=== PATIENT | female | born 1985 | race American Indian/Alaskan Native ===

== ENCOUNTER → 2021-01-03 08:10 | Outpatient (BNVA) | payer OTHER, SELFPAY | PROVIDERS: PCP Internal Medicine; Visit Provider Surgery ==

== ENCOUNTER → 2021-01-06 14:37 | Outpatient (BNVA) | payer OTHER, SELFPAY | PROVIDERS: PCP Internal Medicine; Visit Provider Physician Assistant ==

== ENCOUNTER → 2021-01-07 08:08 | Outpatient (BNVA) | payer OTHER, SELFPAY | PROVIDERS: PCP Internal Medicine; Visit Provider Surgery ==

== ENCOUNTER 2021-01-10 10:34 | Outpatient (REF) | payer OTHER, SELFPAY ==
[2021-01-11 13:31] LABS: H Pylori Breath Test DETECTED (NOT DETECTED)
== END 2021-01-10 10:35 | disposition home or self-care (01) ==
LOC: HO.LNP 10:34
PROVIDERS: PCP Internal Medicine; Visit Provider Physician Assistant
DX: E66.01 Morbid (severe) obesity due to excess calories (principal); G47.30 Sleep apnea, unspecified; J45.909 Unspecified asthma, uncomplicated; K21.9 Gastro-esophageal reflux disease without esophagitis
CPT/HCPCS: 83013; 99211

== ENCOUNTER 2021-01-27 09:59 | Outpatient (REF) | payer OTHER, SELFPAY ==
--- NOTE | ~2021-01-27 | XR_ITS ---
EXAMINATION: XR CHEST CLINICAL INFORMATION: Moderate/severe obesity due to excess calories COMPARISON: Chest 01/22/2018 TECHNIQUE: 2 views of the chest were obtained. FINDINGS: The lungs are well-expanded and clear of acute process. The heart size and pulmonary vascularity is normal. XR/XR chest 2V IMPRESSION: Unremarkable chest exam.
[2021-01-27 10:52] LABS: MANUAL DIFF FLAG NO
[2021-01-27 10:59] LABS: Basophils Percent Auto 0.3 % (0-2); Eosinophils Absolute Auto 0.2 X10*3/uL (0.0-0.4); Eosinophils Percent Auto 2.8 % (0-4); Hematocrit 29.4 % (37-47); Hemoglobin 8.2 g/dl (12.0-16.0); Imm Gran Abs Auto 0.02 X10*3/uL (0.00-0.03); Imm Gran Pct Auto 0.3 % (0.0-0.4); Lymphocytes Percent Auto 26.1 % (20-40); Mean Corpuscular HGB Conc 27.9 g/dl (31.0-35.0); Mean Corpuscular Hemoglobin 19.3 pg (27.0-33.0); Mean Corpuscular Volume 69.2 fL (80-98); Mean Platelet Volume 10.4 fL (9.4-12.3); Monocytes Absolute Auto 0.5 X10*3/uL (0.1-1.2); Neutrophils Percent Auto 64.5 % (45-73); Platelet Count 455 X10*3/uL (160-400); Red Blood Count 4.25 X10*6/uL (4.20-5.50); White Blood Count 7.8 X10*3/uL (4.8-10.8)
[2021-01-27 11:04] LABS: Estimated Average Glucose 100 mg/dL; Hemoglobin A1c % 5.1 %
[2021-01-27 11:23] LABS: Alanine Aminotransferase 19 U/L (0-31); Albumin Level 3.7 g/dL (3.5-5.0); Alkaline Phosphatase 67 U/L (39-117); Anion Gap 14 (12-20); Aspartate Amino Transferase 19 U/L (5-31); Bilirubin Total 0.7 mg/dL (0.0-1.0); Blood Urea Nitrogen 10 mg/dL (9-16); C Reactive Protein 0.91 mg/dL (< or = 0.50); Calcium 7.6 mg/dL (8.4-10.2); Carbon Dioxide 24 mmol/L (22-29); Chloride 106 mmol/L (96-108); Cholesterol 177 mg/dL; Estimated Glomerular Filt Rate > 60; Glucose Random 88 mg/dL (60-115); HDL Cholesterol 51 mg/dL; Iron 20 mcg/dL (30-160); LDL Cholesterol Calculated 99 mg/dl; Percent Iron Saturation 5 % (15-50); Sodium 140 mmol/L (135-145); Total Iron Binding Capacity 428 mcg/dL (228-428); Total Protein 7.1 g/dL (6.5-8.0); Triglycerides 135 mg/dL; Unsaturated Iron Binding 408 ug/dL
[2021-01-27 11:44] LABS: Ferritin 2 ng/mL (10-122); TSH reflex Free T4 2.04 uIU/mL (0.32-4.0); Vitamin D 25-OH Total 16.8 ng/mL (>30)
[2021-01-27 11:52] LABS: Folate 9.7 ng/mL (> or = 4.0); Vitamin B12 < 146 pg/mL (200-900)
[2021-01-28 09:21] LABS: Insulin Level Total 10.2 uIU/mL
[2021-01-28 13:22] LABS: Calcium (PTHI) 7.6 mg/dL (8.6-10.2); PTHI 52 pg/mL (14-64)
[2021-01-29 16:06] LABS: Zinc 58 mcg/dL (60-130)
[2021-01-31 10:51] LABS: Vitamin B1 7 nmol/L (8-30)
[2021-01-31 16:57] LABS: Vitamin A 46 mcg/dL (38-98)
== END 2021-01-27 10:00 | disposition home or self-care (01) ==
LOC: HO.LAB 09:59
PROVIDERS: PCP Internal Medicine; Visit Provider Surgery
DX: E66.01 Morbid (severe) obesity due to excess calories (principal); G47.30 Sleep apnea, unspecified; J45.909 Unspecified asthma, uncomplicated; K21.9 Gastro-esophageal reflux disease without esophagitis
CPT/HCPCS: 36415; 71046; 80053; 80061; 82306; 82607; 82728; 82746; 83036; 83525; 83540; 83970; 84425; 84443; 84590; 84630; 85025; 86140

== ENCOUNTER → 2021-01-29 08:26 | Outpatient (BNVA) | payer OTHER, SELFPAY | PROVIDERS: PCP Internal Medicine; Visit Provider Surgery ==

== ENCOUNTER → 2021-02-03 08:26 | Outpatient (BNVA) | payer OTHER, SELFPAY | PROVIDERS: PCP Internal Medicine; Visit Provider Dietitian, Registered | DX: E66.01 Morbid (severe) obesity due to excess calories (principal); Z68.43 Body mass index [BMI] 50.0-59.9, adult | CPT/HCPCS: 97802 ==

== ENCOUNTER 2021-02-10 16:28 | Outpatient (REF) | payer OTHER, SELFPAY | END 2021-02-10 16:29 | disposition home or self-care (01) | LOC: HO.LNP 16:28 | PROVIDERS: Visit Provider Hospitalist | DX: R30.0 Dysuria (principal) | CPT/HCPCS: 87086; 87088; 87186 ==

== ENCOUNTER → 2021-02-12 09:49 | Outpatient (BNVA) | payer OTHER, SELFPAY | PROVIDERS: PCP Internal Medicine; Visit Provider Advanced Practice Midwife | DX: N92.0 Excessive and frequent menstruation with regular cycle (principal); D64.9 Anemia, unspecified; E66.01 Morbid (severe) obesity due to excess calories; N93.9 Abnormal uterine and vaginal bleeding, unspecified; L68.0 Hirsutism | CPT/HCPCS: 99202 ==

== ENCOUNTER 2021-02-17 08:58 | Outpatient (REF) | payer OTHER, SELFPAY ==
--- NOTE | ~2021-02-17 | US_ITS ---
EXAMINATION: US COMPLETE ABDOMEN WITH LIVER ELASTOGRAPHY CLINICAL INFORMATION: Morbid (severe) obesity due to excess calories. COMPARISON: None. TECHNIQUE: Real-time imaging of the abdominal viscera. Noninvasive ultrasound liver fibrosis assessment is performed using Harjinder ElastPQ point quantification shear wave elastography (pSWE) with a C5-2 MHz transducer. Multiple elastography samples are obtained. FINDINGS: PANCREAS: The visualized pancreatic head and body are normal in appearance. The remainder of the pancreas is obscured from visualization by the overlying bowel gas. ABDOMINAL AORTA: The proximal and middle aortic segments are normal in caliber. The distal abdominal aorta is not well visualized due to bowel gas. INFERIOR VENA CAVA: Visualized portions are normal. LIVER: Liver echotexture is increased. The liver is slightly enlarged. The liver is normal in contour. No focal liver lesion or biliary duct dilatation. The right lobe measures 18 cm in length. The left lobe measures 15 cm in length. Portal flow is normal/hepatopedal. Shear wave liver elastography median stiffness is 2.1 m/s (reference: normal median stiffness is 1.3 m/s or less). IQR/median stiffness to assess sampling precision is 0.2 (reference: good quality data set is IQR/median stiffness of 0.15 or less). GALLBLADDER: Surgically removed. COMMON BILE DUCT: Normal in caliber measuring 0.7 cm in diameter. RIGHT KIDNEY: Normal. No hydronephrosis. No renal calculi or focal parenchymal lesions. The kidney measures 13 cm in maximum dimension. LEFT KIDNEY: Normal. No hydronephrosis. No renal calculi or focal parenchymal lesions. The kidney measures 12.8 cm in maximum dimension. SPLEEN: Normal. The spleen measures 8.9 cm in maximum dimension. There is a 3.8 x 3.2 x 3 cm splenule. FREE FLUID: None. US/US abdomen comp w elastography IMPRESSION: 1. Slightly enlarged echogenic liver. Limited visualization of the pancreas. 2. Liver elastography: Limited due to sampling error. Exam suggest possible compensated advanced chronic liver disease. REFERENCE: Society of Radiologists in Ultrasound Liver Stiffness Thresholds (2019): LIVER STIFFNESS THRESHOLDS: *Liver Stiffness equal or less than 1.3 m/s: High probability of being normal. *Liver Stiffness less than 1.7 m/s: In the absence of other known clinical signs, rules out compensated advanced chronic liver disease. *Liver Stiffness 1.7-2.1 m/s: Suggestive of compensated advanced chronic liver disease but need further test for confirmation. *Liver Stiffness over 2.1 m/s: Rules in compensated advanced chronic liver disease. *Liver Stiffness over 2.4 m/s: Suggestive of clinically significant portal hypertension. QUALITY OF DATA SET: *IQR/Median value equal or less than 0.15 implies a quality data set. *IQR/Median value over 0.15 implies a poor quality data set. SIGNIFICANT CHANGE FROM PRIOR EXAM: Significant change if liver stiffness measurement is 10% or greater from prior exam. OTHER CONSIDERATIONS: The stage of liver fibrosis may be overestimated in the setting of acute hepatitis, liver inflammation, elevated liver function tests, hepatic vascular congestion, obstructive cholestasis, non-fasting state, and infiltrative diseases such as amyloidosis and lymphoma. In some patients with NAFLD, the liver stiffness thresholds for compensated advanced chronic liver disease may be lower. In causes other than viral hepatitis and NAFLD, liver stiffness thresholds are not well established.
--- NOTE | ~2021-02-17 | FL_ITS ---
EXAMINATION: XR GI SERIES CLINICAL INFORMATION: Moderate to severe obesity. COMPARISON: None TECHNIQUE: Routine upper GI air-contrast study was performed. FINDINGS: On oral administration of thick barium and effervescent granules there is normal propagation bolus from the oral cavity through the pharynx, esophagus into stomach without any evidence of obstruction, narrowing or stricture. On placing patient supine and prone lying the course, caliber and peristalsis of the stomach and the duodenal bulb is normal. There is [id number] gastroesophageal reflux without hiatal hernia. The course, caliber and peristalsis of stomach, duodenal bulb and sweep is normal. The mucosal pattern of stomach and the duodenum is normal. FLUOROSCOPY TIME: 2.6 minutes DOSE AREA PRODUCT: 67.871 uGy-m2 (microgray-meter squared) FL/FL upper GI series IMPRESSION: [id number] gastroesophageal reflux. Otherwise rest of upper GI exam is unremarkable.
[2021-02-17 11:37] LABS: HCG Quantitative < 2 mIU/mL
[2021-02-18 08:51] LABS: DHEA Sulfate 92 mcg/dL (23-266)
[2021-02-18 12:06] LABS: Prolactin 6.7 ng/mL
[2021-02-22 10:57] LABS: Testosterone, Free 2.4 pg/mL (0.1-6.4); Testosterone, Total 26 ng/dL (2-45)
== END 2021-02-17 08:59 | disposition home or self-care (01) ==
LOC: HO.US 08:58
PROVIDERS: Advanced Practice Midwife; PCP Internal Medicine; Visit Provider Surgery
DX: Z01.818 Encounter for other preprocedural examination (principal); E66.01 Morbid (severe) obesity due to excess calories; K21.9 Gastro-esophageal reflux disease without esophagitis; G47.30 Sleep apnea, unspecified; J45.909 Unspecified asthma, uncomplicated; N92.0 Excessive and frequent menstruation with regular cycle; N93.9 Abnormal uterine and vaginal bleeding, unspecified
CPT/HCPCS: 36415; 74240; 76705; 76981; 82627; 83498; 84146; 84402; 84403; 84702

== ENCOUNTER 2021-02-21 08:16 | Outpatient (REF) | payer OTHER, SELFPAY ==
[2021-02-22 14:31] LABS: H Pylori Breath Test NOT DETECTED (NOT DETECTED)
== END 2021-02-21 08:17 | disposition home or self-care (01) ==
LOC: HO.LNP 08:16
PROVIDERS: PCP Internal Medicine; Visit Provider Surgery
DX: E66.01 Morbid (severe) obesity due to excess calories (principal); Z68.43 Body mass index [BMI] 50.0-59.9, adult; Z71.3 Dietary counseling and surveillance
CPT/HCPCS: 83013; 99211

== ENCOUNTER 2021-02-24 11:12 | Outpatient (REF) | payer OTHER, SELFPAY ==
--- NOTE | ~2021-02-24 | US_ITS ---
EXAMINATION: US PELVIS AND TRANSVAGINAL CLINICAL INFORMATION: Abnormal uterine and vaginal bleeding. COMPARISON: None TECHNIQUE: Transabdominal and transvaginal imaging of pelvis is performed. FINDINGS: The uterus is retroverted and anteflexed measuring 11.2 cm in length, 4.5 cm in AP and 6.0 cm in transverse dimension. The endometrial thickness is 0.8 cm. Right ovary measures 4.0 x 2.4 x 2.4 cm and volume 12.1 mL. There is an anechoic cyst with septation measuring 1.9 x 1.6 x 1.5 cm. A simple cyst measures 0.9 x 0.5 x 1.1 cm. Left ovary measures 2.3 x 2.1 x 1.6 cm and volume 4.1 mL. There are small follicles seen. There is no free fluid in the cul-de-sac. US/US pelvic and transvaginal IMPRESSION: Unremarkable uterus. Complex cyst and a simple exophytic cyst right ovary.
== END 2021-02-24 11:13 | disposition home or self-care (01) ==
LOC: HO.US 11:12
PROVIDERS: Visit Provider Advanced Practice Midwife
DX: N93.9 Abnormal uterine and vaginal bleeding, unspecified (principal)
CPT/HCPCS: 76830; 76856; 97803

== ENCOUNTER → 2021-03-11 12:47 | Outpatient (BNVA) | payer OTHER, SELFPAY | PROVIDERS: PCP Internal Medicine; Visit Provider Dietitian, Registered ==

== ENCOUNTER 2021-03-12 07:47 | Outpatient (REF) | payer OTHER, SELFPAY ==
--- NOTE | 2021-03-03 10:33 | MHC.HEMONCMA ---
Second attempt for letting patient know of her new date/time for IV Dextran. Will attempt later today.
== END 2021-03-12 07:48 | disposition home or self-care (01) ==
LOC: HO.MDS 07:47
PROVIDERS: PCP Internal Medicine; Visit Provider Internal Medicine
DX: D50.9 Iron deficiency anemia, unspecified (principal)
CPT/HCPCS: 96374; 96375; J1200; J1750

== ENCOUNTER → 2021-03-13 11:56 | Outpatient (BNVA) | payer OTHER, SELFPAY | PROVIDERS: PCP Internal Medicine; Visit Provider Advanced Practice Midwife ==

== ENCOUNTER → 2021-03-18 08:03 | Outpatient (BNVA) | payer OTHER, SELFPAY | PROVIDERS: PCP Internal Medicine; Visit Provider Surgery ==

== ENCOUNTER 2021-04-07 12:49 | Outpatient (REF) | payer OTHER, SELFPAY ==
[2021-04-08 04:07] LABS: CT PCR NOT DETECTED (Not Detect.); NG PCR NOT DETECTED (Not Detect.)
[2021-04-08 09:23] LABS: BV Int Neg Control Negative (Negative); BV Int Pos Control Positive (Positive)
[2021-04-11 10:46] LABS: HPV 16 RNA NOT DETECTED (NOT DETECTED); HPV mRNA E6/E7 rflx Detected (Not Detected)
== END 2021-04-07 12:50 | disposition home or self-care (01) ==
LOC: HO.LAB 12:49
PROVIDERS: PCP Internal Medicine; Visit Provider Advanced Practice Midwife
DX: Z01.411 Encounter for gynecological examination (general) (routine) with abnormal findings (principal); Z11.3 Encounter for screening for infections with a predominantly sexual mode of transmission; Z11.51 Encounter for screening for human papillomavirus (HPV); R10.2 Pelvic and perineal pain; N92.0 Excessive and frequent menstruation with regular cycle; Z20.2 Contact with and (suspected) exposure to infections with a predominantly sexual mode of transmission; N89.8 Other specified noninflammatory disorders of vagina; N83.201 Unspecified ovarian cyst, right side; E66.01 Morbid (severe) obesity due to excess calories
CPT/HCPCS: 58100; 81025; 87480; 87491; 87510; 87591; 87624; 87625; 87660; 88142

== ENCOUNTER 2021-04-28 15:08 | Outpatient (REF) | payer OTHER, SELFPAY ==
[2021-04-28 17:48] LABS: HCG Quantitative < 2 mIU/mL; TSH reflex Free T4 1.19 uIU/mL (0.32-4.0)
[2021-04-29 12:41] LABS: CA-125 5 U/mL (<35)
== END 2021-04-28 15:09 | disposition home or self-care (01) ==
LOC: HO.LAB 15:08
PROVIDERS: Visit Provider Obstetrics & Gynecology
DX: N93.9 Abnormal uterine and vaginal bleeding, unspecified (principal); N83.299 Other ovarian cyst, unspecified side; B37.3 Candidiasis of vulva and vagina; R87.619 Unspecified abnormal cytological findings in specimens from cervix uteri
CPT/HCPCS: 36415; 58100; 84443; 84702; 86304; 88142; 88305; 99212

== ENCOUNTER → 2021-05-01 14:44 | Outpatient (BNVA) | payer OTHER, SELFPAY | PROVIDERS: Visit Provider Advanced Practice Midwife ==

== ENCOUNTER → 2021-05-05 11:51 | Outpatient (BNVA) | payer OTHER, SELFPAY | PROVIDERS: Visit Provider Obstetrics & Gynecology ==

== ENCOUNTER 2021-07-07 15:20 | Outpatient (REF) | payer OTHER, SELFPAY ==
--- NOTE | ~2021-07-07 | US_ITS ---
EXAMINATION: US PELVIS CLINICAL INFORMATION: Pelvic pain. Follow up right ovarian cyst. COMPARISON: None TECHNIQUE: Ultrasound of the pelvis is performed using both transabdominal and transvaginal transducers along with Doppler. Transvaginal imaging is performed due to inadequate visualization transabdominally. FINDINGS: UTERUS: The uterus is retroverted, anteflexed and measures 10.33 x 4.5 x 4.8 cm. The double wall endometrial thickness is 0.88 mm. The uterus is smooth in contour and has normal myometrial echogenicity. No visible fibroid. ADNEXA: Both ovaries are visualized. There is normal color flow to the adnexa. There is no ovarian torsion. There is no pelvic ascites or fluid collection. Right ovary measures 2.1 x 1.8 x 2.2 cm. Volume 4.3 mL. Left ovary measures 4.5 x 2.9 x 3.9 cm. Volume 26.6 mL. There is an anechoic cyst with septations measuring 2.8 x 2.0 x 2.4 cm. There is a small amount of free fluid seen within the endometrial canal. US/US pelvic and transvaginal IMPRESSION: Small complex cyst left ovary. Unremarkable right ovary and uterus.
== END 2021-07-07 15:21 | disposition home or self-care (01) ==
LOC: HO.HMGCX 15:20
PROVIDERS: PCP Internal Medicine; Visit Provider Advanced Practice Midwife
DX: R10.2 Pelvic and perineal pain (principal); N83.201 Unspecified ovarian cyst, right side
CPT/HCPCS: 76830; 76856

== ENCOUNTER 2021-07-15 15:14 | Outpatient (REF) | payer OTHER, SELFPAY ==
[2021-07-15 18:25] LABS: Hematocrit 29.3 % (37-47); Hemoglobin 8.4 g/dl (12.0-16.0); Mean Corpuscular HGB Conc 28.7 g/dl (31.0-35.0); Mean Corpuscular Hemoglobin 19.8 pg (27.0-33.0); Mean Corpuscular Volume 68.9 fL (80-98); Mean Platelet Volume 10.5 fL (9.4-12.3); Platelet Count 436 X10*3/uL (160-400); Red Blood Count 4.25 X10*6/uL (4.20-5.50); Red Cell Distribution Width 18.5 % (11.0-16.0); White Blood Count 11.6 X10*3/uL (4.8-10.8)
[2021-07-16 09:21] LABS: CT PCR NOT DETECTED (Not Detect.); NG PCR NOT DETECTED (Not Detect.)
[2021-07-17 01:06] LABS: CA-125 6 U/mL (<35)
== END 2021-07-15 15:15 | disposition home or self-care (01) ==
LOC: HO.LAB 15:14
PROVIDERS: PCP Internal Medicine; Visit Provider Obstetrics & Gynecology
DX: R10.2 Pelvic and perineal pain (principal); N93.9 Abnormal uterine and vaginal bleeding, unspecified; N83.291 Other ovarian cyst, right side; E66.01 Morbid (severe) obesity due to excess calories; J45.901 Unspecified asthma with (acute) exacerbation; G47.33 Obstructive sleep apnea (adult) (pediatric); R87.619 Unspecified abnormal cytological findings in specimens from cervix uteri; Z11.8 Encounter for screening for other infectious and parasitic diseases; Z11.3 Encounter for screening for infections with a predominantly sexual mode of transmission; Z13.29 Encounter for screening for other suspected endocrine disorder; Z68.43 Body mass index [BMI] 50.0-59.9, adult; Z88.8 Allergy status to other drugs, medicaments and biological substances; Z99.89 Dependence on other enabling machines and devices
CPT/HCPCS: 36415; 85027; 86304; 87491; 87591; 99212

== ENCOUNTER 2021-07-15 16:06 | Outpatient (REF) | payer OTHER, SELFPAY | END 2021-07-15 16:07 | disposition home or self-care (01) | LOC: HO.LAB 16:06 | PROVIDERS: PCP Internal Medicine; Visit Provider Obstetrics & Gynecology | DX: Z13.89 Encounter for screening for other disorder (principal) ==

== ENCOUNTER → 2021-08-04 14:27 | Outpatient (BNVA) | payer OTHER, SELFPAY | PROVIDERS: Visit Provider Obstetrics & Gynecology ==

== ENCOUNTER 2021-08-05 15:07 | Emergency (ER) | payer OTHER, SELFPAY ==
[2021-08-05 15:21] VITALS: BP 203/99; PULSE 80; RESP 20; TEMP 36.4; O2SAT 95; BMI 44.2
[2021-08-05 15:42] VITALS: BP 178/92; PULSE 71; RESP 18; TEMP 36.8; O2SAT 99
[2021-08-05 15:50] LABS: COVID-19 Test Negative (Negative); IDNOW Serial# 9DD0AD1C
--- NOTE | 2021-08-05 16:31 | ED.ASTHMA ---
HPI - Asthma General Chief Complaint: Asthma Stated Complaint: asthma, sent by PCP Time Seen by Provider: 08/05/21 15:36 History of Present Illness HPI Narrative: Patient is a 36-year-old female with a history of asthma. Presented today with having wheezing. Patient has not been admitted to the hospital for the last 2 years. There has been no change in her environment. She has been fully immunized for COVID. Complaining of wheezing. Patient was seen last week for the same. Given steroids. Symptom improved. But as the steroid were off. Patient symptom has worsened again. She does not think she is . No nausea no vomiting. No diarrhea. No rash. Positive wheezing. Positive coughing Related Data Previous Rx's Medication Instructions Recorded albuterol sulfate 90 mcg/actuation 1 inh INHALATION Q4-6H PRN 30 Days 03/24/21 breath activated powder inhaler #1 ea (ProAir RespiClick) cholecalciferol (vitamin D3) 125 125 mcg PO DAILY #30 cap 03/24/21 mcg (5,000 unit) capsule omeprazole 40 mg capsule,delayed 40 mg PO DAILY 90 Days #90 cap 03/24/21 release thiamine HCl (vitamin B1) 100 mg 100 mg PO DAILY #30 tab 03/24/21 tablet terconazole 0.8 % vaginal cream 1 appful VAGINAL BEDTIME 3 Days 04/28/21 #20 g ferrous sulfate 325 mg (65 mg 325 mg PO TID #90 tab 05/01/21 iron) tablet albuterol sulfate 90 mcg/actuation 1 inh INHALATION Q4-6H PRN #8.5 g 06/30/21 aerosol inhaler (Ventolin HFA) amoxicillin 875 mg-potassium 1 tab PO BID #20 tab 06/30/21 clavulanate 125 mg tablet (Augmentin) prednisone 20 mg tablet 20 mg PO .COMPLEX #18 tab 06/30/21 prednisone 20 mg tablet 40 mg PO DAILY #10 tab 08/05/21 Allergies Allergy/AdvReac Type Severity Reaction Status Date / Time dextran 40 AdvReac Intermediate Hypertensio Verified 06/30/21 16:12 n iron dextran complex AdvReac Intermediate Hypertensio Verified 06/30/21 16:12 n Review of Systems Review of Systems: Positive cough positive wheezing All systems reviewed otherwise negative Yes all other systems are reviewed and are negative PMFSH Past Medical History Attestation statement: The following information was validated with the patient. Source: unable to obtain Medical History Anxiety Asthma Asthma exacerbation Back pain Depression GERD (gastroesophageal reflux disease) Knee pain Lower extremity edema Morbid obesity Right ovarian cyst Sleep apnea with use of continuous positive airway pressure (CPAP) Surgical History Hx of section Hx of cholecystectomy Family History Family History Mother Diabetes Hyperlipidemia Father No problems noted. Brother No problems noted. Brother No problems noted. Sister No problems noted. Sister Lupus Son No problems noted. Daughter No problems noted. Social History Social History Housing: Apartment Alcohol intake: current Alcohol intake frequency: holidays/special occasions only Patient Tobacco Use Status: Never used Tobacco e-Cigarette/Vaping Use: Never Used Second Hand Smoke Exposure: No Advance Directives: No Advance Directives Information Provided: Yes Patient : No service: No Current occupational status: unemployed Physical Exam Vital Signs: Vital Signs: Last Vital Signs Temp 98.2 F 08/05/21 15:42 Pulse 67 08/05/21 16:43 Resp 22 H 08/05/21 16:37 BP 178/92 H 08/05/21 15:42 Pulse Ox 100 08/05/21 16:37 Body Mass Index 44.2 Appearance: Alert. Oriented X3. No acute distress. Eyes: Pupils equal, round and reactive to light. ENT: Pharynx normal. Neck: Normal inspection. Neck supple. No lymph nodes noted. No crepitus CVS: Normal heart rate and rhythm. Pulses normal. Normal S1 and S2 Respiratory: Positive expiratory wheezing bilaterally Abdomen: Soft and nontender. No rigidity. No distention. good BS x4 Skin: Skin warm and dry. Normal skin color. Normal skin turgor. Extremities: No lower extremity edema. Neurovascular intact to all extremities. No Lacerations. No Rash Neuro: Oriented X 3. No motor deficit. No sensory deficit. Moving all extermities. No slurred speech MDM - Asthma MDM Narrative Medical decision making narrative: Patient given a continuous neb here in the emergency department. Given steroids. Monitor in the emergency department. Patient's COVID test was negative. After the 7.5 mg of albuterol patient still have a slight wheeze. O2 sat is 100% but moving good amount air. Will discharge patient home close follow-up on an outpatient basis will give patient a dose of steroid. She is currently in stable condition. Worsening condition return. In stable condition Lab Data Labs: Lab Results 08/05/21 Range/Units 15:27 COVID-19 (ERNIE) Negative (Negative) COVID-19 Clin Com See Note Discharge Plan Discharge Clinical Impression: Asthma, Asthma with acute exacerbation Patient Disposition: Home, Self-Care Instructions: Asthma (ED) Prescriptions: New prednisone 20 mg tablet 40 mg PO DAILY Qty: 10 RF: 0 No Action cholecalciferol (vitamin D3) 125 mcg (5,000 unit) capsule 125 mcg PO DAILY Qty: 30 RF: 2 ProAir RespiClick 90 mcg/actuation aerosol powdr breath activated 1 inh inhalation Q4-6H PRN (Reason: shortness of breath or wheezing) 30 Days Qty: 1 RF: 6 omeprazole 40 mg capsule,delayed release(DR/EC) 40 mg PO DAILY 90 Days Qty: 90 RF: 1 thiamine HCl (vitamin B1) 100 mg tablet 100 mg PO DAILY Qty: 30 RF: 1 albuterol sulfate [Ventolin HFA] 90 mcg/actuation HFA aerosol inhaler 1 inh inhalation Q4-6H PRN (Reason: shortness of breath or wheezing) Qty: 8.5 RF: 0 amoxicillin-pot clavulanate [Augmentin] 875-125 mg tablet 1 tab PO BID Qty: 20 RF: 0 prednisone 20 mg tablet 20 mg PO .COMPLEX Qty: 18 RF: 0 terconazole 0.8 % cream 1 appful vaginal BEDTIME 3 Days Qty: 20 RF: 0 ferrous sulfate 325 mg (65 mg iron) tablet 325 mg PO TID Qty: 90 RF: 5 Referrals: Jacqueline Wilkinson MD [Primary Care Provider] - 2 days
[2021-08-05] MEDS: predniSONE 20 MG TABLET 60 MG PO (16:36)
[2021-08-05 16:37] VITALS: PULSE 83; RESP 22; O2SAT 100
[2021-08-05] MEDS: Albuterol Sulfate (0.083%) 2.5 MG/3 ML VIAL.NEB 7.5 MG INHALE (16:42)
[2021-08-05 16:43] VITALS: PULSE 67; O2SAT 100
[2021-08-05 18:22] VITALS: O2SAT 98
== END 2021-08-05 18:29 | disposition home or self-care (01) ==
PROVIDERS: Emergency Provider Emergency Medicine Emergency Medical Services; PCP Internal Medicine
DX: J45.901 Unspecified asthma with (acute) exacerbation (principal); Z20.822 Contact with and (suspected) exposure to COVID-19
CPT/HCPCS: 36415; 87635; 94640; 94644; 99284

== ENCOUNTER → 2021-10-02 09:28 | Outpatient (BNVA) | payer OTHER, SELFPAY | PROVIDERS: PCP Internal Medicine; Visit Provider Obstetrics & Gynecology | DX: N83.299 Other ovarian cyst, unspecified side (principal); N93.9 Abnormal uterine and vaginal bleeding, unspecified | CPT/HCPCS: 99212 ==

== ENCOUNTER 2021-10-15 12:05 | Outpatient (REF) | payer OTHER, SELFPAY ==
[2021-10-15 14:23] LABS: Binax Internal Control QC Valid; Binax Now Covid-19 Ag Positive (Negative)
== END 2021-10-15 12:06 | disposition home or self-care (01) ==
LOC: HO.LAB 12:05
PROVIDERS: Visit Provider Internal Medicine
DX: Z20.822 Contact with and (suspected) exposure to COVID-19 (principal)
CPT/HCPCS: 36415; C9803

== ENCOUNTER 2022-01-24 13:38 | Emergency (ER) | payer OTHER, SELFPAY ==
--- NOTE | ~2022-01-24 | XR_ITS ---
EXAMINATION: XR KNEE, RIGHT CLINICAL INFORMATION: Right knee pain COMPARISON: None TECHNIQUE: Four views of the right knee. FINDINGS: Normal alignment. No fracture. Mild enthesopathy of the patella and tibial tubercle. No joint space narrowing. Small marginal osteophytes in the medial and lateral compartments. No joint effusion. XR/XR knee RT 3V IMPRESSION: No fracture. Mild degenerative findings. No joint effusion.
[2022-01-24 13:52] VITALS: BP 190/103; PULSE 74; RESP 20; TEMP 36.4; O2SAT 99; BMI 55.7
[2022-01-24] MEDS: Ketorolac Tromethamine 30 MG/ML VIAL IM (15:12)
[2022-01-24] MEDS: Lidocaine 4 % Patch ADH..PATCH 1 PATCH TRANSDERMA (15:12)
[2022-01-24] MEDS: diazePAM 2 MG TABLET PO (15:13)
[2022-01-24 16:14] VITALS: BP 187/114; PULSE 89; RESP 20; O2SAT 98
--- NOTE | 2022-01-24 16:17 | ED_ITS ---
HPI - Back Pain/Injury General Chief Complaint: Back Pain/Injury Stated Complaint: neck shoulder r knee pain Time Seen by Provider: 01/24/22 14:48 Source: patient Mode of arrival: ambulatory History of Present Illness HPI Narrative: 36-year-old female with a past medical history of anxiety, asthma, back pain, GERD, obesity, sleep apnea, presenting to the ED complaining 2 days of neck and back pain, and acute on chronic atraumatic right knee pain. Reports neck stiffness secondary to pain, pain worse with movement. Denies known injury, trauma, fall, numbness, tingling, urinary incontinence/retention, fever, CP/SOB, headache, lightheadedness/dizziness. Denies taking antihypertensives. MD elicited complaint: back pain Onset (ago): day(s) Related Data Previous Rx's Medication Instructions Recorded albuterol sulfate 0.63 mg/3 mL 0.63 mg (3 mL) INHALATION Q6-8H 09/18/21 solution for nebulization PRN #75 ml albuterol sulfate 90 mcg/actuation 1 inh INHALATION Q4-6H PRN #8.5 g 09/18/21 aerosol inhaler (Ventolin HFA) cetirizine 10 mg tablet (Allergy 10 mg PO DAILY #90 tab 09/18/21 Relief (cetirizine)) fluticasone 250 mcg-salmeterol 50 1 inh INHALATION BID #60 ea 09/18/21 mcg/dose blistr powdr for inhalation (Advair Diskus) nebulizer accessories #1 ea 09/18/21 nebulizer and compressor #1 ea 09/18/21 omeprazole 40 mg capsule,delayed 40 mg PO DAILY 90 Days #90 cap 09/18/21 release thiamine HCl (vitamin B1) 100 mg 100 mg PO DAILY #30 tab 09/18/21 tablet norethindrone (contraceptive) 0.35 0.35 mg PO DAILY #84 tab 10/02/21 mg tablet acetaminophen 500 mg tablet 500 mg PO Q6H PRN #20 tab 01/24/22 (Tylenol Extra Strength) amlodipine 5 mg tablet (Norvasc) 5 mg PO DAILY #30 tab 01/24/22 cyclobenzaprine 5 mg tablet 5 mg PO Q8H PRN 5 Days #14 tab 01/24/22 lidocaine 5 % topical patch 1 patch TOPICAL DAILY PRN #30 ea 01/24/22 (Lidoderm) MDD remove after 12 hours naproxen 500 mg tablet 500 mg PO BID PRN 10 Days #20 tab 01/24/22 Allergies Allergy/AdvReac Type Severity Reaction Status Date / Time dextran 40 AdvReac Intermediate Hypertensio Verified 01/24/22 13:57 n iron dextran complex AdvReac Intermediate Hypertensio Verified 01/24/22 13:57 n Review of Systems Review of Systems: Constitutional: No Fever, No Chills, No Fatigue, No Malaise ENT/Mouth: No Ear Pain, No Nasal Congestion, No sore throat, No Rhinorrhea, No Swallowing Difficulty Eyes: No Eye Pain, No Swelling, No Redness, No Vision Changes Cardiovascular: No Chest Pain, No SOB, No Edema, No Palpitations Respiratory: No Cough, No Sputum, No Dyspnea Gastrointestinal: No Nausea, No Vomiting, No Diarrhea, No Constipation, No Abdominal pain Genitourinary: No irregular bleeding, No Dysuria, No Hematuria, No Urinary Incontinence/retention Musculoskeletal: + joint pain, No Myalgias, No Joint Swelling, +neck stiffness Skin: No Skin Lesions, No rash Neuro: No Weakness, No Numbness, No Paresthesias, No Dizziness, No Headache Yes all other systems are reviewed and are negative Neurologic: Denies Sensory deficit (Neuro) [facility] Past Medical History Attestation statement: The following information was validated with the patient. Medical History Anxiety Asthma Asthma exacerbation Back pain Depression GERD (gastroesophageal reflux disease) Knee pain Lower extremity edema Morbid obesity Right ovarian cyst Sleep apnea with use of continuous positive airway pressure (CPAP) Surgical History Hx of section Hx of cholecystectomy Family History Family History Mother Diabetes Hyperlipidemia Father No problems noted. Brother No problems noted. Brother No problems noted. Sister No problems noted. Sister Lupus Son No problems noted. Daughter No problems noted. Social History Social History Housing: Apartment Alcohol intake: current Alcohol intake frequency: holidays/special occasions only Patient Tobacco Use Status: Never used Tobacco e-Cigarette/Vaping Use: Never Used Second Hand Smoke Exposure: No Advance Directives: No Advance Directives Information Provided: No service: No Current occupational status: unemployed Physical Exam Vital Signs: Vital Signs: Last Vital Signs Temp 97.5 F 01/24/22 13:52 Pulse 90 01/24/22 18:23 Resp 20 01/24/22 18:23 BP 189/96 H 01/24/22 18:23 Pulse Ox 96 01/24/22 18:23 BMI result Body Mass Index 55.7 Const: General: cooperative, healthy appearing and no acute distress Orientation/consciousness: patient oriented x3 Limitations: no limitations HEENT: Head: Yes normal to inspection and Yes atraumatic Ears: hearing grossly normal bilaterally General nose exam: Normal external nose present Face and sinus: Yes normal facial exam Eyes: General: appearance normal, both eyes and all related structures EOM: EOMs intact bilaterally Neck: Other: No midline cervical spinous tenderness. Bilateral cervical paraspinal and bilateral trapezius muscle tenderness. + tenderness elicited on bilateral turning of head Neck: Yes normal visual inspection and Yes no meningeal signs Resp: Effort & Inspection: normal respiratory effort and no respiratory distress Auscultation: clear to auscultation bilaterally Cardio: Rate: regular rate Heart sounds: S1 normal heart sound present and S2 normal heart sound present Peripheral pulses: radial pulses present and dorsalis pedis present GI: Inspection: Yes normal to inspection : General: Yes no CVA tenderness Back/Spine/Pelvis: Other: No midline thoracic/lumbar spinous tenderness. Bilateral midthoracic paraspinal tenderness reproducing subjective complaints. No CVA tenderness Back: no CVA tenderness Skin: Rashes: no rashes Wounds: no wounds Neuro: Other: Ambulating with steady gait. Strength intact throughout. No saddle anesthesia. General: patient oriented x3, gait normal, tone normal, moves all extremities, no meningeal signs, no focal motor deficits and CN's II-XI intact bilaterally Gait exam (Neuro): Normal gait present Motor exam (neuro): 5/5 motor strength present throughout Sensory Exam: No Sensory deficit (Neuro) Extrem: Other: Right knee with mild tenderness, no appreciable deformity, limited flexion secondary to pain. Neurovascular intact distally General: Yes normal to inspection Course Course Course Narrative: -patient is still in significant amount of pain after Valium and Toradol > will give p.o. Flexeril and reassess. HTN likely from pain > there is now concern patient's hypertension is chronic will obtain basic labs and EKG and give 5 mg of p.o. Norvasc. Still low suspicion for hypertensive urgency or emergency. -no leukocytosis. H&H stable. Labs otherwise unremarkable. Troponin negative. -1820--BP improved to 189/96 after Norvasc. Discussed with patient needed close follow-up with PCP. Will DC with Norvasc x1 month supply and antispasmodic medications for neck pain. Worrisome signs and symptoms discussed XR knee RT 3V IMPRESSION: No fracture. Mild degenerative findings. No joint effusion. MDM - Back Pain/Injury MDM Narrative Medical decision making narrative: 36-year-old female with a past medical history of anxiety, asthma, back pain, GERD, obesity, sleep apnea, presenting to the ED complaining 2 days of neck and back pain, and acute on chronic atraumatic right knee pain. On exam hypertensive likely from pain, NAD, no midline spinous tenderness throughout, no red flag symptoms, ambulating with steady gait. Concern for MSK pain/spasming vs strain. Low concern for meningitis/encephalitis. Low concern for hypertensive urgency/emergency, patient denies CP/SOB/headache. Plan: Pain management, BP re-check, knee x-ray Differential Diagnosis Differential diagnosis: Likely lumbar radiculopathy and thoracic back pain Medical Records Attestation: I reviewed the patient's medical records. Lab Data Attestation: I reviewed the patient's lab results. Result diagrams: 01/24/22 17:12 01/24/22 17:12 Labs: Lab Results 01/24/22 01/24/22 01/24/22 Range/Units 17:12 17:12 17:12 WBC 9.4 (4.8-10.8) X10*3/uL RBC 4.48 (4.20-5.50) X10*6/uL Hgb 8.2 L (12.0-16.0) g/dl Hct 30.1 L (37.0-47.0) % MCV 67.2 L (80.0-98.0) fL MCH 18.3 L (27.0-33.0) pg MCHC 27.2 L (31.0-35.0) g/dl RDW 19.4 H (11.0-16.0) % Plt Count 501 H (160-400) X10*3/uL MPV 10.2 (9.4-12.3) fL Immature Gran % (Auto) 0.3 (0.0-0.4) % Neut % (Auto) 61.4 (45-73) % Lymph % (Auto) 27.0 (20-40) % [place] % (Auto) 7.4 (2-11) % Eos % (Auto) 3.6 (0-4) % Baso % (Auto) 0.3 (0-2) % Lymph # (Auto) 2.5 (1.2-4.9) X10*3/uL [place] # (Auto) 0.7 (0.1-1.2) X10*3/uL Eos # (Auto) 0.3 (0.0-0.4) X10*3/uL Baso # (Auto) 0.0 (0.0-0.2) X10*3/uL Abs Immat Gran (auto) 0.03 (0.00-0.03) X10*3/uL Absolute Neuts (auto) 5.8 (2.0-8.3) x10*3/uL Absolute Nucleated RBC 0.000 (0.0-0.012) X10*3/uL Nucleated RBC % (auto) 0.0 (0.0-0.2) /100WBC Sodium 138 (135-145) mmol/L Potassium 4.4 (3.3-5.1) mmol/L Chloride 103 (96-108) mmol/L Carbon Dioxide 26 (22-29) mmol/L Anion Gap 13 (12-20) BUN 12 (9-16) mg/dL Creatinine 0.77 (0.5-1.4) mg/dL Estim Creat Clear Calc 142.5 Estimated GFR > 60 Random Glucose 87 (60-115) mg/dL Calcium 8.9 D (8.4-10.2) mg/dL Magnesium 2.2 (1.6-2.6) mg/dL Total Bilirubin 0.4 (0.0-1.0) mg/dL Direct Bilirubin < 0.2 (0.0-0.5) mg/dL AST 20 (5-31) U/L ALT 15 (0-31) U/L Alkaline Phosphatase 75 (39-117) U/L Troponin I High Sens < 3.5 (<3.5-17.0) ng/L Total Protein 7.5 (6.5-8.0) g/dL Albumin 3.9 (3.5-5.0) g/dL ECG Data Attestation: I personally reviewed and interpreted this ECG as follows: ECG interpretation date: 01/24/22 ECG interpretation time: 16:47 Interpretation: EKG sinus bradycardia rate of 57. QRS 102. QTC 436. Inverted T-wave in V1. No STEMI Discharge Plan Discharge Clinical Impression: Acute neck pain, Knee pain, Acute back pain, HTN (hypertension) Patient Disposition: Home, Self-Care Instructions: Hypertension (ED), Arthralgia (ED) Additional Instructions: Your x-rays shows degenerative changes, no fracture Your blood pressure was very elevated today in the ED, you need to start taking Norvasc daily as prescribed. You need to monitor this closely and follow up with her PCP. This puts you at risk of stroke and heart attack If you develop chest pain, headache, lightheadedness or dizziness please return to the emergency department Your pain is likely musculoskeletal Flexeril is a muscle relaxer, take at night as it makes you drowsy, do not drive, drink alcohol, or operate machinery while taking it Naproxen as an anti-inflammatory / pain medication, take with food Lidoderm patches are numbing patches, apply to painful area In addition take Tylenol at home If symptoms persist or worsen, pain becomes unbearable, you developed urinary retention or incontinence, or weakness return to the ED Prescriptions: New acetaminophen [Tylenol Extra Strength] 500 mg tablet 500 mg PO Q6H PRN (Reason: pain or fever) Qty: 20 0RF lidocaine [Lidoderm] 5 % adhesive patch,medicated 1 patch topical DAILY MDD remove after 12 hours PRN (Reason: pain) Qty: 30 0RF Rx Instructions: leave on most painful area for up to 12 hrs naproxen 500 mg tablet 500 mg PO BID PRN (Reason: pain) 10 Days Qty: 20 0RF cyclobenzaprine 5 mg tablet 5 mg PO Q8H PRN (Reason: pain (scale score 7-10)) 5 Days Qty: 14 0RF amlodipine [Norvasc] 5 mg tablet 5 mg PO DAILY Qty: 30 0RF No Action albuterol sulfate [Ventolin HFA] 90 mcg/actuation HFA aerosol inhaler 1 inh inhalation Q4-6H PRN (Reason: shortness of breath or wheezing) Qty: 8.5 1RF omeprazole 40 mg capsule,delayed release(DR/EC) 40 mg PO DAILY 90 Days Qty: 90 1RF thiamine HCl (vitamin B1) 100 mg tablet 100 mg PO DAILY Qty: 30 1RF cetirizine [Allergy Relief (cetirizine)] 10 mg tablet 10 mg PO DAILY Qty: 90 1RF fluticasone propion-salmeterol [Advair Diskus] 250-50 mcg/dose blister with d evice 1 inh inhalation BID Qty: 60 1RF (DME) nebulizer accessories Kit See Rx Instructions .Route Qty: 1 0RF Rx Instructions: As directed (DME) nebulizer and compressor Device See Rx Instructions .Route Qty: 1 0RF Rx Instructions: As directed albuterol sulfate 0.63 mg/3 mL solution for nebulization 0.63 mg inhalation Q6-8H PRN (Reason: shortness of breath or wheezing) Qty: 75 0RF norethindrone (contraceptive) 0.35 mg tablet 0.35 mg PO DAILY Qty: 84 0RF Referrals: Jacqueline Wilkinson MD [Primary Care Provider] - 2 days Interventions: ED Discharge Assessment Last Done: 01/24/22 18:46 Discharge Date/Time: 01/24/22 18:49
[2022-01-24] MEDS: Cyclobenzaprine HCl 10 MG TABLET PO (16:27)
--- NOTE | 2022-01-24 16:40 | ECG_ITS ---
Test Reason : BACK PAIN HYPERTENSION Blood Pressure : / mmHG Vent. Rate : 059 BPM Atrial Rate : 059 BPM P-R Int : 166 ms QRS Dur : 094 ms QT Int : 438 ms P-R-T Axes : 033 026 026 degrees QTc Int : 433 ms Sinus bradycardia Otherwise normal ECG When compared to the previous EKG of No significant changes seen Referred By: Xuan Doe Electronically Signed By:Ar Lopez
[2022-01-24 17:17] LABS: MANUAL DIFF FLAG NO
[2022-01-24 17:20] LABS: Basophils Percent Auto 0.3 % (0-2); Eosinophils Absolute Auto 0.3 X10*3/uL (0.0-0.4); Eosinophils Percent Auto 3.6 % (0-4); Hematocrit 30.1 % (37.0-47.0); Hemoglobin 8.2 g/dl (12.0-16.0); Imm Gran Abs Auto 0.03 X10*3/uL (0.00-0.03); Imm Gran Pct Auto 0.3 % (0.0-0.4); Lymphocytes Absolute Auto 2.5 X10*3/uL (1.2-4.9); Mean Corpuscular HGB Conc 27.2 g/dl (31.0-35.0); Mean Corpuscular Hemoglobin 18.3 pg (27.0-33.0); Mean Corpuscular Volume 67.2 fL (80.0-98.0); Mean Platelet Volume 10.2 fL (9.4-12.3); Monocytes Absolute Auto 0.7 X10*3/uL (0.1-1.2); Monocytes Percent Auto 7.4 % (2-11); Neutrophils Absolute Auto 5.8 x10*3/uL (2.0-8.3); Neutrophils Percent Auto 61.4 % (45-73); Platelet Count 501 X10*3/uL (160-400); Red Blood Count 4.48 X10*6/uL (4.20-5.50); Red Cell Distribution Width 19.4 % (11.0-16.0); White Blood Count 9.4 X10*3/uL (4.8-10.8)
[2022-01-24] MEDS: amLODIPine Besylate 5 MG TABLET PO (17:29)
[2022-01-24 17:39] LABS: Alanine Aminotransferase 15 U/L (0-31); Albumin Level 3.9 g/dL (3.5-5.0); Alkaline Phosphatase 75 U/L (39-117); Anion Gap 13 (12-20); Aspartate Amino Transferase 20 U/L (5-31); Bilirubin Direct < 0.2 mg/dL (0.0-0.5); Bilirubin Total 0.4 mg/dL (0.0-1.0); Blood Urea Nitrogen 12 mg/dL (9-16); Calcium 8.9 mg/dL (8.4-10.2); Carbon Dioxide 26 mmol/L (22-29); Chloride 103 mmol/L (96-108); Creatinine Clr Calc Pharmacy 142.5; Estimated Glomerular Filt Rate > 60; Glucose Random 87 mg/dL (60-115); Magnesium 2.2 mg/dL (1.6-2.6); Potassium 4.4 mmol/L (3.3-5.1); Sodium 138 mmol/L (135-145); Total Protein 7.5 g/dL (6.5-8.0)
[2022-01-24 17:43] LABS: Troponin-I High Sensitivity < 3.5 ng/L (<3.5-17.0)
[2022-01-24 18:23] VITALS: BP 189/96; PULSE 90; RESP 20; O2SAT 96
== END 2022-01-24 18:49 | disposition home or self-care (01) ==
PROVIDERS: Physician Assistant; Emergency Provider Emergency Medicine; PCP Internal Medicine
DX: M54.2 Cervicalgia (principal); M54.9 Dorsalgia, unspecified; G89.29 Other chronic pain; M25.561 Pain in right knee; I10 Essential (primary) hypertension; J45.909 Unspecified asthma, uncomplicated
CPT/HCPCS: 36415; 73562; 80048; 80076; 83735; 84484; 85025; 93005; 96372; 99284; J1885

== ENCOUNTER 2022-01-28 12:10 | Emergency (ER) | payer OTHER, SELFPAY ==
--- NOTE | ~2022-01-28 | XR_ITS ---
EXAMINATION: XR CHEST CLINICAL INFORMATION: Chest pain COMPARISON: 01/27/2021 and priors TECHNIQUE: Frontal view of the chest was obtained. FINDINGS: Stable lung volumes. No pneumonia, effusion or pneumothorax. Stable heart and mediastinum. No mediastinal mass or adenopathy. No overt pulmonary edema. Normal gas pattern. No rib fracture. XR/XR chest 1V IMPRESSION: No acute cardiopulmonary process.
--- NOTE | 2022-01-28 12:13 | ECG_ITS ---
Test Reason : CHEST PAIN Blood Pressure : / mmHG Vent. Rate : 078 BPM Atrial Rate : 078 BPM P-R Int : 164 ms QRS Dur : 094 ms QT Int : 408 ms P-R-T Axes : 031 014 034 degrees QTc Int : 465 ms Normal sinus rhythm Normal ECG When compared with ECG of 24-JAN-2022 16:46, No significant change was found Referred By: Generic ED Physician Electronically Signed By:ALINA MELGAR MD
[2022-01-28 12:33] VITALS: BP 131/76; PULSE 76; RESP 18; TEMP 36.6; O2SAT 98; BMI 49.4
[2022-01-28 13:08] LABS: MANUAL DIFF FLAG NO
[2022-01-28 13:10] LABS: Basophils Percent Auto 0.4 % (0-2); Eosinophils Absolute Auto 0.2 X10*3/uL (0.0-0.4); Eosinophils Percent Auto 3.1 % (0-4); Hematocrit 29.1 % (37.0-47.0); Hemoglobin 8.2 g/dl (12.0-16.0); Imm Gran Abs Auto 0.02 X10*3/uL (0.00-0.03); Imm Gran Pct Auto 0.3 % (0.0-0.4); Lymphocytes Absolute Auto 1.4 X10*3/uL (1.2-4.9); Mean Corpuscular HGB Conc 28.2 g/dl (31.0-35.0); Mean Corpuscular Hemoglobin 18.2 pg (27.0-33.0); Mean Platelet Volume 9.7 fL (9.4-12.3); Monocytes Absolute Auto 0.9 X10*3/uL (0.1-1.2); Monocytes Percent Auto 11.4 % (2-11); Neutrophils Absolute Auto 5.3 x10*3/uL (2.0-8.3); Neutrophils Percent Auto 66.8 % (45-73); Platelet Count 390 X10*3/uL (160-400); White Blood Count 7.8 X10*3/uL (4.8-10.8)
[2022-01-28 13:15] LABS: Mean Corpuscular Volume 64.7 fL (80.0-98.0)
--- NOTE | 2022-01-28 13:29 | ED.CHESTPAIN ---
HPI - Chest Pain General Chief Complaint: Chest Pain Stated Complaint: back pain, chest pain Time Seen by Provider: 01/28/22 13:29 Source: patient Limitations: no limitations History of Present Illness HPI narrative: This is a 36-year-old female who complains of a tightness over the tops of her shoulders from the base of her neck down toward her chest. She has had this for some days. The patient was seen here 4 days ago and had high blood pressure and was put on blood pressure medicine but states that the discomfort in her shoulders and chest has not gotten any better. She has had some nausea. She denies any cough or fever. She denies any feeling of shortness of breath except that she feels that she cannot take a deep enough breath sometimes. She denies any pain or swelling in her legs. She is not a smoker. Related Data Previous Rx's Medication Instructions Recorded albuterol sulfate 0.63 mg/3 mL 0.63 mg (3 mL) INHALATION Q6-8H 09/18/21 solution for nebulization PRN #75 ml albuterol sulfate 90 mcg/actuation 1 inh INHALATION Q4-6H PRN #8.5 g 09/18/21 aerosol inhaler (Ventolin HFA) cetirizine 10 mg tablet (Allergy 10 mg PO DAILY #90 tab 09/18/21 Relief (cetirizine)) fluticasone 250 mcg-salmeterol 50 1 inh INHALATION BID #60 ea 09/18/21 mcg/dose blistr powdr for inhalation (Advair Diskus) nebulizer accessories #1 ea 09/18/21 nebulizer and compressor #1 ea 09/18/21 omeprazole 40 mg capsule,delayed 40 mg PO DAILY 90 Days #90 cap 09/18/21 release thiamine HCl (vitamin B1) 100 mg 100 mg PO DAILY #30 tab 09/18/21 tablet norethindrone (contraceptive) 0.35 0.35 mg PO DAILY #84 tab 10/02/21 mg tablet acetaminophen 500 mg tablet 500 mg PO Q6H PRN #20 tab 01/24/22 (Tylenol Extra Strength) amlodipine 5 mg tablet (Norvasc) 5 mg PO DAILY #30 tab 01/24/22 cyclobenzaprine 5 mg tablet 5 mg PO Q8H PRN 5 Days #14 tab 01/24/22 lidocaine 5 % topical patch 1 patch TOPICAL DAILY PRN #30 ea 01/24/22 (Lidoderm) MDD remove after 12 hours naproxen 500 mg tablet 500 mg PO BID PRN 10 Days #20 tab 01/24/22 diazepam 5 mg tablet (Valium) 5 mg PO TID PRN #12 tab 01/28/22 naproxen 500 mg tablet 500 mg PO BID PRN #20 tab 01/28/22 Allergies Allergy/AdvReac Type Severity Reaction Status Date / Time dextran 40 AdvReac Intermediate Hypertensio Verified 01/28/22 12:36 n iron dextran complex AdvReac Intermediate Hypertensio Verified 01/28/22 12:36 n Review of Systems Review of Systems: Yes all other systems are reviewed and are negative Constitutional: Constitutional: Reports as per HPI and Denies fever(s) Eyes: Eyes: Reports as per HPI and Reports no additional eye complaints ENT: Reports system reviewed and no additional complaints, except as documented, Reports as per HPI, Denies nasal congestion, Denies nasal discharge and Denies sore throat Cardiovascular: Cardiovascular: Reports as per HPI, Denies chest pain and Denies dyspnea Respiratory: Respiratory: Reports as per HPI, Denies cough and Denies dyspnea Gastrointestinal: Gastrointestinal: Reports as per HPI, Denies abdominal pain, Denies diarrhea and Denies vomiting Musculoskeletal: Musculoskeletal: Reports no additional musculoskeletal complaints and Denies numbness Integumentary/Breasts: Skin/Breast: Reports as per HPI and Denies rash Neurologic: Reports as per HPI, Denies focal weakness and Denies numbness Psychiatric: Psychiatric: Reports no additional psychiatric complaints and Reports as per HPI Endocrine: Endocrine: Reports no additional endocrine complaints and Reports as per HPI Hematologic/Lymphatic: Hematologic/Lymphatic: Reports no additional hematologic/lymphatic complaints, Reports as per HPI and Reports other (No peripheral edema) [facility] Past Medical History Medical History Anxiety Asthma Asthma exacerbation Back pain Depression GERD (gastroesophageal reflux disease) Knee pain Lower extremity edema Morbid obesity Right ovarian cyst Sleep apnea with use of continuous positive airway pressure (CPAP) Surgical History Hx of section Hx of cholecystectomy Family History Family History Mother Diabetes Hyperlipidemia Father No problems noted. Brother No problems noted. Brother No problems noted. Sister No problems noted. Sister Lupus Son No problems noted. Daughter No problems noted. Social History Social History Housing: Apartment Alcohol intake: current Alcohol intake frequency: holidays/special occasions only Patient Tobacco Use Status: Never used Tobacco e-Cigarette/Vaping Use: Never Used Second Hand Smoke Exposure: No Advance Directives: No Advance Directives Information Provided: Yes service: No Current occupational status: unemployed Physical Exam Vital Signs: Vital Signs: Last Vital Signs Temp 97.8 F 01/28/22 12:33 Pulse 76 01/28/22 12:33 Resp 18 01/28/22 12:33 BP 131/76 01/28/22 12:33 Pulse Ox 98 01/28/22 12:33 BMI result Body Mass Index 49.4 Const: Other: Patient sitting up in a chair, no distress. Patient is morbidly obese. Tender posterior shoulders base of the neck bilaterally. Lungs clear to auscultation. Heart exam regular rate and rhythm no murmurs rubs gallops. Abdomen soft nontender nondistended. Extremities without any pitting edema. Skin is warm and dry. Neurologic patient is alert oriented nonfocal MDM - Chest Pain MDM Narrative Medical decision making narrative: Patient concerned about her hypertension, complains of pain around the base of her neck and posterior shoulders. EKG without any concerning changes. Troponin negative. Chest x-ray unremarkable. Patient's blood pressure was normal here. Patient's pain seems to be musculoskeletal. Will treat with Naprosyn and Valium. Patient follow-up with primary care physician. Lab Data Attestation: I reviewed the patient's lab results. Result diagrams: 01/28/22 13:02 01/28/22 13:02 Labs: Lab Results 01/28/22 01/28/22 01/28/22 Range/Units 13:02 13:02 13:02 WBC 7.8 (4.8-10.8) X10*3/uL RBC 4.50 (4.20-5.50) X10*6/uL Hgb 8.2 L (12.0-16.0) g/dl Hct 29.1 L (37.0-47.0) % MCV 64.7 L (80.0-98.0) fL MCH 18.2 L (27.0-33.0) pg MCHC 28.2 L (31.0-35.0) g/dl RDW 19.0 H (11.0-16.0) % Plt Count 390 (160-400) X10*3/uL MPV 9.7 (9.4-12.3) fL Immature Gran % (Auto) 0.3 (0.0-0.4) % Neut % (Auto) 66.8 (45-73) % Lymph % (Auto) 18.0 L (20-40) % [place] % (Auto) 11.4 H (2-11) % Eos % (Auto) 3.1 (0-4) % Baso % (Auto) 0.4 (0-2) % Lymph # (Auto) 1.4 (1.2-4.9) X10*3/uL [place] # (Auto) 0.9 (0.1-1.2) X10*3/uL Eos # (Auto) 0.2 (0.0-0.4) X10*3/uL Baso # (Auto) 0.0 (0.0-0.2) X10*3/uL Abs Immat Gran (auto) 0.02 (0.00-0.03) X10*3/uL Absolute Neuts (auto) 5.3 (2.0-8.3) x10*3/uL Absolute Nucleated RBC 0.000 (0.0-0.012) X10*3/uL Nucleated RBC % (auto) 0.0 (0.0-0.2) /100WBC Sodium 136 (135-145) mmol/L Potassium 4.2 (3.3-5.1) mmol/L Chloride 105 (96-108) mmol/L Carbon Dioxide 23 (22-29) mmol/L Anion Gap 12 (12-20) BUN 10 (9-16) mg/dL Creatinine 0.78 (0.5-1.4) mg/dL Estim Creat Clear Calc 149.7 Estimated GFR > 60 Random Glucose 93 (60-115) mg/dL Calcium 8.6 (8.4-10.2) mg/dL Troponin I High Sens 3.5 (<3.5-17.0) ng/L Imaging Data Chest x-ray: Radiologist's impression: No acute pathology ECG Data ECG #1: ECG interpretation date: 01/28/22 ECG interpretation time: 13:34 Interpretation: Sinus rhythm with a rate of 78. No ST elevation or depression. Normal QRS axis. Borderline poor R-wave progression. Discharge Plan Discharge Clinical Impression: Acute chest wall pain Patient Disposition: Home, Self-Care Instructions: Chest Wall Pain (ED) Additional Instructions: Use the Valium and naproxen as prescribed. Follow-up with primary care physician. Return for any new or worsened symptoms Prescriptions: New diazepam [Valium] 5 mg tablet 5 mg PO TID PRN (Reason: muscle spasm) Qty: 12 0RF naproxen 500 mg tablet 500 mg PO BID PRN (Reason: pain) Qty: 20 0RF No Action acetaminophen [Tylenol Extra Strength] 500 mg tablet 500 mg PO Q6H PRN (Reason: pain or fever) Qty: 20 0RF lidocaine [Lidoderm] 5 % adhesive patch,medicated 1 patch topical DAILY MDD remove after 12 hours PRN (Reason: pain) Qty: 30 0RF Rx Instructions: leave on most painful area for up to 12 hrs naproxen 500 mg tablet 500 mg PO BID PRN (Reason: pain) 10 Days Qty: 20 0RF cyclobenzaprine 5 mg tablet 5 mg PO Q8H PRN (Reason: pain (scale score 7-10)) 5 Days Qty: 14 0RF amlodipine [Norvasc] 5 mg tablet 5 mg PO DAILY Qty: 30 0RF albuterol sulfate [Ventolin HFA] 90 mcg/actuation HFA aerosol inhaler 1 inh inhalation Q4-6H PRN (Reason: shortness of breath or wheezing) Qty: 8.5 1RF omeprazole 40 mg capsule,delayed release(DR/EC) 40 mg PO DAILY 90 Days Qty: 90 1RF thiamine HCl (vitamin B1) 100 mg tablet 100 mg PO DAILY Qty: 30 1RF cetirizine [Allergy Relief (cetirizine)] 10 mg tablet 10 mg PO DAILY Qty: 90 1RF fluticasone propion-salmeterol [Advair Diskus] 250-50 mcg/dose blister with device 1 inh inhalation BID Qty: 60 1RF (DME) nebulizer accessories Kit See Rx Instructions .Route Qty: 1 0RF Rx Instructions: As directed (DME) nebulizer and compressor Device See Rx Instructions .Route Qty: 1 0RF Rx Instructions: As directed albuterol sulfate 0.63 mg/3 mL solution for nebulization 0.63 mg inhalation Q6-8H PRN (Reason: shortness of breath or wheezing) Qty: 75 0RF norethindrone (contraceptive) 0.35 mg tablet 0.35 mg PO DAILY Qty: 84 0RF Interventions: ED Discharge Assessment Last Done: 01/28/22 14:04 Discharge Date/Time: 01/28/22 14:06
[2022-01-28 13:31] LABS: Anion Gap 12 (12-20); Blood Urea Nitrogen 10 mg/dL (9-16); Calcium 8.6 mg/dL (8.4-10.2); Carbon Dioxide 23 mmol/L (22-29); Chloride 105 mmol/L (96-108); Creatinine Clr Calc Pharmacy 149.7; Estimated Glomerular Filt Rate > 60; Glucose Random 93 mg/dL (60-115); Potassium 4.2 mmol/L (3.3-5.1); Sodium 136 mmol/L (135-145)
[2022-01-28 13:36] LABS: Troponin-I High Sensitivity 3.5 ng/L (<3.5-17.0)
== END 2022-01-28 14:06 | disposition home or self-care (01) ==
PROVIDERS: Emergency Provider Emergency Medicine; PCP Internal Medicine
DX: R07.89 Other chest pain (principal); J45.909 Unspecified asthma, uncomplicated
CPT/HCPCS: 36415; 71045; 80048; 84484; 85025; 93005; 99283

== ENCOUNTER → 2022-02-26 10:58 | Outpatient (BNVA) | payer OTHER, SELFPAY | PROVIDERS: PCP Internal Medicine; Visit Provider Obstetrics & Gynecology | DX: N93.9 Abnormal uterine and vaginal bleeding, unspecified (principal); N83.299 Other ovarian cyst, unspecified side | CPT/HCPCS: 81025; 99212 ==

== ENCOUNTER 2022-04-01 10:51 | Outpatient (REF) | payer OTHER, SELFPAY ==
--- NOTE | ~2022-04-01 | US_ITS ---
EXAMINATION: US PELVIS CLINICAL INFORMATION: Ovarian cyst. COMPARISON: Ultrasound pelvis 07/07/2021. TECHNIQUE: Ultrasound of the pelvis was performed using both transabdominal and transvaginal transducers along with Doppler. Transvaginal imaging was performed due to inadequate visualization transabdominally. FINDINGS: UTERUS: The uterus is retroverted and retroflexed and measures 11.4 x 5.0 x 5.5 cm in sagittal x AP x transverse dimensions. The double wall endometrial thickness is 0.9 cm. The uterus is smooth in contour and has normal myometrial echogenicity. No visible fibroid. There are small, anechoic nabothian cysts in the cervix. Minimal fluid is seen within the external os of the cervix. ADNEXA: Both ovaries are visualized. There is normal color flow to the adnexa. There is no ovarian torsion. There is no pelvic ascites or fluid collection. Right ovary measures 2.1 x 1.9 x x 2.3 cm and volume 4.8 mL. It appears unremarkable. Previously, the right ovary measured 2.1 x 1.8 x 2.2 cm and volume 4.3 mL. Left ovary is visualized transvaginally and measures 3.8 x 3.0 x 2.8 cm and volume 16.9 mL. There are 2 complex, anechoic cysts measuring 2.6 x 1.5 x 1.9 cm and 1.1 x 1.0 x 1.0 cm. The largest cyst appears more solid. US/US pelvic and transvaginal IMPRESSION: Retroverted and retroflexed uterus is unremarkable. Several anechoic nabothian cysts in the cervix with minimal fluid in the external os of the cervix. Two complex cysts in the left ovary. The second cyst appears more solid.
== END 2022-04-01 10:52 | disposition home or self-care (01) ==
LOC: HO.US 10:51
PROVIDERS: Visit Provider Obstetrics & Gynecology
DX: N83.299 Other ovarian cyst, unspecified side (principal)
CPT/HCPCS: 76830; 76856

== ENCOUNTER 2022-05-19 12:49 | Outpatient (REF) | payer OTHER, SELFPAY ==
[2022-05-20 08:53] LABS: CA-125 <3 U/mL (<35)
== END 2022-05-19 12:50 | disposition home or self-care (01) ==
LOC: HO.LAB 12:49
PROVIDERS: PCP Internal Medicine; Visit Provider Obstetrics & Gynecology
DX: Z32.02 Encounter for pregnancy test, result negative (principal); N83.299 Other ovarian cyst, unspecified side
CPT/HCPCS: 36415; 81025; 86304; 99212

== ENCOUNTER → 2022-06-02 09:28 | Outpatient (BNVA) | payer OTHER, SELFPAY | PROVIDERS: PCP Internal Medicine; Visit Provider Obstetrics & Gynecology | DX: N93.9 Abnormal uterine and vaginal bleeding, unspecified (principal) | CPT/HCPCS: 99212 ==

== ENCOUNTER 2022-09-09 15:35 | Outpatient (REF) | payer OTHER, SELFPAY ==
[2022-09-09 16:13] LABS: COVID-19 Test Negative (Negative); IDNOW Serial# 9DB6401D
== END 2022-09-09 15:36 | disposition home or self-care (01) ==
LOC: HO.LAB 15:35
PROVIDERS: Visit Provider Internal Medicine
DX: Z20.822 Contact with and (suspected) exposure to COVID-19 (principal)
CPT/HCPCS: 36415; 80048; 84484; 85379; 87635; 93005; 96374; 99284; C9803; J1885

== ENCOUNTER 2022-09-09 16:01 | Emergency (ER) | payer OTHER, SELFPAY ==
[2022-09-09 18:57] VITALS: BP 195/101; PULSE 70; RESP 16; TEMP 36.6; O2SAT 100; BMI 59.8
[2022-09-09 19:46] VITALS: BP 211/111; PULSE 66; RESP 20; TEMP 37.2; O2SAT 100
--- NOTE | 2022-09-09 20:13 | ECG_ITS ---
Test Reason : chest pain Blood Pressure : / mmHG Vent. Rate : 059 BPM Atrial Rate : 059 BPM P-R Int : 164 ms QRS Dur : 098 ms QT Int : 458 ms P-R-T Axes : 034 026 032 degrees QTc Int : 453 ms Sinus bradycardia Otherwise normal ECG When compared with ECG of 28-JAN-2022 12:19, No significant change was found Referred By: Cass Rodriguez Electronically Signed By:Ar Lopez
--- NOTE | 2022-09-09 20:13 | ED_ITS ---
HPI - URI/Sore Throat General Chief Complaint: Upper Respiratory Symptoms Stated Complaint: Chest pressure, diff breathing, asthma Time Seen by Provider: 09/09/22 19:59 Source: patient Mode of arrival: ambulatory Limitations: no limitations History of Present Illness HPI Narrative: Is a 37-year-old female history of asthma, anemia, migraine headaches presenting to the emergency department with her children requesting COVID testing. Mother tells me child battery charger conveyor line tested positive for COVID so she would like to get tested. She tells me over the past 2 days she has been experiencing some mild symptoms such as chest tightness, she contributes this to her asthma, she tells me it just feels tight however no associated pain. She tells me she is having a diffuse headache without dizziness or vision changes, no head trauma, not on blood thinners, tells me it feels like her typical. Slight discomfort to her throat. She tells me other than that she has been eating and drinking well, in good spirits. Denies shortness of breath, chest pain, vision changes, dizziness, weakness, trauma, abdominal pain, nausea and vomiting, fevers, chills Related Data Previous Rx's Medication Instructions Recorded albuterol sulfate 0.63 mg/3 mL 0.63 mg (3 mL) inhalation Q6-8H 09/18/21 solution for nebulization PRN shortness of breath or wheezing #75 mL albuterol sulfate 90 mcg/actuation 1 inh inhalation Q4-6H PRN 09/18/21 aerosol inhaler (Ventolin HFA) shortness of breath or wheezing #8.5 grams fluticasone 250 mcg-salmeterol 50 1 inh inhalation BID #60 ea 09/18/21 mcg/dose blistr powdr for inhalation (Advair Diskus) nebulizer accessories #1 ea 09/18/21 nebulizer and compressor #1 ea 09/18/21 omeprazole 40 mg capsule,delayed 40 mg PO DAILY 90 days #90 caps 09/18/21 release cyclobenzaprine 5 mg tablet 5 mg PO Q8H PRN pain (scale score 01/24/22 7-10) 5 days #14 tabs naproxen 500 mg tablet 500 mg PO BID PRN pain 10 days #20 01/24/22 tabs diazepam 5 mg tablet (Valium) 5 mg PO TID PRN muscle spasm #12 01/28/22 tabs naproxen 500 mg tablet 500 mg PO BID PRN pain #20 tabs 06/02/22 progesterone micronized 200 mg 200 mg PO BEDTIME 10 days #30 caps 06/02/22 capsule (Prometrium) lisinopril 5 mg tablet 5 mg PO DAILY #30 tabs 06/08/22 amlodipine 5 mg tablet 5 mg PO DAILY 30 days #30 tabs 09/09/22 hydrochlorothiazide 12.5 mg tablet 12.5 mg PO QAM #30 tabs 09/09/22 Allergies Allergy/AdvReac Type Severity Reaction Status Date / Time dextran 40 AdvReac Intermediate Hypertensio Verified 06/08/22 14:40 n iron dextran complex AdvReac Intermediate Hypertensio Verified 06/08/22 14:40 n Review of Systems Review of Systems: Constitutional : No Weight loss, No Fever, No Chills, + Fatigue, + Malaise ENT/Mouth : + sore throat, No Rhinorrhea Eyes: No Eye Pain, No Swelling, No Redness Cardiovascular : No Chest Pain, + SOB, No Dyspnea on Exertion, No Orthopnea, No Edema, No Palpitations, + chest tightness Respiratory : No Cough, No Sputum, No Wheezing Gastrointestinal : No Nausea, No Vomiting, No Diarrhea, No Constipation, No abdominal Pain, No Hematochezia, No Melena Genitourinary : No Dysuria, No Urinary Frequency, No Hematuria, Musculoskeletal : No joint pain, No Myalgias, No Joint Swelling Skin : No Skin Lesions, No rash Neuro : No Weakness, No Numbness, No Dizziness, + Headache Psych : No Anxiety/Panic, No Depression All other systems reviewed and are negative Yes all other systems are reviewed and are negative [facility] Past Medical History Attestation statement: The following information was validated with the patient. Source: old records reviewed and nursing notes reviewed Medical History Anxiety Asthma Asthma exacerbation Back pain Depression GERD (gastroesophageal reflux disease) Knee pain Lower extremity edema Morbid obesity Right ovarian cyst Sleep apnea with use of continuous positive airway pressure (CPAP) Surgical History Hx of section Hx of cholecystectomy Family History Family History Mother Diabetes Hyperlipidemia Father No problems noted. Brother No problems noted. Brother No problems noted. Sister No problems noted. Sister Lupus Son No problems noted. Daughter No problems noted. Social History Social History Housing: Apartment Alcohol intake: current Alcohol intake frequency: holidays/special occasions only Patient Tobacco Use Status: Never used Tobacco e-Cigarette/Vaping Use: Never Used Second Hand Smoke Exposure: No Advance Directives: No Advance Directives Information Provided: No service: No Current occupational status: unemployed Physical Exam Vital Signs: Vital Signs: Last Vital Signs Temp 98.1 F 09/09/22 21:26 Pulse 74 09/09/22 21:26 Resp 18 09/09/22 21:26 BP 190/84 H 09/09/22 21:26 Pulse Ox 96 09/09/22 21:26 O2 Del Method 09/09/22 21:26 BMI result Body Mass Index 59.8 Patient's blood pressure noted to be significantly elevated, no history of hypertension will repeat to ensure this is not an error Appearance: Alert.? Oriented X3.? No acute distress.? Head: Normocephalic, atraumatic, no step-offs or deformities Eyes: Pupils equal, round and reactive to light.? Extraocular movements intact and pain-free. ENT: Pharynx normal.? Neck: Normal inspection.? Neck supple.? CVS: Normal heart rate and rhythm.? Pulses normal.? Respiratory: No respiratory distress.? Breath sounds normal.? Abdomen: Soft and nontender.? Skin: Skin warm and dry.? Normal skin color.? Normal skin turgor.? Extremities: No lower extremity edema.? No calf ttp. 5/5 strength to bilateral upper and lower extremities Neuro: Oriented X 3.? No motor deficit.? No sensory deficit. CN 2-12 intact . Ambulating with steady gait normal coordination. Normal rapid alternating movements. [id number] Course Course Course Narrative: 2132 Discussed case w/ Dr. Enrique recommend starting patient on amlodipine 5 mg and low-dose hydrochlorothiazide. Have her follow up with PCP or Cardiology. Reevaluation(s) Reevaluation #1: Patient is noted to be COVID negative, patient has close contact including battery charger conveyor line and daughter are positive for COVID therefore suspected positive. Patient likely with viral infection. I did do a troponin and EKG, troponin negative, EKG nonischemic, unlikely that this is ACS. Patient not complaining of chest pain or shortness of breath at this time. A D-dimer was also done to rule out PE, D-dimer negative. At this time symptoms likely secondary to viral infection. I did speak to patient thoroughly about her blood pressure, she was noted to have to elevated blood pressure readings, I explained to her that 1st step in management for asymptomatic hypertension is lifestyle modifications, diet and exercise, I educated her to check her blood pressure Wednesday, Wednesday, Wednesday, write it down, chair with her PCP so they could discuss initiation of medications if it is not responding to frontline lifestyle modifications. Patient verbalizes understanding. I did educate her on red flag symptoms and worrisome signs and symptoms and when to return at this time patient will be discharged home with prompt PCP follow-up. Patient verbalizes understanding has no questions. Comfortable with discharge home. To note patient's blood pressure did improve while in the department without medication. At time of discharge patient without any symptoms, not complaining of headache, chest pain, shortness of breath, vision changes or dizziness. Time: 21:21 Reevaluation #2: BMP was noted to have a low calcium however it has been low in the past, will give 1 time dose of calcium carbonate. On exam there is no signs of hypocalcemia. No signs of hypocalcemia on EKG, negative jose lara Time: 22:06 Medications Administered Discontinued Medications Generic Name Dose Route Start Last Admin Trade Name Jordan PRN Reason Stop Dose Admin Amlodipine Besylate 5 mg 09/09/22 21:33 09/09/22 21:52 Amlodipine Besylate 5 Mg Tablet PO 09/09/22 21:34 5 mg ONCE ONE Administration Protocol Hydrochlorothiazide 12.5 mg 09/09/22 21:33 09/09/22 21:52 Hydrochlorothiazide 12.5 Mg Tablet PO 09/09/22 21:34 12.5 mg ONCE ONE Administration Protocol Ketorolac Tromethamine 15 mg 09/09/22 21:34 09/09/22 21:52 Ketorolac Tromethamine 15 Mg/Ml Vial IVPUSH 09/09/22 21:35 15 mg ONCE ONE Administration MDM - URI/Sore Throat MDM Narrative Medical decision making narrative: 2015 This is a 37-year-old female presenting with viral symptoms x2 days reports sick contact at home with battery charger conveyor line who is COVID positive. Physical examination benign. Patient's vitals significant for hypertension, patient does not have a history of hypertension, denying vision changes, dizziness, will repeat blood pressure to ensure this is not error. NIH stroke scale 0. Neuro nonfocal. Cerebellar intact. Symptoms likely secondary to viral infection. Unlikely intracranial hemorrhage, stroke, posterior stroke. No signs of epiglottitis or peritonsillar abscess. Chest pressure likely secondary to viral infection unlikely ACS or PE however will rule out both Plan at this time is COVID test, D-dimer, troponin, EKG. Medical Records Attestation: I reviewed the patient's medical records. Lab Data Attestation: I reviewed the patient's lab results. Result diagrams: 09/09/22 20:52 Labs: Lab Results 09/09/22 09/09/22 09/09/22 Range/Units 19:45 20:52 20:52 D-Dimer High Sensitivty < 150 NG/ML Sodium (135-145) mmol/L Potassium (3.3-5.1) mmol/L Chloride (96-108) mmol/L Carbon Dioxide (22-29) mmol/L Anion Gap (12-20) BUN (9-16) mg/dL Creatinine (0.5-1.4) mg/dL Estim Creat Clear Calc Estimated GFR Random Glucose (60-115) mg/dL Calcium (8.4-10.2) mg/dL Troponin I High Sens 3.5 (<3.5-17.0) ng/L COVID-19 (ERNIE) Negative (Negative) COVID-19 Clin Com See Note 09/09/22 Range/Units 20:52 D-Dimer High Sensitivty NG/ML Sodium 140 (135-145) mmol/L Potassium 4.0 (3.3-5.1) mmol/L Chloride 104 (96-108) mmol/L Carbon Dioxide 23 (22-29) mmol/L Anion Gap 17 (12-20) BUN 7 L (9-16) mg/dL Creatinine 0.69 (0.5-1.4) mg/dL Estim Creat Clear Calc 165.0 Estimated GFR > 60 Random Glucose 80 (60-115) mg/dL Calcium 7.8 L D (8.4-10.2) mg/dL Troponin I High Sens (<3.5-17.0) ng/L COVID-19 (ERNIE) (Negative) COVID-19 Clin Com ECG Data Attestation: I personally reviewed and interpreted this ECG as follows: ECG interpretation date: 09/09/22 ECG interpretation time: 21:22 Prior ECG tracings: available for review Interpretation: Ventricular rate of 59, KS normal, QRS normal, QT/QTC normal. EKG with sinus bradycardia no ST elevations or inversions concerning for ischemia. Critical Care Time Critical Care Time Critical Care Time: No Discharge Plan Discharge Clinical Impression: Elevated blood pressure reading, Viral illness Patient Disposition: Home, Self-Care Instructions: Viral Syndrome (ED) Additional Instructions: Take your medications as prescribed. If you were prescribed antibiotics today, it is important that you take your medication to their entirety, do not skip any doses, do not finish them early. Follow-up with your primary care provider this week. Return to the emergency department with new or worsening symptoms. Such as fevers, chills, chest pain, shortness of breath, nausea, vomiting, dizziness, headache, vision changes, lethargy In case of emergency call 911 Please check your blood pressure Wednesday, Wednesday, Wednesday, write it down and share with her primary care provider. Your blood pressure here in the emergency department was noted to be elevated, for this reason you should schedule an appointment with your PCP as soon as possible to address this issue. It is important that you focus on your diet, limit sodium intake, healthy eating, increased fruits, vegetables, try to exercise at least 30 minutes a day, this will help bring down your blood pressure. With this being said if you start experiencing chest pain, shortness of breath, headache, vision changes, dizziness, weakness, changes in speech you need to return to the emergency department immediately for prompt evaluation Take your new blood pressure medications as prescribed Prescriptions: New amlodipine 5 mg tablet 5 mg PO DAILY 30 Days Qty: 30 0RF hydrochlorothiazide 12.5 mg tablet 12.5 mg PO QAM Qty: 30 0RF No Action naproxen 500 mg tablet 500 mg PO BID PRN (Reason: pain) 10 Days Qty: 20 0RF cyclobenzaprine 5 mg tablet 5 mg PO Q8H PRN (Reason: pain (scale score 7-10)) 5 Days Qty: 14 0RF diazepam [Valium] 5 mg tablet 5 mg PO TID PRN (Reason: muscle spasm) Qty: 12 0RF albuterol sulfate [Ventolin HFA] 90 mcg/actuation HFA aerosol inhaler 1 inh inhalation Q4-6H PRN (Reason: shortness of breath or wheezing) Qty: 8.5 1RF omeprazole 40 mg capsule,delayed release(DR/EC) 40 mg PO DAILY 90 Days Qty: 90 1RF fluticasone propion-salmeterol [Advair Diskus] 250-50 mcg/dose blister with device 1 inh inhalation BID Qty: 60 1RF (DME) nebulizer accessories Kit See Rx Instructions .Route Qty: 1 0RF Rx Instructions: As directed (DME) nebulizer and compressor Device See Rx Instructions .Route Qty: 1 0RF Rx Instructions: As directed albuterol sulfate 0.63 mg/3 mL solution for nebulization 0.63 mg inhalation Q6-8H PRN (Reason: shortness of breath or wheezing) Qty: 75 0RF lisinopril 5 mg tablet 5 mg PO DAILY Qty: 30 0RF naproxen 500 mg tablet 500 mg PO BID PRN (Reason: pain) Qty: 20 0RF progesterone micronized [Prometrium] 200 mg capsule 200 mg PO BEDTIME 10 Days Qty: 30 4RF Rx Instructions: Take the pill 1 tablet a day cyclically every month from day 15-24 day 1 being the 1st day of next menstrual cycle Referrals: Jacqueline Wilkinson MD [Primary Care Provider] - 2 days Stand Alone Forms: Work/School Release
[2022-09-09 20:23] VITALS: BP 219/91; PULSE 67; RESP 14
[2022-09-09 20:23] LABS: COVID-19 Test Negative (Negative)
[2022-09-09 20:41] VITALS: BP 189/99; PULSE 61
[2022-09-09 21:13] LABS: D Dimer High Sensitivity < 150 NG/ML
[2022-09-09 21:17] LABS: Troponin-I High Sensitivity 3.5 ng/L (<3.5-17.0)
[2022-09-09 21:26] VITALS: BP 190/84; PULSE 74; RESP 18; TEMP 36.7; O2SAT 96
[2022-09-09] MEDS: amLODIPine Besylate 5 MG TABLET PO (21:52)
[2022-09-09] MEDS: Ketorolac Tromethamine 15 MG/ML VIAL IVPUSH (21:52)
[2022-09-09] MEDS: hydroCHLOROthiazide 12.5 MG TABLET PO (21:52)
[2022-09-09 21:54] LABS: Anion Gap 17 (12-20); Blood Urea Nitrogen 7 mg/dL (9-16); Calcium 7.8 mg/dL (8.4-10.2); Carbon Dioxide 23 mmol/L (22-29); Chloride 104 mmol/L (96-108); Estimated Glomerular Filt Rate > 60; Glucose Random 80 mg/dL (60-115); Sodium 140 mmol/L (135-145)
[2022-09-09] MEDS: Calcium Carbonate 750 MG TAB.CHEW 1500 MG PO (22:21)
--- NOTE | 2022-09-09 22:31 | PC.NURSE ---
Discharge instructions reviewed with pt. Pt verbalizes understanding.
== END 2022-09-09 22:31 | disposition home or self-care (01) ==
PROVIDERS: Physician Assistant; Emergency Provider Internal Medicine; PCP Internal Medicine
DX: B34.9 Viral infection, unspecified (principal); R03.0 Elevated blood-pressure reading, without diagnosis of hypertension; Z20.822 Contact with and (suspected) exposure to COVID-19
CPT/HCPCS: 36415; 80048; 84484; 85379; 87635; 93005; 96374; 99284; C9803; J1885

== ENCOUNTER 2022-12-14 10:27 | Emergency (ER) | payer OTHER, SELFPAY ==
[2022-12-14 10:42] VITALS: BP 167/82; PULSE 67; RESP 20; TEMP 36.8; O2SAT 100; BMI 58.1
[2022-12-14 11:37] LABS: MANUAL DIFF FLAG NO
[2022-12-14 11:45] LABS: Basophils Percent Auto 0.2 % (0-2); Eosinophils Absolute Auto 0.2 X10*3/uL (0.0-0.4); Eosinophils Percent Auto 2.2 % (0-4); Hematocrit 39.1 % (37.0-47.0); Hemoglobin 12.4 g/dl (12.0-16.0); Imm Gran Abs Auto 0.03 X10*3/uL (0.00-0.03); Imm Gran Pct Auto 0.3 % (0.0-0.4); Lymphocytes Absolute Auto 1.2 X10*3/uL (1.2-4.9); Lymphocytes Percent Auto 13.2 % (20-40); Mean Corpuscular HGB Conc 31.7 g/dl (31.0-35.0); Mean Corpuscular Hemoglobin 25.7 pg (27.0-33.0); Mean Platelet Volume 10.6 fL (9.4-12.3); Monocytes Absolute Auto 0.4 X10*3/uL (0.1-1.2); Monocytes Percent Auto 4.6 % (2-11); Neutrophils Absolute Auto 7.3 x10*3/uL (2.0-8.3); Neutrophils Percent Auto 79.5 % (45-73); Platelet Count 341 X10*3/uL (160-400); Red Blood Count 4.83 X10*6/uL (4.20-5.50); Red Cell Distribution Width 17.2 % (11.0-16.0); White Blood Count 9.2 X10*3/uL (4.8-10.8)
[2022-12-14 11:59] LABS: Anion Gap 13 (12-20); Blood Urea Nitrogen 10 mg/dL (9-16); Calcium 8.2 mg/dL (8.4-10.2); Carbon Dioxide 22 mmol/L (22-29); Chloride 106 mmol/L (96-108); Creatinine Clr Calc Pharmacy 177.2; Estimated Glomerular Filt Rate > 60; Glucose Random 104 mg/dL (60-115); Potassium 4.1 mmol/L (3.3-5.1); Sodium 137 mmol/L (135-145)
[2022-12-14 12:07] LABS: COVID-19 Test Negative (Negative); IDNOW Serial# 16C4AD1C
[2022-12-14 12:08] LABS: IDNOW Serial# BCCEAD1C; Influenza A Negative (Negative); Influenza B2 Negative (Negative)
[2022-12-14 12:55] LABS: HCG Quantitative 32280 mIU/mL
--- NOTE | 2022-12-14 17:08 | ED_ITS ---
HPI - Nausea/Vomiting/Diarrhea General Chief complaint: Nausea/Vomiting/Diarrhea Stated complaint: Vomiting/Diarrhea Time Seen by Provider: 12/14/22 17:05 Source: patient Mode of arrival: ambulatory Limitations: no limitations History of Present Illness HPI Narrative: Patient is 7 weeks 6 days been vomiting with diarrhea since 02:30 vomited about 7-8 times same number of watery diarrhea no blood in the stool diffuse abdominal cramps no fever no chills no recent travel no recent bad food intake no other family member sick no vaginal discharge or bleeding no urinary symptoms no fever chills patient unable to eat or drink all day today Related Data Previous Rx's Medication Instructions Recorded albuterol sulfate 0.63 mg/3 mL 0.63 mg (3 mL) inhalation Q6-8H 09/18/21 solution for nebulization PRN shortness of breath or wheezing #75 mL albuterol sulfate 90 mcg/actuation 1 inh inhalation Q4-6H PRN 09/18/21 aerosol inhaler (Ventolin HFA) shortness of breath or wheezing #8.5 grams fluticasone 250 mcg-salmeterol 50 1 inh inhalation BID #60 ea 09/18/21 mcg/dose blistr powdr for inhalation (Advair Diskus) nebulizer accessories #1 ea 09/18/21 nebulizer and compressor #1 ea 09/18/21 omeprazole 40 mg capsule,delayed 40 mg PO DAILY 90 days #90 caps 09/18/21 release cyclobenzaprine 5 mg tablet 5 mg PO Q8H PRN pain (scale score 01/24/22 7-10) 5 days #14 tabs naproxen 500 mg tablet 500 mg PO BID PRN pain 10 days #20 01/24/22 tabs diazepam 5 mg tablet (Valium) 5 mg PO TID PRN muscle spasm #12 01/28/22 tabs naproxen 500 mg tablet 500 mg PO BID PRN pain #20 tabs 06/02/22 progesterone micronized 200 mg 200 mg PO BEDTIME 10 days #30 caps 06/02/22 capsule (Prometrium) lisinopril 5 mg tablet 5 mg PO DAILY #30 tabs 06/08/22 amlodipine 5 mg tablet 5 mg PO DAILY 30 days #30 tabs 09/09/22 hydrochlorothiazide 12.5 mg tablet 12.5 mg PO QAM #30 tabs 09/09/22 ondansetron 4 mg disintegrating 4 mg PO Q6-8H PRN nausea and 12/14/22 tablet vomiting #10 tabs Allergies Allergy/AdvReac Type Severity Reaction Status Date / Time dextran 40 AdvReac Intermediate Hypertensio Verified 06/08/22 14:40 n iron dextran complex AdvReac Intermediate Hypertensio Verified 06/08/22 14:40 n Review of Systems Review of Systems: Yes all other systems are reviewed and are negative [facility] Past Medical History Medical History Anxiety Asthma Asthma exacerbation Back pain Depression GERD (gastroesophageal reflux disease) Knee pain Lower extremity edema Morbid obesity Right ovarian cyst Sleep apnea with use of continuous positive airway pressure (CPAP) Surgical History Hx of section Hx of cholecystectomy Family History Family History Mother Diabetes Hyperlipidemia Father No problems noted. Brother No problems noted. Brother No problems noted. Sister No problems noted. Sister Lupus Son No problems noted. Daughter No problems noted. Social History Social History Housing: Apartment Alcohol intake: former Patient Tobacco Use Status: Never used Tobacco Smoked in Last 30 Days: No e-Cigarette/Vaping Use: Never Used Second Hand Smoke Exposure: No Use of substances other than those prescribed or required for medical reasons: No Advance Directives: No Advance Directives Information Provided: No Patient : Yes service: No Current occupational status: unemployed Physical Exam Vital Signs: Vital Signs: Last Vital Signs Temp 98.5 F 12/14/22 21:02 Pulse 68 12/14/22 21:02 Resp 16 12/14/22 21:02 BP 157/78 H 12/14/22 21:02 Pulse Ox 99 12/14/22 21:02 O2 Del Method 12/14/22 21:02 BMI result Body Mass Index 58.1 Appearance: Alert. Oriented X3. No acute distress. Eyes: PERRLA, No Nystagmus ENT: Pharynx normal. Oral Mucosa dry Neck: Normal inspection. Neck supple. CVS: Normal heart rate and rhythm. Pulses normal. Respiratory: No respiratory distress. Equal air entry bilateral, no wheezing/rales/rhonchi Abdomen: Soft and nontender. Bowel sounds are present, no mass palpable, no CVA tenderness Skin: Skin warm and dry. Normal skin color. Normal skin turgor. Extremities: No lower extremity edema. No calf tenderness Neuro: Oriented X 3. No motor deficit. No sensory deficit.No cerebellar signs , cranial nerves II-XII intact Medications Administered Discontinued Medications Generic Name Dose Route Start Last Admin Trade Name Freq PRN Reason Stop Dose Admin Sodium Chloride 1,000 mls @ 999 mls/hr 12/14/22 17:17 12/14/22 20:20 Ns IV 12/14/22 18:17 Infused .Q1H1M ONE Infusion Sodium Chloride 1,000 mls @ 999 mls/hr 12/14/22 20:12 12/14/22 22:37 Ns IV 12/14/22 21:12 Infused .Q1H1M ONE Infusion Loperamide HCl 4 mg 12/14/22 17:17 12/14/22 17:31 Loperamide Hcl 2 Mg Capsule PO 12/14/22 17:18 4 mg ONCE ONE Administration Ondansetron HCl 4 mg 12/14/22 17:17 12/14/22 17:31 Ondansetron Hcl 4 Mg/2 Ml Vial IVPUSH 12/14/22 17:18 4 mg ONCE ONE Administration Ondansetron HCl 4 mg 12/14/22 20:11 12/14/22 20:17 Ondansetron Hcl 4 Mg/2 Ml Vial IVPUSH 12/14/22 20:12 4 mg ONCE ONE Administration Medical Decision Making Medical Decision Making [facility] Narrative: Patient with gastroenteritis with vomiting and diarrhea likely viral etiology labs are stable patient able to take p.o. fluids will discharge patient home Lab Data [facility] Lab Attestation statement: I reviewed the patient's lab results. 12/14/22 11:29 12/14/22 11:29 Labs: Lab Results 12/14/22 12/14/22 12/14/22 Range/Units 11:29 11:29 11:29 WBC 9.2 (4.8-10.8) X10*3/uL RBC 4.83 (4.20-5.50) X10*6/uL Hgb 12.4 D (12.0-16.0) g/dl Hct 39.1 D (37.0-47.0) % MCV 81.0 (80.0-98.0) fL MCH 25.7 L (27.0-33.0) pg MCHC 31.7 (31.0-35.0) g/dl RDW 17.2 H (11.0-16.0) % Plt Count 341 (160-400) X10*3/uL MPV 10.6 (9.4-12.3) fL Immature Gran % (Auto) 0.3 (0.0-0.4) % Neut % (Auto) 79.5 H (45-73) % Lymph % (Auto) 13.2 L (20-40) % [place] % (Auto) 4.6 (2-11) % Eos % (Auto) 2.2 (0-4) % Baso % (Auto) 0.2 (0-2) % Lymph # (Auto) 1.2 (1.2-4.9) X10*3/uL [place] # (Auto) 0.4 (0.1-1.2) X10*3/uL Eos # (Auto) 0.2 (0.0-0.4) X10*3/uL Baso # (Auto) 0.0 (0.0-0.2) X10*3/uL Abs Immat Gran (auto) 0.03 (0.00-0.03) X10*3/uL Absolute Neuts (auto) 7.3 (2.0-8.3) x10*3/uL Absolute Nucleated RBC 0.000 (0.0-0.012) X10*3/uL Nucleated RBC % (auto) 0.0 (0.0-0.2) /100WBC Sodium 137 (135-145) mmol/L Potassium 4.1 (3.3-5.1) mmol/L Chloride 106 (96-108) mmol/L Carbon Dioxide 22 (22-29) mmol/L Anion Gap 13 (12-20) BUN 10 (9-16) mg/dL Creatinine 0.63 (0.5-1.4) mg/dL Estim Creat Clear Calc 177.2 Estimated GFR > 60 Random Glucose 104 (60-115) mg/dL Calcium 8.2 L (8.4-10.2) mg/dL Beta HCG, Quant 00154 mIU/mL Urine Color Urine Appearance Urine pH (5.0-9.0) Ur Specific [place] (1.005-1.025) Urine Protein (Neg-Trace) mg/dL Urine Glucose (UA) (Negative) mg/dL Urine Ketones (Negative) mg/dL Urine Blood (Negative) Urine Nitrite (Negative) Ur Leukocyte Esterase (Negative) COVID-19 (ERNIE) (Negative) COVID-19 Clin Com Influenza Type A (PETER) Negative (Negative) Influenza Type B (PETER) Negative (Negative) Influenza A & B Note See Note 12/14/22 12/14/22 Range/Units 11:29 21:10 WBC (4.8-10.8) X10*3/uL RBC (4.20-5.50) X10*6/uL Hgb (12.0-16.0) g/dl Hct (37.0-47.0) % MCV (80.0-98.0) fL MCH (27.0-33.0) pg MCHC (31.0-35.0) g/dl RDW (11.0-16.0) % Plt Count (160-400) X10*3/uL MPV (9.4-12.3) fL Immature Gran % (Auto) (0.0-0.4) % Neut % (Auto) (45-73) % Lymph % (Auto) (20-40) % [place] % (Auto) (2-11) % Eos % (Auto) (0-4) % Baso % (Auto) (0-2) % Lymph # (Auto) (1.2-4.9) X10*3/uL [place] # (Auto) (0.1-1.2) X10*3/uL Eos # (Auto) (0.0-0.4) X10*3/uL Baso # (Auto) (0.0-0.2) X10*3/uL Abs Immat Gran (auto) (0.00-0.03) X10*3/uL Absolute Neuts (auto) (2.0-8.3) x10*3/uL Absolute Nucleated RBC (0.0-0.012) X10*3/uL Nucleated RBC % (auto) (0.0-0.2) /100WBC Sodium (135-145) mmol/L Potassium (3.3-5.1) mmol/L Chloride (96-108) mmol/L Carbon Dioxide (22-29) mmol/L Anion Gap (12-20) BUN (9-16) mg/dL Creatinine (0.5-1.4) mg/dL Estim Creat Clear Calc Estimated GFR Random Glucose (60-115) mg/dL Calcium (8.4-10.2) mg/dL Beta HCG, Quant mIU/mL Urine Color Yellow Urine Appearance Clear Urine pH 5.5 (5.0-9.0) Ur Specific [place] 1.020 (1.005-1.025) Urine Protein Negative (Neg-Trace) mg/dL Urine Glucose (UA) Negative (Negative) mg/dL Urine Ketones Trace (Negative) mg/dL Urine Blood Negative (Negative) Urine Nitrite Negative (Negative) Ur Leukocyte Esterase Negative (Negative) COVID-19 (ERNIE) Negative (Negative) COVID-19 Clin Com See Note Influenza Type A (PETER) (Negative) Influenza Type B (PETER) (Negative) Influenza A & B Note Discharge Plan Discharge Clinical Impression: Gastroenteritis Patient Disposition: Home, Self-Care Instructions: Gastroenteritis (ED) Additional Instructions: Drink plenty of fluids Medicine for the nausea / vomiting as prescribed Follow-up with PCP if not better Prescriptions: New ondansetron 4 mg tablet,disintegrating 4 mg PO Q6-8H PRN (Reason: nausea and vomiting) Qty: 10 0RF No Action naproxen 500 mg tablet 500 mg PO BID PRN (Reason: pain) 10 Days Qty: 20 0RF cyclobenzaprine 5 mg tablet 5 mg PO Q8H PRN (Reason: pain (scale score 7-10)) 5 Days Qty: 14 0RF diazepam [Valium] 5 mg tablet 5 mg PO TID PRN (Reason: muscle spasm) Qty: 12 0RF amlodipine 5 mg tablet 5 mg PO DAILY 30 Days Qty: 30 0RF hydrochlorothiazide 12.5 mg tablet 12.5 mg PO QAM Qty: 30 0RF albuterol sulfate [Ventolin HFA] 90 mcg/actuation HFA aerosol inhaler 1 inh inhalation Q4-6H PRN (Reason: shortness of breath or wheezing) Qty: 8.5 1RF omeprazole 40 mg capsule,delayed release(DR/EC) 40 mg PO DAILY 90 Days Qty: 90 1RF fluticasone propion-salmeterol [Advair Diskus] 250-50 mcg/dose blister with device 1 inh inhalation BID Qty: 60 1RF (DME) nebulizer accessories Kit See Rx Instructions .Route Qty: 1 0RF Rx Instructions: As directed (DME) nebulizer and compressor Device See Rx Instructions .Route Qty: 1 0RF Rx Instructions: As directed albuterol sulfate 0.63 mg/3 mL solution for nebulization 0.63 mg inhalation Q6-8H PRN (Reason: shortness of breath or wheezing) Qty: 75 0RF lisinopril 5 mg tablet 5 mg PO DAILY Qty: 30 0RF naproxen 500 mg tablet 500 mg PO BID PRN (Reason: pain) Qty: 20 0RF progesterone micronized [Prometrium] 200 mg capsule 200 mg PO BEDTIME 10 Days Qty: 30 4RF Rx Instructions: Take the pill 1 tablet a day cyclically every month from day 15-24 day 1 being the 1st day of next menstrual cycle Interventions: ED Discharge Assessment Last Done: 12/14/22 22:38 Discharge Date/Time: 12/14/22 22:39
[2022-12-14] MEDS: 0.9 % Sodium Chloride 1,000 ML 999 ML IV ×2 (17:31→20:17)
[2022-12-14] MEDS: Loperamide HCl 2 MG CAPSULE 4 MG PO (17:31)
[2022-12-14] MEDS: ondansetron HCL 4 MG/2 ML VIAL IVPUSH ×2 (17:31→20:17)
[2022-12-14 17:36] VITALS: BP 155/94; PULSE 70; RESP 16; TEMP 37; O2SAT 97
--- NOTE | 2022-12-14 17:42 | PC.NURSE ---
Patient alert and oriented answering questions appropriately. IV placed to left forearm without difficulty and fluids infusing without issue. Patient resting on stretcher at this time.
[2022-12-14 21:02] VITALS: BP 157/78; PULSE 68; RESP 16; TEMP 36.9; O2SAT 99
[2022-12-14 21:25] LABS: Appearance Urine Clear; Color Urine Yellow; Glucose Urine UA Negative (Negative); Leukocyte Esterase Urine Negative (Negative); Nitrite Urine Negative (Negative); PH 5.5 (5.0-9.0); Urine Blood Negative (Negative); Urine Ketones Trace mg/dL (Negative); Urine Protein Negative (Neg-Trace)
--- NOTE | 2022-12-14 22:07 | PC.NURSE ---
pt discharge paperwork in from dr ramirez. awaiting for iv fluids to complete
== END 2022-12-14 22:39 | disposition home or self-care (01) ==
PROVIDERS: Emergency Provider Internal Medicine
DX: O99.611 Diseases of the digestive system complicating pregnancy, first trimester (principal); K52.9 Noninfective gastroenteritis and colitis, unspecified; O09.521 Supervision of elderly multigravida, first trimester; Z3A.01 Less than 8 weeks gestation of pregnancy; Z20.822 Contact with and (suspected) exposure to COVID-19
CPT/HCPCS: 80048; 81003; 84702; 85025; 87502; 87635; 96361; 96374; 96376; 99284; 99285; J2405

== ENCOUNTER 2023-01-20 15:19 | Emergency (ER) | payer OTHER, SELFPAY ==
--- NOTE | ~2023-01-20 | CT_ITS ---
EXAMINATION: CT HEAD WITHOUT CONTRAST CLINICAL INFORMATION: Headache. COMPARISON: None available. TECHNIQUE: Contiguous axial imaging was performed from the skull base to vertex without intravenous administration of contrast. This CT examination was performed using dose optimization techniques as appropriate, variously including the following: *Automated exposure control *Adjustment of mA and/or kV according to patient size (this includes techniques or standardized protocols for targeted exams where dose is matched to indication/reason for exam; i.e. extremities or head) *Use of iterative reconstruction technique DLP: 7:15 mGy-cm FINDINGS: There is no acute intra-axial, extra-axial bleed, masses or midline shift. No acute infarction in evolution. The turner to white matter differentiation is maintained normal. The lateral ventricles are symmetrical in size and configuration without enlargement. Bone windows reveal no calvarial abnormality. There is no scalp soft tissue abnormality. Bilateral paranasal sinuses and mastoid air cells are well-aerated. CT/CT head/brain wo IV con IMPRESSION: No acute intracranial process seen.
--- NOTE | ~2023-01-20 | XR_ITS ---
EXAMINATION: XR CHEST CLINICAL INFORMATION: Chest pain COMPARISON: January 28, 2022 and January 27, 2021 TECHNIQUE: 2 views of the chest were obtained. FINDINGS: No significant abnormality is noted involving the heart, lungs, mediastinum, bony thorax or soft tissues. XR/XR chest 2V IMPRESSION: No acute disease.
--- NOTE | 2023-01-20 15:21 | ECG_ITS ---
Test Reason : CHEST PAIN Blood Pressure : / mmHG Vent. Rate : 075 BPM Atrial Rate : 075 BPM P-R Int : 144 ms QRS Dur : 094 ms QT Int : 426 ms P-R-T Axes : 014 020 044 degrees QTc Int : 475 ms Normal sinus rhythm Normal ECG When compared with ECG of 09-SEP-2022 20:31, No significant change was found Referred By: Raquel Mcdonough Electronically Signed By:ALINA MELGAR MD
--- NOTE | 2023-01-20 15:50 | ED_ITS ---
HPI - Chest Pain General Chief Complaint: Chest Pain <Raquel Mcdonough NP - Last Filed: 01/20/23 16:02> Stated Complaint: chest pain 4-5 days, L body ache, headaches <Raquel Mcdonough NP - Last Filed: 01/20/23 16:02> Time Seen by Provider: 01/20/23 20:40 <Raquel Mcdonough NP - Last Filed: 01/20/23 16:02> Source: patient <SAIMA Panda - Last Filed: 01/20/23 23:53> Mode of arrival: ambulatory <SAIMA Panda - Last Filed: 01/20/23 23:53> Limitations: no limitations <SAIMA Panda - Last Filed: 01/20/23 23:53> History of Present Illness HPI narrative: 37-year-old female history of hypertension presenting to the emergency department with chest pressure with radiation into left shoulder , dry cough and intermittent left leg pain since January 16, patient reports that chest pressure as uncomfortable, fluctuates in intensity and at times goes to her left shoulder. Unable to tell me what makes this pressure better worse. At times h as associated shortness of breath. Also reporting that sometimes she gets random left leg pain, unable to tell me exactly where on her left leg worse with movement better at rest. Denies trauma to left leg. No history of PE or DVT. Patient also reporting severe frontal headache, described as throbbing without vision changes or dizziness, tells me she gets migraines however this does not feel like her typical migraine. Denies fevers, chills, neck pain, nausea, vomiting, abdominal pain, sick contacts, vision changes, dizziness, weakness. NIH stroke scale 0. <SAIMA Panda - Last Filed: 01/20/23 23:53> Related Data Home Medications: Previous Rx's Medication Instructions Recorded albuterol sulfate 0.63 mg/3 mL 0.63 mg (3 mL) inhalation Q6-8H 09/18/21 solution for nebulization PRN shortness of breath or wheezing #75 mL albuterol sulfate 90 mcg/actuation 1 inh inhalation Q4-6H PRN 09/18/21 aerosol inhaler (Ventolin HFA) shortness of breath or wheezing #8.5 grams fluticasone 250 mcg-salmeterol 50 1 inh inhalation BID #60 ea 09/18/21 mcg/dose blistr powdr for inhalation (Advair Diskus) nebulizer accessories #1 ea 09/18/21 nebulizer and compressor #1 ea 09/18/21 omeprazole 40 mg capsule,delayed 40 mg PO DAILY 90 days #90 caps 09/18/21 release cyclobenzaprine 5 mg tablet 5 mg PO Q8H PRN pain (scale score 01/24/22 7-10) 5 days #14 tabs naproxen 500 mg tablet 500 mg PO BID PRN pain 10 days #20 01/24/22 tabs diazepam 5 mg tablet (Valium) 5 mg PO TID PRN muscle spasm #12 01/28/22 tabs naproxen 500 mg tablet 500 mg PO BID PRN pain #20 tabs 06/02/22 progesterone micronized 200 mg 200 mg PO BEDTIME 10 days #30 caps 06/02/22 capsule (Prometrium) lisinopril 5 mg tablet 5 mg PO DAILY #30 tabs 06/08/22 amlodipine 5 mg tablet 5 mg PO DAILY 30 days #30 tabs 09/09/22 hydrochlorothiazide 12.5 mg tablet 12.5 mg PO QAM #30 tabs 09/09/22 ondansetron 4 mg disintegrating 4 mg PO Q6-8H PRN nausea and 12/14/22 tablet vomiting #10 tabs albuterol sulfate 90 mcg/actuation 2 inh inhalation Q4-6H PRN 01/20/23 breath activated powder inhaler shortness of breath or wheezing #1 ea benzonatate 100 mg capsule 100 mg PO BID PRN cough #20 caps 01/20/23 cyclobenzaprine 10 mg tablet 10 mg PO BEDTIME PRN muscle spasm 01/20/23 #7 tabs <Raquel Mcdonough NP - Last Filed: 01/20/23 16:02> Allergies/Adverse Reactions: Allergies Allergy/AdvReac Type Severity Reaction Status Date / Time dextran 40 AdvReac Intermediate Hypertensio Verified 01/20/23 15:51 n iron dextran complex AdvReac Intermediate Hypertensio Verified 01/20/23 15:51 n <Raquel Mcdonough NP - Last Filed: 01/20/23 16:02> Review of Systems Review of Systems: Constitutional : No Weight loss, No Fever, No Chills, + Fatigue, + Malaise ENT/Mouth : No sore throat, No Rhinorrhea Eyes: No Eye Pain, No Swelling, No Redness Cardiovascular : + Chest Pain, + SOB, No Dyspnea on Exertion, No Orthopnea, No Edema, No Palpitations Respiratory : + Cough, No Sputum, No Wheezing Gastrointestinal : No Nausea, No Vomiting, No Diarrhea, No Constipation, No abdominal Pain, No Hematochezia, No Melena Genitourinary : No Dysuria, No Urinary Frequency, No Hematuria, Musculoskeletal : No joint pain, No Myalgias, No Joint Swelling Skin : No Skin Lesions, No rash Neuro : No Weakness, No Numbness, No Dizziness, + Headache Psych : No Anxiety/Panic, No Depression All other systems reviewed and are negative <SAIMA Panda - Last Filed: 01/20/23 23:53> Yes all other systems are reviewed and are negative <SAIMA Panda - Last Filed: 01/20/23 23:53> [facility] Past Medical History Attestation statement: The following information was validated with the patient. <SAIMA Panda - Last Filed: 01/20/23 23:53> Source: old records reviewed and nursing notes reviewed <SAIMA Panda - Last Filed: 01/20/23 23:53> Medical History: Medical History Anxiety Asthma Asthma exacerbation Back pain Depression GERD (gastroesophageal reflux disease) Knee pain Lower extremity edema Morbid obesity Right ovarian cyst Sleep apnea with use of continuous positive airway pressure (CPAP) <Raquel Mcdonough NP - Last Filed: 01/20/23 16:02> Surgical History: Surgical History Hx of section Hx of cholecystectomy <Raquel Mcdonough NP - Last Filed: 01/20/23 16:02> Family History Family History: Family History Mother Diabetes Hyperlipidemia Father No problems noted. Brother No problems noted. Brother No problems noted. Sister No problems noted. Sister Lupus Son No problems noted. Daughter No problems noted. <Raquel Mcdonough NP - Last Filed: 01/20/23 16:02> Social History Social History: Social History Housing: Apartment Alcohol intake: former Patient Tobacco Use Status: Never used Tobacco e-Cigarette/Vaping Use: Never Used Second Hand Smoke Exposure: No Advance Directives: No Advance Directives Information Provided: No service: No Current occupational status: unemployed <Raquel Mcdonough NP - Last Filed: 01/20/23 16:02> Physical Exam Vital Signs: Vital Signs: Last Vital Signs Temp 98.1 F 01/20/23 22:56 Pulse 67 01/20/23 23:44 Resp 18 01/20/23 23:44 BP 157/85 H 01/20/23 23:44 Pulse Ox 96 01/20/23 23:44 O2 Del Method Room Air 01/20/23 23:44 BMI result Body Mass Index 57.4 <Raquel Mcdonough NP - Last Filed: 01/20/23 16:02> Vital Signs: Last Vital Signs Temp 98.1 F 01/20/23 22:56 Pulse 67 01/20/23 23:44 Resp 18 01/20/23 23:44 BP 157/85 H 01/20/23 23:44 Pulse Ox 96 01/20/23 23:44 O2 Del Method Room Air 01/20/23 23:44 BMI result Body Mass Index 57.4 vss <SAIMA Panda - Last Filed: 01/20/23 23:53> Appearance: Alert.? Oriented X3.? No acute distress.? Head: Normocephalic, atraumatic, no step-offs or deformities Eyes: Pupils equal, round and reactive to light.? Neck: Normal inspection.? Neck supple.? CVS: Normal heart rate and rhythm.? Pulses normal.? Respiratory: No respiratory distress.? Breath sounds normal.? Abdomen: Soft and nontender.? Skin: Skin warm and dry.? Normal skin color.? Normal skin turgor.? Extremities: No lower extremity edema.? No calf ttp. 5/5 strength to bilateral upper and lower extremities Neuro: Oriented X 3.? No motor deficit.? No sensory deficit. CN 2-12 intact . Normal hand jacker feeder bilaterally. Negative Romberg and pronator drift. Normal fin ruby-to-nose, [id number] in ambulating with steady gait normal coordination. NIH stroke scale 0 <SAIMA Panda - Last Filed: 01/20/23 23:53> Course Course Course Narrative: This is a rapid medical exam. Deferred additional HPI, ROS, PE to primary provider. 37 yo female with past medical history of HTN, asthma, anemia, anxiety, depression, GERD here with complaints of chest pain since 01/16, seen at [place] [facility] 01/18 but LWBS, +cough, chills, both arms numb, left leg pain/swelling. Had had negative covid test. Will obtain labs, EKG, COVID screen, CXR. No smoking history, no OCP use, no recent travel. VSS <Raquel Mcdonough NP - Last Filed: 01/20/23 16:02> Reevaluation(s) Reevaluation #1: CBC appears to be around patient's baseline of normocytic anemia. Chemistry unremarkable no acute electrolyte abnormalities requiring intervention. Troponin negative, EKG nonischemic unlikely ACS. D-dimer negative also perc negative, unlikely PE. UA without infection. COVID negative. Chest x-ray unremarkable. Patient has negative D-dimer I do not suspect DVT to lower extremity no edema, negative Gurvinder bilaterally. Likely my algia of left lower extremity. Not complaining of pain at this time. <SAIMA Panda - Last Filed: 01/20/23 23:53> Time: 22:30 <SAIMA Panda - Last Filed: 01/20/23 23:53> Reevaluation #2: Patient tells me her headache, cp and sob have resolved she is just having muscle aches and pains. Also complaining of her dry cough. Patient's influenza test negative. Patient will be discharged home with cyclobenzaprine, Toradol, benzonatate Perles for cough and inhaler. This is likely viral. Educated patient on diagnosis and treatment plan, answered all question, patient verbalizes understanding. At this time patient will be discharged home, advised to return with new or worsening symptoms. Educated on worrisome signs and symptoms and when to return. At this time I feel comfortable discharge home. <SAIMA Panda - Last Filed: 01/20/23 23:53> Time: 23:49 <SAIMA Panda - Last Filed: 01/20/23 23:53> Medications Administered Discontinued Medications Generic Name Dose Route Start Last Admin Trade Name Freq PRN Reason Stop Dose Admin Ketorolac Tromethamine 30 mg 01/20/23 22:05 01/20/23 23:05 Ketorolac Tromethamine 15 Mg/Ml Vial IM 01/20/23 22:06 30 mg ONCE ONE Administration <Raquel Mcdonough NP - Last Filed: 01/20/23 16:02> Medications Administered Discontinued Medications Generic Name Dose Route Start Last Admin Trade Name Freq PRN Reason Stop Dose Admin Ketorolac Tromethamine 30 mg 01/20/23 22:05 01/20/23 23:05 Ketorolac Tromethamine 15 Mg/Ml Vial IM 01/20/23 22:06 30 mg ONCE ONE Administration <SAIMA Panda - Last Filed: 01/20/23 23:53> Medical Decision Making Medical Decision Making [facility] Narrative: 2200 37-year-old female presents with multiple complaints including chest pain, shortness of breath, fatigue, malaise, dry cough, intermittent left leg pain atraumatic in nature. Physical exam benign. Neuro nonfocal, cerebellar intact. NIHSS-0 Likely viral in nature. Unlikley DVT, PE, ACS, PNA, CHF. No signs of intracranial hemorrhage, stroke, posterior stroke, headache likely secondary to viral illness. Plan- labs, imaging, D-dimer, head scan <SAIMA Panda - Last Filed: 01/20/23 23:53> Differential Diagnosis Differential Diagnoses: The differential diagnosis associated with the presentation includes <SAIMA Panda - Last Filed: 01/20/23 23:53> Likely viral in nature. Unlikley DVT, PE, ACS, PNA, CHF. No signs of intracranial hemorrhage, stroke, posterior stroke, headache likely secondary to viral illness. <SAIMA Panda - Last Filed: 01/20/23 23:53> Admission/Observation Consideration of admission/observation: Escalation of care including admission/observation considered <SAIMA Panda - Last Filed: 01/20/23 23:53> Unlikely <SAIMA Panda - Last Filed: 01/20/23 23:53> Lab Data MDM Lab Attestation statement: I reviewed the patient's lab results. <SAIMA Panda - Last Filed: 01/20/23 23:53> Result Diagrams: 01/20/23 17:17 01/20/23 17:17 <Raquel Mcdonough NP - Last Filed: 01/20/23 16:02> Labs: Lab Results 01/20/23 01/20/23 01/20/23 Range/Units 17:17 17:17 17:17 WBC 8.3 (4.8-10.8) X10*3/uL RBC 4.18 L (4.20-5.50) X10*6/uL Hgb 10.7 L (12.0-16.0) g/dl Hct 34.1 L (37.0-47.0) % MCV 81.6 (80.0-98.0) fL MCH 25.6 L (27.0-33.0) pg MCHC 31.4 (31.0-35.0) g/dl RDW 15.0 (11.0-16.0) % Plt Count 418 H (160-400) X10*3/uL MPV 10.3 (9.4-12.3) fL Immature Gran % (Auto) 0.2 (0.0-0.4) % Neut % (Auto) 58.5 (45-73) % Lymph % (Auto) 28.0 (20-40) % [place] % (Auto) 8.5 (2-11) % Eos % (Auto) 4.6 H (0-4) % Baso % (Auto) 0.2 (0-2) % Lymph # (Auto) 2.3 (1.2-4.9) X10*3/uL [place] # (Auto) 0.7 (0.1-1.2) X10*3/uL Eos # (Auto) 0.4 (0.0-0.4) X10*3/uL Baso # (Auto) 0.0 (0.0-0.2) X10*3/uL Abs Immat Gran (auto) 0.02 (0.00-0.03) X10*3/uL Absolute Neuts (auto) 4.8 (2.0-8.3) x10*3/uL Absolute Nucleated RBC 0.000 (0.0-0.012) X10*3/uL Nucleated RBC % (auto) 0.0 (0.0-0.2) /100WBC PT 10.5 (10.0-13.1) SEC INR 0.9 (0.9-1.1) D-Dimer High Sensitivty < 150 NG/ML Sodium 138 (135-145) mmol/L Potassium 3.9 (3.3-5.1) mmol/L Chloride 106 (96-108) mmol/L Carbon Dioxide 24 (22-29) mmol/L Anion Gap 12 (12-20) BUN 7 L (9-16) mg/dL Creatinine 0.67 (0.5-1.4) mg/dL Estim Creat Clear Calc 165.5 Estimated GFR > 60 Random Glucose 94 (60-115) mg/dL Calcium 7.9 L (8.4-10.2) mg/dL Magnesium 2.0 (1.6-2.6) mg/dL Total Bilirubin 0.4 (0.0-1.0) mg/dL Direct Bilirubin 0.1 (0.0-0.5) mg/dL AST 20 (5-31) U/L ALT 22 (0-31) U/L Alkaline Phosphatase 77 (39-117) U/L Troponin I High Sens (<3.5-17.0) ng/L Total Protein 6.8 (6.5-8.0) g/dL Albumin 3.8 (3.5-5.0) g/dL Urine Color Urine Appearance Urine pH (5.0-9.0) Ur Specific [place] (1.005-1.025) Urine Protein (Neg-Trace) mg/dL Urine Glucose (UA) (Negative) mg/dL Urine Ketones (Negative) mg/dL Urine Blood (Negative) Urine Nitrite (Negative) Ur Leukocyte Esterase (Negative) COVID-19 (ERNIE) (Negative) COVID-19 Clin Com Influenza Type A (PETER) (Negative) Influenza Type B (PETER) (Negative) Influenza A & B Note 01/20/23 01/20/23 01/20/23 Range/Units 17:17 17:17 20:54 WBC (4.8-10.8) X10*3/uL RBC (4.20-5.50) X10*6/uL Hgb (12.0-16.0) g/dl Hct (37.0-47.0) % MCV (80.0-98.0) fL MCH (27.0-33.0) pg MCHC (31.0-35.0) g/dl RDW (11.0-16.0) % Plt Count (160-400) X10*3/uL MPV (9.4-12.3) fL Immature Gran % (Auto) (0.0-0.4) % Neut % (Auto) (45-73) % Lymph % (Auto) (20-40) % [place] % (Auto) (2-11) % Eos % (Auto) (0-4) % Baso % (Auto) (0-2) % Lymph # (Auto) (1.2-4.9) X10*3/uL [place] # (Auto) (0.1-1.2) X10*3/uL Eos # (Auto) (0.0-0.4) X10*3/uL Baso # (Auto) (0.0-0.2) X10*3/uL Abs Immat Gran (auto) (0.00-0.03) X10*3/uL Absolute Neuts (auto) (2.0-8.3) x10*3/uL Absolute Nucleated RBC (0.0-0.012) X10*3/uL Nucleated RBC % (auto) (0.0-0.2) /100WBC PT (10.0-13.1) SEC INR (0.9-1.1) D-Dimer High Sensitivty NG/ML Sodium (135-145) mmol/L Potassium (3.3-5.1) mmol/L Chloride (96-108) mmol/L Carbon Dioxide (22-29) mmol/L Anion Gap (12-20) BUN (9-16) mg/dL Creatinine (0.5-1.4) mg/dL Estim Creat Clear Calc Estimated GFR Random Glucose (60-115) mg/dL Calcium (8.4-10.2) mg/dL Magnesium (1.6-2.6) mg/dL Total Bilirubin (0.0-1.0) mg/dL Direct Bilirubin (0.0-0.5) mg/dL AST (5-31) U/L ALT (0-31) U/L Alkaline Phosphatase (39-117) U/L Troponin I High Sens < 2.7 (<3.5-17.0) ng/L Total Protein (6.5-8.0) g/dL Albumin (3.5-5.0) g/dL Urine Color Yellow Urine Appearance Cloudy Urine pH 6.5 (5.0-9.0) Ur Specific [place] 1.020 (1.005-1.025) Urine Protein Trace (Neg-Trace) mg/dL Urine Glucose (UA) Negative (Negative) mg/dL Urine Ketones Negative (Negative) mg/dL Urine Blood Negative (Negative) Urine Nitrite Negative (Negative) Ur Leukocyte Esterase Negative (Negative) COVID-19 (ERNIE) Negative (Negative) COVID-19 Clin Com See Note Influenza Type A (PETER) (Negative) Influenza Type B (PETER) (Negative) Influenza A & B Note 01/20/23 Range/Units 22:56 WBC (4.8-10.8) X10*3/uL RBC (4.20-5.50) X10*6/uL Hgb (12.0-16.0) g/dl Hct (37.0-47.0) % MCV (80.0-98.0) fL MCH (27.0-33.0) pg MCHC (31.0-35.0) g/dl RDW (11.0-16.0) % Plt Count (160-400) X10*3/uL MPV (9.4-12.3) fL Immature Gran % (Auto) (0.0-0.4) % Neut % (Auto) (45-73) % Lymph % (Auto) (20-40) % [place] % (Auto) (2-11) % Eos % (Auto) (0-4) % Baso % (Auto) (0-2) % Lymph # (Auto) (1.2-4.9) X10*3/uL [place] # (Auto) (0.1-1.2) X10*3/uL Eos # (Auto) (0.0-0.4) X10*3/uL Baso # (Auto) (0.0-0.2) X10*3/uL Abs Immat Gran (auto) (0.00-0.03) X10*3/uL Absolute Neuts (auto) (2.0-8.3) x10*3/uL Absolute Nucleated RBC (0.0-0.012) X10*3/uL Nucleated RBC % (auto) (0.0-0.2) /100WBC PT (10.0-13.1) SEC INR (0.9-1.1) D-Dimer High Sensitivty NG/ML Sodium (135-145) mmol/L Potassium (3.3-5.1) mmol/L Chloride (96-108) mmol/L Carbon Dioxide (22-29) mmol/L Anion Gap (12-20) BUN (9-16) mg/dL Creatinine (0.5-1.4) mg/dL Estim Creat Clear Calc Estimated GFR Random Glucose (60-115) mg/dL Calcium (8.4-10.2) mg/dL Magnesium (1.6-2.6) mg/dL Total Bilirubin (0.0-1.0) mg/dL Direct Bilirubin (0.0-0.5) mg/dL AST (5-31) U/L ALT (0-31) U/L Alkaline Phosphatase (39-117) U/L Troponin I High Sens (<3.5-17.0) ng/L Total Protein (6.5-8.0) g/dL Albumin (3.5-5.0) g/dL Urine Color Urine Appearance Urine pH (5.0-9.0) Ur Specific [place] (1.005-1.025) Urine Protein (Neg-Trace) mg/dL Urine Glucose (UA) (Negative) mg/dL Urine Ketones (Negative) mg/dL Urine Blood (Negative) Urine Nitrite (Negative) Ur Leukocyte Esterase (Negative) COVID-19 (ERNIE) (Negative) COVID-19 Clin Com Influenza Type A (PETER) Negative (Negative) Influenza Type B (PETER) Negative (Negative) Influenza A & B Note See Note <Raquel Mcdonough NP - Last Filed: 01/20/23 16:02> Lab Results 01/20/23 01/20/23 01/20/23 Range/Units 17:17 17:17 17:17 WBC 8.3 (4.8-10.8) X10*3/uL RBC 4.18 L (4.20-5.50) X10*6/uL Hgb 10.7 L (12.0-16.0) g/dl Hct 34.1 L (37.0-47.0) % MCV 81.6 (80.0-98.0) fL MCH 25.6 L (27.0-33.0) pg MCHC 31.4 (31.0-35.0) g/dl RDW 15.0 (11.0-16.0) % Plt Count 418 H (160-400) X10*3/uL MPV 10.3 (9.4-12.3) fL Immature Gran % (Auto) 0.2 (0.0-0.4) % Neut % (Auto) 58.5 (45-73) % Lymph % (Auto) 28.0 (20-40) % [place] % (Auto) 8.5 (2-11) % Eos % (Auto) 4.6 H (0-4) % Baso % (Auto) 0.2 (0-2) % Lymph # (Auto) 2.3 (1.2-4.9) X10*3/uL [place] # (Auto) 0.7 (0.1-1.2) X10*3/uL Eos # (Auto) 0.4 (0.0-0.4) X10*3/uL Baso # (Auto) 0.0 (0.0-0.2) X10*3/uL Abs Immat Gran (auto) 0.02 (0.00-0.03) X10*3/uL Absolute Neuts (auto) 4.8 (2.0-8.3) x10*3/uL Absolute Nucleated RBC 0.000 (0.0-0.012) X10*3/uL Nucleated RBC % (auto) 0.0 (0.0-0.2) /100WBC PT 10.5 (10.0-13.1) SEC INR 0.9 (0.9-1.1) D-Dimer High Sensitivty < 150 NG/ML Sodium 138 (135-145) mmol/L Potassium 3.9 (3.3-5.1) mmol/L Chloride 106 (96-108) mmol/L Carbon Dioxide 24 (22-29) mmol/L Anion Gap 12 (12-20) BUN 7 L (9-16) mg/dL Creatinine 0.67 (0.5-1.4) mg/dL Estim Creat Clear Calc 165.5 Estimated GFR > 60 Random Glucose 94 (60-115) mg/dL Calcium 7.9 L (8.4-10.2) mg/dL Magnesium 2.0 (1.6-2.6) mg/dL Total Bilirubin 0.4 (0.0-1.0) mg/dL Direct Bilirubin 0.1 (0.0-0.5) mg/dL AST 20 (5-31) U/L ALT 22 (0-31) U/L Alkaline Phosphatase 77 (39-117) U/L Troponin I High Sens (<3.5-17.0) ng/L Total Protein 6.8 (6.5-8.0) g/dL Albumin 3.8 (3.5-5.0) g/dL Urine Color Urine Appearance Urine pH (5.0-9.0) Ur Specific [place] (1.005-1.025) Urine Protein (Neg-Trace) mg/dL Urine Glucose (UA) (Negative) mg/dL Urine Ketones (Negative) mg/dL Urine Blood (Negative) Urine Nitrite (Negative) Ur Leukocyte Esterase (Negative) COVID-19 (ERNIE) (Negative) COVID-19 Clin Com Influenza Type A (PETER) (Negative) Influenza Type B (PETER) (Negative) Influenza A & B Note 01/20/23 01/20/23 01/20/23 Range/Units 17:17 17:17 20:54 WBC (4.8-10.8) X10*3/uL RBC (4.20-5.50) X10*6/uL Hgb (12.0-16.0) g/dl Hct (37.0-47.0) % MCV (80.0-98.0) fL MCH (27.0-33.0) pg MCHC (31.0-35.0) g/dl RDW (11.0-16.0) % Plt Count (160-400) X10*3/uL MPV (9.4-12.3) fL Immature Gran % (Auto) (0.0-0.4) % Neut % (Auto) (45-73) % Lymph % (Auto) (20-40) % [place] % (Auto) (2-11) % Eos % (Auto) (0-4) % Baso % (Auto) (0-2) % Lymph # (Auto) (1.2-4.9) X10*3/uL [place] # (Auto) (0.1-1.2) X10*3/uL Eos # (Auto) (0.0-0.4) X10*3/uL Baso # (Auto) (0.0-0.2) X10*3/uL Abs Immat Gran (auto) (0.00-0.03) X10*3/uL Absolute Neuts (auto) (2.0-8.3) x10*3/uL Absolute Nucleated RBC (0.0-0.012) X10*3/uL Nucleated RBC % (auto) (0.0-0.2) /100WBC PT (10.0-13.1) SEC INR (0.9-1.1) D-Dimer High Sensitivty NG/ML Sodium (135-145) mmol/L Potassium (3.3-5.1) mmol/L Chloride (96-108) mmol/L Carbon Dioxide (22-29) mmol/L Anion Gap (12-20) BUN (9-16) mg/dL Creatinine (0.5-1.4) mg/dL Estim Creat Clear Calc Estimated GFR Random Glucose (60-115) mg/dL Calcium (8.4-10.2) mg/dL Magnesium (1.6-2.6) mg/dL Total Bilirubin (0.0-1.0) mg/dL Direct Bilirubin (0.0-0.5) mg/dL AST (5-31) U/L ALT (0-31) U/L Alkaline Phosphatase (39-117) U/L Troponin I High Sens < 2.7 (<3.5-17.0) ng/L Total Protein (6.5-8.0) g/dL Albumin (3.5-5.0) g/dL Urine Color Yellow Urine Appearance Cloudy Urine pH 6.5 (5.0-9.0) Ur Specific [place] 1.020 (1.005-1.025) Urine Protein Trace (Neg-Trace) mg/dL Urine Glucose (UA) Negative (Negative) mg/dL Urine Ketones Negative (Negative) mg/dL Urine Blood Negative (Negative) Urine Nitrite Negative (Negative) Ur Leukocyte Esterase Negative (Negative) COVID-19 (ERNIE) Negative (Negative) COVID-19 Clin Com See Note Influenza Type A (PETER) (Negative) Influenza Type B (PETER) (Negative) Influenza A & B Note 01/20/23 Range/Units 22:56 WBC (4.8-10.8) X10*3/uL RBC (4.20-5.50) X10*6/uL Hgb (12.0-16.0) g/dl Hct (37.0-47.0) % MCV (80.0-98.0) fL MCH (27.0-33.0) pg MCHC (31.0-35.0) g/dl RDW (11.0-16.0) % Plt Count (160-400) X10*3/uL MPV (9.4-12.3) fL Immature Gran % (Auto) (0.0-0.4) % Neut % (Auto) (45-73) % Lymph % (Auto) (20-40) % [place] % (Auto) (2-11) % Eos % (Auto) (0-4) % Baso % (Auto) (0-2) % Lymph # (Auto) (1.2-4.9) X10*3/uL [place] # (Auto) (0.1-1.2) X10*3/uL Eos # (Auto) (0.0-0.4) X10*3/uL Baso # (Auto) (0.0-0.2) X10*3/uL Abs Immat Gran (auto) (0.00-0.03) X10*3/uL Absolute Neuts (auto) (2.0-8.3) x10*3/uL Absolute Nucleated RBC (0.0-0.012) X10*3/uL Nucleated RBC % (auto) (0.0-0.2) /100WBC PT (10.0-13.1) SEC INR (0.9-1.1) D-Dimer High Sensitivty NG/ML Sodium (135-145) mmol/L Potassium (3.3-5.1) mmol/L Chloride (96-108) mmol/L Carbon Dioxide (22-29) mmol/L Anion Gap (12-20) BUN (9-16) mg/dL Creatinine (0.5-1.4) mg/dL Estim Creat Clear Calc Estimated GFR Random Glucose (60-115) mg/dL Calcium (8.4-10.2) mg/dL Magnesium (1.6-2.6) mg/dL Total Bilirubin (0.0-1.0) mg/dL Direct Bilirubin (0.0-0.5) mg/dL AST (5-31) U/L ALT (0-31) U/L Alkaline Phosphatase (39-117) U/L Troponin I High Sens (<3.5-17.0) ng/L Total Protein (6.5-8.0) g/dL Albumin (3.5-5.0) g/dL Urine Color Urine Appearance Urine pH (5.0-9.0) Ur Specific [place] (1.005-1.025) Urine Protein (Neg-Trace) mg/dL Urine Glucose (UA) (Negative) mg/dL Urine Ketones (Negative) mg/dL Urine Blood (Negative) Urine Nitrite (Negative) Ur Leukocyte Esterase (Negative) COVID-19 (ERNIE) (Negative) COVID-19 Clin Com Influenza Type A (PETER) Negative (Negative) Influenza Type B (PETER) Negative (Negative) Influenza A & B Note See Note <SAIMA Panda - Last Filed: 01/20/23 23:53> Independent Interpretation I performed an independent interpretation of an: EKG (Ventricular rate of 75, GA normal, QRS normal, QT/QTC normal. EKG with normal sinus rhythm no ST elevations or inversions concerning for ischemia.), Plain X-Ray (XR/XR chest 2V IMPRESSION: No acute disease.) and CT Scan <SAIMA Panda - Last Filed: 01/20/23 23:53> Radiology Impression Discussion of test interpretation with radiology: I have reviewed the radiologist's reading. <SAIMA Panda - Last Filed: 01/20/23 23:53> Prescription Management I considered prescription management with: Pain Medication <SAIMA Panda - Last Filed: 01/20/23 23:53> Core Measures AMI core measures followed: Yes <SAIMA Panda - Last Filed: 01/20/23 23:53> Measure exclusions: not indicated <SAIMA Panda - Last Filed: 01/20/23 23:53> Critical Care Time Critical Care Time Critical Care Time: No <SAIMA Panda - Last Filed: 01/20/23 23:53> Discharge Plan Discharge Clinical Impression: Viral illness, Chest pain, Headache <Raquel Mcdonough NP - Last Filed: 01/20/23 16:02> Patient Disposition: Home, Self-Care <Raquel Mcdonough NP - Last Filed: 01/20/23 16:02> Instructions: Chest Pain (DC), Acute Headache (ED), Viral Syndrome (ED) <Raquel Mcdonough NP - Last Filed: 01/20/23 16:02> Additional Instructions: Take your medications as prescribed. If you were prescribed antibiotics today, it is important that you take your medication to their entirety, do not skip any doses, do not finish them early. Follow-up with your primary care provider this week. Return to the emergency department with new or worsening symptoms. Such as fevers, chills, chest pain, shortness of breath, nausea, vomiting, dizziness, headache, vision changes, lethargy In case of emergency call 911 Your laboratory studies were reassuring. Your cardiac enzymes looked good and her EKG also looks good Your screening test for blood clot was negative. Cyclobenzaprine as a muscle relaxer, it can make you drowsy/sleepy, do not take while driving, operating machinery, do not take with any other sedatives, do not mix with alcohol. CT/CT head/brain wo IV con IMPRESSION: No acute intracranial process seen. XR/XR chest 2V IMPRESSION: No acute disease. <Raquel Mcdonough NP - Last Filed: 01/20/23 16:02> Prescriptions: New cyclobenzaprine 10 mg tablet 10 mg PO BEDTIME PRN (Reason: muscle spasm) Qty: 7 0RF benzonatate 100 mg capsule 100 mg PO BID PRN (Reason: cough) Qty: 20 0RF albuterol sulfate 90 mcg/actuation aerosol powdr breath activated 2 inh inhalation Q4-6H PRN (Reason: shortness of breath or wheezing) Qty: 1 0RF No Action naproxen 500 mg tablet 500 mg PO BID PRN (Reason: pain) 10 Days Qty: 20 0RF cyclobenzaprine 5 mg tablet 5 mg PO Q8H PRN (Reason: pain (scale score 7-10)) 5 Days Qty: 14 0RF diazepam [Valium] 5 mg tablet 5 mg PO TID PRN (Reason: muscle spasm) Qty: 12 0RF amlodipine 5 mg tablet 5 mg PO DAILY 30 Days Qty: 30 0RF hydrochlorothiazide 12.5 mg tablet 12.5 mg PO QAM Qty: 30 0RF ondansetron 4 mg tablet,disintegrating 4 mg PO Q6-8H PRN (Reason: nausea and vomiting) Qty: 10 0RF albuterol sulfate [Ventolin HFA] 90 mcg/actuation HFA aerosol inhaler 1 inh inhalation Q4-6H PRN (Reason: shortness of breath or wheezing) Qty: 8.5 1RF omeprazole 40 mg capsule,delayed release(DR/EC) 40 mg PO DAILY 90 Days Qty: 90 1RF fluticasone propion-salmeterol [Advair Diskus] 250-50 mcg/dose blister with device 1 inh inhalation BID Qty: 60 1RF (DME) nebulizer accessories Kit See Rx Instructions .Route Qty: 1 0RF Rx Instructions: As directed (DME) nebulizer and compressor Device See Rx Instructions .Route Qty: 1 0RF Rx Instructions: As directed albuterol sulfate 0.63 mg/3 mL solution for nebulization 0.63 mg inhalation Q6-8H PRN (Reason: shortness of breath or wheezing) Qty: 75 0RF lisinopril 5 mg tablet 5 mg PO DAILY Qty: 30 0RF naproxen 500 mg tablet 500 mg PO BID PRN (Reason: pain) Qty: 20 0RF progesterone micronized [Prometrium] 200 mg capsule 200 mg PO BEDTIME 10 Days Qty: 30 4RF Rx Instructions: Take the pill 1 tablet a day cyclically every month from day 15-24 day 1 being the 1st day of next menstrual cycle <Raquel Mcdonough NP - Last Filed: 01/20/23 16:02> Referrals: Dick Benson MD [Primary Care Provider] - 3 days <Raquel Mcdonough NP - Last Filed: 01/20/23 16:02> Stand Alone Forms: Work/School Release <Raquel Mcdonough NP - Last Filed: 01/20/23 16:02>
[2023-01-20 15:51] VITALS: BP 177/92; PULSE 70; RESP 18; TEMP 36.4; O2SAT 98; BMI 57.4
[2023-01-20 17:23] LABS: MANUAL DIFF FLAG NO
[2023-01-20 17:26] LABS: Basophils Percent Auto 0.2 % (0-2); Eosinophils Absolute Auto 0.4 X10*3/uL (0.0-0.4); Eosinophils Percent Auto 4.6 % (0-4); Hematocrit 34.1 % (37.0-47.0); Hemoglobin 10.7 g/dl (12.0-16.0); Imm Gran Abs Auto 0.02 X10*3/uL (0.00-0.03); Imm Gran Pct Auto 0.2 % (0.0-0.4); Lymphocytes Absolute Auto 2.3 X10*3/uL (1.2-4.9); Mean Corpuscular HGB Conc 31.4 g/dl (31.0-35.0); Mean Corpuscular Hemoglobin 25.6 pg (27.0-33.0); Mean Corpuscular Volume 81.6 fL (80.0-98.0); Mean Platelet Volume 10.3 fL (9.4-12.3); Monocytes Absolute Auto 0.7 X10*3/uL (0.1-1.2); Monocytes Percent Auto 8.5 % (2-11); Neutrophils Absolute Auto 4.8 x10*3/uL (2.0-8.3); Neutrophils Percent Auto 58.5 % (45-73); Platelet Count 418 X10*3/uL (160-400); Red Blood Count 4.18 X10*6/uL (4.20-5.50); White Blood Count 8.3 X10*3/uL (4.8-10.8)
[2023-01-20 17:34] LABS: INTERNATIONAL NORM RATIO 0.9 (0.9-1.1); Prothrombin Time 10.5 SEC (10.0-13.1)
[2023-01-20 17:42] LABS: Alanine Aminotransferase 22 U/L (0-31); Albumin Level 3.8 g/dL (3.5-5.0); Alkaline Phosphatase 77 U/L (39-117); Anion Gap 12 (12-20); Aspartate Amino Transferase 20 U/L (5-31); Bilirubin Direct 0.1 mg/dL (0.0-0.5); Bilirubin Total 0.4 mg/dL (0.0-1.0); Blood Urea Nitrogen 7 mg/dL (9-16); Calcium 7.9 mg/dL (8.4-10.2); Carbon Dioxide 24 mmol/L (22-29); Chloride 106 mmol/L (96-108); Creatinine Clr Calc Pharmacy 165.5; Estimated Glomerular Filt Rate > 60; Glucose Random 94 mg/dL (60-115); Potassium 3.9 mmol/L (3.3-5.1); Sodium 138 mmol/L (135-145); Total Protein 6.8 g/dL (6.5-8.0)
[2023-01-20 17:45] LABS: COVID-19 Test Negative (Negative); IDNOW Serial# 9DB6401D
[2023-01-20 17:50] LABS: Troponin-I High Sensitivity < 2.7 ng/L (<3.5-17.0)
[2023-01-20 20:50] VITALS: BP 185/86; PULSE 65; RESP 16; TEMP 37; O2SAT 98
[2023-01-20 21:02] LABS: Appearance Urine Cloudy; Color Urine Yellow; Glucose Urine UA Negative (Negative); Leukocyte Esterase Urine Negative (Negative); Nitrite Urine Negative (Negative); PH 6.5 (5.0-9.0); Urine Blood Negative (Negative); Urine Ketones Negative (Negative); Urine Protein Trace mg/dL (Neg-Trace)
[2023-01-20 21:37] LABS: D Dimer High Sensitivity < 150 NG/ML
[2023-01-20 22:56] VITALS: BP 152/67; PULSE 65; RESP 14; TEMP 36.7; O2SAT 97
[2023-01-20] MEDS: Ketorolac Tromethamine 15 MG/ML VIAL 30 MG IM (23:05)
[2023-01-20 23:33] LABS: IDNOW Serial# BCCEAD1C; Influenza A Negative (Negative); Influenza B2 Negative (Negative)
[2023-01-20 23:44] VITALS: BP 157/85; PULSE 67; RESP 18; O2SAT 96
== END 2023-01-21 00:27 | disposition home or self-care (01) ==
PROVIDERS: Nurse Practitioner Family; Physician Assistant; Emergency Provider Internal Medicine; PCP Student in an Organized Health Care Education/Training Program
DX: R07.89 Other chest pain (principal); B34.9 Viral infection, unspecified; R51.9 Headache, unspecified; R05.9 Cough, unspecified; M79.605 Pain in left leg; I10 Essential (primary) hypertension; M25.512 Pain in left shoulder; R06.02 Shortness of breath; R53.83 Other fatigue; Z20.822 Contact with and (suspected) exposure to COVID-19
CPT/HCPCS: 70450; 71046; 80048; 80076; 81003; 83735; 84484; 85025; 85379; 85610; 87502; 87635; 93005; 96372; 99284; J1885

== ENCOUNTER 2023-01-29 10:23 | Outpatient (REF) | payer OTHER, SELFPAY ==
[2023-01-29 10:47] LABS: MANUAL DIFF FLAG NO
[2023-01-29 11:03] LABS: Basophils Percent Auto 0.2 % (0-2); Eosinophils Absolute Auto 0.3 X10*3/uL (0.0-0.4); Hematocrit 32.3 % (37.0-47.0); Hemoglobin 10.1 g/dl (12.0-16.0); Imm Gran Abs Auto 0.05 X10*3/uL (0.00-0.03); Imm Gran Pct Auto 0.4 % (0.0-0.4); Lymphocytes Absolute Auto 3.3 X10*3/uL (1.2-4.9); Lymphocytes Percent Auto 25.6 % (20-40); Mean Corpuscular HGB Conc 31.3 g/dl (31.0-35.0); Mean Corpuscular Hemoglobin 25.7 pg (27.0-33.0); Mean Corpuscular Volume 82.2 fL (80.0-98.0); Monocytes Absolute Auto 0.8 X10*3/uL (0.1-1.2); Monocytes Percent Auto 6.3 % (2-11); Neutrophils Absolute Auto 8.4 x10*3/uL (2.0-8.3); Neutrophils Percent Auto 65.5 % (45-73); Platelet Count 369 X10*3/uL (160-400); Red Blood Count 3.93 X10*6/uL (4.20-5.50); Red Cell Distribution Width 15.1 % (11.0-16.0); White Blood Count 12.8 X10*3/uL (4.8-10.8)
[2023-01-29 11:47] LABS: Alanine Aminotransferase 19 U/L (0-31); Albumin Level 3.7 g/dL (3.5-5.0); Alkaline Phosphatase 64 U/L (39-117); Anion Gap 11 (12-20); Aspartate Amino Transferase 17 U/L (5-31); Bilirubin Total 0.5 mg/dL (0.0-1.0); Blood Urea Nitrogen 12 mg/dL (9-16); Calcium 8.7 mg/dL (8.4-10.2); Carbon Dioxide 27 mmol/L (22-29); Chloride 107 mmol/L (96-108); Cholesterol 189 mg/dL; Estimated Glomerular Filt Rate > 60; Glucose Random 84 mg/dL (60-115); HDL Cholesterol 58 mg/dL; LDL Cholesterol Calculated 114 mg/dl; Potassium 4.2 mmol/L (3.3-5.1); Sodium 141 mmol/L (135-145); Total Protein 6.5 g/dL (6.5-8.0); Triglycerides 87 mg/dL
[2023-01-29 12:07] LABS: Folate 6.3 ng/mL (> or = 4.0); TSH reflex Free T4 0.18 uIU/mL (0.32-4.0); Vitamin B12 199 pg/mL (200-900)
[2023-01-29 13:01] LABS: Free T4 (Free Thyroxine) 0.91 ng/dL (0.71-1.85)
== END 2023-01-29 10:24 | disposition home or self-care (01) ==
LOC: HO.LAB 10:23
PROVIDERS: PCP Internal Medicine; Visit Provider Nurse Practitioner Family
DX: Z13.29 Encounter for screening for other suspected endocrine disorder (principal); D64.9 Anemia, unspecified; E66.01 Morbid (severe) obesity due to excess calories; E53.8 Deficiency of other specified B group vitamins; I10 Essential (primary) hypertension
CPT/HCPCS: 36415; 80053; 80061; 82607; 82746; 84439; 84443; 85025

== ENCOUNTER 2023-02-05 11:13 | Outpatient (REF) | payer OTHER, SELFPAY ==
[2023-02-08 21:07] LABS: Rubella IgG Antibody 4.56 Index
[2023-02-09 02:08] LABS: Rubeola IgG (Measles) >300.00 AU/mL
== END 2023-02-05 11:14 | disposition home or self-care (01) ==
LOC: HO.LAB 11:13
PROVIDERS: Visit Provider Nurse Practitioner Family
DX: Z01.84 Encounter for antibody response examination (principal)
CPT/HCPCS: 36415; 86735; 86762; 86765; 86787

== ENCOUNTER 2023-02-13 19:19 | Emergency (ER) | payer OTHER, SELFPAY ==
--- NOTE | ~2023-02-13 | XR_ITS ---
EXAMINATION: XR CHEST CLINICAL INFORMATION: Shortness of breath COMPARISON: Chest x-ray 01/20/2023 TECHNIQUE: 2 views of the chest were obtained. FINDINGS: No significant abnormality is noted involving the heart, lungs, mediastinum, bony thorax or soft tissues. XR/XR chest 2V IMPRESSION: Unremarkable examination.
--- NOTE | 2023-02-13 19:28 | ED_ITS ---
HPI - Asthma General Chief Complaint: Asthma <SAIMA Garibay - Last Filed: 02/13/23 19:34> Stated Complaint: asthma/ cant talk or cant breathe <SAIMA Garibay - Last Filed: 02/13/23 19:34> Time Seen by Provider: 02/13/23 20:51 <SAIMA Garibay - Last Filed: 02/13/23 19:34> Source: patient <Camila Daley MD - Last Filed: 02/13/23 23:41> Mode of arrival: ambulatory <Camila Daley MD - Last Filed: 02/13/23 23:41> History of Present Illness HPI Narrative: 37-year-old female presents with worsening shortness of breath and has known asthma. Patient reports that this has been recurring for weeks now and she has been following up with her primary care provider who just tells her that if the breathing gets too bad to come into the emergency room. <Camila Daley MD - Last Filed: 02/13/23 23:41> Related Data Home Medications: Previous Rx's Medication Instructions Recorded naproxen 500 mg tablet 500 mg PO BID PRN pain 10 days #20 01/24/22 tabs lisinopril 5 mg tablet 5 mg PO DAILY #30 tabs 06/08/22 amlodipine 5 mg tablet 5 mg PO DAILY 30 days #30 tabs 09/09/22 hydrochlorothiazide 12.5 mg tablet 12.5 mg PO QAM #30 tabs 09/09/22 benzonatate 100 mg capsule 100 mg PO BID PRN cough #20 caps 01/20/23 albuterol sulfate 0.63 mg/3 mL 0.63 mg (3 mL) inhalation Q4H PRN 01/28/23 solution for nebulization shortness of breath or wheezing #90 mL albuterol sulfate 90 mcg/actuation 2 inh inhalation Q4-6H PRN 01/28/23 breath activated powder inhaler shortness of breath or wheezing 30 days #1 ea cetirizine 10 mg tablet 10 mg PO DAILY allergy symptoms 30 01/28/23 days #30 tabs nebulizer accessories #1 ea 01/28/23 nebulizer and compressor #1 ea 01/28/23 fluticasone 250 mcg-salmeterol 50 1 inh inhalation BID #60 ea 02/05/23 mcg/dose blistr powdr for inhalation (Advair Diskus) prednisone 20 mg tablet 40 mg PO DAILY #6 tabs 02/05/23 albuterol sulfate 90 mcg/actuation 2 puff inhalation Q4-6H PRN 02/13/23 aerosol inhaler (Ventolin HFA) shortness of breath or wheezing #8.5 grams fluticasone 250 mcg-salmeterol 50 1 inh inhalation Q12H #60 ea 02/13/23 mcg/dose blistr powdr for inhalation (Advair Diskus) prednisone 50 mg tablet 50 mg PO DAILY 4 days #4 tabs 02/13/23 <SAIMA Garibay - Last Filed: 02/13/23 19:34> Allergies/Adverse Reactions: Allergies Allergy/AdvReac Type Severity Reaction Status Date / Time dextran 40 AdvReac Intermediate Hypertensio Verified 02/13/23 19:35 n iron dextran complex AdvReac Intermediate Hypertensio Verified 02/13/23 19:35 n <SAIMA Garibay - Last Filed: 02/13/23 19:34> Review of Systems Review of Systems: Pertinent positives and negatives as stated in HPI <Camila Daley MD - Last Filed: 02/13/23 23:41> PMFSH Past Medical History Source: nursing notes reviewed <Camila Daley MD - Last Filed: 02/13/23 23:41> Medical History: Medical History Anxiety Asthma Asthma exacerbation Back pain Depression GERD (gastroesophageal reflux disease) Knee pain Lower extremity edema Morbid obesity Right ovarian cyst Sleep apnea with use of continuous positive airway pressure (CPAP) <SAIMA Garibay - Last Filed: 02/13/23 19:34> Surgical History: Surgical History Hx of section Hx of cholecystectomy <SAIMA Garibay - Last Filed: 02/13/23 19:34> Family History Family History: Family History Mother Diabetes Hyperlipidemia Father No problems noted. Brother No problems noted. Brother No problems noted. Sister No problems noted. Sister Lupus Son No problems noted. Daughter No problems noted. <SAIMA Garibay - Last Filed: 02/13/23 19:34> Social History Social History: Social History Housing: Apartment Alcohol intake: unknown Patient Tobacco Use Status: Never used Tobacco Smoked in Last 30 Days: No e-Cigarette/Vaping Use: Never Used Second Hand Smoke Exposure: No Use of substances other than those prescribed or required for medical reasons: No Advance Directives: No Advance Directives Information Provided: No Patient : No service: No Current occupational status: unemployed Cognitive needs: No Hearing needs: No Vision needs: No <SAIMA Garibay - Last Filed: 02/13/23 19:34> Physical Exam Vital Signs: Vital Signs: Last Vital Signs Temp 97.8 F 02/13/23 19:32 Pulse 85 02/13/23 23:29 Resp 23 H 02/13/23 23:29 BP 176/90 H 02/13/23 23:29 Pulse Ox 96 02/13/23 23:29 O2 Del Method Room Air 02/13/23 23:29 BMI result Body Mass Index 58.2 <SAIMA Garibay - Last Filed: 02/13/23 19:34> Vital Signs: Last Vital Signs Temp 97.8 F 02/13/23 19:32 Pulse 85 02/13/23 23:29 Resp 23 H 02/13/23 23:29 BP 176/90 H 02/13/23 23:29 Pulse Ox 96 02/13/23 23:29 O2 Del Method Room Air 02/13/23 23:29 BMI result Body Mass Index 58.2 VITAL SIGNS: Reviewed. GENERAL: Well developed, well nourished, in no acute distress. HEAD: Normocephalic/atraumatic EYES: PERRLA, EOMI EARS: Ext canals without abnormality NOSE: Nares patent bilateral OROPHARYNX: no oral lesions noted, posterior pharynx clear NECK: Supple, no adenopathy LUNGS: Good inspiratory effort with noted expiratory wheezing bilaterally, no increased work of breathing or retractions noted SpO2<96> CARDIOVASCULAR: Regular rate and rhythm without noted murmurs, no JVD or lower extremity edema. ABDOMEN: Soft, non-tender, non-distended with bowel sounds. MUSCULOSKELETAL: No tenderness, deformities, or effusions noted on gross inspection. EXTREMITIES: No cyanosis, clubbing or edema. SKIN: Inspection of the skin reveals no rashes NEUROLOGIC: Alert and oriented x 4. Strength and sensation to light touch were grossly intact x 4. <Camila Daley MD - Last Filed: 02/13/23 23:41> Course Course Course Narrative: RME: 37yo F w/PMHx asthma, JENNIFER on CPAP c/o worsening SOB, dry cough, chest tightness x2 weeks, worsening over the past day. using inhalers w/o relief, finished course of prednisone on Wednesday HTNsive, 95% on RA, talking in short sentences, +mild resp distress, +diffuse exp wheeze & diminished lung sounds throughout EKG, labs, CXR, albuterol inhaler, IV Solu-Medrol ordered Full HPI, ROS and PE to be performed by primary ED provider. <SAIMA Garibay - Last Filed: 02/13/23 19:34> Medications Administered Discontinued Medications Generic Name Dose Route Start Last Admin Trade Name Freq PRN Reason Stop Dose Admin Albuterol Sulfate 4 puff 02/13/23 19:29 02/13/23 19:52 Albuterol Sulfate 90 Mcg 8 Gm Inhaler INHALE 02/13/23 19:30 4 puff ONCE ONE Administration Albuterol Sulfate 5 mg 02/13/23 21:37 02/13/23 22:01 Albuterol Sulfate (0.083%) 2.5 Mg/3 Ml Vial.Neb INHALE 02/13/23 21:38 5 mg ONCE ONE Administration Methylprednisolone Sodium Succinate 125 mg 02/13/23 19:29 02/13/23 20:56 Methylprednisolone Sod Succ 125 Mg/2 Ml Vial IVPUSH 02/13/23 19:30 125 mg ONCE ONE Administration <SAIMA Garibay - Last Filed: 02/13/23 19:34> Medications Administered Discontinued Medications Generic Name Dose Route Start Last Admin Trade Name Freq PRN Reason Stop Dose Admin Albuterol Sulfate 4 puff 02/13/23 19:29 02/13/23 19:52 Albuterol Sulfate 90 Mcg 8 Gm Inhaler INHALE 02/13/23 19:30 4 puff ONCE ONE Administration Albuterol Sulfate 5 mg 02/13/23 21:37 02/13/23 22:01 Albuterol Sulfate (0.083%) 2.5 Mg/3 Ml Vial.Neb INHALE 02/13/23 21:38 5 mg ONCE ONE Administration Methylprednisolone Sodium Succinate 125 mg 02/13/23 19:29 02/13/23 20:56 Methylprednisolone Sod Succ 125 Mg/2 Ml Vial IVPUSH 02/13/23 19:30 125 mg ONCE ONE Administration <Camila Daley MD - Last Filed: 02/13/23 23:41> Medical Decision Making Medical Decision Making MDM Narrative: 37-year-old female with history and clinical presentation suggestive of poorly controlled asthma. Will receive IV steroids as well as albuterol treatment. However, I will discharge the patient on a maintenance inhaler with instructions regarding the rescue inhaler as well as instructions on using [id number] Flonase and Claritin to help control asthma exacerbation in the allergy season. She is feeling much better and is otherwise discharged home. <Camila Daley MD - Last Filed: 02/13/23 23:41> Differential Diagnosis Please see the discussion above <Camila Daley MD - Last Filed: 02/13/23 23:41> Lab Data Please see the discussion above <Camila Daley MD - Last Filed: 02/13/23 23:41> Result Diagrams: 02/13/23 20:02 02/13/23 20:02 <SAIMA Garibay - Last Filed: 02/13/23 19:34> Labs: Lab Results 02/13/23 02/13/23 02/13/23 Range/Units 20:02 20:02 20:02 WBC 13.4 H (4.8-10.8) X10*3/uL RBC 4.18 L (4.20-5.50) X10*6/uL Hgb 10.4 L (12.0-16.0) g/dl Hct 33.6 L (37.0-47.0) % MCV 80.4 (80.0-98.0) fL MCH 24.9 L (27.0-33.0) pg MCHC 31.0 (31.0-35.0) g/dl RDW 14.9 (11.0-16.0) % Plt Count 359 (160-400) X10*3/uL MPV 10.7 (9.4-12.3) fL Immature Gran % (Auto) 0.3 (0.0-0.4) % Neut % (Auto) 61.4 (45-73) % Lymph % (Auto) 27.3 (20-40) % [place] % (Auto) 6.2 (2-11) % Eos % (Auto) 4.5 H (0-4) % Baso % (Auto) 0.3 (0-2) % Lymph # (Auto) 3.7 (1.2-4.9) X10*3/uL [place] # (Auto) 0.8 (0.1-1.2) X10*3/uL Eos # (Auto) 0.6 H (0.0-0.4) X10*3/uL Baso # (Auto) 0.0 (0.0-0.2) X10*3/uL Abs Immat Gran (auto) 0.04 H (0.00-0.03) X10*3/uL Absolute Neuts (auto) 8.3 (2.0-8.3) x10*3/uL Absolute Nucleated RBC 0.000 (0.0-0.012) X10*3/uL Nucleated RBC % (auto) 0.0 (0.0-0.2) /100WBC Sodium 142 (135-145) mmol/L Potassium 3.5 (3.3-5.1) mmol/L Chloride 107 (96-108) mmol/L Carbon Dioxide 24 (22-29) mmol/L Anion Gap 15 (12-20) BUN 8 L (9-16) mg/dL Creatinine 0.71 (0.5-1.4) mg/dL Estim Creat Clear Calc 157.4 Estimated GFR > 60 Random Glucose 113 (60-115) mg/dL Calcium 7.9 L D (8.4-10.2) mg/dL Total Bilirubin 0.4 (0.0-1.0) mg/dL Direct Bilirubin 0.1 (0.0-0.5) mg/dL AST 14 (5-31) U/L ALT 19 (0-31) U/L Alkaline Phosphatase 67 (39-117) U/L Troponin I High Sens < 2.7 (<3.5-17.0) ng/L B-Natriuretic Peptide (<100) pg/mL Total Protein 6.5 (6.5-8.0) g/dL Albumin 3.7 (3.5-5.0) g/dL Influenza Type A (PCR) (Negative) Influenza Type B (PCR) (Negative) RSV RNA Qual (PCR) (Negative) SARS-CoV-2 RNA (RT-PCR) (Negative) 02/13/23 02/13/23 Range/Units 20:02 20:02 WBC (4.8-10.8) X10*3/uL RBC (4.20-5.50) X10*6/uL Hgb (12.0-16.0) g/dl Hct (37.0-47.0) % MCV (80.0-98.0) fL MCH (27.0-33.0) pg MCHC (31.0-35.0) g/dl RDW (11.0-16.0) % Plt Count (160-400) X10*3/uL MPV (9.4-12.3) fL Immature Gran % (Auto) (0.0-0.4) % Neut % (Auto) (45-73) % Lymph % (Auto) (20-40) % [place] % (Auto) (2-11) % Eos % (Auto) (0-4) % Baso % (Auto) (0-2) % Lymph # (Auto) (1.2-4.9) X10*3/uL [place] # (Auto) (0.1-1.2) X10*3/uL Eos # (Auto) (0.0-0.4) X10*3/uL Baso # (Auto) (0.0-0.2) X10*3/uL Abs Immat Gran (auto) (0.00-0.03) X10*3/uL Absolute Neuts (auto) (2.0-8.3) x10*3/uL Absolute Nucleated RBC (0.0-0.012) X10*3/uL Nucleated RBC % (auto) (0.0-0.2) /100WBC Sodium (135-145) mmol/L Potassium (3.3-5.1) mmol/L Chloride (96-108) mmol/L Carbon Dioxide (22-29) mmol/L Anion Gap (12-20) BUN (9-16) mg/dL Creatinine (0.5-1.4) mg/dL Estim Creat Clear Calc Estimated GFR Random Glucose (60-115) mg/dL Calcium (8.4-10.2) mg/dL Total Bilirubin (0.0-1.0) mg/dL Direct Bilirubin (0.0-0.5) mg/dL AST (5-31) U/L ALT (0-31) U/L Alkaline Phosphatase (39-117) U/L Troponin I High Sens (<3.5-17.0) ng/L B-Natriuretic Peptide < 10 (<100) pg/mL Total Protein (6.5-8.0) g/dL Albumin (3.5-5.0) g/dL Influenza Type A (PCR) NEGATIVE (Negative) Influenza Type B (PCR) NEGATIVE (Negative) RSV RNA Qual (PCR) NEGATIVE (Negative) SARS-CoV-2 RNA (RT-PCR) NEGATIVE (Negative) <SAIMA Garibay - Last Filed: 02/13/23 19:34> Lab Results 02/13/23 02/13/23 02/13/23 Range/Units 20:02 20:02 20:02 WBC 13.4 H (4.8-10.8) X10*3/uL RBC 4.18 L (4.20-5.50) X10*6/uL Hgb 10.4 L (12.0-16.0) g/dl Hct 33.6 L (37.0-47.0) % MCV 80.4 (80.0-98.0) fL MCH 24.9 L (27.0-33.0) pg MCHC 31.0 (31.0-35.0) g/dl RDW 14.9 (11.0-16.0) % Plt Count 359 (160-400) X10*3/uL MPV 10.7 (9.4-12.3) fL Immature Gran % (Auto) 0.3 (0.0-0.4) % Neut % (Auto) 61.4 (45-73) % Lymph % (Auto) 27.3 (20-40) % [place] % (Auto) 6.2 (2-11) % Eos % (Auto) 4.5 H (0-4) % Baso % (Auto) 0.3 (0-2) % Lymph # (Auto) 3.7 (1.2-4.9) X10*3/uL [place] # (Auto) 0.8 (0.1-1.2) X10*3/uL Eos # (Auto) 0.6 H (0.0-0.4) X10*3/uL Baso # (Auto) 0.0 (0.0-0.2) X10*3/uL Abs Immat Gran (auto) 0.04 H (0.00-0.03) X10*3/uL Absolute Neuts (auto) 8.3 (2.0-8.3) x10*3/uL Absolute Nucleated RBC 0.000 (0.0-0.012) X10*3/uL Nucleated RBC % (auto) 0.0 (0.0-0.2) /100WBC Sodium 142 (135-145) mmol/L Potassium 3.5 (3.3-5.1) mmol/L Chloride 107 (96-108) mmol/L Carbon Dioxide 24 (22-29) mmol/L Anion Gap 15 (12-20) BUN 8 L (9-16) mg/dL Creatinine 0.71 (0.5-1.4) mg/dL Estim Creat Clear Calc 157.4 Estimated GFR > 60 Random Glucose 113 (60-115) mg/dL Calcium 7.9 L D (8.4-10.2) mg/dL Total Bilirubin 0.4 (0.0-1.0) mg/dL Direct Bilirubin 0.1 (0.0-0.5) mg/dL AST 14 (5-31) U/L ALT 19 (0-31) U/L Alkaline Phosphatase 67 (39-117) U/L Troponin I High Sens < 2.7 (<3.5-17.0) ng/L B-Natriuretic Peptide (<100) pg/mL Total Protein 6.5 (6.5-8.0) g/dL Albumin 3.7 (3.5-5.0) g/dL Influenza Type A (PCR) (Negative) Influenza Type B (PCR) (Negative) RSV RNA Qual (PCR) (Negative) SARS-CoV-2 RNA (RT-PCR) (Negative) 02/13/23 02/13/23 Range/Units 20:02 20:02 WBC (4.8-10.8) X10*3/uL RBC (4.20-5.50) X10*6/uL Hgb (12.0-16.0) g/dl Hct (37.0-47.0) % MCV (80.0-98.0) fL MCH (27.0-33.0) pg MCHC (31.0-35.0) g/dl RDW (11.0-16.0) % Plt Count (160-400) X10*3/uL MPV (9.4-12.3) fL Immature Gran % (Auto) (0.0-0.4) % Neut % (Auto) (45-73) % Lymph % (Auto) (20-40) % [place] % (Auto) (2-11) % Eos % (Auto) (0-4) % Baso % (Auto) (0-2) % Lymph # (Auto) (1.2-4.9) X10*3/uL [place] # (Auto) (0.1-1.2) X10*3/uL Eos # (Auto) (0.0-0.4) X10*3/uL Baso # (Auto) (0.0-0.2) X10*3/uL Abs Immat Gran (auto) (0.00-0.03) X10*3/uL Absolute Neuts (auto) (2.0-8.3) x10*3/uL Absolute Nucleated RBC (0.0-0.012) X10*3/uL Nucleated RBC % (auto) (0.0-0.2) /100WBC Sodium (135-145) mmol/L Potassium (3.3-5.1) mmol/L Chloride (96-108) mmol/L Carbon Dioxide (22-29) mmol/L Anion Gap (12-20) BUN (9-16) mg/dL Creatinine (0.5-1.4) mg/dL Estim Creat Clear Calc Estimated GFR Random Glucose (60-115) mg/dL Calcium (8.4-10.2) mg/dL Total Bilirubin (0.0-1.0) mg/dL Direct Bilirubin (0.0-0.5) mg/dL AST (5-31) U/L ALT (0-31) U/L Alkaline Phosphatase (39-117) U/L Troponin I High Sens (<3.5-17.0) ng/L B-Natriuretic Peptide < 10 (<100) pg/mL Total Protein (6.5-8.0) g/dL Albumin (3.5-5.0) g/dL Influenza Type A (PCR) NEGATIVE (Negative) Influenza Type B (PCR) NEGATIVE (Negative) RSV RNA Qual (PCR) NEGATIVE (Negative) SARS-CoV-2 RNA (RT-PCR) NEGATIVE (Negative) <Camila Daley MD - Last Filed: 02/13/23 23:41> Independent Interpretation I performed an independent interpretation of an: EKG <Camila Daley MD - Last Filed: 02/13/23 23:41> Interpretation: Normal sinus rhythm, HR-81, no STEMI, SD/QRS/QTC is within normal limits. <Camila Daley MD - Last Filed: 02/13/23 23:41> Radiology Impression Radiologist Impression: My interpretation is in agreement with radiology's impression of the imag ing study. <Camila Daley MD - Last Filed: 02/13/23 23:41> External Record Review External record reviewed: Outpatient record and Prior outpatient labs <Camila Daley MD - Last F iled: 02/13/23 23:41> Discharge Plan Discharge Clinical Impression: Asthma exacerbation <SAIMA Garibay - Last Filed: 02/13/23 19:34> Patient Disposition: Home, Self-Care <SAIMA Garibay - Last Filed: 02/13/23 19:34> Instructions: Asthma (ED) <SAIMA Garibay - Last Filed: 02/13/23 19:34> Additional Instructions: 1. You have been given a prescription for a short course of steroids as well as a Ventolin inhaler and a maintenance inhaler. Please use these as prescribed. 2. You will need to start using daily Flonase (fluticasone) as well as Claritin (loratadine) to help reduce the contribution to asthma exacerbation from seasonal allergies. 3. Follow-up with primary care provider in the next 1-2 days. Return to the ER for any worsening symptoms. <SAIMA Garibay - Last Filed: 02/13/23 19:34> Prescriptions: New prednisone 50 mg tablet 50 mg PO DAILY 4 Days Qty: 4 0RF albuterol sulfate [Ventolin HFA] 90 mcg/actuation HFA aerosol inhaler 2 puff inhalation Q4-6H PRN (Reason: shortness of breath or wheezing) Qty: 8.5 0RF fluticasone propion-salmeterol [Advair Diskus] 250-50 mcg/dose blister with device 1 inh inhalation Q12H Qty: 60 0RF No Action (DME) nebulizer accessories Kit See Rx Instructions .Route Qty: 1 0RF Rx Instructions: As directed (DME) nebulizer and compressor Device See Rx Instructions .Route Qty: 1 0RF Rx Instructions: As directed naproxen 500 mg tablet 500 mg PO BID PRN (Reason: pain) 10 Days Qty: 20 0RF amlodipine 5 mg tablet 5 mg PO DAILY 30 Days Qty: 30 0RF hydrochlorothiazide 12.5 mg tablet 12.5 mg PO QAM Qty: 30 0RF benzonatate 100 mg capsule 100 mg PO BID PRN (Reason: cough) Qty: 20 0RF albuterol sulfate 2.5 mg /3 mL (0.083 %) solution for nebulization 5 mg inhalation ONCE Qty: 6 0RF albuterol sulfate 0.63 mg/3 mL solution for nebulization 0.63 mg inhalation Q4H PRN (Reason: shortness of breath or wheezing) Qty: 90 2RF cetirizine 10 mg tablet 10 mg PO DAILY 30 Days Qty: 30 6RF albuterol sulfate 90 mcg/actuation aerosol powdr breath activated 2 inh inhalation Q4-6H PRN (Reason: shortness of breath or wheezing) 30 Days Qty: 1 6RF Rx Instructions: May dispense medication equivalent accepted by patient's turned fluticasone propion-salmeterol [Advair Diskus] 250-50 mcg/dose blister with device 1 inh inhalation BID Qty: 60 1RF prednisone 20 mg tablet 40 mg PO DAILY Qty: 6 0RF lisinopril 5 mg tablet 5 mg PO DAILY Qty: 30 0RF <SAIMA Garibay - Last Filed: 02/13/23 19:34> Referrals: Jaqcueline Wilkinson MD [Primary Care Provider] - <SAIMA Garibay - Last Filed: 02/13/23 19:34>
--- NOTE | 2023-02-13 19:29 | ECG_ITS ---
Test Reason : SOB Blood Pressure : / mmHG Vent. Rate : 081 BPM Atrial Rate : 081 BPM P-R Int : 154 ms QRS Dur : 100 ms QT Int : 436 ms P-R-T Axes : 046 014 023 degrees QTc Int : 506 ms Normal sinus rhythm Nonspecific T wave abnormality Abnormal ECG When compared with ECG of 20-JAN-2023 15:26, Nonspecific T wave abnormality now evident in Inferior leads Nonspecific T wave abnormality, worse in Anterolateral leads Referred By: Xuan Doe Electronically Signed By:ALINA MELGAR MD
[2023-02-13 19:32] VITALS: BP 210/113; PULSE 86; RESP 24; TEMP 36.6; O2SAT 95; BMI 58.2
[2023-02-13] MEDS: Albuterol Sulfate 90 MCG 8 GM INHALER 4 PUFF INHALE (19:52)
--- NOTE | 2023-02-13 20:09 | PC.NURSE ---
pt difficult stick still attempting iv .
[2023-02-13 20:10] LABS: MANUAL DIFF FLAG NO
[2023-02-13 20:15] LABS: Basophils Percent Auto 0.3 % (0-2); Eosinophils Absolute Auto 0.6 X10*3/uL (0.0-0.4); Eosinophils Percent Auto 4.5 % (0-4); Hematocrit 33.6 % (37.0-47.0); Hemoglobin 10.4 g/dl (12.0-16.0); Imm Gran Abs Auto 0.04 X10*3/uL (0.00-0.03); Imm Gran Pct Auto 0.3 % (0.0-0.4); Lymphocytes Absolute Auto 3.7 X10*3/uL (1.2-4.9); Lymphocytes Percent Auto 27.3 % (20-40); Mean Corpuscular Hemoglobin 24.9 pg (27.0-33.0); Mean Corpuscular Volume 80.4 fL (80.0-98.0); Mean Platelet Volume 10.7 fL (9.4-12.3); Monocytes Absolute Auto 0.8 X10*3/uL (0.1-1.2); Monocytes Percent Auto 6.2 % (2-11); Neutrophils Absolute Auto 8.3 x10*3/uL (2.0-8.3); Neutrophils Percent Auto 61.4 % (45-73); Platelet Count 359 X10*3/uL (160-400); Red Blood Count 4.18 X10*6/uL (4.20-5.50); Red Cell Distribution Width 14.9 % (11.0-16.0); White Blood Count 13.4 X10*3/uL (4.8-10.8)
[2023-02-13 20:33] LABS: Alanine Aminotransferase 19 U/L (0-31); Albumin Level 3.7 g/dL (3.5-5.0); Alkaline Phosphatase 67 U/L (39-117); Anion Gap 15 (12-20); Aspartate Amino Transferase 14 U/L (5-31); Bilirubin Direct 0.1 mg/dL (0.0-0.5); Bilirubin Total 0.4 mg/dL (0.0-1.0); Blood Urea Nitrogen 8 mg/dL (9-16); Calcium 7.9 mg/dL (8.4-10.2); Carbon Dioxide 24 mmol/L (22-29); Chloride 107 mmol/L (96-108); Creatinine Clr Calc Pharmacy 157.4; Estimated Glomerular Filt Rate > 60; Glucose Random 113 mg/dL (60-115); Potassium 3.5 mmol/L (3.3-5.1); Sodium 142 mmol/L (135-145); Total Protein 6.5 g/dL (6.5-8.0)
[2023-02-13 20:37] LABS: B Type Natriuretic Peptide < 10 pg/mL (<100)
[2023-02-13 20:42] LABS: Troponin-I High Sensitivity < 2.7 ng/L (<3.5-17.0)
[2023-02-13] MEDS: methylPREDNISolone Sod Succ 125 MG/2 ML VIAL IVPUSH (20:56)
[2023-02-13 21:07] LABS: Influenza A PCR NEGATIVE (Negative); Influenza B PCR NEGATIVE (Negative); Resp Syncy Virus RNA Qual PCR NEGATIVE (Negative); SARS COV2 PCR INHOUSE NEGATIVE (Negative)
[2023-02-13] MEDS: Albuterol Sulfate (0.083%) 2.5 MG/3 ML VIAL.NEB 5 MG INHALE (22:01)
[2023-02-13 22:02] VITALS: PULSE 74; RESP 18; O2SAT 97
[2023-02-13 23:29] VITALS: BP 176/90; PULSE 85; RESP 23; O2SAT 96
== END 2023-02-14 00:29 | disposition home or self-care (01) ==
PROVIDERS: Physician Assistant; Emergency Provider Student in an Organized Health Care Education/Training Program; PCP Internal Medicine
DX: J45.901 Unspecified asthma with (acute) exacerbation (principal); R06.02 Shortness of breath; Z20.822 Contact with and (suspected) exposure to COVID-19; Z20.828 Contact with and (suspected) exposure to other viral communicable diseases; I10 Essential (primary) hypertension; Z79.899 Other long term (current) drug therapy
CPT/HCPCS: 0241U; 36415; 71046; 80048; 80076; 83880; 84484; 85025; 93005; 94640; 96374; 99284; J2930

== ENCOUNTER 2023-04-21 16:12 | Emergency (ER) | payer OTHER, SELFPAY ==
--- NOTE | 2023-04-21 17:09 | ED.GENADULT ---
HPI - General Adult General Chief complaint: General Medical Stated complaint: High blood pressure/Pain in right leg/numb hands Time Seen by Provider: 04/21/23 18:20 Related Data Previous Rx's Medication Instructions Recorded naproxen 500 mg tablet 500 mg PO BID PRN pain 10 days #20 01/24/22 tabs lisinopril 5 mg tablet 5 mg PO DAILY #30 tabs 06/08/22 amlodipine 5 mg tablet 5 mg PO DAILY 30 days #30 tabs 09/09/22 hydrochlorothiazide 12.5 mg tablet 12.5 mg PO QAM #30 tabs 09/09/22 benzonatate 100 mg capsule 100 mg PO BID PRN cough #20 caps 01/20/23 albuterol sulfate 0.63 mg/3 mL 0.63 mg (3 mL) inhalation Q4H PRN 01/28/23 solution for nebulization shortness of breath or wheezing #90 mL albuterol sulfate 90 mcg/actuation 2 inh inhalation Q4-6H PRN 01/28/23 breath activated powder inhaler shortness of breath or wheezing 30 days #1 ea cetirizine 10 mg tablet 10 mg PO DAILY allergy symptoms 30 01/28/23 days #30 tabs nebulizer accessories #1 ea 01/28/23 nebulizer and compressor #1 ea 01/28/23 fluticasone 250 mcg-salmeterol 50 1 inh inhalation BID #60 ea 02/05/23 mcg/dose blistr powdr for inhalation (Advair Diskus) prednisone 20 mg tablet 40 mg PO DAILY #6 tabs 02/05/23 albuterol sulfate 90 mcg/actuation 2 puff inhalation Q4-6H PRN 02/13/23 aerosol inhaler (Ventolin HFA) shortness of breath or wheezing #8.5 grams fluticasone 250 mcg-salmeterol 50 1 inh inhalation Q12H #60 ea 02/13/23 mcg/dose blistr powdr for inhalation (Advair Diskus) prednisone 50 mg tablet 50 mg PO DAILY 4 days #4 tabs 02/13/23 ibuprofen 400 mg tablet 400 mg PO Q6H PRN pain #20 tabs 04/21/23 ondansetron 4 mg disintegrating 4 mg PO TID PRN nausea and 04/21/23 tablet vomiting 5 days #10 tabs Allergies Allergy/AdvReac Type Severity Reaction Status Date / Time dextran 40 AdvReac Intermediate Hypertensio Verified 04/21/23 17:19 n iron dextran complex AdvReac Intermediate Hypertensio Verified 04/21/23 17:19 n PMFSH Past Medical History Medical History Anxiety Asthma Asthma exacerbation Back pain Depression GERD (gastroesophageal reflux disease) Knee pain Lower extremity edema Morbid obesity Right ovarian cyst Sleep apnea with use of continuous positive airway pressure (CPAP) Surgical History Hx of section Hx of cholecystectomy Family History Family History Mother Diabetes Hyperlipidemia Father No problems noted. Brother No problems noted. Brother No problems noted. Sister No problems noted. Sister Lupus Son No problems noted. Daughter No problems noted. Social History Social History Housing: Apartment Alcohol intake: current Alcohol intake frequency: holidays/special occasions only Patient Tobacco Use Status: Never used Tobacco Smoked in Last 30 Days: No e-Cigarette/Vaping Use: Never Used Second Hand Smoke Exposure: No Use of substances other than those prescribed or required for medical reasons: No Advance Directives: No Advance Directives Information Provided: Yes service: No Current occupational status: unemployed Cognitive needs: No Hearing needs: No Vision needs: No Physical Exam ED Vital Signs: Vital Signs - 24 hr 04/21/23 17:10 04/21/23 18:57 04/21/23 19:02 Temperature 96.9 F 98.7 F Pulse Rate 68 72 75 Respiratory Rate 16 20 19 Blood Pressure 179/101 H 152/77 H 161/85 H Pulse Oximetry 99 98 98 Oxygen Delivery Method Room Air Room Air Room Air BMI result Body Mass Index 58.5 Course Course Course Narrative: This is a rapid medical exam: Additional HPI, ROS, PE not included below will be deferred to primary provider. Patient is a 37-year-old female with history of HTN, asthma, ovarian cyst, hirsutism, GERD, sleep apnea presenting with high blood pressure since yesterday, also reports headache and bilateral hand numbness and leg cramping. States she is currently on medication for her HTN. Reports photophobia. Reports mild chest pain, denies shortness of breath. Denies fevers. Has not used any OTC medications for her symptoms. Plan: EKG, labs, UA Medications Administered Discontinued Medications Generic Name Dose Route Start Last Admin Trade Name Jordan PRN Reason Stop Dose Admin Diphenhydramine HCl 50 mg 04/21/23 18:42 04/21/23 19:42 Diphenhydramine Hcl 50 Mg/Ml Vial IVPUSH 04/21/23 18:43 50 mg ONCE ONE Administration Sodium Chloride 1,000 mls @ 999 mls/hr 04/21/23 18:45 04/21/23 20:39 Ns IV 04/21/23 19:45 Infused .Q1H1M DHARA Infusion Ketorolac Tromethamine 30 mg 04/21/23 18:42 04/21/23 19:41 Ketorolac Tromethamine 30 Mg/Ml Vial IVPUSH 04/21/23 18:43 30 mg ONCE ONE Administration Prochlorperazine Edisylate 10 mg 04/21/23 18:42 04/21/23 19:45 Prochlorperazine Edisylate 10 Mg/2 Ml Vial IVPUSH 04/21/23 18:43 10 mg ONCE ONE Administration Medical Decision Making Lab Data 04/21/23 17:30 04/21/23 17:30 Labs: Lab Results 04/21/23 04/21/23 04/21/23 Range/Units 17:30 17:30 17:30 WBC 9.7 (4.8-10.8) X10*3/uL RBC 5.02 D (4.20-5.50) X10*6/uL Hgb 11.8 L (12.0-16.0) g/dl Hct 38.9 (37.0-47.0) % MCV 77.5 L (80.0-98.0) fL MCH 23.5 L (27.0-33.0) pg MCHC 30.3 L (31.0-35.0) g/dl RDW 15.3 (11.0-16.0) % Plt Count 446 H (160-400) X10*3/uL MPV 10.7 (9.4-12.3) fL Immature Gran % (Auto) 0.3 (0.0-0.4) % Neut % (Auto) 65.7 (45-73) % Lymph % (Auto) 23.6 (20-40) % [place] % (Auto) 7.2 (2-11) % Eos % (Auto) 2.9 (0-4) % Baso % (Auto) 0.3 (0-2) % Lymph # (Auto) 2.3 (1.2-4.9) X10*3/uL [place] # (Auto) 0.7 (0.1-1.2) X10*3/uL Eos # (Auto) 0.3 (0.0-0.4) X10*3/uL Baso # (Auto) 0.0 (0.0-0.2) X10*3/uL Abs Immat Gran (auto) 0.03 (0.00-0.03) X10*3/uL Absolute Neuts (auto) 6.4 (2.0-8.3) x10*3/uL Absolute Nucleated RBC 0.000 (0.0-0.012) X10*3/uL Nucleated RBC % (auto) 0.0 (0.0-0.2) /100WBC Sodium 138 (135-145) mmol/L Potassium 3.9 (3.3-5.1) mmol/L Chloride 103 (96-108) mmol/L Carbon Dioxide 23 (22-29) mmol/L Anion Gap 16 (12-20) BUN 8 L (9-16) mg/dL Creatinine 0.71 (0.5-1.4) mg/dL Estim Creat Clear Calc 157.8 Estimated GFR > 60 Random Glucose 92 (60-115) mg/dL Calcium 8.7 D (8.4-10.2) mg/dL Total Bilirubin 0.4 (0.0-1.0) mg/dL AST 16 (5-31) U/L ALT 18 (0-31) U/L Alkaline Phosphatase 90 (39-117) U/L Troponin I High Sens < 2.7 (<3.5-17.0) ng/L Total Protein 7.9 (6.5-8.0) g/dL Albumin 4.0 (3.5-5.0) g/dL Beta HCG, Quant mIU/mL Urine Color Urine Appearance Urine pH (5.0-9.0) Ur Specific [place] (1.005-1.025) Urine Protein (Neg-Trace) mg/dL Urine Glucose (UA) (Negative) mg/dL Urine Ketones (Negative) mg/dL Urine Blood (Negative) Urine Nitrite (Negative) Ur Leukocyte Esterase (Negative) 04/21/23 04/21/23 Range/Units 17:30 19:41 WBC (4.8-10.8) X10*3/uL RBC (4.20-5.50) X10*6/uL Hgb (12.0-16.0) g/dl Hct (37.0-47.0) % MCV (80.0-98.0) fL MCH (27.0-33.0) pg MCHC (31.0-35.0) g/dl RDW (11.0-16.0) % Plt Count (160-400) X10*3/uL MPV (9.4-12.3) fL Immature Gran % (Auto) (0.0-0.4) % Neut % (Auto) (45-73) % Lymph % (Auto) (20-40) % [place] % (Auto) (2-11) % Eos % (Auto) (0-4) % Baso % (Auto) (0-2) % Lymph # (Auto) (1.2-4.9) X10*3/uL [place] # (Auto) (0.1-1.2) X10*3/uL Eos # (Auto) (0.0-0.4) X10*3/uL Baso # (Auto) (0.0-0.2) X10*3/uL Abs Immat Gran (auto) (0.00-0.03) X10*3/uL Absolute Neuts (auto) (2.0-8.3) x10*3/uL Absolute Nucleated RBC (0.0-0.012) X10*3/uL Nucleated RBC % (auto) (0.0-0.2) /100WBC Sodium (135-145) mmol/L Potassium (3.3-5.1) mmol/L Chloride (96-108) mmol/L Carbon Dioxide (22-29) mmol/L Anion Gap (12-20) BUN (9-16) mg/dL Creatinine (0.5-1.4) mg/dL Estim Creat Clear Calc Estimated GFR Random Glucose (60-115) mg/dL Calcium (8.4-10.2) mg/dL Total Bilirubin (0.0-1.0) mg/dL AST (5-31) U/L ALT (0-31) U/L Alkaline Phosphatase (39-117) U/L Troponin I High Sens (<3.5-17.0) ng/L Total Protein (6.5-8.0) g/dL Albumin (3.5-5.0) g/dL Beta HCG, Quant < 2 mIU/mL Urine Color Yellow Urine Appearance Clear Urine pH 6.5 (5.0-9.0) Ur Specific [place] 1.010 (1.005-1.025) Urine Protein Negative (Neg-Trace) mg/dL Urine Glucose (UA) Negative (Negative) mg/dL Urine Ketones Negative (Negative) mg/dL Urine Blood Negative (Negative) Urine Nitrite Negative (Negative) Ur Leukocyte Esterase Negative (Negative) Discharge Plan Discharge Clinical Impression: Migraine, Hypertension Patient Disposition: Home, Self-Care Instructions: Migraine Headache (ED), Hypertension (ED) Prescriptions: New ibuprofen 400 mg tablet 400 mg PO Q6H PRN (Reason: pain) Qty: 20 0RF ondansetron 4 mg tablet,disintegrating 4 mg PO TID PRN (Reason: nausea and vomiting) 5 Days Qty: 10 0RF No Action (DME) nebulizer accessories Kit See Rx Instructions .Route Qty: 1 0RF Rx Instructions: As directed (DME) nebulizer and compressor Device See Rx Instructions .Route Qty: 1 0RF Rx Instructions: As directed naproxen 500 mg tablet 500 mg PO BID PRN (Reason: pain) 10 Days Qty: 20 0RF amlodipine 5 mg tablet 5 mg PO DAILY 30 Days Qty: 30 0RF hydrochlorothiazide 12.5 mg tablet 12.5 mg PO QAM Qty: 30 0RF prednisone 50 mg tablet 50 mg PO DAILY 4 Days Qty: 4 0RF albuterol sulfate [Ventolin HFA] 90 mcg/actuation HFA aerosol inhaler 2 puff inhalation Q4-6H PRN (Reason: shortness of breath or wheezing) Qty: 8.5 0RF fluticasone propion-salmeterol [Advair Diskus] 250-50 mcg/dose blister with device 1 inh inhalation Q12H Qty: 60 0RF benzonatate 100 mg capsule 100 mg PO BID PRN (Reason: cough) Qty: 20 0RF albuterol sulfate 2.5 mg /3 mL (0.083 %) solution for nebulization 5 mg inhalation ONCE Qty: 6 0RF albuterol sulfate 0.63 mg/3 mL solution for nebulization 0.63 mg inhalation Q4H PRN (Reason: shortness of breath or wheezing) Qty: 90 2RF cetirizine 10 mg tablet 10 mg PO DAILY 30 Days Qty: 30 6RF albuterol sulfate 90 mcg/actuation aerosol powdr breath activated 2 inh inhalation Q4-6H PRN (Reason: shortness of breath or wheezing) 30 Days Qty: 1 6RF Rx Instructions: May dispense medication equivalent accepted by patient's turned fluticasone propion-salmeterol [Advair Diskus] 250-50 mcg/dose blister with device 1 inh inhalation BID Qty: 60 1RF prednisone 20 mg tablet 40 mg PO DAILY Qty: 6 0RF lisinopril 5 mg tablet 5 mg PO DAILY Qty: 30 0RF Referrals: Jacqueline Wilkinson MD [Primary Care Provider] - 04/23/23 Interventions: ED Discharge Assessment Last Done: 04/21/23 21:17 Discharge Date/Time: 04/21/23 21:18
[2023-04-21 17:10] VITALS: BP 179/101; PULSE 68; RESP 16; TEMP 36.1; O2SAT 99; BMI 58.5
--- NOTE | 2023-04-21 17:12 | ECG_ITS ---
Test Reason : HYPERTENTION Blood Pressure : / mmHG Vent. Rate : 066 BPM Atrial Rate : 066 BPM P-R Int : 152 ms QRS Dur : 104 ms QT Int : 452 ms P-R-T Axes : 030 015 056 degrees QTc Int : 473 ms Normal sinus rhythm Minimal voltage criteria for LVH, may be normal variant ( [place] product ) Nonspecific T wave abnormality Prolonged QT Abnormal ECG When compared with ECG of 13-FEB-2023 20:03, Nonspecific T wave abnormality, improved in Anterior leads Referred By: Keira Tse Electronically Signed By:ALINA MELGAR MD
[2023-04-21 17:35] LABS: MANUAL DIFF FLAG NO
[2023-04-21 17:42] LABS: Basophils Percent Auto 0.3 % (0-2); Eosinophils Absolute Auto 0.3 X10*3/uL (0.0-0.4); Eosinophils Percent Auto 2.9 % (0-4); Hematocrit 38.9 % (37.0-47.0); Hemoglobin 11.8 g/dl (12.0-16.0); Imm Gran Abs Auto 0.03 X10*3/uL (0.00-0.03); Imm Gran Pct Auto 0.3 % (0.0-0.4); Lymphocytes Absolute Auto 2.3 X10*3/uL (1.2-4.9); Lymphocytes Percent Auto 23.6 % (20-40); Mean Corpuscular HGB Conc 30.3 g/dl (31.0-35.0); Mean Corpuscular Hemoglobin 23.5 pg (27.0-33.0); Mean Corpuscular Volume 77.5 fL (80.0-98.0); Mean Platelet Volume 10.7 fL (9.4-12.3); Monocytes Absolute Auto 0.7 X10*3/uL (0.1-1.2); Monocytes Percent Auto 7.2 % (2-11); Neutrophils Absolute Auto 6.4 x10*3/uL (2.0-8.3); Neutrophils Percent Auto 65.7 % (45-73); Platelet Count 446 X10*3/uL (160-400); Red Blood Count 5.02 X10*6/uL (4.20-5.50); Red Cell Distribution Width 15.3 % (11.0-16.0); White Blood Count 9.7 X10*3/uL (4.8-10.8)
[2023-04-21 17:59] LABS: Alanine Aminotransferase 18 U/L (0-31); Alkaline Phosphatase 90 U/L (39-117); Anion Gap 16 (12-20); Aspartate Amino Transferase 16 U/L (5-31); Bilirubin Total 0.4 mg/dL (0.0-1.0); Blood Urea Nitrogen 8 mg/dL (9-16); Calcium 8.7 mg/dL (8.4-10.2); Carbon Dioxide 23 mmol/L (22-29); Chloride 103 mmol/L (96-108); Creatinine Clr Calc Pharmacy 157.8; Estimated Glomerular Filt Rate > 60; Glucose Random 92 mg/dL (60-115); Potassium 3.9 mmol/L (3.3-5.1); Sodium 138 mmol/L (135-145); Total Protein 7.9 g/dL (6.5-8.0)
[2023-04-21 18:08] LABS: HCG Quantitative < 2 mIU/mL; Troponin-I High Sensitivity < 2.7 ng/L (<3.5-17.0)
--- NOTE | 2023-04-21 18:45 | ED.GENADULT ---
HPI - General Adult General Chief complaint: General Medical Stated complaint: High blood pressure/Pain in right leg/numb hands Time Seen by Provider: 04/21/23 18:20 History of Present Illness HPI narrative: Patient is a 37-year-old female presents today with having some headaches. Headache mostly over the frontal area. Also noted to have high blood pressure. Patient got a blood pressure 210/110 at home. The headache is very similar to previous bouts of migraine. Patient denies any fever chills. Denies any nuchal rigidity. Pain is worse with light. It is diffuse over the entire head. It came on since yesterday. There is no diaphoresis. Has no chest pain. Patient denies any focal weakness. She is from home. Related Data Previous Rx's Medication Instructions Recorded naproxen 500 mg tablet 500 mg PO BID PRN pain 10 days #20 01/24/22 tabs lisinopril 5 mg tablet 5 mg PO DAILY #30 tabs 06/08/22 amlodipine 5 mg tablet 5 mg PO DAILY 30 days #30 tabs 09/09/22 hydrochlorothiazide 12.5 mg tablet 12.5 mg PO QAM #30 tabs 09/09/22 benzonatate 100 mg capsule 100 mg PO BID PRN cough #20 caps 01/20/23 albuterol sulfate 0.63 mg/3 mL 0.63 mg (3 mL) inhalation Q4H PRN 01/28/23 solution for nebulization shortness of breath or wheezing #90 mL albuterol sulfate 90 mcg/actuation 2 inh inhalation Q4-6H PRN 01/28/23 breath activated powder inhaler shortness of breath or wheezing 30 days #1 ea cetirizine 10 mg tablet 10 mg PO DAILY allergy symptoms 30 01/28/23 days #30 tabs nebulizer accessories #1 ea 01/28/23 nebulizer and compressor #1 ea 01/28/23 fluticasone 250 mcg-salmeterol 50 1 inh inhalation BID #60 ea 02/05/23 mcg/dose blistr powdr for inhalation (Advair Diskus) prednisone 20 mg tablet 40 mg PO DAILY #6 tabs 02/05/23 albuterol sulfate 90 mcg/actuation 2 puff inhalation Q4-6H PRN 02/13/23 aerosol inhaler (Ventolin HFA) shortness of breath or wheezing #8.5 grams fluticasone 250 mcg-salmeterol 50 1 inh inhalation Q12H #60 ea 02/13/23 mcg/dose blistr powdr for inhalation (Advair Diskus) prednisone 50 mg tablet 50 mg PO DAILY 4 days #4 tabs 02/13/23 ibuprofen 400 mg tablet 400 mg PO Q6H PRN pain #20 tabs 04/21/23 ondansetron 4 mg disintegrating 4 mg PO TID PRN nausea and 04/21/23 tablet vomiting 5 days #10 tabs Allergies Allergy/AdvReac Type Severity Reaction Status Date / Time dextran 40 AdvReac Intermediate Hypertensio Verified 04/21/23 17:19 n iron dextran complex AdvReac Intermediate Hypertensio Verified 04/21/23 17:19 n Review of Systems Review of Systems: Positive headache Yes all other systems are reviewed and are negative PMFSH Past Medical History Attestation statement: The following information was validated with the patient. Medical History Anxiety Asthma Asthma exacerbation Back pain Depression GERD (gastroesophageal reflux disease) Knee pain Lower extremity edema Morbid obesity Right ovarian cyst Sleep apnea with use of continuous positive airway pressure (CPAP) Surgical History Hx of section Hx of cholecystectomy Family History Family History Mother Diabetes Hyperlipidemia Father No problems noted. Brother No problems noted. Brother No problems noted. Sister No problems noted. Sister Lupus Son No problems noted. Daughter No problems noted. Social History Social History Housing: Apartment Alcohol intake: current Alcohol intake frequency: holidays/special occasions only Patient Tobacco Use Status: Never used Tobacco Smoked in Last 30 Days: No e-Cigarette/Vaping Use: Never Used Second Hand Smoke Exposure: No Use of substances other than those prescribed or required for medical reasons: No Advance Directives: No Advance Directives Information Provided: Yes service: No Current occupational status: unemployed Cognitive needs: No Hearing needs: No Vision needs: No Physical Exam ED Vital Signs: Vital Signs - 24 hr 04/21/23 17:10 04/21/23 18:57 04/21/23 19:02 Temperature 96.9 F 98.7 F Pulse Rate 68 72 75 Respiratory Rate 16 20 19 Blood Pressure 179/101 H 152/77 H 161/85 H Pulse Oximetry 99 98 98 Oxygen Delivery Method Room Air Room Air Room Air BMI result Body Mass Index 58.5 Appearance: Alert. Oriented X3. No acute distress. Eyes: Pupils equal, round and reactive to light. ENT: Pharynx normal. Neck: Normal inspection. Neck supple. No lymph nodes noted. No crepitus CVS: Normal heart rate and rhythm. Pulses normal. Normal S1 and S2 Respiratory: No respiratory distress. Breath sounds normal. No Wheezing. No rales Abdomen: Soft and nontender. No rigidity. No distention. good BS x4 Skin: Skin warm and dry. Normal skin color. Normal skin turgor. Extremities: No lower extremity edema. Neurovascular intact to all extremities. No Lacerations. No Rash Neuro: Oriented X 3. No motor deficit. No sensory deficit. Moving all extermities. No slurred speech. Cranial nerves 2-12 intact. Neck is supple. Medications Administered Discontinued Medications Generic Name Dose Route Start Last Admin Trade Name Freq PRN Reason Stop Dose Admin Diphenhydramine HCl 50 mg 04/21/23 18:42 04/21/23 19:42 Diphenhydramine Hcl 50 Mg/Ml Vial IVPUSH 04/21/23 18:43 50 mg ONCE ONE Administration Sodium Chloride 1,000 mls @ 999 mls/hr 04/21/23 18:45 04/21/23 20:39 Ns IV 04/21/23 19:45 Infused .Q1H1M DHARA Infusion Ketorolac Tromethamine 30 mg 04/21/23 18:42 04/21/23 19:41 Ketorolac Tromethamine 30 Mg/Ml Vial IVPUSH 04/21/23 18:43 30 mg ONCE ONE Administration Prochlorperazine Edisylate 10 mg 04/21/23 18:42 04/21/23 19:45 Prochlorperazine Edisylate 10 Mg/2 Ml Vial IVPUSH 04/21/23 18:43 10 mg ONCE ONE Administration Medical Decision Making Medical Decision Making MDM Narrative: Positive elevated blood pressure question secondary to headaches. Patient states that she has been compliant with her medication which includes nifedipine 30 mg orally on a daily basis. No fever no chills. No neck pain. No focal weakness. Will treat patient's migraine and re-evaluate patient's blood pressure. test was negative. There is no evidence of -related hypertension. Patient's kidney function is normal. Hemoglobin is normal. Patient monitor in the emergency department. She took her medication today. She was treated for her migraine headache with good relief of symptoms. Blood pressure came down nicely. Last blood pressure is proximally 150/90. Will discharge patient home close follow-up on an outpatient basis repeat blood pressure check in approximately 48 hours. Motrin for headache. Neurologically intact. Headache not associated with fever nuchal rigidity not consistent with meningitis not as consistent with bleeding. Has a history migraine was similar headaches in the past. Headache improved with migraine treatment. Her test was negative. No evidence of -related issue. Differential Diagnosis Differential Diagnoses: The differential diagnosis associated with the presentation includes Hypertension, intracranial bleed, intracranial mass, meningitis, migraine headache Lab Data MDM Lab Attestation statement: I reviewed the patient's lab results. 04/21/23 17:30 04/21/23 17:30 Labs: Lab Results 04/21/23 04/21/23 04/21/23 Range/Units 17:30 17:30 17:30 WBC 9.7 (4.8-10.8) X10*3/uL RBC 5.02 D (4.20-5.50) X10*6/uL Hgb 11.8 L (12.0-16.0) g/dl Hct 38.9 (37.0-47.0) % MCV 77.5 L (80.0-98.0) fL MCH 23.5 L (27.0-33.0) pg MCHC 30.3 L (31.0-35.0) g/dl RDW 15.3 (11.0-16.0) % Plt Count 446 H (160-400) X10*3/uL MPV 10.7 (9.4-12.3) fL Immature Gran % (Auto) 0.3 (0.0-0.4) % Neut % (Auto) 65.7 (45-73) % Lymph % (Auto) 23.6 (20-40) % [place] % (Auto) 7.2 (2-11) % Eos % (Auto) 2.9 (0-4) % Baso % (Auto) 0.3 (0-2) % Lymph # (Auto) 2.3 (1.2-4.9) X10*3/uL [place] # (Auto) 0.7 (0.1-1.2) X10*3/uL Eos # (Auto) 0.3 (0.0-0.4) X10*3/uL Baso # (Auto) 0.0 (0.0-0.2) X10*3/uL Abs Immat Gran (auto) 0.03 (0.00-0.03) X10*3/uL Absolute Neuts (auto) 6.4 (2.0-8.3) x10*3/uL Absolute Nucleated RBC 0.000 (0.0-0.012) X10*3/uL Nucleated RBC % (auto) 0.0 (0.0-0.2) /100WBC Sodium 138 (135-145) mmol/L Potassium 3.9 (3.3-5.1) mmol/L Chloride 103 (96-108) mmol/L Carbon Dioxide 23 (22-29) mmol/L Anion Gap 16 (12-20) BUN 8 L (9-16) mg/dL Creatinine 0.71 (0.5-1.4) mg/dL Estim Creat Clear Calc 157.8 Estimated GFR > 60 Random Glucose 92 (60-115) mg/dL Calcium 8.7 D (8.4-10.2) mg/dL Total Bilirubin 0.4 (0.0-1.0) mg/dL AST 16 (5-31) U/L ALT 18 (0-31) U/L Alkaline Phosphatase 90 (39-117) U/L Troponin I High Sens < 2.7 (<3.5-17.0) ng/L Total Protein 7.9 (6.5-8.0) g/dL Albumin 4.0 (3.5-5.0) g/dL Beta HCG, Quant mIU/mL Urine Color Urine Appearance Urine pH (5.0-9.0) Ur Specific [place] (1.005-1.025) Urine Protein (Neg-Trace) mg/dL Urine Glucose (UA) (Negative) mg/dL Urine Ketones (Negative) mg/dL Urine Blood (Negative) Urine Nitrite (Negative) Ur Leukocyte Esterase (Negative) 04/21/23 04/21/23 Range/Units 17:30 19:41 WBC (4.8-10.8) X10*3/uL RBC (4.20-5.50) X10*6/uL Hgb (12.0-16.0) g/dl Hct (37.0-47.0) % MCV (80.0-98.0) fL MCH (27.0-33.0) pg MCHC (31.0-35.0) g/dl RDW (11.0-16.0) % Plt Count (160-400) X10*3/uL MPV (9.4-12.3) fL Immature Gran % (Auto) (0.0-0.4) % Neut % (Auto) (45-73) % Lymph % (Auto) (20-40) % [place] % (Auto) (2-11) % Eos % (Auto) (0-4) % Baso % (Auto) (0-2) % Lymph # (Auto) (1.2-4.9) X10*3/uL [place] # (Auto) (0.1-1.2) X10*3/uL Eos # (Auto) (0.0-0.4) X10*3/uL Baso # (Auto) (0.0-0.2) X10*3/uL Abs Immat Gran (auto) (0.00-0.03) X10*3/uL Absolute Neuts (auto) (2.0-8.3) x10*3/uL Absolute Nucleated RBC (0.0-0.012) X10*3/uL Nucleated RBC % (auto) (0.0-0.2) /100WBC Sodium (135-145) mmol/L Potassium (3.3-5.1) mmol/L Chloride (96-108) mmol/L Carbon Dioxide (22-29) mmol/L Anion Gap (12-20) BUN (9-16) mg/dL Creatinine (0.5-1.4) mg/dL Estim Creat Clear Calc Estimated GFR Random Glucose (60-115) mg/dL Calcium (8.4-10.2) mg/dL Total Bilirubin (0.0-1.0) mg/dL AST (5-31) U/L ALT (0-31) U/L Alkaline Phosphatase (39-117) U/L Troponin I High Sens (<3.5-17.0) ng/L Total Protein (6.5-8.0) g/dL Albumin (3.5-5.0) g/dL Beta HCG, Quant < 2 mIU/mL Urine Color Yellow Urine Appearance Clear Urine pH 6.5 (5.0-9.0) Ur Specific [place] 1.010 (1.005-1.025) Urine Protein Negative (Neg-Trace) mg/dL Urine Glucose (UA) Negative (Negative) mg/dL Urine Ketones Negative (Negative) mg/dL Urine Blood Negative (Negative) Urine Nitrite Negative (Negative) Ur Leukocyte Esterase Negative (Negative) Independent Interpretation I performed an independent interpretation of an: EKG Interpretation: My interpretation patient's EKG shows sinus rhythm heart rate is fast NM QRS QT within normal limits there is nonspecific T-wave flattening noted diffusely. Discharge Plan Discharge Clinical Impression: Migraine, Hypertension Patient Disposition: Home, Self-Care Instructions: Migraine Headache (ED), Hypertension (ED) Prescriptions: New ibuprofen 400 mg tablet 400 mg PO Q6H PRN (Reason: pain) Qty: 20 0RF ondansetron 4 mg tablet,disintegrating 4 mg PO TID PRN (Reason: nausea and vomiting) 5 Days Qty: 10 0RF No Action (DME) nebulizer accessories Kit See Rx Instructions .Route Qty: 1 0RF Rx Instructions: As directed (DME) nebulizer and compressor Device See Rx Instructions .Route Qty: 1 0RF Rx Instructions: As directed naproxen 500 mg tablet 500 mg PO BID PRN (Reason: pain) 10 Days Qty: 20 0RF amlodipine 5 mg tablet 5 mg PO DAILY 30 Days Qty: 30 0RF hydrochlorothiazide 12.5 mg tablet 12.5 mg PO QAM Qty: 30 0RF prednisone 50 mg tablet 50 mg PO DAILY 4 Days Qty: 4 0RF albuterol sulfate [Ventolin HFA] 90 mcg/actuation HFA aerosol inhaler 2 puff inhalation Q4-6H PRN (Reason: shortness of breath or wheezing) Qty: 8.5 0RF fluticasone propion-salmeterol [Advair Diskus] 250-50 mcg/dose blister with device 1 inh inhalation Q12H Qty: 60 0RF benzonatate 100 mg capsule 100 mg PO BID PRN (Reason: cough) Qty: 20 0RF albuterol sulfate 2.5 mg /3 mL (0.083 %) solution for nebulization 5 mg inhalation ONCE Qty: 6 0RF albuterol sulfate 0.63 mg/3 mL solution for nebulization 0.63 mg inhalation Q4H PRN (Reason: shortness of breath or wheezing) Qty: 90 2RF cetirizine 10 mg tablet 10 mg PO DAILY 30 Days Qty: 30 6RF albuterol sulfate 90 mcg/actuation aerosol powdr breath activated 2 inh inhalation Q4-6H PRN (Reason: shortness of breath or wheezing) 30 Days Qty: 1 6RF Rx Instructions: May dispense medication equivalent accepted by patient's turned fluticasone propion-salmeterol [Advair Diskus] 250-50 mcg/dose blister with device 1 inh inhalation BID Qty: 60 1RF prednisone 20 mg tablet 40 mg PO DAILY Qty: 6 0RF lisinopril 5 mg tablet 5 mg PO DAILY Qty: 30 0RF Referrals: Jacqueline Wilkinson MD [Primary Care Provider] - 04/23/23
[2023-04-21 18:57] VITALS: BP 152/77; PULSE 72; RESP 20; O2SAT 98
[2023-04-21 19:02] VITALS: BP 161/85; PULSE 75; RESP 19; TEMP 37.1; O2SAT 98
[2023-04-21] MEDS: 0.9 % Sodium Chloride 1,000 ML 999 ML IV (19:17)
[2023-04-21] MEDS: Ketorolac Tromethamine 30 MG/ML VIAL IVPUSH (19:41)
[2023-04-21] MEDS: diphenhydrAMINE HCL 50 MG/ML VIAL IVPUSH (19:42)
[2023-04-21] MEDS: Prochlorperazine Edisylate 10 MG/2 ML VIAL IVPUSH (19:45)
[2023-04-21 19:50] LABS: Appearance Urine Clear; Color Urine Yellow; Glucose Urine UA Negative (Negative); Leukocyte Esterase Urine Negative (Negative); Nitrite Urine Negative (Negative); PH 6.5 (5.0-9.0); Urine Blood Negative (Negative); Urine Ketones Negative (Negative); Urine Protein Negative (Neg-Trace)
--- NOTE | 2023-04-21 20:09 | PC.NURSE ---
pt resting, lights dimmed, warm blanket given. medicated per DEC.
== END 2023-04-21 21:18 | disposition home or self-care (01) ==
PROVIDERS: Registered Nurse Emergency; Emergency Provider Emergency Medicine Emergency Medical Services; PCP Internal Medicine
DX: G43.909 Migraine, unspecified, not intractable, without status migrainosus (principal); I10 Essential (primary) hypertension; Z79.899 Other long term (current) drug therapy
CPT/HCPCS: 36415; 80053; 81003; 84484; 84702; 85025; 93005; 96361; 96374; 96375; 99284; 99285; J1200; J1885

== ENCOUNTER → 2023-04-21 17:12 | Outpatient (BNV) | payer OTHER, SELFPAY | PROVIDERS: Emergency Provider Emergency Medicine Emergency Medical Services; PCP Internal Medicine; Visit Provider Internal Medicine Cardiovascular Disease | DX: I10 Essential (primary) hypertension (principal) | CPT/HCPCS: 93010 ==

== ENCOUNTER 2023-11-05 11:06 | Emergency (ER) | payer OTHER, SELFPAY ==
--- NOTE | ~2023-11-05 | XR_ITS ---
EXAMINATION: XR KNEE, LEFT CLINICAL INFORMATION: Fall COMPARISON: None available. TECHNIQUE: Four views of the left knee. FINDINGS: Bone alignment is normal. No fracture or dislocation. Normal joint spaces. No joint effusion. Osteophytes at the quadriceps tendon insertion to the patella and patellar tendon origin. XR/XR knee LT 3V IMPRESSION: No fracture or dislocation.
--- NOTE | ~2023-11-05 | XR_ITS ---
EXAMINATION: Right foot and ankle x-ray CLINICAL INFORMATION: Pain post fall COMPARISON: None. TECHNIQUE: 3 views of the right ankle and 3 views of the right foot FINDINGS: Right ankle: Bone alignment is normal. No fracture or dislocation. The ankle mortise is normal. There is significant lateral soft tissue swelling. Right foot: Bone alignment is normal. No fracture or dislocation. Joint spaces are normal. There may be soft tissue swelling over the metatarsal head/MTP joint region. There is a small calcaneal spur at the Achilles tendon insertion. XR/XR ankle RT min 3V IMPRESSION: No fracture is seen. Lateral ankle soft tissue swelling. Question soft tissue swelling over the MTP joints.
--- NOTE | ~2023-11-05 | XR_ITS ---
EXAMINATION: Right foot and ankle x-ray CLINICAL INFORMATION: Pain post fall COMPARISON: None. TECHNIQUE: 3 views of the right ankle and 3 views of the right foot FINDINGS: Right ankle: Bone alignment is normal. No fracture or dislocation. The ankle mortise is normal. There is significant lateral soft tissue swelling. Right foot: Bone alignment is normal. No fracture or dislocation. Joint spaces are normal. There may be soft tissue swelling over the metatarsal head/MTP joint region. There is a small calcaneal spur at the Achilles tendon insertion. XR/XR foot RT min 3V IMPRESSION: No fracture is seen. Lateral ankle soft tissue swelling. Question soft tissue swelling over the MTP joints.
[2023-11-05 11:21] VITALS: BP 185/98; PULSE 79; RESP 16; TEMP 36.5; O2SAT 100; BMI 62.0
[2023-11-05] MEDS: NaPROXEN 500 MG TABLET PO (12:17)
--- NOTE | 2023-11-05 12:27 | ED_ITS ---
HPI - Extremity Injury (Lower) General Chief Complaint: Extremity Injury, Lower Stated Complaint: r ankle inj fall Time Seen by Provider: 11/05/23 11:14 Source: patient, RN notes reviewed and old records reviewed Mode of arrival: ambulatory History of Present Illness HPI Narrative: 38-year-old female with a past medical history of sinusitis, asthma, obesity, anemia, depression, GERD, JENNIFER, presenting to the ED complaining of right ankle/ foot and left knee pain s/p mechanical trip and fall last night at home. Reports all injury to right foot from many months ago, currently wearing a walking boot. Denies head trauma, LOC, numbness, tingling, weakness, lightheadedness/dizziness or symptoms prior to fall Related Data Previous Rx's Medication Instructions Recorded naproxen 500 mg tablet 500 mg PO BID PRN pain 10 days #20 01/24/22 tabs lisinopril 5 mg tablet 5 mg PO DAILY #30 tabs 06/08/22 amlodipine 5 mg tablet 5 mg PO DAILY 30 days #30 tabs 09/09/22 hydrochlorothiazide 12.5 mg tablet 12.5 mg PO QAM #30 tabs 09/09/22 benzonatate 100 mg capsule 100 mg PO BID PRN cough #20 caps 01/20/23 albuterol sulfate 0.63 mg/3 mL 0.63 mg (3 mL) inhalation Q4H PRN 01/28/23 solution for nebulization shortness of breath or wheezing #90 mL albuterol sulfate 90 mcg/actuation 2 inh inhalation Q4-6H PRN 01/28/23 breath activated powder inhaler shortness of breath or wheezing 30 days #1 ea cetirizine 10 mg tablet 10 mg PO DAILY allergy symptoms 30 01/28/23 days #30 tabs nebulizer accessories #1 ea 01/28/23 nebulizer and compressor #1 ea 01/28/23 fluticasone 250 mcg-salmeterol 50 1 inh inhalation BID #60 ea 02/05/23 mcg/dose blistr powdr for inhalation (Advair Diskus) prednisone 20 mg tablet 40 mg (2 x 20 mg) PO DAILY #6 tabs 02/05/23 albuterol sulfate 90 mcg/actuation 2 puff inhalation Q4-6H PRN 02/13/23 aerosol inhaler (Ventolin HFA) shortness of breath or wheezing #8.5 grams fluticasone 250 mcg-salmeterol 50 1 inh inhalation Q12H #60 ea 02/13/23 mcg/dose blistr powdr for inhalation (Advair Diskus) prednisone 50 mg tablet 50 mg PO DAILY 4 days #4 tabs 02/13/23 ibuprofen 400 mg tablet 400 mg PO Q6H PRN pain #20 tabs 04/21/23 ondansetron 4 mg disintegrating 4 mg PO TID PRN nausea and 04/21/23 tablet vomiting 5 days #10 tabs Allergies Allergy/AdvReac Type Severity Reaction Status Date / Time dextran 40 AdvReac Intermediate Hypertensio Verified 04/21/23 17:19 n iron dextran complex AdvReac Intermediate Hypertensio Verified 04/21/23 17:19 n Review of Systems Review of Systems: Constitutional: No Fever, No Chills ENT/Mouth: No Ear Pain, No Nasal Congestion, No sore throat, No Rhinorrhea, No Swallowing Difficulty Cardiovascular: No Chest Pain, No SOB Respiratory: No Cough, No Sputum, No Wheezing Gastrointestinal: No Nausea, No Vomiting, No Abdominal pain Musculoskeletal: + joint pain, No Myalgias, + Joint Swelling Skin: No Skin Lesions, No rash Neuro: No Weakness, No Numbness, No Paresthesias, No head trauma, No LOC Yes all other systems are reviewed and are negative Constitutional: Constitutional: Reports as per [facility] Past Medical History Attestation statement: The following information was validated with the patient. Source: old records reviewed Medical History Asthma exacerbation Right ovarian cyst Knee pain Back pain Lower extremity edema Anxiety Depression GERD (gastroesophageal reflux disease) Asthma Sleep apnea with use of continuous positive airway pressure (CPAP) Morbid obesity Surgical History Hx of section Hx of cholecystectomy Family History Family History Mother Diabetes Hyperlipidemia Father No problems noted. Brother No problems noted. Brother No problems noted. Sister No problems noted. Sister Lupus Son No problems noted. Daughter No problems noted. Social History Social History Housing: Apartment Alcohol intake: current Alcohol intake frequency: holidays/special occasions only Patient Tobacco Use Status: Never used Tobacco e-Cigarette/Vaping Use: Never Used Second Hand Smoke Exposure: No Advance Directives: No Advance Directives Information Provided: No service: No Current occupational status: unemployed Cognitive needs: No Hearing needs: No Vision needs: No Physical Exam Vital Signs: Vital Signs: Last Vital Signs Temp 97.7 F 11/05/23 11:21 Pulse 79 11/05/23 11:21 Resp 16 11/05/23 11:21 BP 185/98 H 11/05/23 11:21 Pulse Ox 100 11/05/23 11:21 O2 Del Method Room Air 11/05/23 11:21 BMI result Body Mass Index 62.0 Const: General: cooperative, healthy appearing and no acute distress Orientation/consciousness: patient oriented x3 Limitations: no limitations HEENT: Head: Yes normal to inspection and Yes atraumatic Ears: hearing grossly normal bilaterally General nose exam: Normal external nose present Face and sinus: Yes normal facial exam Eyes: General: appearance normal, both eyes and all related structures EOM: EOMs intact bilaterally Neck: Neck: Yes normal visual inspection and Yes no meningeal signs Resp: Effort & Inspection: normal respiratory effort and no respiratory distress Cardio: Rate: regular rate Skin: Rashes: no rashes Wounds: no wounds Neuro: General: patient oriented x3, tone normal and no meningeal signs Cranial nerves: Yes CN's II-XII intact bilaterally Gait exam (Neuro): Normal gait present Extrem: Other: Right ankle/foot with mild swelling. Healing ecchymosis. Diffusely tender to palpation with limited ROM. Neurovascularly intact. No crepitus, erythema or warmth Left knee with mild tenderness. Limited full flexion and extension secondary to pain. Neurovascularly intact distally. Course Course Course Narrative: XR knee LT 3V IMPRESSION: No fracture or dislocation. R foot RT min 3V/XR ankle RT min 3V IMPRESSION: No fracture is seen. Lateral ankle soft tissue swelling. Question soft tissue swelling over the MTP joints. > patient already has walking boot, recommended continued wearing, Harsh wrap applied to left knee. Recommended close PCP/orthopedic follow-up as needed Results discussed with patient including worrisome signs and symptoms and strict return precautions, and when to return to the emergency department. They verbalized understanding and feel safe for discharge at this time. Medications Administered Discontinued Medications Generic Name Dose Route Start Last Admin Trade Name Jordan PRN Reason Stop Dose Admin Naproxen 500 mg 11/05/23 11:40 11/05/23 12:17 Naproxen 500 Mg Tablet PO 11/05/23 11:41 500 mg ONCE ONE Administration Medical Decision Making Medical Decision Making MDM Narrative: 38-year-old female with a past medical history of sinusitis, asthma, obesity, anemia, depression, GERD, JENNIFER, presenting to the ED complaining of right ankle/foot and left knee pain s/p mechanical trip and fall last night at home. On exam vital signs stable, NAD, nontoxic appearing, physical exam as noted above. Concern for fracture versus sprain versus tendon/ligamental or meniscal injury Plan: X-rays, p.o. naproxen Please refer to course for remaining clinical decision making, interpretation of labs/imaging results, and discussions with consultants and/or family members. Differential Diagnosis Differential Diagnoses: The differential diagnosis associated with the presentation includes As above Independent Interpretation I performed an independent interpretation of an: Plain X-Ray Radiology Impression Discussion of test interpretation with radiology: I have reviewed the radiologist's reading. External Record Review External record reviewed: Inpatient record, Office record, Outpatient record, Prior outpatient labs, Prior outpatient radiology, Primary care record and Outside ED record Tests considered The following testing was considered but not selected: As above Prescription Management I considered prescription management with: Pain Medication Procedures Orthopedic Splinting/Casting Injury #1: Side: left Lower Extremity Injury Location: knee Lower Extremity Immobilizer: Harsh wrap Discharge Plan Discharge Clinical Impression: Ankle sprain, Injury of knee Patient Disposition: Home, Self-Care Instructions: Ankle Sprain (DC), Knee Sprain (DC) Additional Instructions: Your x-ray shows soft tissue swelling of your ankle and foot No abnormality noted on the x-ray Please continue wearing a walking boot as needed Wear Harsh wrap for knee as needed for compression/stability Ice and elevate Follow-up with your doctor as well as Orthopedics Take Tylenol Motrin for pain If symptoms persist or worsen return to the ED Prescriptions: No Action (DME) nebulizer accessories Kit See Rx Instructions .Route Qty: 1 0RF Rx Instructions: As directed (DME) nebulizer and compressor Device See Rx Instructions .Route Qty: 1 0RF Rx Instructions: As directed naproxen 500 mg tablet 500 mg PO BID PRN (Reason: pain) 10 Days Qty: 20 0RF amlodipine 5 mg tablet 5 mg PO DAILY 30 Days Qty: 30 0RF hydrochlorothiazide 12.5 mg tablet 12.5 mg PO QAM Qty: 30 0RF prednisone 50 mg tablet 50 mg PO DAILY 4 Days Qty: 4 0RF albuterol sulfate [Ventolin HFA] 90 mcg/actuation HFA aerosol inhaler 2 puff inhalation Q4-6H PRN (Reason: shortness of breath or wheezing) Qty: 8.5 0RF fluticasone propion-salmeterol [Advair Diskus] 250-50 mcg/dose blister with device 1 inh inhalation Q12H Qty: 60 0RF benzonatate 100 mg capsule 100 mg PO BID PRN (Reason: cough) Qty: 20 0RF ibuprofen 400 mg tablet 400 mg PO Q6H PRN (Reason: pain) Qty: 20 0RF ondansetron 4 mg tablet,disintegrating 4 mg PO TID PRN (Reason: nausea and vomiting) 5 Days Qty: 10 0RF albuterol sulfate 2.5 mg /3 mL (0.083 %) solution for nebulization 5 mg inhalation ONCE Qty: 6 0RF albuterol sulfate 0.63 mg/3 mL solution for nebulization 0.63 mg inhalation Q4H PRN (Reason: shortness of breath or wheezing) Qty: 90 2RF cetirizine 10 mg tablet 10 mg PO DAILY 30 Days Qty: 30 6RF albuterol sulfate 90 mcg/actuation aerosol powdr breath activated 2 inh inhalation Q4-6H PRN (Reason: shortness of breath or wheezing) 30 Days Qty: 1 6RF Rx Instructions: May dispense medication equivalent accepted by patient's turned fluticasone propion-salmeterol [Advair Diskus] 250-50 mcg/dose blister with device 1 inh inhalation BID Qty: 60 1RF prednisone 20 mg tablet 40 mg PO DAILY Qty: 6 0RF lisinopril 5 mg tablet 5 mg PO DAILY Qty: 30 0RF Referrals: [facility] [place] [facility] [Provider Group] Jacqueline Wilkinson MD [Primary Care Provider] - Interventions: ED Discharge Assessment Last Done: 11/05/23 13:26 Discharge Date/Time: 11/05/23 13:26
== END 2023-11-05 13:26 | disposition home or self-care (01) ==
PROVIDERS: Emergency Provider Emergency Medicine; PCP Internal Medicine
DX: S93.491A Sprain of other ligament of right ankle, initial encounter (principal); S89.92XA Unspecified injury of left lower leg, initial encounter; X50.1XXA Overexertion from prolonged static or awkward postures, initial encounter; Y93.9 Activity, unspecified; Y92.039 Unspecified place in apartment as the place of occurrence of the external cause; Y99.9 Unspecified external cause status
CPT/HCPCS: 73562; 73610; 73630; 99283

== ENCOUNTER 2024-01-10 15:17 | Emergency (ER) | payer OTHER, SELFPAY ==
--- NOTE | ~2024-01-10 | CT_ITS ---
EXAMINATION: CT LUMBAR SPINE WITH CONTRAST CLINICAL INFORMATION: Back pain. Question of cauda equina syndrome. COMPARISON: X-ray lumbar spine dated 09/08/2018. TECHNIQUE: Multidetector helical imaging acquired in the axial plane following intravenous administration of 100 mL of Omnipaque 350. This CT examination was performed using dose optimization techniques as appropriate, variously including the following: *Automated exposure control. *Adjustment of mA and/or kV according to patient size (this includes techniques or standardized protocols for targeted exams where dose is matched to indication/reason for exam; i.e. extremities or head). *Use of iterative reconstruction technique. DLP: 1269 mGy-cm FINDINGS: There are no fractures. Very mild leftward lumbar spinal curvature noted. No vertebral body compression deformities are visible. No subluxations evident. There is ymda-cq-vighoyat disc space narrowing with endplate spurring at the L5-S1 level. Very mild anterior endplate spurring noted at the lower thoracic levels. The L1-L2 and L2-L3 levels are normal. At the L3-L4 level, there is hypertrophic facet arthropathy, though without foraminal encroachment or central canal stenosis. At the L4-L5 level, there is hypertrophic facet arthropathy with a mild posterior disc bulge. No central canal stenosis is evident. Bulging disc contributes to [id number] foraminal encroachment, worse on the left side. At the L5-S1 level, there is a diffuse disc bulge and right paracentral to right subarticular disc protrusion which may impress upon the right S1 nerve root. Hypertrophic facet arthropathy is present without central canal stenosis. Mild bilateral foraminal narrowing evident. There are moderate degenerative changes of the sacroiliac joints with marginal sclerosis and vacuum phenomenon. The paraspinal soft tissues are normal. No abnormal enhancement is visible. Sigmoid colonic diverticulosis is partially seen. The patient has had a prior cholecystectomy. CT/CT lumbar spine w IV con IMPRESSION: No acute fracture. Mild leftward lumbar spinal curvature. No abnormal enhancement. Facet arthropathy and mild disc bulge at the L4-L5 level contributing to tbfdorvx-[id number] foraminal encroachment, worse on the left side. Disc bulge and right paracentral to right subarticular zone disc protrusion perceived the at the L5-S1 level with potential impression upon the right S1 nerve root. No central canal stenosis. Moderate degenerative changes of the sacroiliac joints bilaterally.
[2024-01-10 15:24] VITALS: BP 180/95; PULSE 72; RESP 16; TEMP 37; O2SAT 98; BMI 63.8
--- NOTE | 2024-01-10 15:24 | ED.BACK ---
HPI - Back Pain/Injury General Chief Complaint: Back Pain/Injury Stated Complaint: low bacak and leg pain Time Seen by Provider: 01/10/24 16:03 History of Present Illness HPI Narrative: Patient is a 38-year-old female presents today with having lower back pain. She claims he had the pain for about 4 days had some numbness to her legs. Also has difficulty with her urine. I difficulty with her urine she means that she had difficulty getting to the bathroom. She did not have any incontinence. Patient denies any focal weakness when she ambulates. Complaining of pain when she ambulates. She claims that her pain has been fairly sudden in onset in the last 4 days. There is no trauma. No history of IV drug use. The numbness seems to be a tingling sensation in her thigh that comes and goes. There has no fever associated with the symptoms. Patient from home. Patient is of a larger size. She is 5 ft 3 weighs 163.29 kilos. This turns into about 359 lb. Related Data Previous Rx's Medication Instructions Recorded naproxen 500 mg tablet 500 mg PO BID PRN pain 10 days #20 01/24/22 tabs lisinopril 5 mg tablet 5 mg PO DAILY #30 tabs 06/08/22 amlodipine 5 mg tablet 5 mg PO DAILY 30 days #30 tabs 09/09/22 hydrochlorothiazide 12.5 mg tablet 12.5 mg PO QAM #30 tabs 09/09/22 benzonatate 100 mg capsule 100 mg PO BID PRN cough #20 caps 01/20/23 albuterol sulfate 0.63 mg/3 mL 0.63 mg (3 mL) inhalation Q4H PRN 01/28/23 solution for nebulization shortness of breath or wheezing #90 mL albuterol sulfate 90 mcg/actuation 2 inh inhalation Q4-6H PRN 01/28/23 breath activated powder inhaler shortness of breath or wheezing 30 days #1 ea cetirizine 10 mg tablet 10 mg PO DAILY allergy symptoms 30 01/28/23 days #30 tabs nebulizer accessories #1 ea 01/28/23 nebulizer and compressor #1 ea 01/28/23 fluticasone 250 mcg-salmeterol 50 1 inh inhalation BID #60 ea 02/05/23 mcg/dose blistr powdr for inhalation (Advair Diskus) prednisone 20 mg tablet 40 mg (2 x 20 mg) PO DAILY #6 tabs 02/05/23 albuterol sulfate 90 mcg/actuation 2 puff inhalation Q4-6H PRN 02/13/23 aerosol inhaler (Ventolin HFA) shortness of breath or wheezing #8.5 grams fluticasone 250 mcg-salmeterol 50 1 inh inhalation Q12H #60 ea 02/13/23 mcg/dose blistr powdr for inhalation (Advair Diskus) prednisone 50 mg tablet 50 mg PO DAILY 4 days #4 tabs 02/13/23 ibuprofen 400 mg tablet 400 mg PO Q6H PRN pain #20 tabs 04/21/23 ondansetron 4 mg disintegrating 4 mg PO TID PRN nausea and 04/21/23 tablet vomiting 5 days #10 tabs leg brace (CURTIS Knee Brace) #1 ea 11/06/23 cyclobenzaprine 10 mg tablet 10 mg PO TID PRN pain #14 tabs 01/10/24 Allergies Allergy/AdvReac Type Severity Reaction Status Date / Time dextran 40 AdvReac Intermediate Hypertensio Verified 04/21/23 17:19 n iron dextran complex AdvReac Intermediate Hypertensio Verified 04/21/23 17:19 n Review of Systems Review of Systems: Positive back pain Yes all other systems are reviewed and are negative PMFSH Past Medical History Attestation statement: The following information was validated with the patient. Medical History Asthma exacerbation Right ovarian cyst Knee pain Back pain Lower extremity edema Anxiety Depression GERD (gastroesophageal reflux disease) Asthma Sleep apnea with use of continuous positive airway pressure (CPAP) Morbid obesity Surgical History Hx of section Hx of cholecystectomy Family History Family History Mother Diabetes Hyperlipidemia Father No problems noted. Brother No problems noted. Brother No problems noted. Sister No problems noted. Sister Lupus Son No problems noted. Daughter No problems noted. Social History Social History Housing: Apartment Alcohol intake: current Alcohol intake frequency: holidays/special occasions only Patient Tobacco Use Status: Never used Tobacco Smoked in Last 30 Days: No e-Cigarette/Vaping Use: Never Used Second Hand Smoke Exposure: No Use of substances other than those prescribed or required for medical reasons: No Advance Directives: No Advance Directives Information Provided: No service: No Current occupational status: unemployed Cognitive needs: No Hearing needs: No Vision needs: No Physical Exam Vital Signs: Vital Signs: Last Vital Signs Temp 97.6 F 01/10/24 19:00 Pulse 70 01/10/24 16:13 Resp 16 01/10/24 19:00 BP 162/92 H 01/10/24 19:00 Pulse Ox 97 01/10/24 16:13 O2 Del Method Room Air 01/10/24 19:00 O2 Flow Rate 100 01/10/24 19:00 BMI result Body Mass Index 63.8 Appearance: Alert. Oriented X3. No acute distress. Eyes: Pupils equal, round and reactive to light. ENT: Pharynx normal. Neck: Normal inspection. Neck supple. No lymph nodes noted. No crepitus CVS: Normal heart rate and rhythm. Pulses normal. Normal S1 and S2 Respiratory: No respiratory distress. Breath sounds normal. No Wheezing. No rales Abdomen: Soft and nontender. No rigidity. No distention. good BS x4 Skin: Skin warm and dry. Normal skin color. Normal skin turgor. Extremities: No lower extremity edema. Neurovascular intact to all extremities. No Lacerations. No Rash Neuro: Oriented X 3. No motor deficit. No sensory deficit. Moving all extermities. No slurred speech. I observed the patient ambulating in the emergency department without any difficulties. There is no spinal tenderness on palpation. There is paraspinal muscle tenderness bilaterally. There is no CVA tenderness noted. Patient has good pulses distally at dorsalis pedis. Skin is intact. Course Course Course Narrative: This is a rapid medical exam: Additional HPI, ROS, PE not included below will be deferred to primary provider. Patient is a 38-year-old female presenting to the ED with complaint of lower back pain radiating down legs, states when she lays down is unable to get up on her own. Reporting urinary incontinence x 1 week. Ambulating with steady gait. Plan: UA, urine , CT lumbar Medications Administered Discontinued Medications Generic Name Dose Route Start Last Admin Trade Name Freq PRN Reason Stop Dose Admin Iohexol 100 ml 01/10/24 18:51 01/10/24 18:51 Iohexol 350 Mg/Ml 100 Ml Infus..Btl IV 01/10/24 18:52 90 ml ONCE ONE Administration Medical Decision Making Medical Decision Making [facility] Narrative: Patient is 38 years old presents today with having lower back pain. Patient claims that she has good sensation when she needs to go to the bathroom but just can not reach the bathroom in time. Also had some tingling to her legs bilaterally there was never any weakness in the leg. Nevertheless consider getting patient an MRI of the back to rule out the possibility of cauda equinus syndrome however patient is 163.3 kilos in size. Also at 5 ft 3 he is more round in stature. Would not be able to fit on the MRI table as the maximum capacity is 350 lb and she weighs approximately 359 by my conversion. I discussed the case with the radiologist, will do a CT lower back with contrast. I was done. The reading showed no evidence of central cord compression. There is multiple disc injury noted. Will need follow-up on an outpatient basis. Patient is already taking NSAIDs. Will have patient take a muscle relaxant. Electrolytes were normal. Differential Diagnosis Differential Diagnoses: The differential diagnosis associated with the presentation includes Back pain Admission/Observation Consideration of admission/observation: Escalation of care including admission/observation considered Lab Data [facility] Lab Attestation statement: I reviewed the patient's lab results. 01/10/24 17:41 01/10/24 17:41 Labs: Lab Results 01/10/24 01/10/24 Range/Units 17:41 17:47 WBC 10.4 (4.8-10.8) X10*3/uL RBC 4.70 (4.20-5.50) X10*6/uL Hgb 12.6 (12.0-16.0) g/dl Hct 38.9 (37.0-47.0) % MCV 82.8 (80.0-98.0) fL MCH 26.8 L (27.0-33.0) pg MCHC 32.4 (31.0-35.0) g/dl RDW 14.2 (11.0-16.0) % Plt Count 363 (160-400) X10*3/uL MPV 10.9 (9.4-12.3) fL Immature Gran % (Auto) 0.2 (0.0-0.4) % Neut % (Auto) 62.5 (45-73) % Lymph % (Auto) 25.6 (20-40) % Carbon % (Auto) 7.3 (2-11) % Eos % (Auto) 4.1 H (0-4) % Baso % (Auto) 0.3 (0-2) % Lymph # (Auto) 2.7 (1.2-4.9) X10*3/uL Carbon # (Auto) 0.8 (0.1-1.2) X10*3/uL Eos # (Auto) 0.4 (0.0-0.4) X10*3/uL Baso # (Auto) 0.0 (0.0-0.2) X10*3/uL Abs Immat Gran (auto) 0.02 (0.00-0.03) X10*3/uL Absolute Neuts (auto) 6.5 (2.0-8.3) x10*3/uL Absolute Nucleated RBC 0.000 (0.0-0.012) X10*3/uL Nucleated RBC % (auto) 0.0 (0.0-0.2) /100WBC Sodium 140 (135-145) mmol/L Potassium 3.9 (3.3-5.1) mmol/L Chloride 107 (96-108) mmol/L Carbon Dioxide 25 (22-29) mmol/L Anion Gap 12 (12-20) BUN 11 (9-16) mg/dL Creatinine 0.63 (0.5-1.4) mg/dL Estim Creat Clear Calc 186.7 Estimated GFR > 60 Random Glucose 86 (60-115) mg/dL Calcium 8.6 (8.4-10.2) mg/dL Beta HCG, Quant < 2 mIU/mL Urine Color Yellow Urine Appearance Clear Urine pH 7.0 (5.0-9.0) Ur Specific [place] 1.025 (1.005-1.025) Urine Protein Negative (Neg-Trace) mg/dL Urine Glucose (UA) Negative (Negative) mg/dL Urine Ketones Trace (Negative) mg/dL Urine Blood Negative (Negative) Urine Nitrite Negative (Negative) Ur Leukocyte Esterase Negative (Negative) Urine Test NEGATIVE (NEGATIVE) Radiology Impression Discussion of test interpretation with radiology: I have reviewed the radiologist's reading. External Record Review External record reviewed: Inpatient record and Office record Prescription Management Will give muscle relaxant Social Determinants Patient?s care significantly limited by Social Determinants of Health including: Low income and Problems related to primary support group Discharge Plan Discharge Clinical Impression: Sciatic leg pain Patient Disposition: Home, Self-Care Instructions: Sciatica (ED), Acute Low Back Pain (ED) Prescriptions: New cyclobenzaprine 10 mg tablet 10 mg PO TID PRN (Reason: pain) Qty: 14 0RF No Action (DME) nebulizer accessories Kit See Rx Instructions .Route Qty: 1 0RF Rx Instructions: As directed (DME) nebulizer and compressor Device See Rx Instructions .Route Qty: 1 0RF Rx Instructions: As directed (DME) CURTIS Knee Brace Misc See Rx Instructions .Route Qty: 1 0RF Rx Instructions: As directed naproxen 500 mg tablet 500 mg PO BID PRN (Reason: pain) 10 Days Qty: 20 0RF amlodipine 5 mg tablet 5 mg PO DAILY 30 Days Qty: 30 0RF hydrochlorothiazide 12.5 mg tablet 12.5 mg PO QAM Qty: 30 0RF prednisone 50 mg tablet 50 mg PO DAILY 4 Days Qty: 4 0RF albuterol sulfate [Ventolin HFA] 90 mcg/actuation HFA aerosol inhaler 2 puff inhalation Q4-6H PRN (Reason: shortness of breath or wheezing) Qty: 8.5 0RF fluticasone propion-salmeterol [Advair Diskus] 250-50 mcg/dose blister with device 1 inh inhalation Q12H Qty: 60 0RF benzonatate 100 mg capsule 100 mg PO BID PRN (Reason: cough) Qty: 20 0RF ibuprofen 400 mg tablet 400 mg PO Q6H PRN (Reason: pain) Qty: 20 0RF ondansetron 4 mg tablet,disintegrating 4 mg PO TID PRN (Reason: nausea and vomiting) 5 Days Qty: 10 0RF albuterol sulfate 2.5 mg /3 mL (0.083 %) solution for nebulization 5 mg inhalation ONCE Qty: 6 0RF albuterol sulfate 0.63 mg/3 mL solution for nebulization 0.63 mg inhalation Q4H PRN (Reason: shortness of breath or wheezing) Qty: 90 2RF cetirizine 10 mg tablet 10 mg PO DAILY 30 Days Qty: 30 6RF albuterol sulfate 90 mcg/actuation aerosol powdr breath activated 2 inh inhalation Q4-6H PRN (Reason: shortness of breath or wheezing) 30 Days Qty: 1 6RF Rx Instructions: May dispense medication equivalent accepted by patient's turned fluticasone propion-salmeterol [Advair Diskus] 250-50 mcg/dose blister with device 1 inh inhalation BID Qty: 60 1RF prednisone 20 mg tablet 40 mg PO DAILY Qty: 6 0RF lisinopril 5 mg tablet 5 mg PO DAILY Qty: 30 0RF Referrals: Jacqueline Wilkinson MD [Primary Care Provider] - 01/12/24
[2024-01-10 16:13] VITALS: BP 177/95; PULSE 70; RESP 18; TEMP 36.4; O2SAT 97
--- NOTE | 2024-01-10 16:18 | PC.NURSE ---
Pt presents from home to ED, reports lower back pain X 4 days worsening. Pt describes pain as stabbing and sharp that radiates down bilat legs, along with some numbness. Pt also reports issues with urination, reports she has continued urgency and is not able to urinate much. Pt denies any recent injury or fall, unsure why this began. Pt denies any recent illnesses, cough, fever, SOB or chest pain. Pt denies anything makes pain better, reports movement makes pain worse. Pt is alert and oriented, breathing even and unlabored, skin WNL. Pt noted to be sitting on bed attempting to get comfortable. Pain 10/10 at this time.
[2024-01-10 17:53] LABS: MANUAL DIFF FLAG NO
[2024-01-10 17:57] LABS: Appearance Urine Clear; Color Urine Yellow; Glucose Urine UA Negative (Negative); Leukocyte Esterase Urine Negative (Negative); Nitrite Urine Negative (Negative); Specific Gravity - Urine 1.025 (1.005-1.025); Urine Blood Negative (Negative); Urine Ketones Trace mg/dL (Negative); Urine Protein Negative (Neg-Trace)
[2024-01-10 17:57] LABS: Basophils Percent Auto 0.3 % (0-2); Eosinophils Absolute Auto 0.4 X10*3/uL (0.0-0.4); Eosinophils Percent Auto 4.1 % (0-4); Hematocrit 38.9 % (37.0-47.0); Hemoglobin 12.6 g/dl (12.0-16.0); Imm Gran Abs Auto 0.02 X10*3/uL (0.00-0.03); Imm Gran Pct Auto 0.2 % (0.0-0.4); Lymphocytes Absolute Auto 2.7 X10*3/uL (1.2-4.9); Lymphocytes Percent Auto 25.6 % (20-40); Mean Corpuscular HGB Conc 32.4 g/dl (31.0-35.0); Mean Corpuscular Hemoglobin 26.8 pg (27.0-33.0); Mean Corpuscular Volume 82.8 fL (80.0-98.0); Mean Platelet Volume 10.9 fL (9.4-12.3); Monocytes Absolute Auto 0.8 X10*3/uL (0.1-1.2); Monocytes Percent Auto 7.3 % (2-11); Neutrophils Absolute Auto 6.5 x10*3/uL (2.0-8.3); Neutrophils Percent Auto 62.5 % (45-73); Platelet Count 363 X10*3/uL (160-400); Red Cell Distribution Width 14.2 % (11.0-16.0); White Blood Count 10.4 X10*3/uL (4.8-10.8)
[2024-01-10 18:02] LABS: UPreg QC Valid YES; Urine Pregnancy NEGATIVE (NEGATIVE)
[2024-01-10 18:33] LABS: Anion Gap 12 (12-20); Blood Urea Nitrogen 11 mg/dL (9-16); Calcium 8.6 mg/dL (8.4-10.2); Carbon Dioxide 25 mmol/L (22-29); Chloride 107 mmol/L (96-108); Creatinine Clr Calc Pharmacy 186.7; Estimated Glomerular Filt Rate > 60; Glucose Random 86 mg/dL (60-115); Potassium 3.9 mmol/L (3.3-5.1); Sodium 140 mmol/L (135-145)
[2024-01-10 18:47] LABS: HCG Quantitative < 2 mIU/mL
[2024-01-10] MEDS: iohexoL 350 MG/ML 100 ML INFUS..BTL IV (18:51)
[2024-01-10 19:00] VITALS: BP 162/92; RESP 16; TEMP 36.4
--- NOTE | 2024-01-10 19:32 | MHC.EDTECH ---
This tech took over care of patient at 1900,hourly rounds completed,patient is resting at this time,call billingsley in reach
[2024-01-10 20:38] VITALS: BP 162/92; PULSE 70; RESP 18; TEMP 36.4; O2SAT 100
== END 2024-01-10 21:45 | disposition home or self-care (01) ==
PROVIDERS: Registered Nurse Emergency; Emergency Provider Emergency Medicine Emergency Medical Services; PCP Internal Medicine
DX: M54.42 Lumbago with sciatica, left side (principal); Z79.899 Other long term (current) drug therapy
CPT/HCPCS: 36415; 72132; 80048; 81003; 81025; 84702; 85025; 99284; Q9967

== ENCOUNTER 2024-01-27 12:08 | Emergency (ER) | payer OTHER, SELFPAY ==
[2024-01-27 12:21] VITALS: BP 211/117; PULSE 66; RESP 20; TEMP 36.6; O2SAT 96; BMI 61.0
--- NOTE | 2024-01-27 12:22 | ED_ITS ---
HPI - General Adult General Chief complaint: Back Pain/Injury Stated complaint: back and r leg pain Time Seen by Provider: 01/27/24 12:25 Source: patient Mode of arrival: ambulatory Limitations: no limitations History of Present Illness HPI narrative: 38-year-old female history of morbid obesity, hirstuism, presents to the emergency department complaints of right-sided back pain with radiation to right lower extremity just above the knee, patient reports this has been going on for few weeks she was sent muscle relaxer when she last came into the emergency department this not been helping. Patient reports pain is worse with movement better rest. She has been trying to get in with orthopedics however needs a referral. She does not have a referral and has not seen her PCP for this. Denies trauma. Denies urinary/bowel incontinence/retention, saddle paresthesias, numbness, tingling, fevers, chills, chest pain, shortness of breath, nausea, vomiting, abdominal pain, changes in urination or bowel habits Related Data Previous Rx's ?Medication ?Instructions ?Recorded naproxen 500 mg tablet 500 mg PO BID PRN pain 10 days #20 01/24/22 tabs lisinopril 5 mg tablet 5 mg PO DAILY #30 tabs 06/08/22 amlodipine 5 mg tablet 5 mg PO DAILY 30 days #30 tabs 09/09/22 hydrochlorothiazide 12.5 mg tablet 12.5 mg PO QAM #30 tabs 09/09/22 benzonatate 100 mg capsule 100 mg PO BID PRN cough #20 caps 01/20/23 albuterol sulfate 0.63 mg/3 mL 0.63 mg (3 mL) inhalation Q4H PRN 01/28/23 solution for nebulization shortness of breath or wheezing #90 mL albuterol sulfate 90 mcg/actuation 2 inh inhalation Q4-6H PRN 01/28/23 breath activated powder inhaler shortness of breath or wheezing 30 days #1 ea cetirizine 10 mg tablet 10 mg PO DAILY allergy symptoms 30 01/28/23 days #30 tabs nebulizer accessories #1 ea 01/28/23 nebulizer and compressor #1 ea 01/28/23 fluticasone 250 mcg-salmeterol 50 1 inh inhalation BID #60 ea 02/05/23 mcg/dose blistr powdr for inhalation (Advair Diskus) prednisone 20 mg tablet 40 mg (2 x 20 mg) PO DAILY #6 tabs 02/05/23 albuterol sulfate 90 mcg/actuation 2 puff inhalation Q4-6H PRN 02/13/23 aerosol inhaler (Ventolin HFA) shortness of breath or wheezing #8.5 grams fluticasone 250 mcg-salmeterol 50 1 inh inhalation Q12H #60 ea 02/13/23 mcg/dose blistr powdr for inhalation (Advair Diskus) prednisone 50 mg tablet 50 mg PO DAILY 4 days #4 tabs 02/13/23 ibuprofen 400 mg tablet 400 mg PO Q6H PRN pain #20 tabs 04/21/23 ondansetron 4 mg disintegrating 4 mg PO TID PRN nausea and 04/21/23 tablet vomiting 5 days #10 tabs leg brace (CURTIS Knee Brace) #1 ea 11/06/23 cyclobenzaprine 10 mg tablet 10 mg PO TID PRN pain #14 tabs 01/10/24 lidocaine 5 % topical patch 1 patch topical DAILY PRN pain #15 01/27/24 ea naproxen 500 mg tablet 500 mg PO BID #14 tabs 01/27/24 prednisone 20 mg tablet 40 mg (2 x 20 mg) PO DAILY 5 days 01/27/24 #10 tabs Allergies Allergy/AdvReac Type Severity Reaction Status Date / Time dextran 40 AdvReac Intermediate Hypertensio Verified 01/27/24 12:24 n iron dextran complex AdvReac Intermediate Hypertensio Verified 01/27/24 12:24 n Review of Systems Review of Systems: Yes all other systems are reviewed and are negative [facility] Past Medical History Attestation statement: The following information was validated with the patient. Source: old records reviewed and nursing notes reviewed Medical History Asthma exacerbation Right ovarian cyst Knee pain Back pain Lower extremity edema Anxiety Depression GERD (gastroesophageal reflux disease) Asthma Sleep apnea with use of continuous positive airway pressure (CPAP) Morbid obesity Surgical History Hx of section Hx of cholecystectomy Family History Family History Mother Diabetes Hyperlipidemia Father No problems noted. Brother No problems noted. Brother No problems noted. Sister No problems noted. Sister Lupus Son No problems noted. Daughter No problems noted. Social History Social History Housing: Apartment Alcohol intake: current Alcohol intake frequency: holidays/special occasions only Patient Tobacco Use Status: Never used Tobacco e-Cigarette/Vaping Use: Never Used Second Hand Smoke Exposure: No Advance Directives: No service: No Current occupational status: unemployed Cognitive needs: No Hearing needs: No Vision needs: No Physical Exam ED Vital Signs: Vital Signs - 24 hr 01/27/24 12:21 01/27/24 12:25 01/27/24 13:09 Temperature 98 F Pulse Rate 66 Respiratory Rate 20 Blood Pressure 211/117 H 226/104 H 226/104 H Pulse Oximetry 96 Oxygen Delivery Method Room Air 01/27/24 14:05 Temperature Pulse Rate Respiratory Rate Blood Pressure 197/97 H Pulse Oximetry Oxygen Delivery Method BMI result Body Mass Index 61.0 HTN noted Appearance: Alert.? Oriented X3.? No acute distress.? Head: Normocephalic, atraumatic, no step-offs or deformities Eyes: Pupils equal, round and reactive to light.? Neck: Normal inspection.? Neck supple.? CVS: Normal heart rate and rhythm.? Pulses normal.? Respiratory: No respiratory distress.? Breath sounds normal.? Abdomen: Soft and nontender.? Skin: Skin warm and dry.? Normal skin color.? Normal skin turgor.? Extremities: No lower extremity edema.? No calf ttp. 5/5 strength to bilateral upper and lower extremities Back: No midline tenderness, no C-spine tenderness, full range of motion, no CVA tenderness bilaterally + right sided lumbar paraspinous muscle ttp on exam. Neuro: Oriented X 3.? No motor deficit.? No sensory deficit. CN 2-12 intact . AMbulating w/ slow steady gait. Course Reevaluation(s) Reevaluation #1: Patients pain improved. Will dc home. Educated patient on diagnosis and treatment plan, answered all question, patient verbalizes understanding. At this time patient will be discharged home, advised to return with new or worsening symptoms. Educated on worrisome signs and symptoms and when to return. At this time I feel comfortable discharge home. Time: 14:50 Medications Administered Discontinued Medications Generic Name Dose Route Start Last Admin Trade Name Jordan PRN Reason Stop Dose Admin Amlodipine Besylate 5 mg 01/27/24 12:27 01/27/24 13:09 Amlodipine Besylate 5 Mg Tablet PO 01/27/24 12:28 5 mg ONCE ONE Administration Protocol Diazepam 2 mg 01/27/24 14:22 01/27/24 14:32 Diazepam 2 Mg Tablet PO 01/27/24 14:23 2 mg ONCE ONE Administration Morphine Sulfate 15 mg 01/27/24 12:27 01/27/24 13:09 Morphine Sulfate Immed Release 15 Mg Tablet PO 01/27/24 12:28 15 mg ONCE ONE Administration Medical Decision Making Medical Decision Making [facility] Narrative: 1230 38 year old female presents w/ r sided back pain w/ radiation to rle. PE uncomfortable ttp to lumbar paraspinous muscle ttp HX and pe concerning for lumbar paraspinous muscle tenderness/spasm/radiculopathy versus sciatica. Unlikely cauda equina, cord compression, epidural abscess. Patient's blood pressure noted to be significantly elevated she states she has known high blood pressure medications have been switched lately. She is now on amlodipine. Denies visual disturbances, weakness, headache. NIH stroke scale 0. Reports she took her meds this morning BP likely secondary to pain and discomfort and possibly secondary to new medication changes. Unlikely HTN emergency urgency or stroke Plan- will medicate for pain and give a 2nd dose of blood pressure medicine Differential Diagnosis Differential Diagnoses: The differential diagnosis associated with the presentation includes HX and pe concerning for lumbar paraspinous muscle tenderness/spasm/radiculopathy versus sciatica. Unlikely cauda equina, cord compression, epidural abscess. Patient's blood pressure noted to be significantly elevated she states she has known high blood pressure medications have been switched lately. She is now on amlodipine. Denies visual disturbances, weakness, headache. NIH stroke scale 0. Reports she took her meds this morning BP likely secondary to pain and discomfort and possibly secondary to new medication changes. Unlikely HTN emergency urgency or stroke Admission/Observation Consideration of admission/observation: Escalation of care including admission/observation considered possible Chronic Conditions Patient?s care impacted by: Other (obesity ) Discharge Plan Discharge Clinical Impression: Lumbar radiculopathy Patient Disposition: Home, Self-Care Instructions: Lumbar Radiculopathy (ED), Back Pain (ED) Additional Instructions: Take your medications as prescribed. If you were prescribed antibiotics today, it is important that you take your medication to their entirety, do not skip any doses, do not finish them early. Follow-up with your primary care provider this week. Return to the emergency department with new or worsening symptoms. Such as fevers, chills, chest pain, shortness of breath, nausea, vomiting, dizziness, headache, vision changes, lethargy In case of emergency call 911 Prescriptions: New prednisone 20 mg tablet 40 mg PO DAILY 5 Days Qty: 10 0RF lidocaine 5 % adhesive patch,medicated 1 patch topical DAILY PRN (Reason: pain) Qty: 15 0RF Rx Instructions: leave on most painful area for up to 12 hrs naproxen 500 mg tablet 500 mg PO BID Qty: 14 0RF No Action (DME) nebulizer accessories Kit See Rx Instructions .Route Qty: 1 0RF Rx Instructions: As directed (DME) nebulizer and compressor Device See Rx Instructions .Route Qty: 1 0RF Rx Instructions: As directed (DME) CURTIS Knee Brace Misc See Rx Instructions .Route Qty: 1 0RF Rx Instructions: As directed naproxen 500 mg tablet 500 mg PO BID PRN (Reason: pain) 10 Days Qty: 20 0RF amlodipine 5 mg tablet 5 mg PO DAILY 30 Days Qty: 30 0RF hydrochlorothiazide 12.5 mg tablet 12.5 mg PO QAM Qty: 30 0RF prednisone 50 mg tablet 50 mg PO DAILY 4 Days Qty: 4 0RF albuterol sulfate [Ventolin HFA] 90 mcg/actuation HFA aerosol inhaler 2 puff inhalation Q4-6H PRN (Reason: shortness of breath or wheezing) Qty: 8.5 0RF fluticasone propion-salmeterol [Advair Diskus] 250-50 mcg/dose blister with device 1 inh inhalation Q12H Qty: 60 0RF benzonatate 100 mg capsule 100 mg PO BID PRN (Reason: cough) Qty: 20 0RF ibuprofen 400 mg tablet 400 mg PO Q6H PRN (Reason: pain) Qty: 20 0RF ondansetron 4 mg tablet,disintegrating 4 mg PO TID PRN (Reason: nausea and vomiting) 5 Days Qty: 10 0RF cyclobenzaprine 10 mg tablet 10 mg PO TID PRN (Reason: pain) Qty: 14 0RF albuterol sulfate 2.5 mg /3 mL (0.083 %) solution for nebulization 5 mg inhalation ONCE Qty: 6 0RF albuterol sulfate 0.63 mg/3 mL solution for nebulization 0.63 mg inhalation Q4H PRN (Reason: shortness of breath or wheezing) Qty: 90 2RF cetirizine 10 mg tablet 10 mg PO DAILY 30 Days Qty: 30 6RF albuterol sulfate 90 mcg/actuation aerosol powdr breath activated 2 inh inhalation Q4-6H PRN (Reason: shortness of breath or wheezing) 30 Days Qty: 1 6RF Rx Instructions: May dispense medication equivalent accepted by patient's turned fluticasone propion-salmeterol [Advair Diskus] 250-50 mcg/dose blister with device 1 inh inhalation BID Qty: 60 1RF prednisone 20 mg tablet 40 mg PO DAILY Qty: 6 0RF lisinopril 5 mg tablet 5 mg PO DAILY Qty: 30 0RF Referrals: [facility] [Provider Group] - 1 day ED Physician,Generic [Physician] - 2 days Jacqueline Wilkinson MD [Primary Care Provider] - Print Language: Latvian
[2024-01-27 12:25] VITALS: BP 226/104
[2024-01-27 13:09] VITALS: BP 226/104
[2024-01-27] MEDS: amLODIPine Besylate 5 MG TABLET PO (13:09)
[2024-01-27] MEDS: Morphine Sulfate Immed Release 15 MG TABLET PO (13:09)
[2024-01-27 14:05] VITALS: BP 197/97
[2024-01-27] MEDS: diazePAM 2 MG TABLET PO (14:32)
--- NOTE | 2024-01-27 14:33 | PC.NURSE ---
continues to endorse pain after morphine. medicated per the MAR.
[2024-01-27] MEDS: HYDROmorphone HCl 2 MG TABLET PO ×2 (15:11→17:59)
[2024-01-27] MEDS: Ketorolac Tromethamine 15 MG/ML VIAL 30 MG IM (15:11)
--- NOTE | 2024-01-27 15:14 | PC.NURSE ---
continues to be hypertensive. tearful in room, continues to endorse pain w/out any relief from previous medications. medicated per the DEC.
[2024-01-27 16:56] LABS: Appearance Urine Clear; Color Urine Yellow; Glucose Urine UA Negative (Negative); Leukocyte Esterase Urine Negative (Negative); Nitrite Urine Negative (Negative); PH 6.5 (5.0-9.0); Specific Gravity - Urine 1.015 (1.005-1.025); UMIC TRIGGER UACC YES; Urine Blood Large (3+) (Negative); Urine Ketones Negative (Negative); Urine Protein Negative (Neg-Trace)
[2024-01-27 16:57] LABS: UPreg QC Valid YES; Urine Pregnancy NEGATIVE (NEGATIVE)
[2024-01-27 17:10] LABS: Bacteria Urine Trace (None Seen); Hyaline Casts Urine 0-2 /LPF (0-2); RBC Urine 0-2 /HPF (0-2); WBC Urine 0-5 /HPF (0-5)
--- NOTE | 2024-01-27 17:18 | MHC.CM.ED ---
CM met with patient at the request of Lanette LANDAVERDE. Pt is alert and oriented x4. Lives with her 2 children, aged 7 & 9. Uses no DME/services. Tells CM she has had back pain for about a month or so; lower back and down her leg. Was seen in the ED and was prescribed medications. Pt stated they did not work. Pt tells CM that her goal is not to have pain in her back. Pt is willing to stay overnight for a PT assessment. States her sister can care for her children tonight. Pt admits that she did not follow up with her PCP and that she has not seen her for over a year. CM spent some time speaking with patient about need to see PCP and have them make the necessary appointments for her back pain. Stressed that patient call her PCP, explain the situation and ask for the next available appointment. Explained that it may take a month or more, but that she needs to establish regular care. CM explained that she may need outpatient PT, but that needs to be ordered by her PCP. Explained that she may need pain management if medications and PT do not relieve her pain. Stressed that this is best managed by her PCP. Pt understands and tells CM she will call for an appointment. No referrals placed for STR at this time, pending PT evaluation.
[2024-01-27 17:32] VITALS: BP 174/80; PULSE 56; RESP 18; TEMP 36.6; O2SAT 99
--- NOTE | 2024-01-27 18:28 | PC.NURSE ---
patient placed in hospital bed for comfort
[2024-01-27] MEDS: oxyCODONE HCl Immed Release 5 MG TABLET PO (22:00)
[2024-01-27 22:42] VITALS: BP 187/85; PULSE 61; RESP 14; TEMP 36.5; O2SAT 100
[2024-01-28] VITALS: BP 253/132; PULSE 78; RESP 20; TEMP 36.3; O2SAT 97
--- NOTE | 2024-01-28 03:10 | PC.NURSE ---
Pt put human relations manager light, pt tearful upon entry to room. States she is in pain and to gimme the fuckin papers so I can go. Advised that she can receive PRN and states thats not gonna work requesting to leave at this time. Dr. Armendariz made aware.
[2024-01-28 03:17] VITALS: BP 188/77; PULSE 71; RESP 20; TEMP -17.7; TEMP 0; O2SAT 100
--- NOTE | 2024-01-28 07:41 | MHC.CM.ED ---
Patient left overnight before being seen by physical therapy.
== END 2024-01-28 03:18 | disposition home or self-care (01) ==
PROVIDERS: Physician Assistant; Emergency Provider Emergency Medicine; PCP Internal Medicine
DX: M54.16 Radiculopathy, lumbar region (principal); R03.0 Elevated blood-pressure reading, without diagnosis of hypertension; Z79.899 Other long term (current) drug therapy
CPT/HCPCS: 81001; 81025; 96372; 99284; 99285; J1885

== ENCOUNTER 2024-02-02 10:45 | Outpatient (AMB) | payer OTHER, SELFPAY ==
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
[2024-02-02 10:50] VITALS: BP 142/76; PULSE 76; TEMP 36.7; O2SAT 98
== END 2024-02-02 12:09 | disposition home or self-care (01) ==
PROVIDERS: PCP Internal Medicine; Visit Provider Physician Assistant
DX: M53.86 Other specified dorsopathies, lumbar region (principal)
CPT/HCPCS: 99213

== ENCOUNTER 2024-02-09 12:46 | Outpatient (AMB) | payer OTHER, SELFPAY ==
--- NOTE | 2024-02-09 13:19 | AM.OFFWIN_ITS ---
Intake Vital Signs 02/09/24 13:21 Height 5 ft 3 in BP 142/78 H Blood Pressure Location Rt brachial Position Sitting Pulse 70 Pulse Source Pulse Oximeter Pulse Oximetry (%) 98 Intake Visit Reasons: EP RT leg pain , discharge from belly button Intake Note: pt is here for right leg pain, also having discharge from her belly button Patient Tobacco Use Status: Never used Tobacco Allergies dextran 40 Adverse Reaction (Intermediate, Verified 02/02/24 10:50) Hypertension iron dextran complex Adverse Reaction (Intermediate, Verified 02/02/24 10:50) Hypertension Do you need a note to return to daycare/school/sports/work: No HPI HPI Comments History of Present Illness Details 38 y/o female patient who presents to [facility] in clinic with c/o infection inside the belly button. Reports smelly drainage from the area and burning. She is also c/o right sided lower back pain with right sciatica nerve involvement. Pt currently has an upcoming appointment with Ortho (@ [facility]) in April. [facility] Medical History Asthma exacerbation Right ovarian cyst Knee pain Back pain Lower extremity edema Anxiety Depression GERD (gastroesophageal reflux disease) Asthma Sleep apnea with use of continuous positive airway pressure (CPAP) Morbid obesity Surgical History Hx of section Hx of cholecystectomy Family History Mother Diabetes Hyperlipidemia Father No problems noted. Brother No problems noted. Brother No problems noted. Sister No problems noted. Sister Lupus Son No problems noted. Daughter No problems noted. Social History Housing: Apartment Alcohol intake: current Alcohol intake frequency: holidays/special occasions only Patient Tobacco Use Status: Never used Tobacco e-Cigarette/Vaping Use: Never Used Second Hand Smoke Exposure: No service: No Current occupational status: unemployed Cognitive needs: No Hearing needs: No Vision needs: No Female Reproductive History Menstrual Age of Menarche: 13 Review of Systems Const All systems reviewed & are unremarkable except as noted in HPI and below Physical Exam Vital Signs: Last Vital Signs Pulse 70 02/09/24 13:21 BP 142/78 H 02/09/24 13:21 Pulse Ox 98 02/09/24 13:21 Const General: comfortable and no acute distress Nutritional Appearance: obese morbidly obese Orientation/consciousness: patient oriented x3 Back/Spine/Pelvis Thoracic/Lumbar Spine: thoraco-lumbar ROM normal, thoraco-lumbar spasm and lumbar spinal tenderness Skin Other: Erythema inside belly button with yellow foul smelling drainage. General skin exam: erythema Neuro General: patient oriented x3, gait normal and moves all extremities Psych Speech and movement: Normal speech and movement present Assessment & Plan Assessment & Plan (1) Cellulitis of skin: Code(s): L03.90 - Cellulitis, unspecified Plan: - Keep the skin dry and clean - Take medicines as directed. Plan Keep Orthopedic appointment as scheduled. Meanwhile take Acetaminophen or Ibuprofen for pain relief. Medications: New cephalexin 500 mg PO BID 14 caps 0RF 7 days L03.90 - Cellulitis, unspecified Coding Level of Care Code Est Pt Level 3 (14897) Diagnoses Cellulitis of skin L03.90 Time Spent (min) 15
[2024-02-09 13:21] VITALS: BP 142/78; PULSE 70; O2SAT 98
== END 2024-02-09 17:02 | disposition home or self-care (01) ==
PROVIDERS: PCP Internal Medicine; Visit Provider Nurse Practitioner Family
DX: L03.90 Cellulitis, unspecified (principal)
CPT/HCPCS: 99213

== ENCOUNTER 2024-02-24 13:49 | Outpatient (AMB) | payer OTHER, SELFPAY ==
[2024-02-24 14:23] VITALS: BMI 59.3
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
== END 2024-02-24 15:37 | disposition home or self-care (01) ==
PROVIDERS: PCP Internal Medicine; Visit Provider Physician Assistant
DX: S93.401A Sprain of unspecified ligament of right ankle, initial encounter (principal)
CPT/HCPCS: 99203

== ENCOUNTER → 2024-02-24 13:49 | Outpatient (BNVA) | payer OTHER, SELFPAY | PROVIDERS: PCP Internal Medicine; Visit Provider Physician Assistant | DX: S93.401A Sprain of unspecified ligament of right ankle, initial encounter (principal) | CPT/HCPCS: 99202 ==

== ENCOUNTER 2024-02-25 16:43 | Emergency (ER) | payer OTHER, SELFPAY ==
[2024-02-25 16:47] VITALS: BP 206/93; PULSE 64; RESP 20; TEMP 36.3; O2SAT 97; BMI 60.8
--- NOTE | 2024-02-25 16:52 | ED.GENADULT ---
HPI - General Adult General Chief complaint: General Medical Stated complaint: lower back pain getting worsen, headache, multiple Time Seen by Provider: 02/25/24 20:50 Source: patient, RN notes reviewed and old records reviewed Mode of arrival: ambulatory Limitations: no limitations History of Present Illness HPI narrative: 38-year-old female with past medical history significant for morbid obesity, sciatica, hypertension, asthma, abnormal uterine bleeding presents for evaluation of right lower back pain. Patient has had ongoing back pain for the last 2 months. She has been seen here twice and was seen by her primary doctor. She apparently has an appointment with orthopedics next month on March 22 Patient reports worsening lower back pain. She denies any numbness, tingling. The pain radiates down her right leg. She reports she is now having headaches that she believes is related to the back pain Patient states that occasionally she has small dribbles of urine come out unintentionally but no true urinary incontinence Related Data Home Medications ?Medication ?Instructions ?Recorded ?Confirmed bupropion HCl 300 mg 24 hr tablet, 300 mg PO DAILY 02/24/24 extended release Previous Rx's ?Medication ?Instructions ?Recorded ibuprofen 400 mg tablet 400 mg PO Q6H PRN pain #20 tabs 02/02/24 cyclobenzaprine 10 mg tablet 10 mg PO TID PRN muscle spasm #12 02/25/24 tabs dexamethasone 4 mg tablet 4 mg PO BID #6 tabs 02/25/24 tramadol 50 mg tablet 50 mg PO Q6H PRN severe pain 02/25/24 (scale score 7-10) #8 tabs Allergies Allergy/AdvReac Type Severity Reaction Status Date / Time dextran 40 AdvReac Intermediate Hypertensio Verified 02/25/24 16:49 n iron dextran complex AdvReac Intermediate Hypertensio Verified 02/25/24 16:49 n Review of Systems Constitutional: Constitutional: Denies body ache(s), Denies chills, Denies fever(s) and Reports headache(s) Eyes: Eyes: Denies blurry vision ENT: Reports headache(s) and Denies sore throat Cardiovascular: Cardiovascular: Denies chest pain and Denies dyspnea Respiratory: Respiratory: Denies cough and Denies dyspnea Gastrointestinal: Gastrointestinal: Denies abdominal pain and Reports nausea Musculoskeletal: Musculoskeletal: Reports back pain Integumentary/Breasts: Skin/Breast: Denies rash Neurologic: Reports headache(s) Psychiatric: Psychiatric: Denies depression PMFSH Past Medical History Medical History Asthma exacerbation Right ovarian cyst Knee pain Back pain Lower extremity edema Anxiety Depression GERD (gastroesophageal reflux disease) Asthma Sleep apnea with use of continuous positive airway pressure (CPAP) Morbid obesity Surgical History Hx of section Hx of cholecystectomy Family History Family History Mother Diabetes Hyperlipidemia Father No problems noted. Brother No problems noted. Brother No problems noted. Sister No problems noted. Sister Lupus Son No problems noted. Daughter No problems noted. Social History Social History (Updated 02/24/24 @ 14:25 by CHONG Baxter) Housing: Apartment Alcohol intake: current Alcohol intake frequency: holidays/special occasions only Patient Tobacco Use Status: Never used Tobacco Smoked in Last 30 Days: No e-Cigarette/Vaping Use: Never Used Second Hand Smoke Exposure: No Use of substances other than those prescribed or required for medical reasons: No Advance Directives: No Advance Directives Information Provided: No Do you have a plan to hurt others: No Plan service: No Current occupational status: disabled Current occupation: rt hand Cognitive needs: No Hearing needs: No Vision needs: No Physical Exam ED Vital Signs: Vital Signs - 24 hr 02/25/24 16:47 02/25/24 20:49 02/25/24 22:00 Temperature 97.3 F 97.2 F Pulse Rate 64 60 66 Respiratory Rate 20 17 18 Blood Pressure 206/93 H 180/86 H 175/75 H Pulse Oximetry 97 99 97 Oxygen Delivery Method Room Air Room Air Room Air 02/25/24 22:32 Temperature 97.2 F Pulse Rate 66 Respiratory Rate 18 Blood Pressure 175/75 H Pulse Oximetry 97 Oxygen Delivery Method Room Air BMI result Body Mass Index 60.8 Const General: healthy appearing, comfortable, no acute distress, alert and awake Nutritional Appearance: well nourished Orientation/consciousness: patient oriented x3 HENMT Head: Yes normocephalic and Yes atraumatic Eyes Eyelids: Yes eyelids normal Conjunctivae: conjunctivae normal Sclerae: sclerae normal Corneas: corneas normal Pupils: Equal, round and reactive pupils present EOM: EOMs intact bilaterally Neck Neck: Yes full ROM Resp Effort & Inspection: normal respiratory effort, able to speak in complete sentences and not labored GI Inspection: No distended Palpation (GI): Soft to palpation, not firm, nontender, no guarding and not rigid Back/Spine/Pelvis Other: Patient has tenderness to the right lumbar paraspinous region. Positive straight leg raise on right. Strength lower extremities is 5/5 bilaterally. Skin General skin exam: elasticity normal Neuro General: patient oriented x3 Cranial nerves: Yes Equal, round and reactive pupils present and Yes Bilaterally intact EOM present Cognition (Neuro): normal cognition Extrem Other: Moving all extremities well without any obvious deformities Course Course Course Narrative: This is an RME done by SAIMA Rodriguez: Additional HPI, ROS, PE not included below will be deferred to primary provider. 38-year-old female history of sciatica, abnormal uterine bleeding, obesity, anxiety, depression, asthma presenting with right-sided back pain radiating down her right lower extremity also complaining of headaches, nausea, she is trying to get however unclear if she is she states her period is late. She reports over the past week she has been having drops of urine, without her noticing so she has been wearing a pad. She states she does not feel well. She reports walking has become more painful. Denies numbness in her legs. Appearance: Alert.? Oriented X3.? No acute cardiopulmonary distress distress.? Head: Normocephalic, atraumatic, no step-offs or deformities CVS: Pulses normal.? Respiratory: No respiratory distress.? Abdomen: Soft and nontender.? Extremities: 5/5 strength to bilateral upper and lower extremities Back: No midline tenderness, no C-spine tenderness, full range of motion, No CVA tenderness bilaterally + right-sided lumbar tenderness to palpation. Neuro: Oriented X 3.? No motor deficit.? No sensory deficit. Ambulatory into triage. Medications Administered Discontinued Medications Generic Name Dose Route Start Last Admin Trade Name Freq PRN Reason Stop Dose Admin Cyclobenzaprine HCl 10 mg 02/25/24 21:10 02/25/24 21:33 Cyclobenzaprine Hcl 10 Mg Tablet PO 02/25/24 21:11 10 mg ONCE ONE Administration Dexamethasone 4 mg 02/25/24 21:06 02/25/24 21:34 Dexamethasone 4 Mg Tablet PO 02/25/24 21:07 4 mg ONCE ONE Administration Ketorolac Tromethamine 30 mg 02/25/24 16:50 02/25/24 21:32 Ketorolac Tromethamine 30 Mg/Ml Vial IM 02/25/24 16:51 Not Given ONCE ONE Ketorolac Tromethamine 30 mg 02/25/24 21:06 02/25/24 21:34 Ketorolac Tromethamine 30 Mg/Ml Vial IM 02/25/24 21:07 30 mg ONCE ONE Administration Medical Decision Making Medical Decision Making [facility] Narrative: 38-year-old female presents for evaluation of lower back pain. She does describe some what sounds like stress incontinence, not true overflow incontinence. The patient's strength to the lower extremities is 5/5. I reviewed her CT scan from a month ago which showed no central canal stenosis. She does have impingement of the S1 nerve root on the right which is likely contributing to her pain. Will discharge the patient with a short course of tramadol, cyclobenzaprine and dexamethasone. She will follow up with her outpatient providers Differential Diagnosis Differential Diagnoses: The differential diagnosis associated with the presentation includes Lumbar radiculopathy Sciatica Back pain Muscle strain Lab Data [facility] Lab Attestation statement: I reviewed the patient's lab results. No leukocytosis or anemia. Normal platelet count. No significant electrolyte abnormalities 02/25/24 16:57 02/25/24 16:57 Labs: Lab Results 02/25/24 Range/Units 16:57 WBC 10.3 (4.8-10.8) X10*3/uL RBC 4.56 (4.20-5.50) X10*6/uL Hgb 12.1 (12.0-16.0) g/dl Hct 37.7 (37.0-47.0) % MCV 82.7 (80.0-98.0) fL MCH 26.5 L (27.0-33.0) pg MCHC 32.1 (31.0-35.0) g/dl RDW 14.7 (11.0-16.0) % Plt Count 347 (160-400) X10*3/uL MPV 11.1 (9.4-12.3) fL Immature Gran % (Auto) 0.3 (0.0-0.4) % Neut % (Auto) 59.8 (45-73) % Lymph % (Auto) 27.3 (20-40) % [place] % (Auto) 8.1 (2-11) % Eos % (Auto) 4.2 H (0-4) % Baso % (Auto) 0.3 (0-2) % Lymph # (Auto) 2.8 (1.2-4.9) X10*3/uL [place] # (Auto) 0.8 (0.1-1.2) X10*3/uL Eos # (Auto) 0.4 (0.0-0.4) X10*3/uL Baso # (Auto) 0.0 (0.0-0.2) X10*3/uL Abs Immat Gran (auto) 0.03 (0.00-0.03) X10*3/uL Absolute Neuts (auto) 6.2 (2.0-8.3) x10*3/uL Absolute Nucleated RBC 0.000 (0.0-0.012) X10*3/uL Nucleated RBC % (auto) 0.0 (0.0-0.2) /100WBC ESR 17 (0-20) MM/HR Sodium 137 (135-145) mmol/L Potassium 3.8 (3.3-5.1) mmol/L Chloride 104 (96-108) mmol/L Carbon Dioxide 23 (22-29) mmol/L Anion Gap 14 (12-20) BUN 9 (9-16) mg/dL Creatinine 0.71 (0.5-1.4) mg/dL Estim Creat Clear Calc 160.6 Estimated GFR > 60 Random Glucose 103 (60-115) mg/dL Calcium 8.1 L (8.4-10.2) mg/dL Total Bilirubin 0.3 (0.0-1.0) mg/dL AST 14 (5-31) U/L ALT 23 (0-31) U/L Alkaline Phosphatase 68 (39-117) U/L C-Reactive Protein 0.72 H (< or = 0.50) mg/dL Total Protein 7.3 (6.5-8.0) g/dL Albumin 3.8 (3.5-5.0) g/dL Urine Color Yellow Urine Appearance Clear Urine pH >= 9.0 (5.0-9.0) Ur Specific [place] 1.020 (1.005-1.025) Urine Protein Trace (Neg-Trace) mg/dL Urine Glucose (UA) Negative (Negative) mg/dL Urine Ketones Negative (Negative) mg/dL Urine Blood Negative (Negative) Urine Nitrite Negative (Negative) Ur Leukocyte Esterase Negative (Negative) Urine Test NEGATIVE (NEGATIVE) Discharge Plan Discharge Clinical Impression: Acute right-sided back pain with sciatica Patient Disposition: Home, Self-Care Instructions: Sciatica (ED) Additional Instructions: Use ibuprofen/Tylenol for pain. Take dexamethasone twice daily for the next 3 days. Use tramadol for severe breakthrough pain This may make you sleepy, did not drink alcohol or drive after taking it Use cyclobenzaprine as needed for muscle spasms. This may make you sleepy as well, did not drink alcohol or drive after taking it Follow-up with your outpatient providers as planned Prescriptions: New dexamethasone 4 mg tablet 4 mg PO BID Qty: 6 0RF tramadol 50 mg tablet 50 mg PO Q6H PRN (Reason: severe pain (scale score 7-10)) Qty: 8 0RF cyclobenzaprine 10 mg tablet 10 mg PO TID PRN (Reason: muscle spasm) Qty: 12 0RF No Action albuterol sulfate 2.5 mg /3 mL (0.083 %) solution for nebulization 5 mg inhalation ONCE Qty: 6 0RF ibuprofen 400 mg tablet 400 mg PO Q6H PRN (Reason: pain) Qty: 20 0RF bupropion HCl 300 mg tablet extended release 24 hr 300 mg PO DAILY Interventions: ED Discharge Assessment Last Done: 02/25/24 22:32 Discharge Date/Time: 02/25/24 23:35 Print Language: Hungarian
[2024-02-25 17:07] LABS: MANUAL DIFF FLAG NO
[2024-02-25 17:11] LABS: Basophils Percent Auto 0.3 % (0-2); Eosinophils Absolute Auto 0.4 X10*3/uL (0.0-0.4); Eosinophils Percent Auto 4.2 % (0-4); Hematocrit 37.7 % (37.0-47.0); Hemoglobin 12.1 g/dl (12.0-16.0); Imm Gran Abs Auto 0.03 X10*3/uL (0.00-0.03); Imm Gran Pct Auto 0.3 % (0.0-0.4); Lymphocytes Absolute Auto 2.8 X10*3/uL (1.2-4.9); Lymphocytes Percent Auto 27.3 % (20-40); Mean Corpuscular HGB Conc 32.1 g/dl (31.0-35.0); Mean Corpuscular Hemoglobin 26.5 pg (27.0-33.0); Mean Corpuscular Volume 82.7 fL (80.0-98.0); Mean Platelet Volume 11.1 fL (9.4-12.3); Monocytes Absolute Auto 0.8 X10*3/uL (0.1-1.2); Monocytes Percent Auto 8.1 % (2-11); Neutrophils Absolute Auto 6.2 x10*3/uL (2.0-8.3); Neutrophils Percent Auto 59.8 % (45-73); Platelet Count 347 X10*3/uL (160-400); Red Blood Count 4.56 X10*6/uL (4.20-5.50); Red Cell Distribution Width 14.7 % (11.0-16.0); White Blood Count 10.3 X10*3/uL (4.8-10.8)
[2024-02-25 17:13] LABS: Appearance Urine Clear; Color Urine Yellow; Glucose Urine UA Negative (Negative); Leukocyte Esterase Urine Negative (Negative); Nitrite Urine Negative (Negative); PH >= 9.0 (5.0-9.0); UPreg QC Valid YES; Urine Blood Negative (Negative); Urine Ketones Negative (Negative); Urine Pregnancy NEGATIVE (NEGATIVE); Urine Protein Trace mg/dL (Neg-Trace)
[2024-02-25 17:26] LABS: Alanine Aminotransferase 23 U/L (0-31); Albumin Level 3.8 g/dL (3.5-5.0); Alkaline Phosphatase 68 U/L (39-117); Anion Gap 14 (12-20); Aspartate Amino Transferase 14 U/L (5-31); Bilirubin Total 0.3 mg/dL (0.0-1.0); Blood Urea Nitrogen 9 mg/dL (9-16); C Reactive Protein 0.72 mg/dL (< or = 0.50); Calcium 8.1 mg/dL (8.4-10.2); Carbon Dioxide 23 mmol/L (22-29); Chloride 104 mmol/L (96-108); Creatinine Clr Calc Pharmacy 160.6; Estimated Glomerular Filt Rate > 60; Glucose Random 103 mg/dL (60-115); Potassium 3.8 mmol/L (3.3-5.1); Sodium 137 mmol/L (135-145); Total Protein 7.3 g/dL (6.5-8.0)
[2024-02-25 17:53] LABS: Erythrocyte Sedimentation Rate 17 MM/HR (0-20)
[2024-02-25 20:49] VITALS: BP 180/86; PULSE 60; RESP 17; O2SAT 99
[2024-02-25] MEDS: Cyclobenzaprine HCl 10 MG TABLET PO (21:33)
[2024-02-25] MEDS: Ketorolac Tromethamine 30 MG/ML VIAL IM (21:34)
[2024-02-25] MEDS: dexAMETHasone 4 MG TABLET PO (21:34)
[2024-02-25 22:00] VITALS: BP 175/75; PULSE 66; RESP 18; TEMP 36.2; O2SAT 97
[2024-02-25 22:32] VITALS: BP 175/75; PULSE 66; RESP 18; TEMP 36.2; O2SAT 97
== END 2024-02-25 23:35 | disposition home or self-care (01) ==
PROVIDERS: Physician Assistant; Emergency Provider Internal Medicine; PCP Internal Medicine
DX: M54.41 Lumbago with sciatica, right side (principal); R11.0 Nausea; N93.9 Abnormal uterine and vaginal bleeding, unspecified; R51.9 Headache, unspecified; I10 Essential (primary) hypertension; J45.909 Unspecified asthma, uncomplicated
CPT/HCPCS: 36415; 80053; 81003; 81025; 85025; 85652; 86140; 96372; 99284; J1885; J8540

== ENCOUNTER 2024-03-01 13:10 | Outpatient (AMB) | payer OTHER, SELFPAY ==
--- NOTE | 2024-03-01 13:14 | MHC.PC.OV ---
Vital Signs 03/01/24 13:18 Height 5 ft 3 in Weight 336 lb 2 oz BMI 59.5 BP 130/80 Blood Pressure Location Lt brachial Position Sitting Pulse 77 Pulse Source Pulse Oximeter Pulse Oximetry (%) 96 Oxygen Delivery Method Room Air Intake Visit Reasons: establish [facility] [place] patient Intake Note: Patient is here to follow up on NOLAN form A.O, HTN, Asthma. Child Caregiver Required: No Upper Inspector: Present Accompanied by: staff Allergies dextran 40 Adverse Reaction (Intermediate, Verified 03/01/24 13:50) Hypertension iron dextran complex Adverse Reaction (Intermediate, Verified 03/01/24 13:50) Hypertension Medication List - Last Reconciled 03/01/24 by Eriberto Saunders MD bupropion HCl XL 300 mg PO DAILY cyclobenzaprine 10 mg PO TID PRN dexamethasone 4 mg PO BID ibuprofen 400 mg PO Q6H PRN tramadol 50 mg PO Q6H PRN Tobacco use date assessed: 03/01/24 Dental Screening Dental Screen Date: 03/01/24 Did you have a dental visit in the last 12 months?: No Did you have a dental problem in the last 6 months where you did not have access to dental care?: No Was dental information given to patient?: No HPI establish [facility] patient HPI Details 38-year-old female presents to the office to discuss her medical issues. I will be taking over her care as her provider has left the practice. Patient has had multiple visits to the ER in the past few weeks. Complaining of pain in the right hip and lower back. Pain is radiating into the right leg. No difficulty with urination. No fevers or chills. Patient is morbidly obese. She has been trying to get into the weight loss surgery program at [facility] and has not had surgery yet. She would like to get a referral to the local metabolic clinic. She would like to have a INCIDENT RESPONSE LEAD, as it is difficult for her to ambulate and do activities of daily living. Patient gives history of depression and takes Wellbutrin for the same. She has a psychiatrist and a therapist who are giving her the medications. Patient would like a test. [facility] Medical History (Updated 03/01/24 @ 14:04 by Eriberto Saunders MD) Morbid obesity with BMI of 50.0-59.9, adult Asthma exacerbation Right ovarian cyst Knee pain Back pain Lower extremity edema Anxiety Depression GERD (gastroesophageal reflux disease) Asthma Sleep apnea with use of continuous positive airway pressure (CPAP) Morbid obesity Surgical History Hx of section Hx of cholecystectomy Family History Mother Diabetes Hyperlipidemia Father No problems noted. Brother No problems noted. Brother No problems noted. Sister No problems noted. Sister Lupus Son No problems noted. Daughter No problems noted. Social History Housing: Apartment Alcohol intake: current Alcohol intake frequency: holidays/special occasions only Patient Tobacco Use Status: Never used Tobacco e-Cigarette/Vaping Use: Never Used Second Hand Smoke Exposure: No service: No Current occupational status: disabled Current occupation: rt hand Cognitive needs: No Hearing needs: No Vision needs: No Female Reproductive History Menstrual Age of Menarche: 13 Questionnaire PHQ-9 Over the last 2 weeks, how often have you been bothered by any of the following problems? 1. Little interest or pleasure in doing things: nearly every day 2. Feeling down, depressed, or hopeless: nearly every day (has a therapist) 3. Trouble falling or staying asleep, or sleeping too much: nearly every day 4. Feeling tired or having little energy: nearly every day 5. Poor appetite or overeating: nearly every day 6. Feeling bad about yourself - or that you are a failure or have let yourself or your family down: nearly every day 7. Trouble concentrating on things, such as reading the newspaper or watching television: nearly every day 8. Moving or speaking so slowly that other people could have noticed. Or the opposite - being so fidgety or restless that you have been moving around a lot more than usual: not at all 9. Thoughts that you would be better off or of hurting yourself in some way: not at all Total score: 21 Depression Screening Interpretation: Positive Depression Screening Follow-up: Existing condition and In treatment Depression Screening Done: Yes Source: Developed by Drs. Bigg Osorio, Renata Morales, Reinaldo Curtis and colleagues, with an educational lulú from [employer]. Thrive Questionnaire Date Thrive assessed: 03/01/24 I am a: Patient What is your living situation today?: I have a steady place to live Within the past 12 months, did the food you bought not last and you didn't have the money to get more?: Never true Within the past 12 months, did you worry whether your food would run out before you got money to buy more?: Never true Do you have trouble paying for medicines?: No Do you have trouble getting transportation to medical appointments?: No Do you have trouble paying your heating and electricity bill?: No Do you have trouble taking care of your child, family member or friend?: No Do you have trouble with day-to-day activities such as bathing, preparing meals, shopping, managing finances, etc.?: No Are you currently unemployed and looking for a job?: No Are you interested in more education?: No Currently or been in a relationship where the following occur: no concerns reported THRIVE Score: 0 AUDIT C Alcohol Use Questionnaire (AUDIT-C) 1. How often do you have a drink containing alcohol?: Monthly or less 2. How many drinks containing alcohol do you have on a typical day when you are drinking?: 1 or 2 Total Score: 1 EDMUNDO-7 AMB Questionnaire EDMUNDO-7 Date EDMUNDO - 7 assessed: 03/01/24 Feeling nervous, anxious, or on edge: 3 = Nearly every day (has a therapist) Not being able to stop or control worryin = Nearly every day Worrying too much about different things: 3 = Nearly every day Trouble relaxin = Nearly every day Being so restless that it is hard to sit still: 1 = Several days Becoming easily annoyed or irritable: 3 = Nearly every day Feeling afraid as if something awful might happen: 3 = Nearly every day Total EDMUNDO-7 score (0-4 normal; 5-9 mild; 10-14 moderate; 15-21 severe): 19 Source: Developed by Drs. Bigg Osorio, Renata Morales, Reinaldo Curtis and colleagues, with an educational lulú from [employer]. Physical exam (Primary Care) Vital Signs: Last Vital Signs Pulse 77 03/01/24 13:18 BP 130/80 05/22/24 13:18 Pulse Ox 96 03/01/24 13:18 Oxygen Delivery Method Room Air 03/01/24 13:18 Care Plan Goal for BP management: Blood pressure is in range. BMI result Body Mass Index 59.5 BMI Assessment/Plan discussion: High (1 lb per week weight loss suggested.) BMI High, discussed plan: lifestyle, weight reduction and dietary Tobacco/Smoking Status: Tobacco use Status Tobacco use date assessed 03/01/24 03/01/24 13:25 Patient Tobacco Use Status Never used Tobacco 03/01/24 13:25 e-Cigarette/Vaping Use Never Used 03/01/24 13:25 PHQ-9: PHQ-9 Score PHQ-9: Total score 21 03/01/24 13:25 Depression Screening Interpretation: Positive Depression Screening Follow-up: Existing condition and In treatment Thrive Assessment: Date of Thrive Assessment Date Thrive assessed 03/01/24 03/01/24 13:25 Currently or been in a relationship where the following occur: no concerns reported Const General: cooperative and healthy appearing Nutritional Appearance: well nourished Orientation/consciousness: patient oriented x3 Limitations: no limitations HENMT Head: Yes normal to inspection Eyes General: appearance normal, both eyes and all related structures Neck Neck: Yes normal visual inspection Chest Chest palpation & inspection: normal palpation of entire chest wall Resp Effort & Inspection: normal respiratory effort Back/Spine/Pelvis Other: Back: No spinal tenderness. No paraspinal spasm. Neuro General: patient oriented x3 Assessment and Plan Assessment & Plan (1) Sciatica associated with disorder of lumbar spine: Code(s): M53.86 - Other specified dorsopathies, lumbar region Plan: Physical therapy ordered. Patient was advised to exercise. Muscle relaxant added to the regimen. (2) Essential hypertension: Code(s): I10 - Essential (primary) hypertension Plan: Lisinopril has been discontinued. Blood pressure is in range. (3) Morbid obesity with BMI of 50.0-59.9, adult: Code(s): E66.01 - Morbid (severe) obesity due to excess calories; Z68.43 - Body mass index [BMI] 50.0-59.9, adult Plan: Appointment to the metabolic clinic has been given. I have agreed that patient can have a INCIDENT RESPONSE LEAD (4) Depression: Code(s): F32.9 - Major depressive disorder, single episode, unspecified Qualifiers: Depression Type: major depressive disorder Major depression recurrence: recurrent Active/Remission status: currently active Major depression episode severity: severe Psychotic features: without psychotic features Qualified Code(s): F33.2 - Major depressive disorder, recurrent severe without psychotic features Plan: Continue to follow-up with a therapist and psychiatrist. Continue current medications. Coding Level of Care Code Est Pt Level 4 (89933) Diagnoses Sciatica associated with disorder of lumbar spine M53.86 Essential hypertension I10 Morbid obesity with BMI of 50.0-59.9, adult E66.01; Z68.43 Severe episode of recurrent major depressive disorder, without psychotic features F33.2 Depression Type: major depressive disorder Major depression recurrence: recurrent Active/Remission status: currently active Major depression episode severity: severe Psychotic features: without psychotic features
[2024-03-01 13:18] VITALS: BP 130/80; PULSE 77; O2SAT 96; BMI 59.5
== END 2024-03-01 13:44 | disposition home or self-care (01) ==
LOC: HO.HMGH 13:10
PROVIDERS: PCP Internal Medicine; Visit Provider Internal Medicine
DX: M53.86 Other specified dorsopathies, lumbar region (principal); E66.01 Morbid (severe) obesity due to excess calories; Z68.43 Body mass index [BMI] 50.0-59.9, adult; F33.2 Major depressive disorder, recurrent severe without psychotic features; I10 Essential (primary) hypertension
CPT/HCPCS: 99214

== ENCOUNTER 2024-03-01 15:51 | Outpatient (REF) | payer OTHER, SELFPAY ==
[2024-03-01 19:04] LABS: HCG Quantitative < 2 mIU/mL
== END 2024-03-01 15:52 | disposition home or self-care (01) ==
LOC: HO.LAB 15:51
PROVIDERS: PCP Internal Medicine; Visit Provider Internal Medicine
DX: N91.1 Secondary amenorrhea (principal)
CPT/HCPCS: 36415; 84702

== ENCOUNTER → 2024-03-03 09:59 | Outpatient (BNVA) | payer OTHER, SELFPAY | PROVIDERS: PCP Internal Medicine; Visit Provider Physician Assistant Surgical ==

== ENCOUNTER → 2024-03-08 13:05 | Outpatient (BNVA) | payer OTHER, SELFPAY | PROVIDERS: PCP Internal Medicine; Visit Provider Physician Assistant Surgical ==

== ENCOUNTER 2024-03-22 09:56 | Outpatient (AMB) | payer OTHER, SELFPAY ==
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
== END 2024-03-22 10:46 | disposition home or self-care (01) ==
PROVIDERS: PCP Internal Medicine; Visit Provider Physical Medicine & Rehabilitation
DX: M54.16 Radiculopathy, lumbar region (principal); M53.3 Sacrococcygeal disorders, not elsewhere classified
CPT/HCPCS: 99204

== ENCOUNTER → 2024-03-22 09:56 | Outpatient (BNVA) | payer OTHER, SELFPAY | PROVIDERS: PCP Internal Medicine; Visit Provider Physical Medicine & Rehabilitation | DX: M54.16 Radiculopathy, lumbar region (principal); M53.3 Sacrococcygeal disorders, not elsewhere classified | CPT/HCPCS: 99202 ==

== ENCOUNTER 2024-04-17 10:46 | Outpatient (REF) | payer OTHER, SELFPAY | END 2024-04-17 10:47 | disposition home or self-care (01) | LOC: HO.HOSX 10:46 | PROVIDERS: PCP Internal Medicine; Visit Provider Physician Assistant | DX: S93.402A Sprain of unspecified ligament of left ankle, initial encounter (principal); X58.XXXA Exposure to other specified factors, initial encounter; Y93.9 Activity, unspecified; Y92.9 Unspecified place or not applicable; Y99.9 Unspecified external cause status | CPT/HCPCS: 99212 ==

== ENCOUNTER 2024-04-17 10:46 | Outpatient (AMB) | payer OTHER, SELFPAY ==
--- NOTE | 2024-04-17 10:53 | MHC.OFFVIS ---
Vital Signs 04/17/24 11:01 Height 5 ft 2.5 in Weight 336 lb BMI 60.5 Intake Visit Reasons: New Prob left ankle pain Intake Note: Agustina a 38 year old female who presents today for an evaluation of her left ankle. Patient reports constant pain and swelling around her ankle for quite some time. States intermittent numbness and tingling in her foot. Denies any traumatic injury. No previous tx. Allergies dextran 40 Adverse Reaction (Intermediate, Verified 04/17/24 11:01) Hypertension iron dextran complex Adverse Reaction (Intermediate, Verified 04/17/24 11:01) Hypertension Medication List - Last Reconciled 04/17/24 by Maritza Alvarez PA-C albuterol sulfate 90 mcg/actuation (Ventolin HFA) 1 inh inhalation QID PRN bupropion HCl XL 300 mg PO DAILY cyclobenzaprine 10 mg PO DAILY PRN omeprazole 20 mg PO DAILY HPI HPI New Prob left ankle pain: Details: 38-year-old female who presents to the office today for an evaluation of left ankle pain. She reports constant pain and swelling around her ankle as well as intermittent numbness and tingling in her foot. She denies any injury and has not had any treatment in the past. [facility] Medical History (Updated 04/17/24 @ 11:18 by Maritza Alvarez PA-C) Sacroiliac joint dysfunction of right side Right lumbar radiculitis Morbid obesity with BMI of 50.0-59.9, adult Asthma exacerbation Right ovarian cyst Knee pain Back pain Lower extremity edema Anxiety Depression GERD (gastroesophageal reflux disease) Asthma Sleep apnea with use of continuous positive airway pressure (CPAP) Morbid obesity Surgical History Hx of section Hx of cholecystectomy Family History Mother Diabetes Hyperlipidemia Father No problems noted. Brother No problems noted. Brother No problems noted. Sister No problems noted. Sister Lupus Son No problems noted. Daughter No problems noted. Social History Housing: Apartment Alcohol intake: current Alcohol intake frequency: holidays/special occasions only Patient Tobacco Use Status: Never used Tobacco e-Cigarette/Vaping Use: Never Used Second Hand Smoke Exposure: No service: No Current occupational status: disabled Current occupation: rt hand Cognitive needs: No Hearing needs: No Vision needs: No Female Reproductive History Menstrual Age of Menarche: 13 Review of Systems Const All systems reviewed & are unremarkable except as noted in HPI and below Physical Exam Vital Signs: BMI result Body Mass Index 60.5 Extrem Other: Left ankle: Normal to inspection with mild swelling over the medial and lateral malleolus with tenderness along the soft tissues.No discomfort along the posterior aspect of the ankle, no deformity along the Achilles tendon, negative Veliz?s. No pain along the syndesmosis or anterior tibia. No laxity, NVI. Assessment & Plan Assessment & Plan (1) Left ankle sprain: Code(s): S93.402A - Sprain of unspecified ligament of left ankle, initial encounter Category: Medical Plan We discussed options which include PT, NSAIDs and bracing. The patient will proceed with PT and NSAIDs. If symptoms persist, she will contact me , otherwise, PRN. Orders: Orders PT Evaluation and Treatment Today S93.402A - Sprain of unspecified ligament of left ankle, initial encounter XR ankle LT min 3V Today M25.572 - Pain in left ankle and joints of left foot Patient Instructions: Scribed for Maritza Alvarez PA-C, by [facility] medical and lab director, on 04/17/2024 at 11:00 AM EST.? I, Maritza Alvarez PA-C, have personally reviewed and agree with the information entered by the scribe. Coding Level of Care Code Est Pt Level 3 (06495) Diagnoses Left ankle sprain S93.402A
[2024-04-17 11:01] VITALS: BMI 60.5
== END 2024-04-17 11:25 | disposition home or self-care (01) ==
PROVIDERS: PCP Internal Medicine; Visit Provider Physician Assistant
DX: S93.402A Sprain of unspecified ligament of left ankle, initial encounter (principal)
CPT/HCPCS: 99213

== ENCOUNTER 2024-04-21 10:41 | Outpatient (AMB) | payer OTHER, SELFPAY ==
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
== END 2024-04-21 11:09 | disposition home or self-care (01) ==
PROVIDERS: PCP Internal Medicine; Visit Provider Physical Medicine & Rehabilitation
DX: M51.26 Other intervertebral disc displacement, lumbar region (principal); M54.16 Radiculopathy, lumbar region
CPT/HCPCS: 99213

== ENCOUNTER → 2024-04-21 10:41 | Outpatient (BNVA) | payer OTHER, SELFPAY | PROVIDERS: PCP Internal Medicine; Visit Provider Physical Medicine & Rehabilitation | DX: M51.26 Other intervertebral disc displacement, lumbar region (principal); M54.16 Radiculopathy, lumbar region | CPT/HCPCS: 99212 ==

== ENCOUNTER 2024-05-16 14:00 | Outpatient (RCR) | payer OTHER, SELFPAY ==
--- NOTE | 2024-04-26 11:54 | MHC.PT.EP ---
[facility] [place] Office [place] Office [place] Office [address] B[address] [phone] F: [phone] F: [phone] F: [phone] F: [phone] Physical Therapy Plan of Care Date of Evaluation: 04/26/24 Date of Surgery: n/a Diagnosis: L ankle sprain Assessment: Patient is a 38 year old female presenting to PT with complaints of pain in her L ankle. Pt reports onset of pain began about 1 year ago due to insidious onset. She presents today with impairments in pain, swelling, ROM, strength. 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 Clinical presentation today is most consistent with signs and sx associated with L ankle pain and pt will benefit from skilled PT 2 week x 4 weeks to address the following problems and impairments noted upon evaluation: pain, swelling, ROM, strength. These problems limit the patient with the following functional activities: ambulating, stair negotiation, ADLs. The prescribed treatment plan of care is medically necessary. Co-morbidities of were identified and taken into considerations of plan of care. Pt was educated on HEP, role of PT, prognosis, POC. Frequency and Duration: The patient will be seen 2 x week x 4 weeks Short Term Goals: Pt will demonstrate improved ankle swelling as evidence by a reduction of 2 cm of figure 8 measurement in 2 weeks. Pt will demonstrate improved L ankle DF by 10 degrees in 2 weeks. Pt will demonstrate improved L ankle MMT strength 4+/5 in 2 weeks. Consulting Sales Executive Goals: Pt will demonstrate improved LEFI score by 9 points in 4 weeks for improved functional mobility. Pt will demonstrate ability to ambulate with improved mechanics in 2 weeks for return to PLOF. Pt will demonstrate ability to negotiate stairs with min to no pain in 4 weeks for improved access to her home. Treatment Plan: Modalities to reduce pain, spasms and effusion. Manual therapy to restore motion and function. Therapeutic exercise to improve strength and flexibility. Neuromuscular re-education for posture and balance. Therapeutic activities to return to functional activities of daily living. Electronically signed by: Gloria Jackson, PT, DPT, ATC Please sign and return to therapist. Thank you for your referral.
--- NOTE | 2024-05-18 13:18 | MHC.PT.DC ---
[facility] [place] Office [place] Office [place] Office [address] [phone] F: [phone] F: [phone] F: [phone] F: [phone] Physical Therapy Discharge Report Diagnosis: L ankle sprain Date of Surgery: n/a Date of Evaluation: 04/26/24 Date of Discharge: 05/18/24 Treatments to Date: 5 Cancellations to Date: 0 No Shows to Date: 2 Discharge Status: Visit Non-compliance Discharge Summary: Pt has failed to comply with [facility] attendance policy and no showed 2 visits since start of care. Pt therefore to be d/c. Electronically signed by: Gloria Jackson PT, DPT, ATC Please sign and return to therapist. Thank you for your referral.
== END 2024-05-18 13:18 | disposition home or self-care (01) ==
LOC: HO.PTCHIC 14:00
PROVIDERS: PCP Internal Medicine; Visit Provider Physician Assistant
DX: S93.402D Sprain of unspecified ligament of left ankle, subsequent encounter (principal)
CPT/HCPCS: 97110; 97161

== ENCOUNTER 2024-06-13 08:36 | Emergency (ER) | payer OTHER, SELFPAY ==
[2024-06-13 08:38] VITALS: BP 171/93; PULSE 74; RESP 18; TEMP 36.6; O2SAT 97; BMI 59.0
--- NOTE | 2024-06-13 09:02 | ECG_ITS ---
Test Reason : chest tightness Blood Pressure : / mmHG Vent. Rate : 064 BPM Atrial Rate : 064 BPM P-R Int : 152 ms QRS Dur : 094 ms QT Int : 428 ms P-R-T Axes : 005 021 028 degrees QTc Int : 441 ms Normal sinus rhythm Normal ECG When compared with ECG of 21-APR-2023 17:21, Nonspecific T wave abnormality is no longer Present QT has shortened Referred By: Generic ED Physician Electronically Signed By:BABAR WIGGINS
--- NOTE | 2024-06-13 09:03 | PC.NURSE ---
Pt. on desizing machine back tender at this time.
--- NOTE | 2024-06-13 09:04 | PC.NURSE ---
Reports taking 30mg of Nifedipine daily
[2024-06-13 09:06] VITALS: BP 145/75; PULSE 92; RESP 19; TEMP 37.2; O2SAT 96
[2024-06-13 09:22] LABS: MANUAL DIFF FLAG NO
[2024-06-13 09:23] LABS: Basophils Percent Auto 0.2 % (0-2); Eosinophils Absolute Auto 0.1 X10*3/uL (0.0-0.4); Eosinophils Percent Auto 2.2 % (0-4); Hematocrit 37.4 % (37.0-47.0); Hemoglobin 12.1 g/dl (12.0-16.0); Imm Gran Abs Auto 0.02 X10*3/uL (0.00-0.03); Imm Gran Pct Auto 0.3 % (0.0-0.4); Lymphocytes Absolute Auto 1.5 X10*3/uL (1.2-4.9); Lymphocytes Percent Auto 24.2 % (20-40); Mean Corpuscular HGB Conc 32.4 g/dl (31.0-35.0); Mean Corpuscular Hemoglobin 26.6 pg (27.0-33.0); Mean Corpuscular Volume 82.2 fL (80.0-98.0); Mean Platelet Volume 11.3 fL (9.4-12.3); Monocytes Absolute Auto 0.6 X10*3/uL (0.1-1.2); Monocytes Percent Auto 9.2 % (2-11); Neutrophils Absolute Auto 3.8 x10*3/uL (2.0-8.3); Neutrophils Percent Auto 63.9 % (45-73); Platelet Count 300 X10*3/uL (160-400); Red Blood Count 4.55 X10*6/uL (4.20-5.50); Red Cell Distribution Width 15.3 % (11.0-16.0)
[2024-06-13 09:34] LABS: Anion Gap 11 (12-20); Blood Urea Nitrogen 6 mg/dL (9-16); Calcium 8.5 mg/dL (8.4-10.2); Carbon Dioxide 23 mmol/L (22-29); Chloride 107 mmol/L (96-108); Creatinine Clr Calc Pharmacy 160.2; Estimated Glomerular Filt Rate > 60; Glucose Random 100 mg/dL (60-115); Potassium 3.9 mmol/L (3.3-5.1); Sodium 137 mmol/L (135-145)
[2024-06-13 09:43] LABS: Troponin-I High Sensitivity < 2.7 ng/L (<3.5-17.0)
--- NOTE | 2024-06-13 09:45 | ED_ITS ---
HPI - General Adult General Chief complaint: General Medical Stated complaint: High BP Time Seen by Provider: 06/13/24 09:11 Source: patient Mode of arrival: ambulatory Limitations: no limitations History of Present Illness ED Provider: Thao De La Garza PA-C HPI narrative: 39 yo female currently 10 weeks with LORENA 01/03/25 with history of depression, anxiety, asthma, GERD, morbid obesity, HTN, who presents to the ER from home for evaluation of headache, chills, left ear pain, chest tightness, and body aches that started yesterday. She took her BP at home yesterday when symptoms began and it was elevated. She has been compliant with her Nifedipine 30 mg at home and her SENSORY SCIENTIST at [facility] is planning to increase her dose to 60 mg. She reports feeling dry mouth, palpitations and chest discomfort with palpation and movement. She denies fevers, known sick contacts. She has no cough, sore throat, runny nose, abdominal pain, nausea, vomiting or diarrhea. No vaginal bleeding or discharge. MD complaint: headache, body aches, chest tightness Onset (ago): day(s) (1) Location: head and chest Radiation: non-radiation Severity: moderate Quality: aching Pain Consistency: constant Relieving factors: none Exacerbating factors: none Associated symptoms: fever/chills, headaches and malaise Treatments prior to arrival: none Related Data Home Medications ?Medication ?Instructions ?Recorded ?Confirmed bupropion HCl 300 mg 24 hr tablet, 300 mg PO DAILY 02/24/24 04/21/24 extended release Previous Rx's ?Medication ?Instructions ?Recorded cyclobenzaprine 10 mg tablet 10 mg PO DAILY PRN muscle spasm 03/01/24 #30 tabs albuterol sulfate 90 mcg/actuation 1 inh inhalation QID PRN shortness 03/16/24 aerosol inhaler (Ventolin HFA) of breath or wheezing #8.5 grams omeprazole 20 mg capsule,delayed 20 mg PO DAILY #30 caps 03/16/24 release amoxicillin 875 mg tablet 875 mg PO BID #14 tabs 06/13/24 ofloxacin 0.3 % ear drops 10 drp otic (ears) DAILY 7 days #5 06/13/24 mL Allergies Allergy/AdvReac Type Severity Reaction Status Date / Time dextran 40 AdvReac Intermediate Hypertensio Verified 06/13/24 08:41 n iron dextran complex AdvReac Intermediate Hypertensio Verified 06/13/24 08:41 n Review of Systems 2 Review of Systems: Yes all other systems are reviewed and are negative [facility] Past Medical History Medical History (Updated 06/13/24 @ 10:38 by SAIMA Streeter) Sacroiliac joint dysfunction of right side Right lumbar radiculitis Morbid obesity with BMI of 50.0-59.9, adult Asthma exacerbation Right ovarian cyst Knee pain Back pain Lower extremity edema Anxiety Depression GERD (gastroesophageal reflux disease) Asthma Sleep apnea with use of continuous positive airway pressure (CPAP) Morbid obesity Surgical History Hx of section Hx of cholecystectomy Family History Family History Mother Diabetes Hyperlipidemia Father No problems noted. Brother No problems noted. Brother No problems noted. Sister No problems noted. Sister Lupus Son No problems noted. Daughter No problems noted. Social History Social History Housing: Apartment Alcohol intake: current Alcohol intake frequency: holidays/special occasions only Patient Tobacco Use Status: Never used Tobacco Smoked in Last 30 Days: No e-Cigarette/Vaping Use: Never Used Second Hand Smoke Exposure: No Use of substances other than those prescribed or required for medical reasons: No Advance Directives: No Advance Directives Information Provided: Yes Do you have a plan to hurt others: No Plan Patient : Yes service: No Current occupational status: disabled Current occupation: rt hand Cognitive needs: No Hearing needs: No Vision needs: No Physical Exam ED Vital Signs: Vital Signs - 24 hr 06/13/24 08:38 06/13/24 09:06 06/13/24 10:23 Temperature 98 F 98.9 F 98.0 F Pulse Rate 74 92 65 Respiratory Rate 18 19 17 Blood Pressure 171/93 H 145/75 H 124/66 Pulse Oximetry 97 96 100 Oxygen Delivery Method Room Air Room Air Room Air 06/13/24 11:05 06/13/24 12:32 Temperature 98.4 F Pulse Rate 65 58 Respiratory Rate 17 16 Blood Pressure 136/78 128/70 Pulse Oximetry 100 97 Oxygen Delivery Method Room Air Room Air BMI result Body Mass Index 59.0 Appearance: Alert. Oriented X3. No acute distress. Head: normocephalic, atraumatic. Eyes: Pupils equal, round and reactive to light. ENT: Pharynx normal. No tonsillar swelling or exudate. Left EAC erythematous with left TM erythema w/ mild bulging, no perforation. Neck: Normal inspection. Neck supple. CVS: Normal heart rate and rhythm. Pulses normal. Respiratory: No respiratory distress. Breath sounds normal. Diffuse chest wall tenderness throughout. Abdomen: Obese, Soft and nontender. +BS x4 Skin: Skin warm and dry. Normal skin color. Normal skin turgor. No rashes. Extremities: No lower extremity edema. No joint swelling. Neuro/psych: Oriented X 3. No motor deficit. No sensory deficit. CN II-XII intact. Normal speech and cognition. Medications Administered Discontinued Medications Generic Name Dose Route Start Last Admin Trade Name Freq PRN Reason Stop Dose Admin Acetaminophen 975 mg 06/13/24 09:57 06/13/24 10:12 Acetaminophen 325 Mg Tablet PO 06/13/24 09:58 975 mg ONCE ONE Administration Sodium Chloride 1,000 mls @ 999 mls/hr 06/13/24 10:00 06/13/24 11:42 Ns IVCONT 06/13/24 11:00 Infused .Q1H1M DHARA Infusion Nifedipine 60 mg 06/13/24 09:57 06/13/24 11:06 Nifedipine Er 30 Mg Tab.Er.24 PO 06/13/24 09:58 60 mg ONCE ONE Administration Protocol Medical Decision Making Medical Decision Making MDM Narrative: 39 yo female who is 10 weeks , high risk with morbid obesity and HTN presenting with headache, muscle aches, palpitations, malaise and chills. Hypertensive on arrival, did not take her nifedipine. instructed to increase to 60 mg by her OB - this was given in the ER today with significant improvement in her BP. She was neurologically intact and physical exam was unremarkable aside from left sided ear infection which is likely causing her headache. covid was negative. labs and EKG unremarkable. saturating 100% on RA with clear lungs, cxr deferred for now. patient observed and treated in the ER with improvement in symptoms. comfortable with discharge home with increased nifedipine at home and outpatient product safety lead follow up return precautions were discussed Differential Diagnosis Differential Diagnoses: The differential diagnosis associated with the presentation includes HTN urgency/emergency, viral illness, covid, PNA, bronchitis Admission/Observation Consideration of admission/observation: Escalation of care including admission/observation considered Lab Data MDM Lab Attestation statement: I reviewed the patient's lab results. no leukocytosis, normal renal function and electrolytes 06/13/24 09:16 06/13/24 09:16 Labs: Lab Results 06/13/24 06/13/24 Range/Units 09:16 09:23 WBC 6.0 (4.8-10.8) X10*3/uL RBC 4.55 (4.20-5.50) X10*6/uL Hgb 12.1 (12.0-16.0) g/dl Hct 37.4 (37.0-47.0) % MCV 82.2 (80.0-98.0) fL MCH 26.6 L (27.0-33.0) pg MCHC 32.4 (31.0-35.0) g/dl RDW 15.3 (11.0-16.0) % Plt Count 300 (160-400) X10*3/uL MPV 11.3 (9.4-12.3) fL Immature Gran % (Auto) 0.3 (0.0-0.4) % Neut % (Auto) 63.9 (45-73) % Lymph % (Auto) 24.2 (20-40) % [place] % (Auto) 9.2 (2-11) % Eos % (Auto) 2.2 (0-4) % Baso % (Auto) 0.2 (0-2) % Lymph # (Auto) 1.5 (1.2-4.9) X10*3/uL [place] # (Auto) 0.6 (0.1-1.2) X10*3/uL Eos # (Auto) 0.1 (0.0-0.4) X10*3/uL Baso # (Auto) 0.0 (0.0-0.2) X10*3/uL Abs Immat Gran (auto) 0.02 (0.00-0.03) X10*3/uL Absolute Neuts (auto) 3.8 (2.0-8.3) x10*3/uL Absolute Nucleated RBC 0.000 (0.0-0.012) X10*3/uL Nucleated RBC % (auto) 0.0 (0.0-0.2) /100WBC Sodium 137 (135-145) mmol/L Potassium 3.9 (3.3-5.1) mmol/L Chloride 107 (96-108) mmol/L Carbon Dioxide 23 (22-29) mmol/L Anion Gap 11 L (12-20) BUN 6 L (9-16) mg/dL Creatinine 0.69 (0.5-1.4) mg/dL Estim Creat Clear Calc 160.2 Estimated GFR > 60 Random Glucose 100 (60-115) mg/dL Calcium 8.5 (8.4-10.2) mg/dL Troponin I High Sens < 2.7 (<3.5-17.0) ng/L COVID-19 (ERNIE) Negative (Negative) COVID-19 Clin Com See Note Independent Interpretation I performed an independent interpretation of an: EKG Interpretation: ekg with normal sinus rhythm, HR 64 bpm, no ST segment elevations or depressions, normal QTc External Record Review External record reviewed: Outpatient record Tests considered The following testing was considered but not selected: CT head considered, CXR considered Prescription Management I considered prescription management with: Pain Medication and Other (antihypertensive) Chronic Conditions Patient?s care impacted by: Hypertension and Other (obesity) Critical Care Time Critical Care Time Critical Care Time: No Discharge Plan Discharge Clinical Impression: Hypertension Qualifiers: Hypertension type: unspecified Qualified Code(s): I10 - Essential (primary) hypertension Patient Disposition: Home, Self-Care Instructions: Hypertension (ED) Additional Instructions: Your lab workup was normal You tested negative for COVID. Your blood pressure improved significantly with nifedipine 60 mg. Recommend continuing this dose Take the prescribed antibiotic for ear infection and use the prescribed antibiotic drops Take Tylenol as needed for headaches. Rest and drink plenty of fluids. Follow-up with your OBGYN as soon as possible. If you develop new or worsening symptoms call 911 or come back to the ER for further evaluation. Prescriptions: New amoxicillin 875 mg tablet 875 mg PO BID Qty: 14 0RF ofloxacin 0.3 % drops 10 drp otic (ears) DAILY 7 Days Qty: 5 0RF No Action omeprazole 20 mg capsule,delayed release(DR/EC) 20 mg PO DAILY Qty: 30 0RF albuterol sulfate [Ventolin HFA] 90 mcg/actuation HFA aerosol inhaler 1 inh inhalation QID PRN (Reason: shortness of breath or wheezing) Qty: 8.5 1RF cyclobenzaprine 10 mg tablet 10 mg PO DAILY PRN (Reason: muscle spasm) Qty: 30 0RF bupropion HCl 300 mg tablet extended release 24 hr 300 mg PO DAILY Interventions: ED Discharge Assessment Last Done: 06/13/24 12:32 Discharge Date/Time: 06/13/24 12:33 Print Language: Other
[2024-06-13 09:49] LABS: COVID-19 Test Negative (Negative); IDNOW Serial# 08D9AD1C
--- NOTE | 2024-06-13 10:09 | PC.NURSE ---
Called pharmacy because Nifedipine is not loaded in the ED Pyxis. Awaiting medication at this time.
[2024-06-13] MEDS: Acetaminophen 325 MG TABLET 975 MG PO (10:12)
[2024-06-13] MEDS: 0.9 % Sodium Chloride 1,000 ML 999 ML IVCONT (10:12)
[2024-06-13 10:23] VITALS: BP 124/66; PULSE 65; RESP 17; TEMP 36.7; O2SAT 100
[2024-06-13 11:05] VITALS: BP 136/78; PULSE 65; RESP 17; O2SAT 100
[2024-06-13] MEDS: NIFEdipine ER 30 MG TAB.ER.24 60 MG PO (11:06)
[2024-06-13 12:32] VITALS: BP 128/70; PULSE 58; RESP 16; TEMP 36.9; O2SAT 97
== END 2024-06-13 12:33 | disposition home or self-care (01) ==
PROVIDERS: Physician Assistant; Emergency Provider Emergency Medicine
DX: O26.891 Other specified pregnancy related conditions, first trimester (principal); O21.0 Mild hyperemesis gravidarum; R07.89 Other chest pain; M79.10 Myalgia, unspecified site; R50.9 Fever, unspecified; H92.02 Otalgia, left ear; Z3A.10 10 weeks gestation of pregnancy; Z79.899 Other long term (current) drug therapy; Z11.52 Encounter for screening for COVID-19
CPT/HCPCS: 36415; 80048; 84484; 85025; 87635; 93005; 96360; 99284; 99285

== ENCOUNTER → 2024-06-15 13:59 | Outpatient (RCR) | payer OTHER, SELFPAY ==
[2021-02-24 13:58] VITALS: BP 183/90; PULSE 70; RESP 12; TEMP 36.8; O2SAT 99; BMI 56.7
--- NOTE | 2021-02-24 14:09 | PM.HEMONCCN ---
Subjective - Subjective Chief complaint: Anemia Patient: new to practice Consult date: 02/24/21 Primary Care Provider: Jacqueline Small MD HPI - Consult Narrative Reason for consult: Iron and vitamin B12 deficiency Narrative: Agustina Patel is a 35 year old female referred for evaluation of anemia related to iron and vitamin B12 deficiency. She was being evaluated for gastric bypass surgery in found to have moderately severe anemia. She has been started on oral iron and vitamin B12 supplementation. She tends to get constipated with iron but she has been taking it intermittently. She has longstanding anemia which she attributes to heavy menstrual blood losses. Sometime she menstruates for over 3 weeks. She has never received a blood transfusion or iron infusion she reports fatigue but no exertional chest pain or shortness of breath. No dizziness or lightheadedness. No hematochezia melena. No abdominal pain. She is had 2 pregnancies, 1 child delivered by section. There is no family history of anemia or hematological problems. Review of Systems - Constitutional Reports as per HPI, Reports no additional constitutional complaints - Cardiovascular Reports no additional cardiovascular complaints - Respiratory Reports no additional respiratory complaints - Gastrointestinal Reports no additional gastrointestinal complaints Oncology Screenings - ECOG Performance Status ECOG Performance Status: 1 [facility] Medical History: Medical History (Last Reviewed 02/12/21 @ 10:26 by Ivon Hernandez CNM) Anxiety Asthma Back pain Depression GERD (gastroesophageal reflux disease) Knee pain Lower extremity edema Morbid obesity Sleep apnea with use of continuous positive airway pressure (CPAP) Family History: Family History (Last Reviewed 02/12/21 @ 10:26 by Ivon Hernandez CNM) Mother Diabetes Hyperlipidemia Father No problems noted. Brother No problems noted. Brother No problems noted. Sister No problems noted. Sister Lupus Son No problems noted. Daughter No problems noted. Surgical History: Surgical History (Last Reviewed 02/12/21 @ 10:26 by Ivon Hernandez CNM) Hx of section Hx of cholecystectomy Social History: Social History (Last Updated 02/24/21 @ 14:00 by Letty Huertas) Alcohol History: Alcohol intake: current Alcohol History Details: Alcohol intake frequency: holiday/special occasion Tobacco History: Smoking Status: Never smoker Smoking status: Never smoker Home Medications and Allergies Home Medications Medication Instructions Recorded Confirmed Type albuterol sulfate 90 mcg/actuation 2 puff INHALATION Q6H PRN 01/03/21 02/24/21 History aerosol inhaler omeprazole 10 mg capsule,delayed 10 mg PO DAILY 01/06/21 02/24/21 History release Allergies Allergy/AdvReac Type Severity Reaction Status Date / Time No Known Allergies Allergy Mild UNKNOWN Verified 02/12/21 09:58 Physical Exam Vital signs: Vital Signs Temp 98.2 F 02/24/21 13:58 Pulse 70 02/24/21 13:58 Resp 12 02/24/21 13:58 BP 183/90 H 02/24/21 13:58 Pulse Ox 99 02/24/21 13:58 Intake & Output 02/23/21 02/24/21 02/24/21 18:59 06:59 18:59 Other: Weight 145.3 kg Posey Weight in Grams [id number] Weight 145.3 kg - Constitutional Present: no acute distress - Routine HEENT Exam Head: Present: normal inspection Eye: Present: EOMI, PERRL - Routine Neck Exam Present: supple. Absent: lymphadenopathy - Routine Respiratory Exam Present: CTAB - Routine Cardiovascular Exam Cardiovascular: Present: S1, S2 Hem/Onc Consult Result - Labs CBC & Chem 7: 02/24/21 14:26 Assessment and Plan (1) Anemia Status: Acute Qualifiers: Anemia type: B12 deficiency 1. This is a 35-year-old woman with moderately severe microcytic anemia secondary to iron deficiency. She also has vitamin B12 deficiency with positivity for intrinsic factor antibodies. She has been taking oral B12 supplementation without any improvement in vitamin B12 levels. She has metromenorrhagia causing iron deficiency anemia. I discussed parenteral iron therapy and she is willing to proceed with it. She will also be started on parenteral vitamin B12 supplementation. There is no other sources of blood loss such as GI tract. No evidence of hemolysis or infection as etiology for her anemia. She is not on any antibiotics. She is being scheduled for iron dextran therapy. Vitamin B12 1000 micro g IM weekly x4 followed by monthly injections. I thank you very much for this consultation. Follow-up in 3 months.
[2021-02-24 14:34] LABS: Basophils Percent Auto 0.2 % (0-2); Eosinophils Absolute Auto 0.5 X10*3/uL (0.0-0.4); Eosinophils Percent Auto 5.7 % (0-4); Hematocrit 28.8 % (37-47); Hemoglobin 8.2 g/dl (12.0-16.0); Imm Gran Abs Auto 0.02 X10*3/uL (0.00-0.03); Imm Gran Pct Auto 0.2 % (0.0-0.4); Immature Retic Fraction 28.5 % (3.0-15.9); Lymphocytes Absolute Auto 2.4 X10*3/uL (1.2-4.9); Lymphocytes Percent Auto 27.8 % (20-40); MANUAL DIFF FLAG SCAN; Mean Corpuscular HGB Conc 28.5 g/dl (31.0-35.0); Mean Corpuscular Hemoglobin 19.5 pg (27.0-33.0); Mean Corpuscular Volume 68.6 fL (80-98); Mean Platelet Volume 9.9 fL (9.4-12.3); Monocytes Absolute Auto 0.6 X10*3/uL (0.1-1.2); Monocytes Percent Auto 6.5 % (2-11); Neutrophils Percent Auto 59.6 % (45-73); Platelet Count 408 X10*3/uL (160-400); Red Cell Distribution Width 18.6 % (11.0-16.0); Retic HGB Equivalent 19.5 pg (30.0-35.0); Reticulocyte Percent 1.8 % (0.5-1.8); Reticulocytes Absolute 0.074 X10*6/uL (0.026-0.095); SCAN SMEAR FLAG 1; White Blood Count 8.4 X10*3/uL (4.8-10.8)
[2021-02-24 15:03] LABS: SLIDE REVIEW VERIFIED
--- NOTE | 2021-02-24 15:10 | MHC.HEMONCMA ---
Patient came in for a consult for anemia, states she is doing well. Clinical summary was reviewed and updated. Patient had labs and will return in 2 months for a follow up.
[2021-02-24 15:12] LABS: Iron 20 mcg/dL (30-160); Percent Iron Saturation 5 % (15-50); Total Iron Binding Capacity 418 mcg/dL (228-428); Unsaturated Iron Binding 398 ug/dL
[2021-02-24 15:32] LABS: Vitamin B12 < 146 pg/mL (200-900)
--- NOTE | 2021-02-26 08:49 | MHC.HEMONCMA ---
Patient scheduled for 03/06/2021 at 8am. She is aware of appt and where to go for this. All her questions were answered.
[2021-02-27 11:50] VITALS: BP 182/87; PULSE 70; RESP 18; TEMP 36.4; O2SAT 100; BMI 56.5
[2021-02-27] MEDS: Cyanocobalamin (Vitamin B-12) 1,000 MCG/ML VIAL 1000 MCG IM (12:15)
--- NOTE | 2021-02-27 12:19 | MHC.HEMONC ---
vit b12 im, patient armani well. f/u next wednesday for dose 2 of 4. iron dextran booked for 03/06/21 at 8 am patient aware.
--- NOTE | 2021-03-04 12:31 | MHC.HEMONCMA ---
Spoke with patient. Confirmed her IV Dextran date of 03/12/2020 at 0830. All her questions were answered.
[2021-03-07 12:57] VITALS: BMI 56.7
[2021-03-07 12:58] VITALS: BP 169/104; PULSE 71; RESP 18; TEMP 36.4; O2SAT 100
[2021-03-07] MEDS: Cyanocobalamin (Vitamin B-12) 1,000 MCG/ML VIAL 1000 MCG IM (12:59)
--- NOTE | 2021-03-07 13:08 | MHC.HEMONC ---
B12 well tolerated to left deltoid. BP elevated. 169/101, patient instructed to follow up with PCP for further recommendations. Patient verbalizes understanding.
== END | disposition home or self-care (01) ==
LOC: HO.ONC 02-24 13:45
PROVIDERS: PCP Internal Medicine; Referring Provider Surgery; Visit Provider Internal Medicine
DX: D50.0 Iron deficiency anemia secondary to blood loss (chronic) (principal); N92.1 Excessive and frequent menstruation with irregular cycle; D51.9 Vitamin B12 deficiency anemia, unspecified; Z79.899 Other long term (current) drug therapy
CPT/HCPCS: 36415; 82607; 83540; 85025; 85045; 96372; 99204

== ENCOUNTER 2024-07-05 08:47 | Outpatient (AMB) | payer OTHER, SELFPAY ==
--- NOTE | 2024-07-05 09:41 | A.OFFPC_ITS ---
Vital Signs 07/05/24 09:43 Height 5 ft 3 in Weight 333 lb 4 oz BMI 59.0 BP 140/80 H Blood Pressure Location Lt brachial Position Sitting Pulse 67 Pulse Source Pulse Oximeter Pulse Oximetry (%) 97 Oxygen Delivery Method Room Air Intake Visit Reasons: Annual Exam Intake Note: Patient is here today for a physical. Geospatial Analyst Required: No Assembler Leather Goods: Not Required per policy Accompanied by: Self / Same As Patient Allergies dextran 40 Adverse Reaction (Intermediate, Verified 07/05/24 09:43) Hypertension iron dextran complex Adverse Reaction (Intermediate, Verified 07/05/24 09:43) Hypertension Tobacco use date assessed: 07/05/24 Dental Screening Dental Screen Date: 03/01/24 HPI Annual Exam HPI Details 39-year-old female presents to the [facility] requesting an annual physical. Patient is also requesting a therapist. She reports imprints of depression and taking medications for it. She is 14 weeks . She has made 2 trips to the emergency room with symptoms of chest pain. [facility] Medical History Sacroiliac joint dysfunction of right side Right lumbar radiculitis Morbid obesity with BMI of 50.0-59.9, adult Asthma exacerbation Right ovarian cyst Knee pain Back pain Lower extremity edema Anxiety Depression GERD (gastroesophageal reflux disease) Asthma Sleep apnea with use of continuous positive airway pressure (CPAP) Morbid obesity Surgical History Hx of section Hx of cholecystectomy Family History Mother Diabetes Hyperlipidemia Father No problems noted. Brother No problems noted. Brother No problems noted. Sister No problems noted. Sister Lupus Son No problems noted. Daughter No problems noted. Social History Housing: Apartment Alcohol intake: current Alcohol intake frequency: holidays/special occasions only Patient Tobacco Use Status: Never used Tobacco e-Cigarette/Vaping Use: Never Used Second Hand Smoke Exposure: No service: No Current occupational status: disabled Current occupation: rt hand Cognitive needs: No Hearing needs: No Vision needs: No Female Reproductive History Menstrual Age of Menarche: 13 Questionnaire PHQ-9 Over the last 2 weeks, how often have you been bothered by any of the following problems? 1. Little interest or pleasure in doing things: nearly every day 2. Feeling down, depressed, or hopeless: nearly every day 3. Trouble falling or staying asleep, or sleeping too much: nearly every day 4. Feeling tired or having little energy: nearly every day 5. Poor appetite or overeating: nearly every day 6. Feeling bad about yourself - or that you are a failure or have let yourself or your family down: nearly every day 7. Trouble concentrating on things, such as reading the newspaper or watching television: nearly every day 8. Moving or speaking so slowly that other people could have noticed. Or the opposite - being so fidgety or restless that you have been moving around a lot more than usual: not at all 9. Thoughts that you would be better off or of hurting yourself in some way: more than half the days Total score: 23 Depression Screening Interpretation: Positive Depression Screening Done: Yes Source: Developed by Drs. Bigg Osorio, Renata Morales, Reinaldo Curtis and colleagues, with an educational lulú from [email or web address]. Thrive Questionnaire Date Thrive assessed: 07/05/24 I am a: Patient What is your living situation today?: I have a place to live, but I am worried about losing it in the future Within the past 12 months, did the food you bought not last and you didn't have the money to get more?: I choose not to answer this question Within the past 12 months, did you worry whether your food would run out before you got money to buy more?: I choose not to answer this question Do you have trouble paying for medicines?: I choose not to answer this question Do you have trouble getting transportation to medical appointments?: No Do you have trouble paying your heating and electricity bill?: Yes Do you have trouble taking care of your child, family member or friend?: I choose not to answer this question Do you have trouble with day-to-day activities such as bathing, preparing meals, shopping, managing finances, etc.?: Yes Are you currently unemployed and looking for a job?: I choose not to answer this question Are you interested in more education?: No Please select the resources that you would like help with: None Currently or been in a relationship where the following occur: No concerns reported THRIVE Score: 2 AUDIT C Alcohol Use Questionnaire (AUDIT-C) 1. How often do you have a drink containing alcohol?: Never Total Score: 0 EDMUNDO-7 AMB Questionnaire EDMUNDO-7 Date EDMUNDO - 7 assessed: 07/05/24 Feeling nervous, anxious, or on edge: 1 = Several days Not being able to stop or control worryin = Several days Worrying too much about different things: 3 = Nearly every day Trouble relaxin = Nearly every day Being so restless that it is hard to sit still: 3 = Nearly every day Becoming easily annoyed or irritable: 2 = More than half the days Feeling afraid as if something awful might happen: 0 = Not at all Total EDMUNDO-7 score (0-4 normal; 5-9 mild; 10-14 moderate; 15-21 severe): 13 Source: Developed by Drs. iBgg Osorio, Renata Morales, Reinaldo Curtis and colleagues, with an educational lulú from [email or web address]. Physical exam (Primary Care) Vital Signs: Last Vital Signs Pulse 67 07/05/24 09:43 BP 140/80 H 07/05/24 09:43 Pulse Ox 97 07/05/24 09:43 Oxygen Delivery Method Room Air 07/05/24 09:43 BMI result Body Mass Index 59.0 Tobacco/Smoking Status: Tobacco use Status Tobacco use date assessed 07/05/24 07/05/24 09:51 Patient Tobacco Use Status Never used Tobacco 07/05/24 09:51 e-Cigarette/Vaping Use Never Used 07/05/24 09:51 PHQ-9: PHQ-9 Score PHQ-9: Total score 23 07/05/24 09:51 Depression Screening Interpretation: Positive Thrive Assessment: Date of Thrive Assessment Date Thrive assessed 07/05/24 07/05/24 09:51 Currently or been in a relationship where the following occur: No concerns reported Const General: cooperative and healthy appearing Nutritional Appearance: well nourished Orientation/consciousness: patient oriented x3 Limitations: no limitations HENMT Head: Yes normal to inspection Eyes General: appearance normal, both eyes and all related structures Neck Neck: Yes normal visual inspection Chest Chest palpation & inspection: normal palpation of entire chest wall Resp Effort & Inspection: normal respiratory effort Neuro General: patient oriented x3 Assessment and Plan Assessment & Plan (1) Annual physical exam: Code(s): Z00.00 - Encounter for general adult medical examination without abnormal findings Plan: ER visits reviewed. Therapist appointment will be made. Medications: Refilled omeprazole 20 mg PO DAILY 30 caps 0RF Coding Level of Care Code Est Pt Prev Care 18-39y(69661) Diagnoses Annual physical exam Z00.00
[2024-07-05 09:43] VITALS: BP 140/80; PULSE 67; O2SAT 97; BMI 59.0
== END 2024-07-05 10:18 | disposition home or self-care (01) ==
PROVIDERS: PCP Internal Medicine; Visit Provider Internal Medicine
DX: Z00.00 Encounter for general adult medical examination without abnormal findings (principal)

== ENCOUNTER → 2024-07-05 08:47 | Outpatient (BNVA) | payer OTHER, SELFPAY | PROVIDERS: PCP Internal Medicine; Visit Provider Internal Medicine | DX: Z00.00 Encounter for general adult medical examination without abnormal findings (principal) | CPT/HCPCS: 96127; 99395 ==

== ENCOUNTER 2024-07-14 15:21 | Emergency (ER) | payer OTHER, SELFPAY ==
--- NOTE | 2024-07-14 15:23 | ECG_ITS ---
Test Reason : cp Blood Pressure : / mmHG Vent. Rate : 078 BPM Atrial Rate : 078 BPM P-R Int : 136 ms QRS Dur : 098 ms QT Int : 426 ms P-R-T Axes : 015 021 048 degrees QTc Int : 485 ms Normal sinus rhythm Prolonged QT Abnormal ECG When compared with ECG of 13-JUN-2024 09:09, QT has lengthened Referred By: Leonor Shah Electronically Signed By:BABAR WIGGINS
[2024-07-14 15:30] VITALS: BP 152/73; PULSE 70; RESP 20; TEMP 36.6; O2SAT 99; BMI 56.9
--- NOTE | 2024-07-14 15:31 | ED_ITS ---
HPI - Chest Pain General Chief Complaint: Chest Pain Stated Complaint: pain when breathing, CP, L sided body/ arm pain Time Seen by Provider: 07/14/24 16:49 Source: patient Mode of arrival: ambulatory Limitations: no limitations History of Present Illness ED Provider: Gabriela Garcia PA-C HPI narrative: Patient is a 39 year old assigned female at with a history of asthma, GERD, anxiety, HTN, and currently 16 weeks presenting to the emergency department today with left shoulder pain, left neck pain, and left sided chest pain as well as left knee pain. Patient states that over the last day she has had left sided chest, shoulder, and neck pain as well as left knee pain. Patient denies any dizziness, lightheadedness, abdominal pain, nausea, vomiting, fever, chills, blurry vision, double vision, loss of vision, difficulty breathing, shortness of breath, back pain, night sweats, pain with urination, increased urinary frequency, increased urinary urgency, blood in her urine or stool, syncope or a near syncopal episode, recent trauma or falls, bowel incontinence, bladder incontinence, or any other complaints at this time. Severity: mild Treatment prior to arrival: none Related Data Home Medications ?Medication ?Instructions ?Recorded ?Confirmed bupropion HCl 300 mg 24 hr tablet, 300 mg PO DAILY 02/24/24 04/21/24 extended release aspirin 81 mg tablet,delayed mg PO 07/05/24 release nifedipine 60 mg tablet,extended 60 mg PO DAILY 07/05/24 release 24 hr pyridoxine (vitamin B6) 25 mg 25 mg PO TID 07/05/24 tablet (Vitamin B-6) Previous Rx's ?Medication ?Instructions ?Recorded cyclobenzaprine 10 mg tablet 10 mg PO DAILY PRN muscle spasm 03/01/24 #30 tabs albuterol sulfate 90 mcg/actuation 1 inh inhalation QID PRN shortness 03/16/24 aerosol inhaler (Ventolin HFA) of breath or wheezing #8.5 grams omeprazole 20 mg capsule,delayed 20 mg PO DAILY #30 caps 07/05/24 release Allergies Allergy/AdvReac Type Severity Reaction Status Date / Time dextran 40 AdvReac Intermediate Hypertensio Verified 07/14/24 15:33 n iron dextran complex AdvReac Intermediate Hypertensio Verified 07/14/24 15:33 n Review of Systems 2 Constitutional: Constitutional: Reports no additional constitutional complaints, Denies chills, Denies fever(s) and Denies night sweats Eyes: Eyes: Reports no additional eye complaints, Denies blurry vision, Denies change in vision, Denies diplopia, Denies eye discharge, Denies loss of vision and Denies eye pain ENT: Denies dizziness Cardiovascular: Cardiovascular: Reports no additional cardiovascular complaints, Denies chest pain, Denies lightheadedness, Denies Loss of Consciousness and Denies dyspnea Respiratory: Respiratory: Reports no additional respiratory complaints and Denies dyspnea Gastrointestinal: Gastrointestinal: Reports no additional gastrointestinal complaints, Denies abdominal pain, Denies melena, Denies hematochezia, Denies change in bowel habits and Denies change in stool character Genitourinary: Genitourinary: Denies hematuria, Denies urinary frequency, Denies dysuria, Denies urinary incontinence, Denies urinary hesitancy and Denies urinary urgency Musculoskeletal: Musculoskeletal: Reports no additional musculoskeletal complaints, Denies numbness and Denies tingling Comments: left sided chest pain, left shoulder pain, left neck pain, and left knee pain Neurologic: Denies dizziness, Denies loss of vision, Denies numbness and Denies tingling Psychiatric: Psychiatric: Reports no additional psychiatric complaints Endocrine: Endocrine: Reports no additional endocrine complaints Hematologic/Lymphatic: Hematologic/Lymphatic: Reports no additional hematologic/lymphatic complaints Allergic/Immunologic: Allergic/Immunologic: Reports no additional allergic/immunologic complaints [facility] Past Medical History Attestation statement: The following information was validated with the patient. Source: old records reviewed and nursing notes reviewed Medical History Sacroiliac joint dysfunction of right side Right lumbar radiculitis Morbid obesity with BMI of 50.0-59.9, adult Asthma exacerbation Right ovarian cyst Knee pain Back pain Lower extremity edema Anxiety Depression GERD (gastroesophageal reflux disease) Asthma Sleep apnea with use of continuous positive airway pressure (CPAP) Morbid obesity Surgical History Hx of section Hx of cholecystectomy Family History Family History Mother Diabetes Hyperlipidemia Father No problems noted. Brother No problems noted. Brother No problems noted. Sister No problems noted. Sister Lupus Son No problems noted. Daughter No problems noted. Social History Social History Housing: Apartment Alcohol intake: current Alcohol intake frequency: holidays/special occasions only Patient Tobacco Use Status: Never used Tobacco Smoked in Last 30 Days: No e-Cigarette/Vaping Use: Never Used Second Hand Smoke Exposure: No Use of substances other than those prescribed or required for medical reasons: No Advance Directives: No Advance Directives Information Provided: No Do you have a plan to hurt others: No Plan service: No Current occupational status: disabled Current occupation: rt hand Cognitive needs: No Hearing needs: No Vision needs: No Physical Exam 2 Vital Signs: Vital Signs: Last Vital Signs Temp 98 F 07/14/24 17:53 Pulse 66 07/14/24 17:53 Resp 18 07/14/24 17:53 BP 119/63 07/14/24 17:53 Pulse Ox 98 07/14/24 17:53 O2 Del Method Room Air 07/14/24 17:53 BMI result Body Mass Index 56.9 Const: General: cooperative, no acute distress, alert and awake Nutritional Appearance: well nourished Orientation/consciousness: patient oriented x3 Limitations: no limitations HEENT: Head: Yes normal to inspection and Yes atraumatic Ears: hearing grossly normal bilaterally and external ears normal General nose exam: Normal external nose present, no nasal discharge noted and no epistaxis Face and sinus: Yes normal facial exam, No abrasion and No laceration Mouth: Normal oral and palatal mucosa present, no drooling and no muffled voice Eyes: General: appearance normal, both eyes and all related structures P eriorbital: periorbital findings normal Eyelids: Yes eyelids normal C onjunctivae: conjunctivae normal Pupils: Equal, round and reactive pupils present EOM: EOMs intact bilaterally Neck: Neck: Yes normal visual inspection, Yes full ROM and Yes no lymphadenopathy Chest: Chest palpation & inspection: normal inspection of the chest Resp: Effort & Inspection: normal respiratory effort and able to speak in complete sentences GI: Inspection: Yes normal to inspection Neuro: General: patient oriented x3 and moves all extremities Cranial nerves: Yes Equal, round and reactive pupils present Cognition (Neuro): n ormal cognition Extrem: General: Yes normal to inspection, Yes full ROM and Yes capillary refill normal Psych: Appearance: grossly normal Mental Status: mental status grossly normal Affect: normal affect Attitude: cooperative Thought process: N ormal thought process present Thought content: Normal thought content present Insight: Good insight present (Psych) Course Course Course Narrative: This is a Rapid Medical Examination (RME) performed by Christina Shah PA-C in triage. Full HPI, ROS, assessment and treatment plan per primary provider in the Main ED. 39 yo female, currently 16 weeks , hx of asthma and HTN, presents to the ED today for eval of left sided CP radiating to neck and sob. cp is intermittent and radiates down left arm. assoc dizziness. + obese female. appears to become SOB when ambulating. lungs clear. rrr. Plan: labs, ekg, trop Medications Administered Discontinued Medications Generic Name Dose Route Start Last Admin Trade Name Freq PRN Reason Stop Dose Admin Acetaminophen 650 mg 07/14/24 17:20 07/14/24 17:51 Acetaminophen 325 Mg Tablet PO 07/14/24 17:21 650 mg ONCE ONE Administration Medical Decision Making Medical Decision Making [facility] Narrative: Patient is a 39 year old assigned female at with a history of asthma, GERD, anxiety, HTN, and currently 16 weeks presenting to the emergency department today with left shoulder pain, left neck pain, and left sided chest pain as well as left knee pain. Patient's physical exam was unremarkable. Patient's blood work was unremarkable. Patient's EKG was unremarkable. I explained my physical exam findings as well as all test results to the patient. I answered all questions asked by the patient. Patient refused all imaging citing concerns to her unborn child. I stressed the importance of the patient taking her medication as directed (either prescribed or as the over the counter packaging recommends). I stressed the importance of the patient following up with her primary care provider and her OBGYN. I stressed the importance of the patient returning to the emergency department immediately if her symptoms were to worsen or if she were to develop any dizziness, shortness of breath, difficulty breathing, chest pain, blurry vision, loss of vision, nausea, vomiting, abdominal pain, fever, chills, back pain, or any other complaints. Patient verbalized agreement and understanding with this treatment plan and discharge. Differential Diagnosis Differential Diagnoses: The differential diagnosis associated with the presentation includes Musculoskeletal pain Shoulder pain Knee pain Neck pain Chest pain Atypical chest pain NSTEMI STEMI Admission/Observation Consideration of admission/observation: Escalation of care including admission/observation considered Patient would have been admitted to the hospital had her work up had any findings where hospital admission was appropriate and her clinical presentation warranted hospital admission. Lab Data [facility] Lab Attestation statement: I reviewed the patient's lab results. My interpretation of these results are in the [facility] Rationale portion of this note. 07/14/24 15:46 07/14/24 00:46 Labs: Lab Results 07/14/24 07/14/24 Range/Units 00:46 15:46 WBC 10.2 (4.8-10.8) X10*3/uL RBC 4.07 L (4.20-5.50) X10*6/uL Hgb 11.1 L (12.0-16.0) g/dl Hct 33.6 L (37.0-47.0) % MCV 82.6 (80.0-98.0) fL MCH 27.3 (27.0-33.0) pg MCHC 33.0 (31.0-35.0) g/dl RDW 14.9 (11.0-16.0) % Plt Count 323 (160-400) X10*3/uL MPV 10.9 (9.4-12.3) fL Immature Gran % (Auto) 0.3 (0.0-0.4) % Neut % (Auto) 71.7 (45-73) % Lymph % (Auto) 20.6 (20-40) % Routt % (Auto) 5.3 (2-11) % Eos % (Auto) 1.9 (0-4) % Baso % (Auto) 0.2 (0-2) % Lymph # (Auto) 2.1 (1.2-4.9) X10*3/uL Routt # (Auto) 0.5 (0.1-1.2) X10*3/uL Eos # (Auto) 0.2 (0.0-0.4) X10*3/uL Baso # (Auto) 0.0 (0.0-0.2) X10*3/uL Abs Immat Gran (auto) 0.03 (0.00-0.03) X10*3/uL Absolute Neuts (auto) 7.3 (2.0-8.3) x10*3/uL Absolute Nucleated RBC 0.000 (0.0-0.012) X10*3/uL Nucleated RBC % (auto) 0.0 (0.0-0.2) /100WBC PT 10.9 (10.9-12.4) SEC INR 0.9 (0.9-1.1) Sodium 136 (135-145) mmol/L Potassium 3.7 (3.3-5.1) mmol/L Chloride 108 (96-108) mmol/L Carbon Dioxide 21 L (22-29) mmol/L Anion Gap 11 L (12-20) BUN 3 L (9-16) mg/dL Creatinine 0.57 (0.5-1.4) mg/dL Estim Creat Clear Calc 189.5 Estimated GFR > 60 Random Glucose 83 (60-115) mg/dL Calcium 8.2 L (8.4-10.2) mg/dL Magnesium 1.8 (1.6-2.6) mg/dL Total Bilirubin 0.2 (0.0-1.0) mg/dL AST 14 (5-31) U/L ALT 20 (0-31) U/L Alkaline Phosphatase 60 (39-117) U/L Troponin I High Sens < 2.7 (<3.5-17.0) ng/L Total Protein 6.9 (6.5-8.0) g/dL Albumin 3.4 L (3.5-5.0) g/dL Beta HCG, Quant 89625 mIU/mL Influenza Type A (PCR) NEGATIVE (Negative) Influenza Type B (PCR) NEGATIVE (Negative) RSV RNA Qual (PCR) NEGATIVE (Negative) SARS-CoV-2 RNA (RT-PCR) NEGATIVE (Negative) Independent Interpretation I performed an independent interpretation of an: EKG Interpretation: Vent. Rate: 078 BPM Atrial Rate: 078 BPM P-R Int: 136 ms QRS Dur: 098 ms QT Int: 426 ms P-R-T Axes: 015 021 048 degrees QTc Int: 485 ms Normal sinus rhythm Electronically Signed By:BABAR HOPSON Dictated By: Babar Doran DO Signed By: Electronically signed by Babar Doran DO 07/14/24 1488 Discharge Plan Discharge Clinical Impression: Acute shoulder pain, Chest pain, Acute knee pain, Patient Disposition: Home, Self-Care Instructions: Chest Pain (DC), (ED), Knee Pain (ED), Shoulder Pain (ED) Additional Instructions: Follow up with your primary care provider and OBGYN. Return to the emergency department immediately if your symptoms worsen or if you develop any dizziness, shortness of breath, difficulty breathing, chest pain, blurry vision, loss of vision, nausea, vomiting, abdominal pain, fever, chills, back pain, or any other complaints. Prescriptions: No Action albuterol sulfate [Ventolin HFA] 90 mcg/actuation HFA aerosol inhaler 1 inh inhalation QID PRN (Reason: shortness of breath or wheezing) Qty: 8.5 1RF cyclobenzaprine 10 mg tablet 10 mg PO DAILY PRN (Reason: muscle spasm) Qty: 30 0RF aspirin 81 mg tablet,delayed release (DR/EC) PO pyridoxine (vitamin B6) [Vitamin B-6] 25 mg tablet 25 mg PO TID nifedipine 60 mg tablet extended release 24hr 60 mg PO DAILY omeprazole 20 mg capsule,delayed release(DR/EC) 20 mg PO DAILY Qty: 30 0RF bupropion HCl 300 mg tablet extended release 24 hr 300 mg PO DAILY Referrals: Eriberto Saunders MD [Primary Care Provider] - Interventions: ED Discharge Assessment Last Done: 07/14/24 17:53 Discharge Date/Time: 07/14/24 17:53 Print Language: Other
[2024-07-14 15:54] LABS: MANUAL DIFF FLAG NO
[2024-07-14 15:56] LABS: Basophils Percent Auto 0.2 % (0-2); Eosinophils Absolute Auto 0.2 X10*3/uL (0.0-0.4); Eosinophils Percent Auto 1.9 % (0-4); Hematocrit 33.6 % (37.0-47.0); Hemoglobin 11.1 g/dl (12.0-16.0); Imm Gran Abs Auto 0.03 X10*3/uL (0.00-0.03); Imm Gran Pct Auto 0.3 % (0.0-0.4); Lymphocytes Absolute Auto 2.1 X10*3/uL (1.2-4.9); Lymphocytes Percent Auto 20.6 % (20-40); Mean Corpuscular Hemoglobin 27.3 pg (27.0-33.0); Mean Corpuscular Volume 82.6 fL (80.0-98.0); Mean Platelet Volume 10.9 fL (9.4-12.3); Monocytes Absolute Auto 0.5 X10*3/uL (0.1-1.2); Monocytes Percent Auto 5.3 % (2-11); Neutrophils Absolute Auto 7.3 x10*3/uL (2.0-8.3); Neutrophils Percent Auto 71.7 % (45-73); Platelet Count 323 X10*3/uL (160-400); Red Blood Count 4.07 X10*6/uL (4.20-5.50); Red Cell Distribution Width 14.9 % (11.0-16.0); White Blood Count 10.2 X10*3/uL (4.8-10.8)
[2024-07-14 16:05] LABS: INTERNATIONAL NORM RATIO 0.9 (0.9-1.1); Prothrombin Time 10.9 SEC (10.9-12.4)
[2024-07-14 16:27] LABS: Alanine Aminotransferase 20 U/L (0-31); Albumin Level 3.4 g/dL (3.5-5.0); Alkaline Phosphatase 60 U/L (39-117); Anion Gap 11 (12-20); Aspartate Amino Transferase 14 U/L (5-31); Bilirubin Total 0.2 mg/dL (0.0-1.0); Blood Urea Nitrogen 3 mg/dL (9-16); Calcium 8.2 mg/dL (8.4-10.2); Carbon Dioxide 21 mmol/L (22-29); Chloride 108 mmol/L (96-108); Creatinine Clr Calc Pharmacy 189.5; Estimated Glomerular Filt Rate > 60; Glucose Random 83 mg/dL (60-115); Magnesium 1.8 mg/dL (1.6-2.6); Potassium 3.7 mmol/L (3.3-5.1); Sodium 136 mmol/L (135-145); Total Protein 6.9 g/dL (6.5-8.0)
[2024-07-14 16:31] VITALS: BP 119/63; PULSE 66; RESP 18; O2SAT 98
[2024-07-14 16:35] LABS: Influenza A PCR NEGATIVE (Negative); Influenza B PCR NEGATIVE (Negative); Resp Syncy Virus RNA Qual PCR NEGATIVE (Negative); SARS COV2 PCR INHOUSE NEGATIVE (Negative)
[2024-07-14 16:53] LABS: Troponin-I High Sensitivity < 2.7 ng/L (<3.5-17.0)
[2024-07-14 17:18] LABS: HCG Quantitative 18187 mIU/mL
[2024-07-14] MEDS: Acetaminophen 325 MG TABLET 650 MG PO (17:51)
[2024-07-14 17:53] VITALS: BP 119/63; PULSE 66; RESP 18; TEMP 36.6; O2SAT 98
== END 2024-07-14 17:53 | disposition home or self-care (01) ==
PROVIDERS: Physician Assistant Medical; Emergency Provider Internal Medicine; PCP Internal Medicine
DX: O26.892 Other specified pregnancy related conditions, second trimester (principal); R07.9 Chest pain, unspecified; M25.512 Pain in left shoulder; M25.562 Pain in left knee; Z03.818 Encounter for observation for suspected exposure to other biological agents ruled out; J45.909 Unspecified asthma, uncomplicated; Z3A.16 16 weeks gestation of pregnancy
CPT/HCPCS: 0241U; 80053; 83735; 84484; 84702; 85025; 85610; 93005; 99283; 99285

== ENCOUNTER 2024-07-28 18:16 | Emergency (ER) | payer OTHER, SELFPAY ==
--- NOTE | ~2024-07-28 | US_ITS ---
EXAMINATION: US OBSTETRICAL ULTRASOUND CLINICAL INFORMATION: 17 weeks . Has not felt movement. COMPARISON: None LMP: 03/07/2024 Gestational age by last menstrual period: 20 weeks 3 days TECHNIQUE: Limited real-time transabdominal imaging with and M-mode Doppler. POSITION: Cephalic PLACENTA: Anterior MEASUREMENTS: Femur Length: 2.96 cm (19 weeks 1 day +/- 13 days) cardiac activity is 160 beats per minute. US/US OB limited IMPRESSION: Limited second trimester obstetric ultrasound demonstrates normal heart rate of 160 bpm. No gross abnormalities on this limited study. Electronically signed by: Vic Pendleton MD 07/28/2024 11:28 PM EDT
--- NOTE | ~2024-07-28 | US_ITS ---
EXAMINATION: US TRIPLEX LOWER EXTREMITY, LEFT CLINICAL INFORMATION: Pain COMPARISON: None available. TECHNIQUE: Color-flow triplex imaging with spectral analysis and compression Doppler were performed on the left lower extremity. FINDINGS: Respiratory variation, normal compression and augmented flow are noted throughout the left lower extremity. The visualized common femoral vein, superficial femoral vein, profunda femoral vein, popliteal vein and midcalf posterior tibial venous segments show no evidence of deep venous thrombosis. Peroneal veins are not well seen due to body habitus. There is no Mckay's cyst. US/US venous duplex LE LT IMPRESSION: No evidence of deep venous thrombosis involving the left lower extremity. Electronically signed by: Vic Pendleton MD 07/28/2024 11:29 PM EDT
[2024-07-28 18:20] VITALS: BP 158/75; PULSE 81; RESP 22; TEMP 36.9; O2SAT 97; BMI 60.8
--- NOTE | 2024-07-28 18:20 | ED_ITS ---
HPI - General Adult General Chief complaint: Abdominal Pain Stated complaint: abdominal pain, L knee pain, no injury Time Seen by Provider: 07/28/24 18:33 Source: patient, RN notes reviewed and old records reviewed Mode of arrival: ambulatory Limitations: no limitations History of Present Illness ED Provider: Tiffanie HPI narrative: 39-year-old female with past medical history significant for morbid obesity, sciatica, hypertension, asthma, GERD, depression, anxiety, hirsutism presents for evaluation of multiple complaints. Patient reports that she is , about 17 weeks. She is She denies any fevers, chills, vaginal bleeding, nausea vomiting. She states that she receives iron infusions She was getting this at the [facility] today when she started to experience burning mid abdominal pain She reports that her infusion was different than previously She also complains of pain to the left leg and denies any injury She feels as though her left leg is swollen compared to the right side She denies any rashes Related Data Home Medications ?Medication ?Instructions ?Recorded ?Confirmed bupropion HCl 300 mg 24 hr tablet, 300 mg PO DAILY 02/24/24 04/21/24 extended release aspirin 81 mg tablet,delayed mg PO 07/05/24 release nifedipine 60 mg tablet,extended 60 mg PO DAILY 07/05/24 release 24 hr pyridoxine (vitamin B6) 25 mg 25 mg PO TID 07/05/24 tablet (Vitamin B-6) Previous Rx's ?Medication ?Instructions ?Recorded cyclobenzaprine 10 mg tablet 10 mg PO DAILY PRN muscle spasm 03/01/24 #30 tabs albuterol sulfate 90 mcg/actuation 1 inh inhalation QID PRN shortness 03/16/24 aerosol inhaler (Ventolin HFA) of breath or wheezing #8.5 grams omeprazole 20 mg capsule,delayed 20 mg PO DAILY #30 caps 07/05/24 release Allergies Allergy/AdvReac Type Severity Reaction Status Date / Time dextran 40 AdvReac Intermediate Hypertensio Verified 07/28/24 18:21 n iron dextran complex AdvReac Intermediate Hypertensio Verified 07/28/24 18:21 n Review of Systems 2 Constitutional: Constitutional: Denies body ache(s), Denies chills and Denies fever(s) Eyes: Eyes: Denies blurry vision ENT: Denies dizziness and Denies sore throat Cardiovascular: Cardiovascular: Denies chest pain and Denies dyspnea Respiratory: Respiratory: Denies cough and Denies dyspnea Gastrointestinal: Gastrointestinal: Reports abdominal pain, Denies nausea and Denies vomiting Genitourinary: Genitourinary: Denies difficulty voiding, Denies light periods, Denies dysuria, Denies pelvic pain, Denies flank pain, Denies vaginal discharge and Denies vaginal pruritus Musculoskeletal: Musculoskeletal: Denies back pain and Reports radiating pain into limb Integumentary/Breasts: Skin/Breast: Denies rash Neurologic: Denies dizziness PMFSH Past Medical History Medical History Sacroiliac joint dysfunction of right side Right lumbar radiculitis Morbid obesity with BMI of 50.0-59.9, adult Asthma exacerbation Right ovarian cyst Knee pain Back pain Lower extremity edema Anxiety Depression GERD (gastroesophageal reflux disease) Asthma Sleep apnea with use of continuous positive airway pressure (CPAP) Morbid obesity Surgical History Hx of section Hx of cholecystectomy Family History Family History Mother Diabetes Hyperlipidemia Father No problems noted. Brother No problems noted. Brother No problems noted. Sister No problems noted. Sister Lupus Son No problems noted. Daughter No problems noted. Social History Social History Housing: Apartment Alcohol intake: current Alcohol intake frequency: holidays/special occasions only Patient Tobacco Use Status: Never used Tobacco Smoked in Last 30 Days: No e-Cigarette/Vaping Use: Never Used Second Hand Smoke Exposure: No Use of substances other than those prescribed or required for medical reasons: No Advance Directives: No Advance Directives Information Provided: No Do you have a plan to hurt others: No Plan Patient : Yes service: No Current occupational status: disabled Current occupation: rt hand Cognitive needs: No Hearing needs: No Vision needs: No Physical Exam ED Vital Signs: Vital Signs - 24 hr 07/28/24 18:20 07/28/24 19:55 07/28/24 20:32 Temperature 98.5 F 97.9 F Pulse Rate 81 76 78 Respiratory Rate 22 H 18 16 Blood Pressure 158/75 H 131/65 Pulse Oximetry 97 97 Oxygen Delivery Method Room Air Room Air 07/28/24 22:25 Temperature 98.1 F Pulse Rate 77 Respiratory Rate 18 Blood Pressure 142/74 H Pulse Oximetry 98 Oxygen Delivery Method Room Air BMI result Body Mass Index 60.8 Const General: healthy appearing, comfortable, no acute distress, alert and awake Nutritional Appearance: well nourished Orientation/consciousness: patient oriented x3 HENMT Head: Yes normocephalic and Yes atraumatic Eyes Eyelids: Yes eyelids normal Conjunctivae: conjunctivae normal Sclerae: sclerae normal Corneas: corneas normal Pupils: Equal, round and reactive pupils present EOM: EOMs intact bilaterally Neck Neck: Yes full ROM Resp Other: Faint expiratory wheeze throughout. There is no respiratory distress Effort & Inspection: normal respiratory effort, able to speak in complete sentences and not labored Cardio Rate: regular rate Rhythm: regular rhythm GI Inspection: No distended and Yes obesity Palpation (GI): Soft to palpation, not firm, nontender, no guarding and not rigid Skin General skin exam: elasticity normal Neuro General: patient oriented x3 Cranial nerves: Yes Equal, round and reactive pupils present and Yes Bilaterally intact EOM present Cognition (Neuro): normal cognition Extrem Other: There is no obvious edema on the left compared to the right, difficult to assess due to severe obesity. Moving all extremities well without any obvious deformities. There is no calf tenderness, erythema, the patient is tender to palpation of the left thigh Course Course Course Narrative: This is a rapid medical exam performed by Osvaldo Tse NP: Additional HPI, ROS, PE not included below will be deferred to primary provider. Patient is a 39-year-old 17 weeks with LORENA of 01/01 female with history of HTN, asthma, anemia, GERD, morbid obesity presenting to the ED with complaint of abdominal pain which began while receiving iron infusion at [facility] this morning. Staff stopped the infusion early due to symptoms. States she feels a vaginal pressure and has not really felt the baby moving today, has previously felt movement with this . Denies cramping/contractions. Denies vaginal bleeding. Also complains of left knee pain, denies fall or other trauma. 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 Plan: U/S, labs Reevaluation(s) Reevaluation #1: Patient's venous ultrasound negative for DVT, obstetric ultrasound does not show any acute abnormalities. The patient does have a history of hypertension, her blood pressure improved without any intervention. The patient is less than 20 weeks , she was not meet criteria for preeclampsia and again, her blood pressure improved without intervention. She will follow up with her OBGYN regarding this. Time: 23:38 Medications Administered Discontinued Medications Generic Name Dose Route Start Last Admin Trade Name Freq PRN Reason Stop Dose Admin Albuterol/Ipratropium 3 ml 07/28/24 20:18 07/28/24 20:31 Albuterol/Iprat 2.5/0.5mg 3 Ml Ampul.Neb INHALE 07/28/24 20:19 3 ml ONCE ONE Administration Medical Decision Making Medical Decision Making [facility] Narrative: 39-year-old female with past medical history as documented above presents for evaluation of burning abdominal pain that started while receiving an iron infusion. She called her OBGYN who is located at [facility] in [place] and was instructed to go to the emergency department. She also has atraumatic left leg swelling. Given her significant obesity and the fact that she is we will get an ultrasound to rule out DVT. I have a low suspicion for miscarriage the patient has no pelvic pain vaginal bleeding or discharge. Her abdominal pain is likely related to gastritis or GERD from her infusion. Her abdominal exam is reassuring. I have a low suspicion for infectious process or surgical abdomen. The patient's labs are reassuring. Ultrasound of the fetus was ordered in triage and is pending. The patient does have faint wheezing on exam. Will treat with a DuoNeb. She does have a history of asthma. No fevers, cough to suggest infectious cause of her shortness of breath Differential Diagnosis Differential Diagnoses: The differential diagnosis associated with the presentation includes Abdominal pain DVT Leg pain Obesity Threatened Spontaneous Lab Data [facility] Lab Attestation statement: I reviewed the patient's lab results. No leukocytosis. The patient does have a chronic anemia for which she was recently iron infusions today. Will account within normal limits, no significant electrolyte abnormalities 07/28/24 19:06 07/28/24 19:06 Labs: Lab Results 07/28/24 07/28/24 Range/Units 19:06 19:56 WBC 10.5 (4.8-10.8) X10*3/uL RBC 3.82 L (4.20-5.50) X10*6/uL Hgb 10.7 L (12.0-16.0) g/dl Hct 32.0 L (37.0-47.0) % MCV 83.8 (80.0-98.0) fL MCH 28.0 (27.0-33.0) pg MCHC 33.4 (31.0-35.0) g/dl RDW 15.0 (11.0-16.0) % Plt Count 319 (160-400) X10*3/uL MPV 10.9 (9.4-12.3) fL Immature Gran % (Auto) 0.3 (0.0-0.4) % Neut % (Auto) 60.0 (45-73) % Lymph % (Auto) 27.0 (20-40) % [place] % (Auto) 6.4 (2-11) % Eos % (Auto) 6.0 H (0-4) % Baso % (Auto) 0.3 (0-2) % Lymph # (Auto) 2.8 (1.2-4.9) X10*3/uL [place] # (Auto) 0.7 (0.1-1.2) X10*3/uL Eos # (Auto) 0.6 H (0.0-0.4) X10*3/uL Baso # (Auto) 0.0 (0.0-0.2) X10*3/uL Abs Immat Gran (auto) 0.03 (0.00-0.03) X10*3/uL Absolute Neuts (auto) 6.3 (2.0-8.3) x10*3/uL Absolute Nucleated RBC 0.000 (0.0-0.012) X10*3/uL Nucleated RBC % (auto) 0.0 (0.0-0.2) /100WBC Sodium 137 (135-145) mmol/L Potassium 3.7 (3.3-5.1) mmol/L Chloride 106 (96-108) mmol/L Carbon Dioxide 21 L (22-29) mmol/L Anion Gap 14 (12-20) BUN 5 L (9-16) mg/dL Creatinine 0.57 (0.5-1.4) mg/dL Estim Creat Clear Calc 198.1 Estimated GFR > 60 Random Glucose 136 H (60-115) mg/dL Calcium 7.9 L (8.4-10.2) mg/dL Magnesium 1.8 (1.6-2.6) mg/dL Total Bilirubin 0.2 (0.0-1.0) mg/dL AST 12 (5-31) U/L ALT 17 (0-31) U/L Alkaline Phosphatase 64 (39-117) U/L Total Protein 6.2 L (6.5-8.0) g/dL Albumin 3.1 L (3.5-5.0) g/dL Amylase 68 (28-100) U/L Lipase 13 (8-78) U/L Urine Color Yellow Urine Appearance Clear Urine pH 7.0 (5.0-9.0) Ur Specific [place] 1.020 (1.005-1.025) Urine Protein Negative (Neg-Trace) mg/dL Urine Glucose (UA) Negative (Negative) mg/dL Urine Ketones Negative (Negative) mg/dL Urine Blood Negative (Negative) Urine Nitrite Negative (Negative) Ur Leukocyte Esterase Negative (Negative) Radiology Impression Discussion of test interpretation with radiology: I have reviewed the radiologist's reading. Radiologist Impression: FINDINGS: Respiratory variation, normal compression and augmented flow are noted throughout the left lower extremity. The visualized common femoral vein, superficial femoral vein, profunda femoral vein, popliteal vein and midcalf posterior tibial venous segments show no evidence of deep venous thrombosis. Peroneal veins are not well seen due to body habitus. There is no Mckay's cyst. US/US venous duplex LE LT IMPRESSION: No evidence of deep venous thrombosis involving the left lower extremity. Electronically signed by: Vic Pendleton MD 07/28/2024 11:29 PM EDT EXAMINATION: US OBSTETRICAL ULTRASOUND CLINICAL INFORMATION: 17 weeks . Has not felt movement. COMPARISON: None LMP: 03/07/2024 Gestational age by last menstrual period: 20 weeks 3 days TECHNIQUE: Limited real-time transabdominal imaging with and M-mode Doppler. POSITION: Cephalic PLACENTA: Anterior MEASUREMENTS: Femur Length: 2.96 cm (19 weeks 1 day +/- 13 days) cardiac activity is 160 beats per minute. US/US OB limited IMPRESSION: Limited second trimester obstetric ultrasound demonstrates normal heart rate of 160 bpm. No gross abnormalities on this limited study. Electronically signed by: Vic Pendleton MD 07/28/2024 11:28 PM EDT Discharge Plan Discharge Clinical Impression: , Anemia, Abdominal pain, Left leg pain Patient Disposition: Home, Self-Care Instructions: at 15 to 18 Weeks (ED), Leg Pain (ED), Anemia (ED) Additional Instructions: Your workup in the ER today was reassuring. This includes your blood work, your ultrasound You do not have a blood clot Your baby's heart rate is 160 which is normal However, your blood pressure was elevated on arrival. This will become an issue when you are over 20 weeks and he need to follow up with your OBGYN, called him to tell him that your blood pressure was elevated today Your blood pressure was as high as 158/75 Return for new or worsening symptoms Prescriptions: No Action albuterol sulfate [Ventolin HFA] 90 mcg/actuation HFA aerosol inhaler 1 inh inhalation QID PRN (Reason: shortness of breath or wheezing) Qty: 8.5 1RF cyclobenzaprine 10 mg tablet 10 mg PO DAILY PRN (Reason: muscle spasm) Qty: 30 0RF aspirin 81 mg tablet,delayed release (DR/EC) PO pyridoxine (vitamin B6) [Vitamin B-6] 25 mg tablet 25 mg PO TID nifedipine 60 mg tablet extended release 24hr 60 mg PO DAILY omeprazole 20 mg capsule,delayed release(DR/EC) 20 mg PO DAILY Qty: 30 0RF bupropion HCl 300 mg tablet extended release 24 hr 300 mg PO DAILY Print Language: Kinyarwanda
--- NOTE | 2024-07-28 18:37 | PC.NURSE ---
Pt comes from home for abdominal pain starting today. Pt states she is 17 weeks and normally feels baby but today she hasn't. Endorsing lower abdominal cramping, states no bleeding noted. A/ox4, lung sounds cta bilaterally, sob upon arrival to room, s1 and s2 heard, abdomen tender on palpation, lower abdominal cramping/sharp pain. 20g IV placed in left upper forearm. Ultrasound at bedside with patient. Call billingsley within reach, all needs met at this time.
[2024-07-28 19:12] LABS: MANUAL DIFF FLAG NO
[2024-07-28 19:13] LABS: Basophils Percent Auto 0.3 % (0-2); Eosinophils Absolute Auto 0.6 X10*3/uL (0.0-0.4); Hemoglobin 10.7 g/dl (12.0-16.0); Imm Gran Abs Auto 0.03 X10*3/uL (0.00-0.03); Imm Gran Pct Auto 0.3 % (0.0-0.4); Lymphocytes Absolute Auto 2.8 X10*3/uL (1.2-4.9); Mean Corpuscular HGB Conc 33.4 g/dl (31.0-35.0); Mean Corpuscular Volume 83.8 fL (80.0-98.0); Mean Platelet Volume 10.9 fL (9.4-12.3); Monocytes Absolute Auto 0.7 X10*3/uL (0.1-1.2); Monocytes Percent Auto 6.4 % (2-11); Neutrophils Absolute Auto 6.3 x10*3/uL (2.0-8.3); Platelet Count 319 X10*3/uL (160-400); Red Blood Count 3.82 X10*6/uL (4.20-5.50); White Blood Count 10.5 X10*3/uL (4.8-10.8)
[2024-07-28 19:30] LABS: Alanine Aminotransferase 17 U/L (0-31); Albumin Level 3.1 g/dL (3.5-5.0); Alkaline Phosphatase 64 U/L (39-117); Amylase 68 U/L (28-100); Anion Gap 14 (12-20); Aspartate Amino Transferase 12 U/L (5-31); Bilirubin Total 0.2 mg/dL (0.0-1.0); Blood Urea Nitrogen 5 mg/dL (9-16); Calcium 7.9 mg/dL (8.4-10.2); Carbon Dioxide 21 mmol/L (22-29); Chloride 106 mmol/L (96-108); Creatinine Clr Calc Pharmacy 198.1; Estimated Glomerular Filt Rate > 60; Glucose Random 136 mg/dL (60-115); Lipase 13 U/L (8-78); Magnesium 1.8 mg/dL (1.6-2.6); Potassium 3.7 mmol/L (3.3-5.1); Sodium 137 mmol/L (135-145); Total Protein 6.2 g/dL (6.5-8.0)
[2024-07-28 19:55] VITALS: BP 131/65; PULSE 76; RESP 18; TEMP 36.6; O2SAT 97
[2024-07-28 20:03] LABS: Appearance Urine Clear; Color Urine Yellow; Glucose Urine UA Negative (Negative); Leukocyte Esterase Urine Negative (Negative); Nitrite Urine Negative (Negative); Urine Blood Negative (Negative); Urine Ketones Negative (Negative); Urine Protein Negative (Neg-Trace)
[2024-07-28] MEDS: Albuterol/Iprat 2.5/0.5MG 3 ML AMPUL.NEB INHALE (20:31)
[2024-07-28 20:32] VITALS: PULSE 78; RESP 16; O2SAT 98
[2024-07-28 22:25] VITALS: BP 142/74; PULSE 77; RESP 18; TEMP 36.7; O2SAT 98
[2024-07-29 04:54] VITALS: BP 142/74; PULSE 77; RESP 18; TEMP 36.7; O2SAT 98
== END 2024-07-28 23:30 | disposition home or self-care (01) ==
PROVIDERS: Registered Nurse Emergency; Emergency Provider Emergency Medicine
DX: O99.012 Anemia complicating pregnancy, second trimester (principal); D64.9 Anemia, unspecified; O26.892 Other specified pregnancy related conditions, second trimester; R10.9 Unspecified abdominal pain; M79.605 Pain in left leg
CPT/HCPCS: 36415; 76815; 80053; 81003; 82150; 83690; 83735; 85025; 93971; 94640; 99284; 99285

== ENCOUNTER 2024-08-01 11:24 | Outpatient (AMB) | payer OTHER, SELFPAY ==
[2024-08-01 11:38] VITALS: BP 118/82; PULSE 62; O2SAT 97; BMI 59.9
--- NOTE | 2024-08-01 11:38 | MHC.OFFWIV ---
Intake Vital Signs 08/01/24 11:38 Height 5 ft 3 in Weight 338 lb 2 oz BMI 59.9 BP 118/82 Blood Pressure Location Rt brachial Position Sitting Pulse 62 Pulse Source Pulse Oximeter Pulse Oximetry (%) 97 Oxygen Delivery Method Room Air Intake Visit Reasons: EP-SOB, discharging fluid belly bottom Intake Note: Patient here for Asthma flare up and needs a breathing treatment. She also mentioned that she has discharge coming from belly button which has been present for about 2 weeks and has become itchy and 18 weeks . Patient Tobacco Use Status: Never used Tobacco Allergies dextran 40 Adverse Reaction (Intermediate, Verified 08/01/24 11:40) Hypertension iron dextran complex Adverse Reaction (Intermediate, Verified 08/01/24 11:40) Hypertension Do you need a note to return to daycare/school/sports/work: No HPI HPI Comments History of Present Illness Details Patient is a 39-year-old female complaining of a ?asthma exacerbation ?she tells me she has been short of breath and has been using her inhaler and nebulizer 4 to 5 times a day each and ran out of her nebulizer solution. She says she has been coughing more as well and has just a little bit of congestion but no other upper respiratory symptoms. She denies any fevers. She is currently 18 weeks , her last menstrual period was March 07 and she has an estimated due date of January 01, 2025. [facility] Medical History Sacroiliac joint dysfunction of right side Right lumbar radiculitis Morbid obesity with BMI of 50.0-59.9, adult Asthma exacerbation Right ovarian cyst Knee pain Back pain Lower extremity edema Anxiety Depression GERD (gastroesophageal reflux disease) Asthma Sleep apnea with use of continuous positive airway pressure (CPAP) Morbid obesity Surgical History Hx of section Hx of cholecystectomy Family History Mother Diabetes Hyperlipidemia Father No problems noted. Brother No problems noted. Brother No problems noted. Sister No problems noted. Sister Lupus Son No problems noted. Daughter No problems noted. Social History Housing: Apartment Alcohol intake: current Alcohol intake frequency: holidays/special occasions only Patient Tobacco Use Status: Never used Tobacco e-Cigarette/Vaping Use: Never Used Second Hand Smoke Exposure: No service: No Current occupational status: disabled Current occupation: rt hand Cognitive needs: No Hearing needs: No Vision needs: No Female Reproductive History Menstrual Age of Menarche: 13 Review of Systems Const All systems reviewed & are unremarkable except as noted in HPI and below Physical Exam Vital Signs: Last Vital Signs Pulse 62 08/01/24 11:38 BP 118/82 08/01/24 11:38 Pulse Ox 97 08/01/24 11:38 Oxygen Delivery Method Room Air 08/01/24 11:38 BMI result Body Mass Index 59.9 Const General: cooperative, healthy appearing, comfortable, no acute distress and well developed Orientation/consciousness: patient oriented x3 Limitations: no limitations HEENT Head: Yes normal to inspection Ears: hearing grossly normal bilaterally General nose exam: Normal external nose present Face and sinus: Yes normal facial exam Eyes General: appearance normal, both eyes and all related structures Neck Neck: Yes normal visual inspection and Yes full ROM Resp Effort & Inspection: normal respiratory effort, not able to speak in complete sentences (Short of breath and speaking in short sentences) and Actively coughing Auscultation: clear to auscultation bilaterally and wheezes expiratory wheezes, inspiratory wheezes and throughout Cardio Rate: regular rate Rhythm: regular rhythm Heart sounds: normal S1 and S2 Skin General skin exam: no rashes or lesions noted Neuro General: patient oriented x3 Extrem General: Yes normal to inspection Office Procedures Nebulizer Treatment Nebulizer Treatment 43912-[id number]/[id number] RX initial, or Nebulizer Subsequent Treatment Office Meds albuterol sulfate 2.5 mg/3 mL (0.083 %) solution for nebulization Performing Provider: Angela Melissa PA-C Performing Location: [facility] Administered by: Angela Melissa PA-C on 08/01/24 12:53 Dose Route Admin Location Dispensed Lot Number Expiration Date [facility] [employer]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 Gave nebulizer treatment with albuterol in office with relief and sent prednisone burst 20 mg per day to pharmacy. Messaged her PCP to refer to pulmonology to add an asthma maintenance medication for the remainder of her . Plan see above Orders: Orders AMB Nebulizer Treatment Today J45.901 - Unspecified asthma with (acute) exacerbation Medications: New prednisone 20 mg PO QAM 5 tabs 0RF albuterol sulfate 1.25 mg (3 mL) inhalation Q4-6H PRN 75 mL 0RF Shortness Of Breath Or Wheezing Coding Level of Care Code Est Pt Level 4 (17487) Diagnoses Asthma exacerbation, mild J45.901 CPT Codes Nebulizer Treatment - Nebulizer Treatment, initial or subsequent: [id number]/MDI RX initial, or Nebulizer Subsequent Treatment ([id number])
== END 2024-08-01 12:55 | disposition home or self-care (01) ==
PROVIDERS: Visit Provider Physician Assistant
DX: J45.901 Unspecified asthma with (acute) exacerbation (principal)

== ENCOUNTER → 2024-08-01 11:24 | Outpatient (BNVA) | payer OTHER, SELFPAY | PROVIDERS: Visit Provider Physician Assistant | DX: J45.901 Unspecified asthma with (acute) exacerbation (principal) | CPT/HCPCS: 94640; 99212 ==

== ENCOUNTER 2024-08-14 10:20 | Outpatient (AMB) | payer OTHER, SELFPAY ==
--- NOTE | 2024-08-14 10:49 | A.OFFPC_ITS ---
Vital Signs 08/14/24 10:51 Height 5 ft 3 in Weight 338 lb 6 oz BMI 59.9 BP 128/72 Blood Pressure Location Rt brachial Position Sitting Pulse 40 L Pulse Source Pulse Oximeter Pulse Oximetry (%) 98 Oxygen Delivery Method Room Air Intake Visit Reasons: Follow Up Per Dr Gregory Intake Note: Patient is here to follow up on Asthma, Pulmonology referral. Classifications Officer Cc/Cm Required: No Communications Equipment Supervisor: Not Required per policy Accompanied by: Self / Same As Patient Allergies dextran 40 Adverse Reaction (Intermediate, Verified 08/14/24 12:45) Hypertension iron dextran complex Adverse Reaction (Intermediate, Verified 08/14/24 12:45) Hypertension Tobacco use date assessed: 08/14/24 Dental Screening Dental Screen Date: 03/01/24 HPI Follow Up Per Dr Gregory HPI Details 39-year-old female presents to the [facility] for a follow-up from a recent visit to the walk-in clinic. Patient has history of asthma. She has increased body mass index, is and has history of asthma. Currently she is using the albuterol 4 to 5 times a day. Continues to be short of breath. Patient is had 4 pregnancies. She has received prednisone during her pregnancies. Nonproductive cough. [facility] Medical History Sacroiliac joint dysfunction of right side Right lumbar radiculitis Morbid obesity with BMI of 50.0-59.9, adult Asthma exacerbation Right ovarian cyst Knee pain Back pain Lower extremity edema Anxiety Depression GERD (gastroesophageal reflux disease) Asthma Sleep apnea with use of continuous positive airway pressure (CPAP) Morbid obesity Surgical History Hx of section Hx of cholecystectomy Family History Mother Diabetes Hyperlipidemia Father No problems noted. Brother No problems noted. Brother No problems noted. Sister No problems noted. Sister Lupus Son No problems noted. Daughter No problems noted. Social History Housing: Apartment Alcohol intake: current Alcohol intake frequency: holidays/special occasions only Patient Tobacco Use Status: Never used Tobacco e-Cigarette/Vaping Use: Never Used Second Hand Smoke Exposure: No service: No Current occupational status: disabled Current occupation: rt hand Cognitive needs: No Hearing needs: No Vision needs: No Female Reproductive History Menstrual Age of Menarche: 13 Questionnaire Thrive Questionnaire Date Thrive assessed: 07/05/24 I am a: Patient What is your living situation today?: I have a place to live, but I am worried about losing it in the future Within the past 12 months, did the food you bought not last and you didn't have the money to get more?: I choose not to answer this question Within the past 12 months, did you worry whether your food would run out before you got money to buy more?: I choose not to answer this question Do you have trouble paying for medicines?: I choose not to answer this question Do you have trouble getting transportation to medical appointments?: No Do you have trouble paying your heating and electricity bill?: Yes Do you have trouble taking care of your child, family member or friend?: I choose not to answer this question Do you have trouble with day-to-day activities such as bathing, preparing meals, shopping, managing finances, etc.?: Yes Are you currently unemployed and looking for a job?: I choose not to answer this question Are you interested in more education?: No Please select the resources that you would like help with: None Currently or been in a relationship where the following occur: No concerns reported THRIVE Score: 2 EDMUNDO-7 AMB Questionnaire EDMUNDO-7 Date EDMUNDO - 7 assessed: 07/05/24 Source: Developed by Drs. Bigg Osorio, Renata Morales, Reinaldo Curtis and colleagues, with an educational lulú from [employer]. Physical exam (Primary Care) Vital Signs: Last Vital Signs Pulse 40 L 08/14/24 10:51 BP 128/72 08/14/24 10:51 Pulse Ox 98 08/14/24 10:51 Oxygen Delivery Method Room Air 08/14/24 10:51 BMI result Body Mass Index 59.9 Tobacco/Smoking Status: Tobacco use Status Tobacco use date assessed 08/14/24 08/14/24 11:00 Patient Tobacco Use Status Never used Tobacco 08/14/24 11:00 e-Cigarette/Vaping Use Never Used 08/14/24 11:00 Thrive Assessment: Date of Thrive Assessment Date Thrive assessed 07/05/24 08/14/24 11:00 Currently or been in a relationship where the following occur: No concerns reported Const General: cooperative and healthy appearing Nutritional Appearance: well nourished Orientation/consciousness: patient oriented x3 Limitations: no limitations HENMT Head: Yes normal to inspection Eyes General: appearance normal, both eyes and all related structures Neck Neck: Yes normal visual inspection Chest Chest palpation & inspection: normal palpation of entire chest wall Resp Effort & Inspection: normal respiratory effort Neuro General: patient oriented x3 Coding Level of Care Code Est Pt Level 3 (32979) Complex EM visit Add On G2211 Diagnoses Asthma J45.909 Assessment & Plan Assessment & Plan (1) Asthma: Code(s): J45.909 - Unspecified asthma, uncomplicated Category: Medical Plan: Budesonide has been added to the regimen. Use the albuterol as needed. Follow- up appointment in 1 week. If symptoms are not improving prednisone will be added for short-term relief. Medications: New budesonide-formoterol 160-4.5 mcg/actuation (Symbicort) 2 puffs PO BID 10.2 grams 1RF Refilled albuterol sulfate 1.25 mg (3 mL) inhalation Q4-6H PRN 75 mL 0RF Shortness Of Breath Or Wheezing
[2024-08-14 10:51] VITALS: BP 128/72; PULSE 40; O2SAT 98; BMI 59.9
== END 2024-08-14 11:27 | disposition home or self-care (01) ==
LOC: HO.HMCH 10:21
PROVIDERS: Visit Provider Internal Medicine
DX: J45.909 Unspecified asthma, uncomplicated (principal)

== ENCOUNTER → 2024-08-14 10:20 | Outpatient (BNVA) | payer OTHER, SELFPAY | PROVIDERS: Visit Provider Internal Medicine | DX: J45.909 Unspecified asthma, uncomplicated (principal) | CPT/HCPCS: 99212 ==

== ENCOUNTER 2024-08-18 19:22 | Emergency (ER) | payer OTHER, SELFPAY ==
--- NOTE | 2024-08-18 19:27 | ECG_ITS ---
Test Reason : CHEST PAIN Blood Pressure : / mmHG Vent. Rate : 069 BPM Atrial Rate : 069 BPM P-R Int : 164 ms QRS Dur : 096 ms QT Int : 422 ms P-R-T Axes : 039 024 051 degrees QTc Int : 452 ms Normal sinus rhythm Normal ECG When compared with ECG of 14-JUL-2024 15:20, No significant change was found Referred By: Cass Hitchcock Electronically Signed By:ALINA MELGAR MD
[2024-08-18 19:39] VITALS: BP 154/72; PULSE 69; RESP 18; TEMP 36.7; O2SAT 98; BMI 61.3
--- NOTE | 2024-08-18 19:39 | ED_ITS ---
HPI - General Adult General Chief complaint: Chest Pain Stated complaint: sob, chest pain, vag pain 19 wks Time Seen by Provider: 08/18/24 23:07 Source: patient, RN notes reviewed and old records reviewed Mode of arrival: ambulatory Limitations: no limitations History of Present Illness ED Provider: Tiffanie HPI narrative: 39-year-old female with past medical history significant for asthma, obesity presents for evaluation of shortness of breath. The patient is also approximately 20 weeks and 5 days . She reports that she is followed by OBGYN at [facility] [place] She reports 2 days of increasing shortness of breath, wheezing and chest pain. Said she finished a course of prednisone 1 to 1-1/2 weeks ago She denies any fevers or chills or sick contacts. She endorses lower abdominal pressure but denies vaginal bleeding or discharge She reports increased urination but no dysuria Related Data Home Medications ?Medication ?Instructions ?Recorded ?Confirmed aspirin 81 mg tablet,delayed mg PO 07/05/24 release nifedipine 60 mg tablet,extended 60 mg PO DAILY 07/05/24 release 24 hr pyridoxine (vitamin B6) 25 mg 25 mg PO TID 07/05/24 tablet (Vitamin B-6) Previous Rx's ?Medication ?Instructions ?Recorded cyclobenzaprine 10 mg tablet 10 mg PO DAILY PRN muscle spasm 03/01/24 #30 tabs albuterol sulfate 90 mcg/actuation 1 inh inhalation QID PRN shortness 03/16/24 aerosol inhaler (Ventolin HFA) of breath or wheezing #8.5 grams albuterol sulfate 1.25 mg/3 mL 1.25 mg (3 mL) inhalation Q4-6H 08/14/24 solution for nebulization PRN Shortness Of Breath Or Wheezing #75 mL budesonide-formoterol HFA 160 2 puff PO BID #10.2 grams 08/14/24 mcg-4.5 mcg/actuation aerosol inhaler (Symbicort) prednisone 20 mg tablet 40 mg (2 x 20 mg) PO DAILY #10 tabs 08/18/24 Allergies Allergy/AdvReac Type Severity Reaction Status Date / Time dextran 40 AdvReac Intermediate Hypertensio Verified 08/18/24 19:43 n iron dextran complex AdvReac Intermediate Hypertensio Verified 08/18/24 19:43 n Review of Systems 2 Constitutional: Constitutional: Denies body ache(s), Denies chills, Denies fever(s) and Denies headache(s) Eyes: Eyes: Denies blurry vision ENT: Denies vertigo and Denies headache(s) Cardiovascular: Cardiovascular: Denies chest pain and Reports dyspnea Respiratory: Respiratory: Denies cough, Reports dyspnea and Reports wheezing Gastrointestinal: Gastrointestinal: Reports abdominal pain Genitourinary: Genitourinary: Denies dysuria, Reports pelvic pain and Denies vaginal discharge Musculoskeletal: Musculoskeletal: Denies back pain Integumentary/Breasts: Skin/Breast: Denies rash Neurologic: Denies vertigo and Denies headache(s) Psychiatric: Psychiatric: Denies anxiety Allergic/Immunologic: Allergic/Immunologic: Reports wheezing PMFSH Past Medical History Medical History Sacroiliac joint dysfunction of right side Right lumbar radiculitis Morbid obesity with BMI of 50.0-59.9, adult Asthma exacerbation Right ovarian cyst Knee pain Back pain Lower extremity edema Anxiety Depression GERD (gastroesophageal reflux disease) Asthma Sleep apnea with use of continuous positive airway pressure (CPAP) Morbid obesity Surgical History Hx of section Hx of cholecystectomy Family History Family History Mother Diabetes Hyperlipidemia Father No problems noted. Brother No problems noted. Brother No problems noted. Sister No problems noted. Sister Lupus Son No problems noted. Daughter No problems noted. Social History Social History Housing: Apartment Alcohol intake: current Alcohol intake frequency: holidays/special occasions only Patient Tobacco Use Status: Never used Tobacco Smoked in Last 30 Days: No e-Cigarette/Vaping Use: Never Used Second Hand Smoke Exposure: No Use of substances other than those prescribed or required for medical reasons: No Advance Directives: No Advance Directives Information Provided: No service: No Current occupational status: disabled Current occupation: rt hand Cognitive needs: No Hearing needs: No Vision needs: No Physical Exam ED Vital Signs: Vital Signs - 24 hr 08/18/24 19:39 08/18/24 21:49 08/18/24 23:27 Temperature 98.0 F 98.0 F Pulse Rate 69 66 70 Respiratory Rate 18 20 18 Blood Pressure 154/72 H 160/75 H Pulse Oximetry 98 99 Oxygen Delivery Method Room Air Room Air BMI result Body Mass Index 61.3 Const General: healthy appearing, comfortable, no acute distress, alert and awake Nutritional Appearance: well nourished Orientation/consciousness: patient oriented x3 HENMT Head: Yes normocephalic and Yes atraumatic Neck Neck: Yes full ROM Resp Effort & Inspection: normal respiratory effort, able to speak in complete sentences and not labored Auscultation: wheezes (Diffuse expiratory wheeze) Cardio Rate: regular rate Rhythm: regular rhythm GI Inspection: No distended Palpation (GI): Soft to palpation, not firm, nontender, no guarding and not rigid Skin General skin exam: elasticity normal Neuro General: patient oriented x3 Cranial nerves: Yes Bilaterally intact EOM present Cognition (Neuro): normal cognition Extrem Other: Moving all extremities well without any obvious deformities Course Course Course Narrative: This is an RME done by SAIMA Hitchcock: Additional HPI, ROS, PE not included below will be deferred to primary provider. 31-year-old female presenting to the emergency department with complaints of pressure in the pelvic region, shortness of breath, feeling unwell for the past few days. Also reports associated substernal chest discomfort Plan imaging, EKG Reevaluation(s) Reevaluation #1: heart tones measured at 136 beats per minute Time: 23:40 Medications Administered Discontinued Medications Generic Name Dose Route Start Last Admin Trade Name Freq PRN Reason Stop Dose Admin Albuterol/Ipratropium 3 ml 08/18/24 23:15 08/18/24 23:26 Albuterol/Iprat 2.5/0.5mg 3 Ml Ampul.Neb INHALE 08/18/24 23:16 3 ml ONCE ONE Administration Medical Decision Making Medical Decision Making MDM Narrative: 39-year-old female presents for evaluation of shortness of breath, she is quite wheezy on exam which is consistent with her known his asthma. Her lung sounds are wheezy throughout, no asymmetrical adventitious breath sounds. I have a low suspicion for pneumonia, will defer chest x-ray at this time. Patient will be treated with a DuoNeb. Does have a slight leukocytosis which may be related to her recent prednisone use. She has a my sciatic anemia which is consistent with her most recent labs. ultrasound shows a heart rate of 136 Differential Diagnosis Differential Diagnoses: The differential diagnosis associated with the presentation includes Acute asthma exacerbation Bronchitis Upper respiratory infection demise Jg Mac contractions UTI Lab Data MDM Lab Attestation statement: I reviewed the patient's lab results. See above 08/18/24 20:29 08/18/24 20:29 Labs: Lab Results 08/18/24 Range/Units 20:29 WBC 11.8 H (4.8-10.8) X10*3/uL RBC 3.87 L (4.20-5.50) X10*6/uL Hgb 10.8 L (12.0-16.0) g/dl Hct 32.4 L (37.0-47.0) % MCV 83.7 (80.0-98.0) fL MCH 27.9 (27.0-33.0) pg MCHC 33.3 (31.0-35.0) g/dl RDW 14.5 (11.0-16.0) % Plt Count 289 (160-400) X10*3/uL MPV 10.7 (9.4-12.3) fL Immature Gran % (Auto) 0.3 (0.0-0.4) % Neut % (Auto) 68.4 (45-73) % Lymph % (Auto) 22.4 (20-40) % Lamar % (Auto) 5.7 (2-11) % Eos % (Auto) 2.9 (0-4) % Baso % (Auto) 0.3 (0-2) % Lymph # (Auto) 2.6 (1.2-4.9) X10*3/uL Lamar # (Auto) 0.7 (0.1-1.2) X10*3/uL Eos # (Auto) 0.3 (0.0-0.4) X10*3/uL Baso # (Auto) 0.0 (0.0-0.2) X10*3/uL Abs Immat Gran (auto) 0.03 (0.00-0.03) X10*3/uL Absolute Neuts (auto) 8.1 (2.0-8.3) x10*3/uL Absolute Nucleated RBC 0.000 (0.0-0.012) X10*3/uL Nucleated RBC % (auto) 0.0 (0.0-0.2) /100WBC Sodium 137 (135-145) mmol/L Potassium 3.3 (3.3-5.1) mmol/L Chloride 108 (96-108) mmol/L Carbon Dioxide 18 L (22-29) mmol/L Anion Gap 14 (12-20) BUN 7 L (9-16) mg/dL Creatinine 0.69 (0.5-1.4) mg/dL Estim Creat Clear Calc 164.4 Estimated GFR > 60 Random Glucose 116 H (60-115) mg/dL Calcium 8.5 D (8.4-10.2) mg/dL Magnesium 1.9 (1.6-2.6) mg/dL Total Bilirubin 0.2 (0.0-1.0) mg/dL AST 16 (5-31) U/L ALT 15 (0-31) U/L Alkaline Phosphatase 69 (39-117) U/L Troponin I High Sens < 2.7 (<3.5-17.0) ng/L Total Protein 6.7 (6.5-8.0) g/dL Albumin 3.3 L (3.5-5.0) g/dL Beta HCG, Quant 5482 mIU/mL Discharge Plan Discharge Clinical Impression: Asthma, Patient Disposition: Home, Self-Care Instructions: Asthma (ED), at 19 to 22 Weeks (ED) Additional Instructions: I prescribed prednisone again for your asthma exacerbation. Continue your inhalers as needed. Your baby's heart rate today was 136 beats per minute which is a normal heart rate for the timeline of your Follow-up with your OBGYN Prescriptions: New prednisone 20 mg tablet 40 mg PO DAILY Qty: 10 0RF No Action albuterol sulfate [Ventolin HFA] 90 mcg/actuation HFA aerosol inhaler 1 inh inhalation QID PRN (Reason: shortness of breath or wheezing) Qty: 8.5 1RF cyclobenzaprine 10 mg tablet 10 mg PO DAILY PRN (Reason: muscle spasm) Qty: 30 0RF aspirin 81 mg tablet,delayed release (DR/EC) PO pyridoxine (vitamin B6) [Vitamin B-6] 25 mg tablet 25 mg PO TID nifedipine 60 mg tablet extended release 24hr 60 mg PO DAILY albuterol sulfate 1.25 mg/3 mL solution for nebulization 1.25 mg inhalation Q4-6H PRN (Reason: Shortness Of Breath Or Wheezing) Qty: 75 0RF budesonide-formoterol [Symbicort] 160-4.5 mcg/actuation HFA aerosol inhaler 2 puff PO BID Qty: 10.2 1RF Print Language: Other
--- NOTE | 2024-08-18 19:39 | MHC.EDTECH ---
EKG not crossing over in tracker. performed at 1725 - signed by Dr. Mayo
[2024-08-18 20:34] LABS: MANUAL DIFF FLAG NO
[2024-08-18 20:35] LABS: Basophils Percent Auto 0.3 % (0-2); Eosinophils Absolute Auto 0.3 X10*3/uL (0.0-0.4); Eosinophils Percent Auto 2.9 % (0-4); Hematocrit 32.4 % (37.0-47.0); Hemoglobin 10.8 g/dl (12.0-16.0); Imm Gran Abs Auto 0.03 X10*3/uL (0.00-0.03); Imm Gran Pct Auto 0.3 % (0.0-0.4); Lymphocytes Absolute Auto 2.6 X10*3/uL (1.2-4.9); Lymphocytes Percent Auto 22.4 % (20-40); Mean Corpuscular HGB Conc 33.3 g/dl (31.0-35.0); Mean Corpuscular Hemoglobin 27.9 pg (27.0-33.0); Mean Corpuscular Volume 83.7 fL (80.0-98.0); Mean Platelet Volume 10.7 fL (9.4-12.3); Monocytes Absolute Auto 0.7 X10*3/uL (0.1-1.2); Monocytes Percent Auto 5.7 % (2-11); Neutrophils Absolute Auto 8.1 x10*3/uL (2.0-8.3); Neutrophils Percent Auto 68.4 % (45-73); Platelet Count 289 X10*3/uL (160-400); Red Blood Count 3.87 X10*6/uL (4.20-5.50); Red Cell Distribution Width 14.5 % (11.0-16.0); White Blood Count 11.8 X10*3/uL (4.8-10.8)
[2024-08-18 21:02] LABS: Alanine Aminotransferase 15 U/L (0-31); Albumin Level 3.3 g/dL (3.5-5.0); Alkaline Phosphatase 69 U/L (39-117); Anion Gap 14 (12-20); Aspartate Amino Transferase 16 U/L (5-31); Bilirubin Total 0.2 mg/dL (0.0-1.0); Blood Urea Nitrogen 7 mg/dL (9-16); Calcium 8.5 mg/dL (8.4-10.2); Carbon Dioxide 18 mmol/L (22-29); Chloride 108 mmol/L (96-108); Creatinine Clr Calc Pharmacy 164.4; Estimated Glomerular Filt Rate > 60; Glucose Random 116 mg/dL (60-115); HCG Quantitative 5482 mIU/mL; Magnesium 1.9 mg/dL (1.6-2.6); Potassium 3.3 mmol/L (3.3-5.1); Sodium 137 mmol/L (135-145); Total Protein 6.7 g/dL (6.5-8.0)
[2024-08-18 21:03] LABS: Troponin-I High Sensitivity < 2.7 ng/L (<3.5-17.0)
[2024-08-18 21:49] VITALS: BP 160/75; PULSE 66; RESP 20; TEMP 36.7; O2SAT 99
[2024-08-18 23:04] VITALS: PULSE 64
[2024-08-18] MEDS: Albuterol/Iprat 2.5/0.5MG 3 ML AMPUL.NEB INHALE (23:26)
[2024-08-18 23:27] VITALS: PULSE 70; RESP 18; O2SAT 97
[2024-08-18 23:50] VITALS: BP 160/75; PULSE 70; RESP 18; TEMP 36.7; O2SAT 99
[2024-08-18 23:53] LABS: Appearance Urine Clear; Color Urine Yellow; Glucose Urine UA Negative (Negative); Leukocyte Esterase Urine Negative (Negative); Nitrite Urine Negative (Negative); PH 6.5 (5.0-9.0); Specific Gravity - Urine >= 1.030 (1.005-1.025); Urine Blood Negative (Negative); Urine Ketones Negative (Negative); Urine Protein Negative (Neg-Trace)
[2024-08-18 23:56] LABS: Bacteria Urine None Seen (None Seen); Hyaline Casts Urine 0-2 /LPF (0-2); RBC Urine 0-2 /HPF (0-2); WBC Urine 0-5 /HPF (0-5)
== END 2024-08-18 23:53 | disposition home or self-care (01) ==
PROVIDERS: Physician Assistant; Emergency Provider Emergency Medicine
DX: O99.512 Diseases of the respiratory system complicating pregnancy, second trimester (principal); J45.909 Unspecified asthma, uncomplicated; R06.02 Shortness of breath; O09.522 Supervision of elderly multigravida, second trimester; Z3A.20 20 weeks gestation of pregnancy
CPT/HCPCS: 36415; 80053; 81001; 83735; 84484; 84702; 85025; 93005; 94640; 99284; 99285

== ENCOUNTER → 2024-08-18 19:27 | Outpatient (BNV) | payer OTHER, SELFPAY | PROVIDERS: Emergency Provider Emergency Medicine; Visit Provider Internal Medicine Cardiovascular Disease | DX: R07.9 Chest pain, unspecified (principal) | CPT/HCPCS: 93010 ==

== ENCOUNTER 2024-08-21 09:50 | Outpatient (AMB) | payer OTHER, SELFPAY ==
--- NOTE | 2024-08-21 09:55 | A.OFFPC_ITS ---
Vital Signs 08/21/24 09:57 Height 5 ft 3 in Weight 341 lb 2 oz BMI 60.4 BP 120/78 Blood Pressure Location Lt brachial Position Sitting Pulse 71 Pulse Source Pulse Oximeter Pulse Oximetry (%) 98 Oxygen Delivery Method Room Air Intake Visit Reasons: one week f/u Intake Note: Patient is here to follow up on Asthma 1 week. Public Health Microbiologist Required: No Sewage Plant Attendant: Not Required per policy Accompanied by: Self / Same As Patient Allergies dextran 40 Adverse Reaction (Intermediate, Verified 08/21/24 10:57) Hypertension iron dextran complex Adverse Reaction (Intermediate, Verified 08/21/24 10:57) Hypertension Medication List - Last Reconciled 08/21/24 by Eriberto Saunders MD albuterol sulfate 90 mcg/actuation (Ventolin HFA) 1 inh inhalation QID PRN albuterol sulfate 1.25 mg (3 mL) inhalation Q4-6H PRN aspirin mg PO budesonide-formoterol 160-4.5 mcg/actuation (Symbicort) 2 puffs PO BID cyclobenzaprine 10 mg PO DAILY PRN nifedipine ER 60 mg PO DAILY prednisone 40 mg (2 x 20 mg) PO DAILY pyridoxine (vitamin B6) (Vitamin B-6) 25 mg PO TID Tobacco use date assessed: 08/21/24 Dental Screening Dental Screen Date: 03/01/24 HPI one week f/u HPI Details 39-year-old female [facility] a follow-up visit. Since last office visit, patient was seen in the emergency room and prescribed prednisone and albuterol treatment. For a variety of reasons she could not pepper picker the prescription of prednisone. Neither could she pepper picker the prescription for Symbicort that I had sent over last week. As a result, patient has only been taking albuterol 3 to 4 times a day. Patient is and continues to wheeze and feel tight. Does not smoke. [facility] Medical History Sacroiliac joint dysfunction of right side Right lumbar radiculitis Morbid obesity with BMI of 50.0-59.9, adult Asthma exacerbation Right ovarian cyst Knee pain Back pain Lower extremity edema Anxiety Depression GERD (gastroesophageal reflux disease) Asthma Sleep apnea with use of continuous positive airway pressure (CPAP) Morbid obesity Surgical History Hx of section Hx of cholecystectomy Family History Mother Diabetes Hyperlipidemia Father No problems noted. Brother No problems noted. Brother No problems noted. Sister No problems noted. Sister Lupus Son No problems noted. Daughter No problems noted. Social History Housing: Apartment Alcohol intake: current Alcohol intake frequency: holidays/special occasions only Patient Tobacco Use Status: Never used Tobacco e-Cigarette/Vaping Use: Never Used Second Hand Smoke Exposure: No service: No Current occupational status: disabled Current occupation: rt hand Cognitive needs: No Hearing needs: No Vision needs: No Female Reproductive History Menstrual Age of Menarche: 13 Questionnaire Thrive Questionnaire Date Thrive assessed: 07/05/24 I am a: Patient What is your living situation today?: I have a place to live, but I am worried about losing it in the future Within the past 12 months, did the food you bought not last and you didn't have the money to get more?: I choose not to answer this question Within the past 12 months, did you worry whether your food would run out before you got money to buy more?: I choose not to answer this question Do you have trouble paying for medicines?: I choose not to answer this question Do you have trouble getting transportation to medical appointments?: No Do you have trouble paying your heating and electricity bill?: Yes Do you have trouble taking care of your child, family member or friend?: I choose not to answer this question Do you have trouble with day-to-day activities such as bathing, preparing meals, shopping, managing finances, etc.?: Yes Are you currently unemployed and looking for a job?: I choose not to answer this question Are you interested in more education?: No Please select the resources that you would like help with: None Currently or been in a relationship where the following occur: No concerns reported THRIVE Score: 2 EDMUNDO-7 AMB Questionnaire EDMUNDO-7 Date EDMUNDO - 7 assessed: 07/05/24 Source: Developed by Drs. Bigg Osorio, Renata B.W. Reinaldo Morales and colleagues, with an educational lulú from [employer]. Physical exam (Primary Care) Vital Signs: Last Vital Signs Pulse 71 08/21/24 09:57 BP 120/78 08/21/24 09:57 Pulse Ox 98 08/21/24 09:57 Oxygen Delivery Method Room Air 08/21/24 09:57 BMI result Body Mass Index 60.4 Tobacco/Smoking Status: Tobacco use Status Tobacco use date assessed 08/21/24 08/21/24 10:02 Patient Tobacco Use Status Never used Tobacco 08/21/24 09:55 e-Cigarette/Vaping Use Never Used 08/21/24 09:55 Thrive Assessment: Date of Thrive Assessment Date Thrive assessed 07/05/24 08/21/24 09:55 Currently or been in a relationship where the following occur: No concerns reported Const Other: Heavyset female in mild distress. General: cooperative and healthy appearing Nutritional Appearance: well nourished Orientation/consciousness: patient oriented x3 Limitations: no limitations HENMT Head: Yes normal to inspection Eyes General: appearance normal, both eyes and all related structures Neck Neck: Yes normal visual inspection Chest Chest palpation & inspection: normal palpation of entire chest wall Resp Other: Scattered wheeze bilaterally. Effort & Inspection: normal respiratory effort Neuro General: patient oriented x3 Coding Level of Care Code Est Pt Level 4 (12067) Diagnoses Asthma J45.909 Assessment & Plan Assessment & Plan (1) Asthma: Code(s): J45.909 - Unspecified asthma, uncomplicated Category: Medical Plan: My office staff called the pharmacy and confirmed the patient has prednisone and Symbicort ready for pickup. I suggested patient to use albuterol, Symbicort and prednisone and check with me next week. Orders: Orders AMB Nebulizer Treatment Today R06.2 - Wheezing Medications: New albuterol sulfate 2.5 mg (3 mL) inhalation ONCE 3 mL 0RF R06.2 - Wheezing
[2024-08-21 09:57] VITALS: BP 120/78; PULSE 71; O2SAT 98; BMI 60.4
== END 2024-08-21 14:54 | disposition home or self-care (01) ==
PROVIDERS: Visit Provider Internal Medicine
DX: J45.909 Unspecified asthma, uncomplicated (principal)

== ENCOUNTER → 2024-08-21 09:50 | Outpatient (BNVA) | payer OTHER, SELFPAY | PROVIDERS: Visit Provider Internal Medicine | DX: J45.909 Unspecified asthma, uncomplicated (principal) | CPT/HCPCS: 99212 ==

== ENCOUNTER 2024-08-28 09:44 | Outpatient (AMB) | payer OTHER, SELFPAY ==
[2024-08-28 09:46] VITALS: BP 148/82; PULSE 70; O2SAT 97; BMI 60.8
--- NOTE | 2024-08-28 09:46 | A.OFFPC_ITS ---
Vital Signs 08/28/24 09:46 Height 5 ft 3 in Weight 343 lb BMI 60.8 BP 148/82 H Blood Pressure Location Rt radial Position Sitting Pulse 70 Pulse Source Pulse Oximeter Pulse Oximetry (%) 97 Oxygen Delivery Method Room Air Intake Visit Reasons: 1 week f/u Asthma Allergies dextran 40 Adverse Reaction (Intermediate, Verified 08/28/24 09:48) Hypertension iron dextran complex Adverse Reaction (Intermediate, Verified 08/28/24 09:48) Hypertension Tobacco use date assessed: 08/21/24 Dental Screening Dental Screen Date: 03/01/24 HPI 1 week f/u Asthma HPI Details The patient is a 39-year-old female presenting with asthma management. She has been using two inhalers previously prescribed, including albuterol and another inhaler referred to as Symbicort. The patient reports that it was suggested to her that the Symbicort inhaler is equivalent to albuterol but offers improved effects. She has been instructed to take two pumps in the morning and two at night, and follows the guidance to gargle following its use to prevent oral yeast infections. The patient completed a course of prednisone, and reports no further need for it as she has returned to her baseline state of health. Additionally, the patient mentions a skin condition involving fluid discharge from the umbilicus, attributed to minor irritation or cracking of the skin, which was not considered worrisome. [facility] Medical History Sacroiliac joint dysfunction of right side Right lumbar radiculitis Morbid obesity with BMI of 50.0-59.9, adult Asthma exacerbation Right ovarian cyst Knee pain Back pain Lower extremity edema Anxiety Depression GERD (gastroesophageal reflux disease) Asthma Sleep apnea with use of continuous positive airway pressure (CPAP) Morbid obesity Surgical History Hx of section Hx of cholecystectomy Family History Mother Diabetes Hyperlipidemia Father No problems noted. Brother No problems noted. Brother No problems noted. Sister No problems noted. Sister Lupus Son No problems noted. Daughter No problems noted. Social History Housing: Apartment Alcohol intake: current Alcohol intake frequency: holidays/special occasions only Patient Tobacco Use Status: Never used Tobacco e-Cigarette/Vaping Use: Never Used Second Hand Smoke Exposure: No service: No Current occupational status: disabled Current occupation: rt hand Cognitive needs: No Hearing needs: No Vision needs: No Female Reproductive History Menstrual Age of Menarche: 13 Questionnaire Thrive Questionnaire Date Thrive assessed: 07/05/24 I am a: Patient What is your living situation today?: I have a place to live, but I am worried about losing it in the future Within the past 12 months, did the food you bought not last and you didn't have the money to get more?: I choose not to answer this question Within the past 12 months, did you worry whether your food would run out before you got money to buy more?: I choose not to answer this question Do you have trouble paying for medicines?: I choose not to answer this question Do you have trouble getting transportation to medical appointments?: No Do you have trouble paying your heating and electricity bill?: Yes Do you have trouble taking care of your child, family member or friend?: I choose not to answer this question Do you have trouble with day-to-day activities such as bathing, preparing meals, shopping, managing finances, etc.?: Yes Are you currently unemployed and looking for a job?: I choose not to answer this question Are you interested in more education?: No Please select the resources that you would like help with: None Currently or been in a relationship where the following occur: No concerns reported THRIVE Score: 2 AUDIT C Alcohol Use Questionnaire (AUDIT-C) 1. How often do you have a drink containing alcohol?: Never 3. How often do you have six or more drinks on one occasion?: Never Total Score: 0 EDMUNDO-7 AMB Questionnaire EDMUNDO-7 Date EDMUNDO - 7 assessed: 07/05/24 Source: Developed by Drs. Bigg Osorio, Renata Morales, Reinaldo Curtis and colleagues, with an educational lulú from [employer]. Physical exam (Primary Care) Vital Signs: Last Vital Signs Pulse 70 08/28/24 09:46 BP 148/82 H 08/28/24 09:46 Pulse Ox 97 08/28/24 09:46 Oxygen Delivery Method Room Air 08/28/24 09:46 BMI result Body Mass Index 60.8 Tobacco/Smoking Status: Tobacco use Status Tobacco use date assessed 08/21/24 08/28/24 09:51 Patient Tobacco Use Status Never used Tobacco 08/28/24 09:51 e-Cigarette/Vaping Use Never Used 08/28/24 09:51 Thrive Assessment: Date of Thrive Assessment Date Thrive assessed 07/05/24 08/28/24 09:51 Currently or been in a relationship where the following occur: No concerns reported Coding Level of Care Code Est Pt Level 3 (49066) Complex EM visit Add On G2211 Diagnoses Asthma J45.909 Umbilicus discharge R19.8 Assessment & Plan Assessment & Plan (1) Asthma: Code(s): J45.909 - Unspecified asthma, uncomplicated Category: Medical Plan: - Continue use of Simbocort inhaler, two pumps in the morning and two at night. - Ensure mouth rinsing post-inhalation to prevent oral infections. (2) Umbilicus discharge: Code(s): R19.8 - Other specified symptoms and signs involving the digestive system and abdomen Plan: I addressed the minor issue of fluid discharge from the umbilicus, explaining it as a likely occurrence due to skin irritation and assuring her there was nothing concerning about it
== END 2024-08-28 10:02 | disposition home or self-care (01) ==
PROVIDERS: PCP Internal Medicine; Visit Provider Internal Medicine
DX: J45.909 Unspecified asthma, uncomplicated (principal); R19.8 Other specified symptoms and signs involving the digestive system and abdomen

== ENCOUNTER → 2024-08-28 09:44 | Outpatient (BNVA) | payer OTHER, SELFPAY | PROVIDERS: PCP Internal Medicine; Visit Provider Internal Medicine | DX: J45.909 Unspecified asthma, uncomplicated (principal); R19.8 Other specified symptoms and signs involving the digestive system and abdomen | CPT/HCPCS: 99212 ==

== ENCOUNTER 2024-09-12 14:09 | Emergency (ER) | payer OTHER, SELFPAY ==
[2024-09-12] VITALS (11 sets, daily range): BP systolic 141–192; BP diastolic 67–96; PULSE 63–72; RESP 16–20; TEMP 36.7–36.9; O2SAT 98–100; BMI 60.2
--- NOTE | ~2024-09-12 | US_ITS ---
EXAMINATION: US , LIMITED CLINICAL INFORMATION: Fall. Decreased movements. COMPARISON: OB ultrasound Limited July 28, 2024 TECHNIQUE: Grayscale ultrasound pelvis limited. FINDINGS: Single intrauterine gestation in breech presentation. There is motion present. heart rate 140 bpm. Placenta anterior. US/US OB limited IMPRESSION: Single intrauterine gestation with motion and heartbeat of 140 bpm. Electronically signed by: Marco Granados MD 09/12/2024 07:36 PM NOEL
--- NOTE | ~2024-09-12 | XR_ITS ---
EXAMINATION: XR ANKLE, RIGHT CLINICAL INFORMATION: fall - patient is COMPARISON: None available. TECHNIQUE: AP, lateral, and mortise views of the right ankle. FINDINGS: No fracture. Alignment is anatomic. No erosions. Joint spaces are maintained. Generalized soft tissue edema seen of the distal calf and ankle XR/XR ankle RT min 3V IMPRESSION: No acute fractures. Soft tissue edema. Electronically signed by: Juancho Joseph MD 09/12/2024 09:28 PM EST
--- NOTE | 2024-09-12 15:25 | ED.GENADULT ---
HPI - General Adult General Chief complaint: Back Pain/Injury Stated complaint: High BP, fall today Time Seen by Provider: 09/12/24 15:18 Source: patient Mode of arrival: ambulatory Limitations: no limitations History of Present Illness ED Provider: RYLAND LORD narrative: 39 yo female [place] January [id number] D 24w1d here with c/o moving stuff as her living situation changed and she slipped and went down about 5 stairs on the lower back and R ankle, No head strike or LOC but she has a headache. She has no abdominal pain or vaginal bleeding. She states she has hx of HTN and is on nifedipine 60mg daily which she took today. She is going to deliver at [facility] but cannot tell me the OB services name - she states she goes to an office in [place]. She denies any other complaints. She also notes she is on baby aspirin. She also felt like the baby didn't move after the fall. She has been on her nifedipine for 3 months. On arrival to the room I saw that patient had elevated BPs and asked RN to start line and get labetalol MD complaint: trip and fall. Onset (ago): hour(s) (11am today) Location: back, right and lower extremity Radiation: non-radiation Severity: mild Quality: aching Pain Consistency: constant Relieving factors: none Associated symptoms: headaches Treatments prior to arrival: none Related Data Home Medications ?Medication ?Instructions ?Recorded ?Confirmed aspirin 81 mg tablet,delayed mg PO 07/05/24 release nifedipine 60 mg tablet,extended 60 mg PO DAILY 07/05/24 release 24 hr pyridoxine (vitamin B6) 25 mg 25 mg PO TID 07/05/24 tablet (Vitamin B-6) Previous Rx's ?Medication ?Instructions ?Recorded budesonide-formoterol HFA 160 2 puff PO BID #10.2 grams 08/14/24 mcg-4.5 mcg/actuation aerosol inhaler (Symbicort) Allergies Allergy/AdvReac Type Severity Reaction Status Date / Time dextran 40 AdvReac Intermediate Hypertensio Verified 09/12/24 15:22 n iron dextran complex AdvReac Intermediate Hypertensio Verified 09/12/24 15:22 n Review of Systems Review of Systems: Constitutional : No Fever, No Chills, No Fatigue ENT/Mouth : No sore throat, No Rhinorrhea Eyes: No Eye Pain, No Swelling, No Redness Cardiovascular : No Chest Pain, No SOB, No Dyspnea on Exertion Respiratory : No Cough, No Sputum Gastrointestinal : No Nausea, No Vomiting, No Diarrhea, No abdominal Pain Genitourinary : No Dysuria, No Urinary Frequency, No Hematuria, Musculoskeletal : pos joint pain, No Myalgias, No Joint Swelling, pos back pain Skin : No Skin Lesions, No rash Neuro : No Weakness, No Numbness, No Dizziness, positive Headache All other systems reviewed and are negative [facility] Past Medical History Attestation statement: The following information was validated with the patient. Source: old records reviewed Medical History Sacroiliac joint dysfunction of right side Right lumbar radiculitis Morbid obesity with BMI of 50.0-59.9, adult Asthma exacerbation Right ovarian cyst Knee pain Back pain Lower extremity edema Anxiety Depression GERD (gastroesophageal reflux disease) Asthma Sleep apnea with use of continuous positive airway pressure (CPAP) Morbid obesity Surgical History Hx of section Hx of cholecystectomy Family History Family History Mother Diabetes Hyperlipidemia Father No problems noted. Brother No problems noted. Brother No problems noted. Sister No problems noted. Sister Lupus Son No problems noted. Daughter No problems noted. Social History Social History Housing: Apartment Alcohol intake: current Alcohol intake frequency: holidays/special occasions only Patient Tobacco Use Status: Never used Tobacco e-Cigarette/Vaping Use: Never Used Second Hand Smoke Exposure: No Use of substances other than those prescribed or required for medical reasons: No Advance Directives: No Advance Directives Information Provided: Yes Do you have a plan to hurt others: No Plan Patient : Yes service: No Current occupational status: disabled Current occupation: rt hand Cognitive needs: No Hearing needs: No Vision needs: No Physical Exam ED Vital Signs: Vital Signs - 24 hr 09/12/24 15:18 09/12/24 16:25 09/12/24 17:51 Temperature 98.5 F 98.4 F Pulse Rate 72 72 71 Respiratory Rate 16 20 16 Blood Pressure 192/94 H 172/91 H 170/96 H Pulse Oximetry 100 98 100 Oxygen Delivery Method Room Air Room Air Room Air 09/12/24 18:23 09/12/24 18:47 09/12/24 18:53 Temperature Pulse Rate 67 69 67 Respiratory Rate 20 Blood Pressure 170/74 H 141/71 H 141/75 H Pulse Oximetry Oxygen Delivery Method 09/12/24 18:58 09/12/24 19:11 09/12/24 19:11 Temperature Pulse Rate 65 66 71 Respiratory Rate 18 Blood Pressure 159/81 H 159/81 H 159/81 H Pulse Oximetry 100 Oxygen Delivery Method Room Air 09/12/24 19:28 09/12/24 19:47 09/12/24 20:02 Temperature 98.1 F Pulse Rate 67 63 63 Respiratory Rate 18 18 18 Blood Pressure 149/72 H 146/67 H 146/67 H Pulse Oximetry 100 100 100 Oxygen Delivery Method Room Air Room Air Room Air BMI result Body Mass Index 60.2 Appearance: Alert. Oriented X3. No acute distress. obese Eyes: Pupils equal, round and reactive to light. ENT: Pharynx normal. Neck: Normal inspection. Neck supple. CVS: Normal heart rate and rhythm. Pulses normal. Respiratory: No respiratory distress. Breath sounds normal. Abdomen: Soft and non-tender. Skin: Skin warm and dry. Normal skin color. Normal skin turgor. Extremities: 1+ pitting lower extremity edema. R ankle mild ttp along lateral malleolus Neuro: Oriented X 3. No motor deficit. No sensory deficit. Course Course Course Narrative: This is a rapid medical exam performed by Maria R Fowler PA-C. The patient is a 39-year-old female currently approximately 24 weeks with estimated date of delivery January 01, 2025, presents after falling down 5 stairs landing on her left side. Patient states she can not detect movement. Denies vaginal bleeding or other vaginal discharge. Her primary complaint is for low back pain and right knee pain. Patient is ambulatory. Unable to obtain bedside heart rate, a transvaginal ultrasound. Patient is also hypertensive, she states she just saw her optical engineering manager yesterday, she is currently on nifedipine, they increase the dosage. To note, the patient has a history of hypertension prior to her , she has been hypertensive throughout this entire thus far. We will be expediting her assessment, there was concern for preeclampsia. Reevaluation(s) Reevaluation #1: call to [facility] 558pm given her HTN, 24 weeks and headaches Reevaluation #2: feeling better she states 141/74\5 Reevaluation #3: Katrina from OB from [facility] called back - needs to talk to attending but aware of plan to transfer Sent to [facility] hold on mag infusion, steroids per Attending Formisano Medications Administered Discontinued Medications Generic Name Dose Route Start Last Admin Trade Name Jordan PRN Reason Stop Dose Admin Magnesium Sulfate 4 gm in 50 mls @ 150 mls/hr 09/12/24 18:11 09/12/24 18:43 Magnesium Sulfate/H2o IV 09/12/24 18:30 Infused ONCE ONE Infusion Labetalol HCl 10 mg 09/12/24 17:53 09/12/24 18:23 Labetalol Hcl 100 Mg/20 Ml Vial IVPUSH 09/12/24 17:54 10 mg ONCE ONE Administration Labetalol HCl 10 mg 09/12/24 19:01 09/12/24 19:11 Labetalol Hcl 100 Mg/20 Ml Vial IVPUSH 09/12/24 19:02 10 mg ONCE ONE Administration Medical Decision Making Medical Decision Making MDM Narrative: 39 yo female [place] January [id number] D 24w1d here with c/o headaches but no head injury, states her OBGYN told her she has edema in legs and BP was up she has been taking her ASA and 60mg of nifedipine. She reports pain in low back and R ankle after a fall - she is neuro intact ordered xray of her R ankle on repeat BP checks she has been > 160 for her entire visit. I have ordered labetalol and IV magnesium until I hear from OB there is 1+ pitting edema and 1+ protein in the urine. call out to [facility] - our US shows FHR of 140 and she has activity, placenta normal Differential Diagnosis Differential Diagnoses: The differential diagnosis associated with the presentation includes pre-eclampsia Admission/Observation Consideration of admission/observation: Escalation of care including admission/observation considered given her features, edema, 1+ protein I am going to transfer her to [facility] Consult Healthcare Provider Management of the patient was discussed with: Fishery Biologist Lab Data MDM Lab Attestation statement: I reviewed the patient's lab results. 09/12/24 15:39 09/12/24 15:39 Labs: Lab Results 09/12/24 09/12/24 09/12/24 Range/Units 15:39 16:41 18:00 WBC 10.7 (4.8-10.8) X10*3/uL RBC 3.87 L (4.20-5.50) X10*6/uL Hgb 10.7 L (12.0-16.0) g/dl Hct 32.5 L (37.0-47.0) % MCV 84.0 (80.0-98.0) fL MCH 27.6 (27.0-33.0) pg MCHC 32.9 (31.0-35.0) g/dl RDW 14.2 (11.0-16.0) % Plt Count 298 (160-400) X10*3/uL MPV 11.0 (9.4-12.3) fL Immature Gran % (Auto) 0.4 (0.0-0.4) % Neut % (Auto) 72.2 (45-73) % Lymph % (Auto) 18.4 L (20-40) % [place] % (Auto) 6.5 (2-11) % Eos % (Auto) 2.3 (0-4) % Baso % (Auto) 0.2 (0-2) % Lymph # (Auto) 2.0 (1.2-4.9) X10*3/uL [place] # (Auto) 0.7 (0.1-1.2) X10*3/uL Eos # (Auto) 0.3 (0.0-0.4) X10*3/uL Baso # (Auto) 0.0 (0.0-0.2) X10*3/uL Abs Immat Gran (auto) 0.04 H (0.00-0.03) X10*3/uL Absolute Neuts (auto) 7.7 (2.0-8.3) x10*3/uL Absolute Nucleated RBC 0.000 (0.0-0.012) X10*3/uL Nucleated RBC % (auto) 0.0 (0.0-0.2) /100WBC Sodium 137 (135-145) mmol/L Potassium 3.3 (3.3-5.1) mmol/L Chloride 107 (96-108) mmol/L Carbon Dioxide 23 (22-29) mmol/L Anion Gap 10 L (12-20) BUN 4 L (9-16) mg/dL Creatinine 0.62 (0.5-1.4) mg/dL Estim Creat Clear Calc 180.8 Estimated GFR > 60 POC Glucose 75 (60-115) mg/dL Random Glucose 89 (60-115) mg/dL Calcium 8.1 L (8.4-10.2) mg/dL Magnesium 1.8 (1.6-2.6) mg/dL Total Bilirubin 0.2 (0.0-1.0) mg/dL AST 22 (5-31) U/L ALT 20 (0-31) U/L Alkaline Phosphatase 73 (39-117) U/L Total Protein 6.6 (6.5-8.0) g/dL Albumin 3.3 L (3.5-5.0) g/dL Beta HCG, Quant 5516 mIU/mL Urine Color Yellow Urine Appearance Cloudy Urine pH 7.5 (5.0-9.0) Ur Specific [place] >= 1.030 H (1.005-1.025) Urine Protein 30 (1+) H (Neg-Trace) mg/dL Urine Glucose (UA) Negative (Negative) mg/dL Urine Ketones Trace (Negative) mg/dL Urine Blood Negative (Negative) Urine Nitrite Negative (Negative) Ur Leukocyte Esterase Trace H (Negative) Urine RBC 0-2 (0-2) /HPF Urine WBC 0-5 (0-5) /HPF Ur Squamous Epith Cells 11-20 (0-2) /HPF Urine Bacteria 1+ (None Seen) Hyaline Casts 0-2 (0-2) /LPF Independent Interpretation I performed an independent interpretation of an: Plain X-Ray (no obvious fracture, final read not done) External Record Review External record reviewed: Outpatient record Critical Care Time Critical Care Time Critical Care Time: Yes Total Critical Care Time: 45 Attestation: IV magnesium, IV labetalol x 2, repeat assessments, transfer I attest to this time spent taking care of the patient Discharge Plan Discharge Clinical Impression: Hypertension, uncontrolled Right ankle strain Qualifiers: Encounter type: initial encounter Qualified Code(s): S96.911A - Strain of unspecified muscle and tendon at ankle and foot level, right foot, initial encounter Patient Disposition: Xfer Acute Care Hospital Transfer Details: [facility] Prescriptions: No Action aspirin 81 mg tablet,delayed release (DR/EC) PO pyridoxine (vitamin B6) [Vitamin B-6] 25 mg tablet 25 mg PO TID nifedipine 60 mg tablet extended release 24hr 60 mg PO DAILY budesonide-formoterol [Symbicort] 160-4.5 mcg/actuation HFA aerosol inhaler 2 puff PO BID Qty: 10.2 1RF albuterol sulfate 2.5 mg /3 mL (0.083 %) solution for nebulization 2.5 mg inhalation ONCE Qty: 3 0RF Interventions: Acute Care Transfer Worksheet (ED) Last Done: 09/12/24 20:02 Discharge Date/Time: 09/12/24 20:03 Print Language: Other
[2024-09-12 15:46] LABS: MANUAL DIFF FLAG NO
[2024-09-12 15:47] LABS: Basophils Percent Auto 0.2 % (0-2); Eosinophils Absolute Auto 0.3 X10*3/uL (0.0-0.4); Eosinophils Percent Auto 2.3 % (0-4); Hematocrit 32.5 % (37.0-47.0); Hemoglobin 10.7 g/dl (12.0-16.0); Imm Gran Abs Auto 0.04 X10*3/uL (0.00-0.03); Imm Gran Pct Auto 0.4 % (0.0-0.4); Lymphocytes Percent Auto 18.4 % (20-40); Mean Corpuscular HGB Conc 32.9 g/dl (31.0-35.0); Mean Corpuscular Hemoglobin 27.6 pg (27.0-33.0); Monocytes Absolute Auto 0.7 X10*3/uL (0.1-1.2); Monocytes Percent Auto 6.5 % (2-11); Neutrophils Absolute Auto 7.7 x10*3/uL (2.0-8.3); Neutrophils Percent Auto 72.2 % (45-73); Platelet Count 298 X10*3/uL (160-400); Red Blood Count 3.87 X10*6/uL (4.20-5.50); Red Cell Distribution Width 14.2 % (11.0-16.0); White Blood Count 10.7 X10*3/uL (4.8-10.8)
[2024-09-12 16:09] LABS: Alanine Aminotransferase 20 U/L (0-31); Albumin Level 3.3 g/dL (3.5-5.0); Alkaline Phosphatase 73 U/L (39-117); Anion Gap 10 (12-20); Aspartate Amino Transferase 22 U/L (5-31); Bilirubin Total 0.2 mg/dL (0.0-1.0); Blood Urea Nitrogen 4 mg/dL (9-16); Calcium 8.1 mg/dL (8.4-10.2); Carbon Dioxide 23 mmol/L (22-29); Chloride 107 mmol/L (96-108); Creatinine Clr Calc Pharmacy 180.8; Estimated Glomerular Filt Rate > 60; Glucose Random 89 mg/dL (60-115); Magnesium 1.8 mg/dL (1.6-2.6); Potassium 3.3 mmol/L (3.3-5.1); Sodium 137 mmol/L (135-145); Total Protein 6.6 g/dL (6.5-8.0)
[2024-09-12 16:10] LABS: HCG Quantitative 5516 mIU/mL
--- NOTE | 2024-09-12 16:27 | PC.NURSE ---
patient brought into room 19, pt is a&ox3, vitals previously stable in triage, pt also had US performed from while waiting for a room. pt currently c/o 8/10 lower back pain as well as 10/10 rt ankle pain. pt awaiting provider evaluation, call [facility] within reach, will continue to monitor
--- NOTE | 2024-09-12 16:28 | MHC.EDTECH ---
gave patient a urine cup. instructed patient to use it to give a urine sample when they need to use the bathroom again.
[2024-09-12 16:45] LABS: Glucose, Whole Blood 75 mg/dL (60-115)
[2024-09-12 18:05] LABS: Appearance Urine Cloudy; Color Urine Yellow; Glucose Urine UA Negative (Negative); Leukocyte Esterase Urine Trace (Negative); Nitrite Urine Negative (Negative); PH 7.5 (5.0-9.0); Specific Gravity - Urine >= 1.030 (1.005-1.025); UMIC TRIGGER UACC YES; Urine Blood Negative (Negative); Urine Ketones Trace mg/dL (Negative); Urine Protein 30 (1+) mg/dL (Neg-Trace)
[2024-09-12 18:07] LABS: Bacteria Urine 1+ (None Seen); Hyaline Casts Urine 0-2 /LPF (0-2); RBC Urine 0-2 /HPF (0-2); WBC Urine 0-5 /HPF (0-5)
[2024-09-12] MEDS: Magnesium Sulfate/H2O 4 GM/50 ML PIGGYBACK IV (18:23)
[2024-09-12] MEDS: Labetalol HCL 100 MG/20 ML VIAL 10 MG IVPUSH ×2 (18:23→19:11)
--- NOTE | 2024-09-12 18:31 | PC.NURSE ---
satellite project site monitor applied, iv inserted, pt medicated per order
== END 2024-09-12 20:03 | disposition short-term general hospital (02) ==
PROVIDERS: Physician Assistant Medical; Emergency Provider Emergency Medicine
DX: O16.2 Unspecified maternal hypertension, second trimester (principal); R51.9 Headache, unspecified; S96.911A Strain of unspecified muscle and tendon at ankle and foot level, right foot, initial encounter; Z3A.24 24 weeks gestation of pregnancy; X58.XXXA Exposure to other specified factors, initial encounter; Y93.89 Activity, other specified; Y92.89 Other specified places as the place of occurrence of the external cause; Y99.8 Other external cause status; Z79.899 Other long term (current) drug therapy
CPT/HCPCS: 36415; 73610; 76815; 80053; 81001; 82947; 83735; 84702; 85025; 96365; 96375; 96376; 99285; J1920; J3475

== ENCOUNTER 2024-12-01 09:21 | Outpatient (AMB) | payer OTHER, SELFPAY ==
[2024-12-01 09:28] VITALS: BP 130/82; PULSE 65; O2SAT 97; BMI 58.3
--- NOTE | 2024-12-01 09:28 | A.OFFPC_ITS ---
Vital Signs 12/01/24 09:28 Height 5 ft 3 in Weight 329 lb BMI 58.3 BP 130/82 Blood Pressure Location Lt brachial Position Sitting Pulse 65 Pulse Source Pulse Oximeter Pulse Oximetry (%) 97 Oxygen Delivery Method Room Air Intake Visit Reasons: [facility] 11/23 high BP Veterinary Milk Specialist Required: No Accompanied by: Self / Same As Patient Allergies dextran 40 Adverse Reaction (Intermediate, Verified 12/01/24 09:28) Hypertension iron dextran complex Adverse Reaction (Intermediate, Verified 12/01/24 09:28) Hypertension Tobacco use date assessed: 12/01/24 Dental Screening Dental Screen Date: 12/01/24 Did you have a dental visit in the last 12 months?: No Did you have a dental problem in the last 6 months where you did not have access to dental care?: No Was dental information given to patient?: No HPI HPI Comments History of Present Illness Details 39 y/o female patient who presents to [facility] today for HDF. Pmhx significant for Morbidly obese, poorly-controlled chronic HTN and Superimposed pre-eclampsia. She is S/P Post- uncomplicated repeat C/S. She was admitted at [facility] on 11/14/24 and discharged 11/21/24 for High Blood Pressure. Her Blood Pressure medications were Titrated Up; Labetalol 600 mg TID and Nifedipine 60 mg once daily. Denies CP, SOB, headaches, dizziness, and palpitations. FOR[facility]LY [facility], [facility] Medical History Sacroiliac joint dysfunction of right side Right lumbar radiculitis Morbid obesity with BMI of 50.0-59.9, adult Asthma exacerbation Right ovarian cyst Knee pain Back pain Lower extremity edema Anxiety Depression GERD (gastroesophageal reflux disease) Asthma Sleep apnea with use of continuous positive airway pressure (CPAP) Morbid obesity Surgical History Hx of section Hx of cholecystectomy Family History Mother Diabetes Hyperlipidemia Father No problems noted. Brother No problems noted. Brother No problems noted. Sister No problems noted. Sister Lupus Son No problems noted. Daughter No problems noted. Social History Housing: Apartment Alcohol intake: current Alcohol intake frequency: holidays/special occasions only Patient Tobacco Use Status: Never used Tobacco e-Cigarette/Vaping Use: Never Used Second Hand Smoke Exposure: No service: No Current occupational status: disabled Current occupation: rt hand Cognitive needs: No Hearing needs: No Vision needs: No Female Reproductive History Menstrual Age of Menarche: 13 Questionnaire PHQ-9 Over the last 2 weeks, how often have you been bothered by any of the following problems? 1. Little interest or pleasure in doing things: nearly every day 2. Feeling down, depressed, or hopeless: nearly every day 3. Trouble falling or staying asleep, or sleeping too much: nearly every day 4. Feeling tired or having little energy: nearly every day 5. Poor appetite or overeating: nearly every day 6. Feeling bad about yourself - or that you are a failure or have let yourself or your family down: nearly every day 7. Trouble concentrating on things, such as reading the newspaper or watching television: nearly every day 8. Moving or speaking so slowly that other people could have noticed. Or the opposite - being so fidgety or restless that you have been moving around a lot more than usual: not at all 9. Thoughts that you would be better off or of hurting yourself in some way: more than half the days Total score: 23 Depression Screening Interpretation: Positive Depression Screening Done: Yes Source: Developed by Drs. Bigg Osorio, Renata Morales, Reinaldo Curtis and colleagues, with an educational lulú from [employer]. Thrive Questionnaire Date Thrive assessed: 12/01/24 I am a: Patient What is your living situation today?: I have a place to live, but I am worried about losing it in the future Within the past 12 months, did the food you bought not last and you didn't have the money to get more?: I choose not to answer this question Within the past 12 months, did you worry whether your food would run out before you got money to buy more?: I choose not to answer this question Do you have trouble paying for medicines?: I choose not to answer this question Do you have trouble getting transportation to medical appointments?: No Do you have trouble paying your heating and electricity bill?: Yes Do you have trouble taking care of your child, family member or friend?: I choos e not to answer this question Do you have trouble with day-to-day activities such as bathing, preparing meals, shopping, managing finances, etc.?: Yes Are you currently unemployed and looking for a job?: I choose not to answer this question Are you interested in more education?: No Please select the resources that you would like help with: None Currently or been in a relationship where the following occur: No concerns reported THRIVE Score: 2 AUDIT C Alcohol Use Questionnaire (AUDIT-C) 1. How often do you have a drink containing alcohol?: Never 3. How often do you have six or more drinks on one occasion?: Never Total Score: 0 EDMUNDO-7 AMB Questionnaire EDMUNDO-7 Date EDMUNDO - 7 assessed: 12/01/24 Feeling nervous, anxious, or on edge: 0 = Not at all Not being able to stop or control worryin = Not at all Worrying too much about different things: 0 = Not at all Trouble relaxin = Not at all Being so restless that it is hard to sit still: 0 = Not at all Becoming easily annoyed or irritable: 0 = Not at all Feeling afraid as if something awful might happen: 0 = Not at all Total EDMUNDO-7 score (0-4 normal; 5-9 mild; 10-14 moderate; 15-21 severe): 0 Source: Developed by Drs. Bigg Osorio, Renata Morales, Reinaldo Curtis and colleagues, with an educational lulú from [employer]. Review of Systems Const All systems reviewed & are unremarkable except as noted in HPI and below Physical exam (Primary Care) Vital Signs: Last Vital Signs Pulse 65 12/01/24 09:28 BP 130/82 12/01/24 09:28 Pulse Ox 97 12/01/24 09:28 Oxygen Delivery Method Room Air 12/01/24 09:28 BMI result Body Mass Index 58.3 Tobacco/Smoking Status: Tobacco use Status Tobacco use date assessed 12/01/24 12/01/24 09:33 Patient Tobacco Use Status Never used Tobacco 12/01/24 09:33 e-Cigarette/Vaping Use Never Used 12/01/24 09:33 PHQ-9: PHQ-9 Score PHQ-9: Total score 23 12/01/24 09:33 Depression Screening Interpretation: Positive Thrive Assessment: Date of Thrive Assessment Date Thrive assessed 12/01/24 12/01/24 09:33 Currently or been in a relationship where the following occur: No concerns reported Const General: cooperative and no acute distress Nutritional Appearance: obese Orientation/consciousness: patient oriented x3 Resp Effort & Inspection: normal respiratory effort Auscultation: clear to auscultation bilaterally Cardio Rate: regular rate Heart sounds: S1 normal heart sound present and S2 normal heart sound present Neuro General: patient oriented x3 Psych Speech and movement: Normal speech and movement present Coding Level of Care Code Est Pt Level 4 (13127) Diagnoses Essential hypertension I10 Morbid obesity with BMI of 50.0-59.9, adult E66.01; Z68.43 Time Spent (min) 20 Assessment & Plan Assessment & Plan (1) Essential hypertension: Code(s): I10 - Essential (primary) hypertension Category: Medical Plan: Continue f/u with Cardiology as scheduled. Continue on medications as prescribed Lifestyle changes; DASH Diet, weight loss (2) Morbid obesity with BMI of 50.0-59.9, adult: Code(s): E66.01 - Morbid (severe) obesity due to excess calories; Z68.43 - Body mass index [BMI] 50.0-59.9, adult Category: Medical Plan: F/U with PCP regarding Weight loss medications
--- OUTSIDE RECORDS SUMMARY | 2024-12-01 09:49 | XMS_ITS | Encounter Summary ---
Author Organization [facility] Address [address] [place] [address] Care Team Providers Care Data Architect Manager Name Role Phone Ramo Metcalf MD Primary Care Provider [phone] Encounter Details Date Type Department Care Team [...] Notes Results - 08/09/2024 9:16 AM EDT 0916- Patient arrives, ambulatory to unit for weekly [...] on filedocumented in this encounter Care Teams Data Architect Manager Relationship Specialty Start Date End Date Po, MD Ramo [address] [place] [address] [address] [facility] [place] [address] PCP - General Internal Medicine 07/08/20 documented as of this encounter
--- OUTSIDE RECORDS SUMMARY | 2024-12-01 09:49 | XMS_ITS | Encounter Summary ---
Author Organization [facility] Address [address] [place] [address] Care Team Providers Care Systems Analysis Manager Name Role Phone Ramo Metcalf MD Primary Care Provider [phone] Encounter Details Date Type Department Care Team [...] (chronic) documented in this encounter Care Teams Systems Analysis Manager Relationship Specialty Start Date End Date Po, MD Ramo [address] [place] [address] [address] [facility] [place] [address] PCP - General Internal Medicine 07/08/20 documented as of this encounter
--- OUTSIDE RECORDS SUMMARY | 2024-12-01 09:49 | XMS_ITS | Encounter Summary ---
Author Organization [email or web address] Address [address] [place] [address] Care Team Providers Care Polisher Dial Name Role Phone Ramo Metcalf MD Primary Care Provider [phone] Encounter Details Date Type Department Care Team [...] on filedocumented in this encounter Care Teams Polisher Dial Relationship Specialty Start Date End Date Dixon, MD Ramo [address] [place] [address] Dr [address] [facility] [place] [address] PCP - General Internal Medicine 07/08/20 documented as of this encounter
--- OUTSIDE RECORDS SUMMARY | 2024-12-01 09:49 | XMS_ITS | Clinical Summary ---
Author Organization [facility] Address [address] [place] [address] Care Team Providers Care Donor Technician Name Role Phone Ramo Metcalf MD Primary Care Provider [phone] Allergies Active Allergy Reactions Criticality Noted Date Comments Iron Palpitations High 08/18/[address] Hunt's note pt received Iron Dextran previously Medications Medication Sig Dispensed Refills Start Date End Date Status Albuterol Sulfate, sensor, 108 (90 Base) MCG/ACT AEPB Inhale into the lungs. 0 Active fluticasone (FLONASE) 50 MCG/ACT nasal spray spray/apply 1 spray in each nostril daily. 0 Active NIFEdipine (PROCARDIA XL) 30 MG 24 hr tablet Take 2 tablets (60 mg total) by mouth daily. 0 Active vitamin B-6 (PYRIDOXINE) 25 MG tablet Take 1 tablet (25 mg total) by mouth 3 (three) times a day. 0 Active aspirin EC 81 MG tablet Take 1 tablet (81 mg total) by mouth daily. 0 Active Active Problems Problem Noted Date Diagnosed Date Iron deficiency anemia due to chronic blood loss 08/17/2022 Social History Tobacco Use Types Packs/Day Years Used Date Smoking Tobacco: Never Assessed Sex and Gender Information Value Date Recorded Sex Assigned at Female 09/25/2022 10:17 AM EST Gender Identity Not on file Sexual Orientation Not on file Job Start Date Occupation Industry Not on file Not on file Not on file Last Filed Vital Signs Vital Sign Reading Time Taken Comments Blood Pressure 118/52 08/09/2024 9:03 AM EDT Pulse 63 08/09/2024 9:03 AM EDT Temperature 36.2 ??C (97.2 ??F) 08/09/2024 9:03 AM ED T Respiratory Rate 18 08/09/2024 9:03 AM EDT Oxygen Saturation 99% 08/09/2024 9:03 AM EDT Inhaled Oxygen Concentration - - Weight 152.4 kg (336 lb) 07/05/2024 11:37 AM EDT Height 160 cm (5' 3 ) 07/05/2024 11:37 AM EDT Body Mass Index 59.52 07/05/2024 11:37 AM EDT Plan of Treatment Health Maintenance Due Date Last Done Comments Hepatitis B Vaccines (1 of 3 - 3-dose series) 1986 Hepatitis C Screening 1986 COVID-19 Vaccine (#1) 1986 Depression Screening 1998 BMI Counseling 2004 Preventative Health Evaluation 2004 Cervical Cancer Screening (Pap Smear) 2007 Influenza Vaccine (#1) 2024 DTap / Tdap / Td (4 - Td or Tdap) 01/18/2027 01/18/2017, 07/18/2014, 08/21/2010 Pneumococcal Vaccine Aged Out 03/03/2010 No long er eligible based on patient's age to complete this topic RSV Ped < 20 months Aged Out No longe r eligible based on patient's age to complete this topic Care Teams Donor Technician Relationship Specialty Start Date End Date Po, Ramo Cotto MD [address] [place] [address] [address] [facility] [place] [address] PCP - General Internal Medicine 02/18/22
--- OUTSIDE RECORDS SUMMARY | 2024-12-01 09:49 | XMS_ITS | Clinical Summary ---
Author Organization [facility] Address [address] [place] [phone] Phone Care Team Providers Care Demo Coordinator Name Role Phone Ramo Metcalf MD Primary Care Provider [phone] Allergies Active Allergy Reactions Criticality Noted Date Comments Cat Dander 06/07/2012 Iron 12/26/2021 Medications ALBUTEROL INHL Inhale into the lungs. Active albuterol HFA (PROAIR HFA ; PROVENTIL HFA ; VENTOLIN HFA) 90 mcg/actuation inhaler Inhale 2 Puffs into the lungs 4 times daily as needed for Cough or Wheezing. 4 Active cyclobenzaprine (FLEXERIL) 5 mg tablet TAKE 1 TABLET BY MOUTH EVERY 8 HOURS NEEDED FOR PAIN 2 Active diazePAM (VALIUM) 5 mg tablet 2 Active ferrous sulfate 325 mg (65 mg iron) EC tablet Take 1 Tablet by mouth three times a week. Take Wednesday, Wednesday, Wednesday 2 Active omeprazole (PriLOSEC) [address] capsule Take 40 mg by mouth daily. 2 Active nebulizers [facility] Respiratory Therapy Supplies (NEBULIZER/ADULT MASK) Kit Sig - Route: by Does not apply route. Active sertraline (ZOLOFT) 50 mg tablet TAKE 1/2 TO 1 TABLET BY MOUTH ONCE DAILY X7 DAYS AND THEN INCREASE TO 1 TABLET DAILY 2 Active traZODone (DESYREL) 50 mg tablet TAKE 1 TABLET BY MOUTH EVERY DAY AT BEDTIME NEEDED FOR SLEEP 2 Active Active Problems Problem Noted Date Diagnosed Date Class 3 severe obesity with body mass index (BMI) of 50.0 to 59.9 in adult 08/02/2024 Gastroesophageal reflux disease 12/26/2021 Allergic rhinitis 07/04/2020 CTS (carpal tunnel syndrome) 07/04/2020 B12 deficiency 08/09/2012 Helicobacter pylori ab+ 08/09/2012 Anemia, iron deficiency 02/08/2012 JENNIFER (obstructive sleep apnea) 01/19/2012 Snoring 01/01/2012 Witnessed apneic spells 01/01/2012 Asthma 08/21/2010 Depression 08/21/2010 Immunizations Name Administration Dates Next Due Influenza trivalent, 0.5mL, preservative free (Fluarix; FluLaval; Fluzone) ages 6mo and older (Afluria) 3 years and older 08/07/2019,09/07/2018,07/05/2012,09/08,08/21/2010 Pneumococcal polysaccharide 23 valent (Pneumovax 23) 2yo and older 03/03/2010 Tdap Tetanus diptheria acell ular pertussis (Boostrix; Adacel) 7yo and older 01/18/2017,08/21/2010 Social History Tobacco Use Types Packs/Day Years Used Date Smoking Tobacco: Never Assessed Comments Unknown Sex and Gender Information Value Date Recorded Sex Assigned at Not on file Legal Sex Female 2:25 PM EST Gender Identity Not on file Sexual Orientation Not on file Obstetrics History Last Filed Vital Signs Vital Sign Reading Time Taken Comments Blood Pressure 149/80 07/05/2024 11:37 AM EDT Si tting Left arm Pulse 70 07/05/2024 11:37 AM EDT Temperature - - Respiratory Rate - - Oxygen Saturation - - Inhaled Oxygen Concentration - - Weight 152 kg (336 lb) 07/05/2024 11:37 AM EDT Height 160 cm (5' 3 ) 07/05/2024 11:37 AM EDT Body Mass Index 59.52 07/05/2024 11:37 AM EDT Plan of Treatment Health Maintenance Due Date Last Done Comments Hepatitis B Vaccines (1 of 3 - 19+ 3-dose series) 2005 Pneumococcal Vaccine: Pediatrics (0 to 5 Years) and At-Risk Patients (6 to 64 Years) (2 of 2 - PCV) 03/03/2011 03/03/2010 Cervical Cancer Screening: Pap Smear 04/20/2016 04/20/2013, 04/20/2013 Depression Screening 09/20/2022 HIV Screening 09/20/2022 Hepatitis C Screening 09/20/2022 Social Influencers of Health Screening 09/20/2022 COVID-19 Vaccine ( - season) 2024 Influenza Vaccine (#1) 2024 9, 09/07/2018, 07/05/2012, Additional history exists DTaP,Tdap,and Td Vaccines (3 - Td or Tdap) 01/18/2027 01/18/2017, 08/21/2010 Cholesterol Screening (Lipid Panel) 02/10/2029 02/11/2024, 02/11/2024 HIB Vaccines Aged Out No longer eligi ble based on patient's age to complete this topic HPV Vaccines Aged Out No longer eligi ble based on patient's age to complete this topic Hepatitis A Vaccines Aged Out No long er eligible based on patient's age to complete this topic IPV Vaccines Aged Out No longer eligi ble based on patient's age to complete this topic MMR Vaccines Aged Out No longer eligi ble based on patient's age to complete this topic Meningococcal ACWY Vaccine Aged Out N o longer eligible based on patient's age to complete this topic Meningococcal B Vacine Aged Out No lo nger eligible based on patient's age to complete this topic RSV Immunization Patients Under 20 months Aged Out No longer eligible based on patient's age to complete this topic Varicella Vaccines Aged Out No longer eligible based on patient's age to complete this topic Procedures Procedure Name Priority Date/Time Associated Diagnosis Comments LIPID PANEL Routine 02/11/2024 HM HPV Routine 04/20/2013 from Last 3 Months or Most Recently Relevant to Health Maintenance Results * (ABNORMAL) Lipid panel (02/11/2024) LDL/HDL Ratio 4 0 - 4 Triglycerides 99 0 - 150 mg/dL Cholesterol 189 0 - 200 mg/dL HDL 51 >=40 mg/dL LDL Cholesterol 119(A) 0 - 100 mg/dL Blood Venous blood specimen / Unknown us Historical Provider LAB BLOOD ORDERABLES Parisa l Result * Cervical Cancer Screening: HPV (04/20/2013) Cervical Cancer Screening: HPV normal, abstracted Historical Provider HEALTH MAINTENANCE Final Result from Last 3 Months or Most Recently Relevant to Health Maintenance Insurance [facility] [employer] PLAN Care Teams Demo Coordinator Relationship Specialty Start Date End Date Ramo Metcalf MD [address] [place] [address] [address] [facility] [place] [id number] PCP - General Internal Medicine 07/08/20
== END 2024-12-01 10:15 | disposition home or self-care (01) ==
PROVIDERS: PCP Internal Medicine; Visit Provider Nurse Practitioner Family
DX: I10 Essential (primary) hypertension (principal); E66.01 Morbid (severe) obesity due to excess calories; Z68.43 Body mass index [BMI] 50.0-59.9, adult

== ENCOUNTER → 2024-12-01 09:21 | Outpatient (BNVA) | payer OTHER, SELFPAY | PROVIDERS: PCP Internal Medicine; Visit Provider Physician Assistant Medical | DX: I10 Essential (primary) hypertension (principal); E66.01 Morbid (severe) obesity due to excess calories; Z68.43 Body mass index [BMI] 50.0-59.9, adult; Z71.3 Dietary counseling and surveillance | CPT/HCPCS: 99212 ==

== ENCOUNTER 2024-12-28 13:59 | Outpatient (AMB) | payer OTHER, SELFPAY ==
--- NOTE | 2024-12-28 14:30 | A.OFFPC_ITS ---
Vital Signs 12/28/24 14:31 Height 5 ft 3 in Weight 328 lb BMI 58.1 BP 152/82 H Blood Pressure Location Lt brachial Position Sitting Pulse 82 Pulse Source Pulse Oximeter Temp 97.3 F Temp Source Temporal Artery Scan Pulse Oximetry (%) 96 Oxygen Delivery Method Room Air Intake Visit Reasons: 1mth f/u Intake Note: Patient is here to follow up on HTN and medication review. Complaint of body ache and heaviness in her throat. Was in contact with her kids that has flu currently. Core Driller Helper Required: Yes Core Driller Helper Language: Ukrainian Information Interpreted: non-clinical & clinical Electrical Appliance Repairer: Not Required per policy Accompanied by: Self / Same As Patient Allergies dextran 40 Adverse Reaction (Intermediate, Verified 12/28/24 14:31) Hypertension iron dextran complex Adverse Reaction (Intermediate, Verified 12/28/24 14:31) Hypertension Tobacco use date assessed: 12/28/24 Dental Screening Dental Screen Date: 12/01/24 [facility] Medical History Sacroiliac joint dysfunction of right side Right lumbar radiculitis Morbid obesity with BMI of 50.0-59.9, adult Asthma exacerbation Right ovarian cyst Knee pain Back pain Lower extremity edema Anxiety Depression GERD (gastroesophageal reflux disease) Asthma Sleep apnea with use of continuous positive airway pressure (CPAP) Morbid obesity Surgical History Hx of section Hx of cholecystectomy Family History Mother Diabetes Hyperlipidemia Father No problems noted. Brother No problems noted. Brother No problems noted. Sister No problems noted. Sister Lupus Son No problems noted. Daughter No problems noted. Social History Housing: Apartment Alcohol intake: current Alcohol intake frequency: holidays/special occasions only Patient Tobacco Use Status: Never used Tobacco e-Cigarette/Vaping Use: Never Used Second Hand Smoke Exposure: No service: No Current occupational status: disabled Current occupation: rt hand Cognitive needs: No Hearing needs: No Vision needs: No Female Reproductive History Menstrual Age of Menarche: 13 Questionnaire Thrive Questionnaire Date Thrive assessed: 12/01/24 EDMUNDO-7 AMB Questionnaire EDMUNDO-7 Date EDMUNDO - 7 assessed: 12/01/24 Source: Developed by Drs. Bigg Osorio, Renata Morales, Reinaldo Curtis and colleagues, with an educational lulú from [employer]. Physical exam (Primary Care) Vital Signs: Last Vital Signs Temp 97.3 F 12/28/24 14:31 Pulse 82 12/28/24 14:31 BP 152/82 H 12/28/24 14:31 Pulse Ox 96 12/28/24 14:31 Oxygen Delivery Method Room Air 12/28/24 14:31 BMI result Body Mass Index 58.1 Tobacco/Smoking Status: Tobacco use Status Tobacco use date assessed 12/28/24 12/28/24 14:36 Patient Tobacco Use Status Never used Tobacco 12/28/24 14:36 e-Cigarette/Vaping Use Never Used 12/28/24 14:36 Thrive Assessment: Date of Thrive Assessment Date Thrive assessed 12/01/24 12/28/24 14:36 Coding Level of Care Code Est Pt Level 4 (85265) Complex EM visit Add On G2211 Diagnoses Essential hypertension I10 Assessment & Plan Assessment & Plan (1) Essential hypertension: Code(s): I10 - Essential (primary) hypertension Category: Medical Plan: Patient had preeclampsia during her last . Underwent a C Section. BP continues to be high. She is nursing her six week old . Nifedipine was stopped and switched to hyrdalazine tid. Continue the labetalol. Would add a d iuretic for BP control if BP continues to be high Plan History of Present Illness The patient is a 39-year-old female presenting with a primary complaint of hypertension. Her history notes significant elevation in blood pressure during her , leading to a delivery at 33 weeks. She was found to have prediabetes but was not treated with any injections. Currently, she is taking labetalol 200 mg three times daily and nifedipine 60 mg twice daily. Concerns are noted regarding persistent high blood pressure despite medication. In addition, she experiences fatigue and generalized body discomfort, pointing towards potential influenza exposure. She acknowledges her ongoing medication usage and high blood pressure management concerns , particularly about medication adjustments to better control her condition. Social History - Family Status: Mother of three children, recently delivered her third child. - Functional Status: Expresses concern about fatigue and general body aches following the recent delivery. - Family Planning: Concerns about managing her medical conditions with her current family responsibilities. Review of Systems - General: Reports fatigue; reports generalized body aches. - Infectious Disease: Reports potential exposure to influenza from a family member. Physical Exam General: Appearance normal, both eyes and all related structures Nutritional Appearance: Well nourished Orientation/consciousness: Patient oriented x3 Limitations: No limitations Head: Normal to inspection Neck: Normal visual inspection Chest: Normal palpation of entire chest wall Respiratory: Normal respiratory effort Neurology: Patient oriented x3, reports feeling tired and whole body hurting Results Plan The patient's current antihypertensive medications will be adjusted to improve blood pressure control. Labetalol will be maintained, and hydralazine will replace nifedipine. Monitoring through home blood pressure readings will guide further therapeutic adjustments. Additionally, a swab test will assess potential influenza infection to address her body aches and fatigue. Preventative measures like masking are recommended until a diagnosis is confirmed. Patient was informed and verbally consented to the use of an ambient scribe for clinic note documentation during this visit. Discussion Notes I discussed with the patient her current management of hypertension , highlighting the plan to cease nifedipine and introduce hydralazine three times a day. The intent is to stabilize her blood pressure while monitoring readings she can provide at home. I emphasized the importance of reporting these readings through the patient portal to facilitate timely medication adjustments. For her suspicion of influenza, I advised completing a swab test at a laboratory to confirm diagnosis, and the necessity of adhering to precautionary measures such as wearing a mask to prevent potential spread if she has the flu. The patient consented to the changes in her medication and expressed understanding of management and follow-up procedures. Patient Instructions - Continue taking labetalol as prescribed. - Discontinue nifedipine and begin hydralazine three times a day. - Measure your blood pressure at home regularly and send readings through the patient portal. - Visit a lab for influenza swab testing. - Wear a mask to reduce the risk of spreading or stan influenza. Orders: Orders SARS-CoV2/FLU/RSV Today R43.9 - Unspecified disturbances of smell and taste Medications: New hydralazine 10 mg PO TID 180 tabs 0RF
[2024-12-28 14:31] VITALS: BP 152/82; PULSE 82; TEMP 36.3; O2SAT 96; BMI 58.1
--- OUTSIDE RECORDS SUMMARY | 2024-12-28 16:42 | XMS_ITS | Encounter Summary ---
Author Organization [employer] Address [address] [place] [address] Care Team Providers Care Spinner Cap Frame Name Role Phone Ramo Metcalf MD Primary Care Provider [phone] Encounter Details Date Type Department Care Team [...] on filedocumented in this encounter Care Teams Spinner Cap Frame Relationship Specialty Start Date End Date Dixon, MD Ramo [address] [place] [address] [address] [facility] [place] [address] PCP - General Internal Medicine 07/08/20 documented as of this encounter
--- OUTSIDE RECORDS SUMMARY | 2024-12-28 16:42 | XMS_ITS | Encounter Summary ---
Author Organization [facility] Address [address] [place] [address] Care Team Providers Care Lead Tank Mechanic Name Role Phone Ramo Metcalf MD Primary Care Provider [phone] Encounter Details Date Type Department Care Team [...] on filedocumented in this encounter Care Teams Lead Tank Mechanic Relationship Specialty Start Date End Date Po, MD Ramo [address] [place] [address] [address] [facility] [place] [address] PCP - General Internal Medicine 07/08/20 documented as of this encounter
--- OUTSIDE RECORDS SUMMARY | 2024-12-28 16:42 | XMS_ITS | Clinical Summary ---
Author Organization [employer] Address [address] [facility] 7[address] [place] [address] Care Team Providers Care Laboratory Helper Name Role Phone Unavailable Primary Care Provider Unavailabl e Allergies Active Allergy Reactions Criticality Noted Date Comments Iron 12/15/2024 Medications albuterol 1.25 MG/3ML nebulizer solution INHALE 1.25 MG (3 ML) BY NEBULIZER EVERY 4 TO 6 HOURS NEEDED FOR SHORTNESS OF BREATH OR WHEEZING 4 Active labetalol (Normodyne) 200 MG tablet TOME DOLORES TABLETAS POR V A ORAL DOLORES VECES AL D A 5 Active amoxicillin (Amoxil) 500 MG capsule Take 1 capsule (500 mg) by mouth every 8 (eight) hours for 10 days. 30 capsule 5 12/26/19 25 Encounters Date Type Department Care Team Description 12/15/2024 8:30 AM EST Office Visit [facility] [address] [place] [address] Rachel Pinto from Last 3 Months Social History Tobacco Use Types Packs/Day Years Used Date Smoking Tobacco: Never Assessed Comments Unknown Sex and Gender Information Value Date Recorded Sex Assigned at Female 12/15/2024 8:27 AM EST Legal Sex Female 8:25 AM EST Gender Identity Female 12/15/2024 8:27 AM EST Sexual Orientation Straight 12/15/2024 8: 27 AM EST Plan of Treatment Upcoming Encounters Date Type Department Care Team (Late st Contact Info) Description 01/26/2025 8:30 AM EDT Office Visit [facility] [address] [place] [address] Chidi Troncoso DDS [address] [place] [address] Health Maintenance Due Date Last Done Comments Dental Oral Exam 1986 Dental Prophylaxis 1986 Dental X-Ray: Full Mouth 1986 Depression Screening 1986 HIV Screening 1986 SDOH Screening 1986 Alcohol/Substance Use Screening 1998 Tobacco Screening 1998 Family Planning (PISQ) 2001 Hepatitis C Screening 2004 Hepatitis B Vaccines (1 of 3 - 19+ 3-dose series) 2005 Pap Smear 2007 Cervical Cancer Screening 2016 HPV/Cotest 2016 COVID-19 Vaccine ( season) 2024 03/12/2021, 02/19/2021 Dental X-Ray: Bitewings 12/16/2025 12/15/2024 DTaP/Tdap/Td Vaccines (4 - Td or Tdap) 10/02/2034 10/02/2024, 01/18/2017, 08/21/2010 Zoster Vaccines (1 of 2) 2036 RSV Patients and Patients Aged 60 years or older (1 - 1-dose 75+ series) 2061 Pneumococcal Vaccine: Pediatrics (0 to 5 Years) and At-Risk Patients (6 to 49) Years) Aged Out 11/29/2012, 03/03/2010 No longer eligibl e based on patient's age to complete this topic Influenza Vaccine Completed 07/18/2024, , 09/07/2018, Additional history exists HIB Vaccines Aged Out No longer eligi [...] patient's age to complete this topic Meningococcal Vaccine Aged Out No mohini ruby eligible based on patient's age to complete this topic RSV under 20 months Aged Out No longe r eligible based on patient's age to complete this topic Rotavirus Vaccines Aged Out No longer eligible based on patient's age to complete this topic Procedures Procedure Name Priority Date/Time Associated Diagnosis Comments CASE PRESENTATION, DETAILED AND EXTENSIVE TREATMENT PLANNING Routine 12/15/2024 8:30 AM EST BITEWING - SINGLE RADIOGRAPHIC IMAGE Routine 12/15/2024 8:30 AM EST OFFICE VISIT FOR OBSERVATION (DURING REGULARLY SCHEDULED HOURS) - NO OTHER SERVICES PERFORMED Routine 12/15/2024 8:30 AM EST from Last 3 Months Insurance [place] STAND ADULT
--- OUTSIDE RECORDS SUMMARY | 2024-12-28 16:42 | XMS_ITS | Encounter Summary ---
Author Organization [facility] Address [address] [place] [address] Care Team Providers Care Fireman Name Role Phone Ramo Metcalf MD Primary Care Provider [phone] Encounter Details Date Type Department Care Team [...] (chronic) documented in this encounter Care Teams Fireman Relationship Specialty Start Date End Date Po, MD Ramo [address] [place] [address] [address] [facility] [place] [address] PCP - General Internal Medicine 07/08/20 documented as of this encounter
--- OUTSIDE RECORDS SUMMARY | 2024-12-28 16:42 | XMS_ITS | Clinical Summary ---
Author Organization [facility] Address [address] [place] [address] Care Team Providers Care Employee Relations Administrator Name Role Phone Ramo Metcalf MD Primary Care Provider [phone] Allergies Active Allergy Reactions Criticality Noted Date [...] age to complete this topic Care Teams Employee Relations Administrator Relationship Specialty Start Date End Date Po, Ramo Cotto MD [address] [place] [address] [address] [facility] [place] [address] PCP - General Internal Medicine 02/18/22
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
--- OUTSIDE RECORDS SUMMARY | 2024-12-28 16:42 | XMS_ITS | Clinical Summary ---
Author Organization [facility] Address [address] [place] [phone] Phone Care Team Providers Care Electronic Design Engineer Name Role Phone Ramo Metcalf MD Primary Care Provider [phone] Allergies Active Allergy Reactions Criticality Noted Date [...] mg by mouth daily. 2 Active nebulizers [facility] Respiratory Therapy Supplies (NEBULIZER/ADULT MASK) Kit Sig [...] Most Recently Relevant to Health Maintenance Insurance [facility] [employer] Care Teams Electronic Design Engineer Relationship Specialty Start Date End Date Ramo Metcalf MD [address] [place] [address] [address] [facility] [place] [id number] PCP - General Internal Medicine 07/08/20
--- OUTSIDE RECORDS SUMMARY | 2024-12-28 16:42 | XMS_ITS | Encounter Summary ---
Author Organization [employer] Address [address] [facility] 7[address] [place] [address] Care Team Providers Care Environmental Field Office Manager Name Role Phone Unavailable Primary Care Provider Unavailabl e Reason for Visit * Reason Comments Dental Pain Encounter Details Date Type Department Care Team (Late st Contact Info) Description 12/15/2024 8:30 AM EST Office Visit [facility] [address] [place] [address] Rachel Pinto Social History Tobacco Use Types Packs/Day Years Used Date Smoking Tobacco: Never Assessed Comments Unknown Sex and Gender Information Value Date Recorded Sex Assigned at Female 12/15/2024 8:27 AM EST Legal Sex Female 8:25 AM EST Gender Identity Female 12/15/2024 8:27 AM EST Sexual Orientation Straight 12/15/2024 8: 27 AM EST documented as of this encounter Progress Notes * Rachel Pinto - 12/15/2024 8:30 AM EST Dental procedures in this visit [id number] - OFFICE VISIT FOR OBSERVATION (DURING REGULARLY SCHEDULED HOURS) - NO OTHER SERVICES PERFORMED (Completed) Service provider: Rachel Pinto Billing provider: Chidi Troncoso DDS [id number] - BITEWING - SINGLE RADIOGRAPHIC IMAGE (Completed) Service provider: Rachel Pinto Billing provider: Chidi Troncoso DDS [id number] - CASE PRESENTATION, DETAILED AND EXTENSIVE TREATMENT PLANNING (Completed) Service provider: Rachel Pinto [place] provider: Chidi Troncoso DDS Patient ID: Agustina Patel is a 39 y.o. female. Time Out: Timeout Date: 12/15/24, Timeout Time: 0840 (emergency) Location: [facility] Tooth: #13 Procedure: Exam and X-rays Verified the above with patient, data control assistant, and provider. Confirmed via patient's chart, intraorally and by radiographs. Back Tacker: not applicable Chief Complaint Patient presents with Dental Pain Medical Hx: Vitals: There were no vitals taken for this visit. Past Medical History: Diagnosis Date Asthma Hypertension Medications: Outpatient Encounter Medications as of 12/15/2024 Medication Sig Dispense Refill albuterol 1.25 MG/3ML nebulizer solution INHALE 1.25 MG (3 ML) BY NEBULIZER EVERY 4 TO 6 HOURS NEEDED FOR SHORTNESS OF BREATH OR WHEEZING labetalol (Normodyne) 200 MG tablet TOME DOLORES TABLETAS POR V A ORAL DOLORES VECES AL D A amoxicillin (Amoxil) 500 MG capsule Take 1 capsule (500 mg) by mouth every 8 (eight) hours for 10 days. 30 capsule 0 No facility-administered encounter medications on file as of 12/15/2024. Subjective: Pain: When chewing Duration: 2 weeks Objective: Tooth: #13 Radiographs Taken: PA(s) Radiographic Findings: Fractured/Broken Tooth Clinical Findings: fractured #13 with caries Swelling: None Endo Testing: RCT treated tooth, percussion +, palpation - Perio: [phone] Other Findings: N/A Diagnosis: non-restorable #13 Assessment/Plan: Ext 13 Prescriptions: amoxicillin Pt tolerated procedure well, all questions answered. Dismissed in good condition. NV: ext 13 Beaming Inspector: Karen Cantu Dentist: Rachel Pinto documented in this encounter Plan of Treatment Upcoming Encounters Date Type Department Care Team (Late st Contact Info) Description 01/26/2025 8:30 AM EDT Office Visit [facility] [address] [place] [address] Chidi Troncoso DDS [address] [place] [address] Scheduled Orders Name Type Priority Associated Diagnoses Orde r Schedule 13 13 EXTRACTION, ERUPTED TOOTH OR EXPOSED ROOT (ELEVATION/FORCEPS REMOVAL) Dental Routine [address] arting 12/15/2024 documented as of this encounter Procedures Procedure Name Priority Date/Time Associated Diagnosis Comments OFFICE VISIT FOR OBSERVATION (DURING REGULARLY SCHEDULED HOURS) - NO OTHER SERVICES PERFORMED Routine 12/15/2024 8:30 AM EST CASE PRESENTATION, DETAILED AND EXTENSIVE TREATMENT PLANNING Routine 12/15/2024 8:30 AM EST BITEWING - SINGLE RADIOGRAPHIC IMAGE Routine 12/15/2024 8:30 AM EST documented in this encounter Visit Diagnoses Not on filedocumented in this encounter
== END 2024-12-28 14:57 | disposition home or self-care (01) ==
LOC: HO.HMCH 14:00
PROVIDERS: PCP Internal Medicine; Visit Provider Internal Medicine
DX: I10 Essential (primary) hypertension (principal)

== ENCOUNTER → 2024-12-28 13:59 | Outpatient (BNVA) | payer OTHER, SELFPAY | PROVIDERS: PCP Internal Medicine; Visit Provider Internal Medicine | DX: I10 Essential (primary) hypertension (principal) | CPT/HCPCS: 99212 ==

== ENCOUNTER 2025-01-19 10:38 | Outpatient (AMB) | payer OTHER, SELFPAY ==
[2025-01-19 11:25] VITALS: BP 128/86; PULSE 78; TEMP 36.8; O2SAT 98; BMI 58.1
--- NOTE | 2025-01-19 11:25 | MHC.OFFWIV ---
Intake Vital Signs 01/19/25 11:25 Height 5 ft 3 in Weight 328 lb 4 oz BMI 58.1 BP 128/86 Blood Pressure Location Lt brachial Position Sitting Pulse 78 Pulse Source Pulse Oximeter Temp 98.3 F Temp Source Oral Pulse Oximetry (%) 98 Oxygen Delivery Method Room Air Intake Visit Reasons: EP Whole body pain, headache Intake Note: Pt presents to the office today for c/o whole body pain, headaches, and some other concerns. Patient Tobacco Use Status: Never used Tobacco Allergies dextran 40 Adverse Reaction (Intermediate, Verified 01/19/25 11:28) Hypertension iron dextran complex Adverse Reaction (Intermediate, Verified 01/19/25 11:28) Hypertension HPI EP Whole body pain, headache HPI Details This is a 39-year-old female patient who presents to the walk-in clinic today with multiple complaints. She reports generalized body aches and pains, however more recently, her hands and her left knee and lower back have been increasingly bothersome. She also reports headache and some throat pain over the last several days. She is 2 months and baby girl. She also reports infection in her belly button. This has been intermittent over the last several months. She states that at times, it starts oozing a an odorous, clear/yellow discharge. [facility] Medical History Sacroiliac joint dysfunction of right side Right lumbar radiculitis Morbid obesity with BMI of 50.0-59.9, adult Asthma exacerbation Right ovarian cyst Knee pain Back pain Lower extremity edema Anxiety Depression GERD (gastroesophageal reflux disease) Asthma Sleep apnea with use of continuous positive airway pressure (CPAP) Morbid obesity Surgical History Hx of section Hx of cholecystectomy Family History Mother Diabetes Hyperlipidemia Father No problems noted. Brother No problems noted. Brother No problems noted. Sister No problems noted. Sister Lupus Son No problems noted. Daughter No problems noted. Social History Housing: Apartment Alcohol intake: current Alcohol intake frequency: holidays/special occasions only Patient Tobacco Use Status: Never used Tobacco e-Cigarette/Vaping Use: Never Used Second Hand Smoke Exposure: No service: No Current occupational status: disabled Current occupation: rt hand Cognitive needs: No Hearing needs: No Vision needs: No Female Reproductive History Menstrual Age of Menarche: 13 Review of Systems Const All systems reviewed & are unremarkable except as noted in HPI and below Physical Exam Vital Signs: Last Vital Signs Temp 98.3 F 01/19/25 11:25 Pulse 78 01/19/25 11:25 BP 128/86 01/19/25 11:25 Pulse Ox 98 01/19/25 11:25 Oxygen Delivery Method Room Air 01/19/25 11:25 BMI result Body Mass Index 58.1 Const General: cooperative, healthy appearing and no acute distress Nutritional Appearance: obese HEENT Head: Yes normal to inspection Ears: hearing grossly normal bilaterally and TM's normal bilaterally General nose exam: Normal external nose present, Normal nares present and Normal nasal mucous membranes and turbinates present Face and sinus: Yes normal facial exam Mouth: Normal oral and palatal mucosa present Throat: Yes posterior oropharynx abnormal (mild erythema) Resp Effort & Inspection: normal respiratory effort Auscultation: clear to auscultation bilaterally Cardio Rate: regular rate Rhythm: regular rhythm GI Other: Umbilicus (inverted) noted to have serous drainage. Patient states area is itchy and often has a foul odor. No open areas noted. Skin General skin exam: no rashes or lesions noted Extrem General: Yes capillary refill normal and Yes no clubbing, cyanosis or edema Psych Appearance: grossly normal Mental Status: mental status grossly normal Speech and movement: Normal speech and movement present Results AMB Rapid Strep AMB Rapid Strep Negative Last Edit by Maggy Smith CMA on 01/19/25 12:09 Assessment & Plan Assessment & Plan (1) Generalized body aches: Code(s): R52 - Pain, unspecified Plan: Patient has generalized body and joint aches, particularly of her hands, fingers, and left knee. I will trial her on a one-week course of meloxicam to see if this provides her any benefit. We reviewed indications, use, possible side effects of this. It is possible her baseline aches are exacerbated by some sort of viral infection, as she also has some upper respiratory complaints including sore throat. Rapid strep was negative. Swab obtained for COVID/flu/RSV, and patient aware she will be notified of results once these are available. She may require additional testing/referral if these joint pains persist; she will be seeing her PCP, Dr. Gregory on 02/15 and can follow up on these concerns as needed at that time. (2) Infection of skin: Code(s): L08.9 - Local infection of the skin and subcutaneous tissue, unspecified Plan: Culture of umbilical drainage obtained. For now, will start patient on Mupirocin topically. Patient will f/u with PCP next month or with us sooner as needed for this. Advised to keep area clean/dry. (3) Upper respiratory infection: Code(s): J06.9 - Acute upper respiratory infection, unspecified Qualifiers: URI type: unspecified viral URI Qualified Code(s): J06.9 - Acute upper respiratory infection, unspecified Plan: As above Orders: Orders AMB Rapid Strep Screen Today Z13.9 - Encounter for screening, unspecified SARS-CoV2/FLU/RSV Today J06.9 - Acute upper respiratory infection, unspecified Routine Culture w Gram Stain Today L08.9 - Local infection of the skin and subcutaneous tissue, unspecified Medications: New meloxicam Take once a day for 7 days. 15 mg PO ONCE 7 days 7 tabs 0RF R52 - Pain, unspecified mupirocin 2% Apply to belly button twice a day for 7 days. 1 appl topical BID 7 days 22 grams 1RF L08.9 - Local infection of the skin and subcutaneous tissue, unspecified Coding Level of Care Code Est Pt Level 4 (22006) Diagnoses Generalized body aches R52 Infection of skin L08.9 Viral upper respiratory tract infection J06.9 URI type: unspecified viral URI
--- OUTSIDE RECORDS SUMMARY | 2025-01-19 11:28 | XMS_ITS | Encounter Summary ---
Author Organization [facility] Address [address] [place] [address] Care Team Providers Care Citrix Engineer Name Role Phone Ramo Metcalf MD Primary Care Provider Encounter Details Date Type Department Care Team [...] on filedocumented in this encounter Care Teams Citrix Engineer Relationship Specialty Start Date End Date Po, MD Ramo [address] [place] [address] Dr [address] [facility] [place] [address] PCP - General Internal Medicine 07/08/20 documented as of this encounter
--- OUTSIDE RECORDS SUMMARY | 2025-01-19 11:28 | XMS_ITS | Encounter Summary ---
Author Organization [facility] Address [address] [place] [address] Care Team Providers Care Spine Supervisor Name Role Phone Ramo Metcalf MD Primary Care Provider [phone] Encounter Details Date Type Department Care Team [...] (chronic) documented in this encounter Care Teams Spine Supervisor Relationship Specialty Start Date End Date Po, MD Ramo [address] [place] [address] [address] [facility] [place] [address] PCP - General Internal Medicine 07/08/20 documented as of this encounter
--- OUTSIDE RECORDS SUMMARY | 2025-01-19 11:28 | XMS_ITS | Clinical Summary ---
Author Organization [facility] Address [address] [place] [phone] Phone Care Team Providers Care Remote Coders Name Role Phone Ramo Metcalf MD Primary Care Provider [phone] Allergies Active Allergy Reactions Criticality Noted Date [...] mg by mouth daily. 2 Active nebulizers [facility] [place] [place] Respiratory Therapy Supplies (NEBULIZER/ADULT MASK) Kit Sig [...] Vaccine ( - season) 2024 Influenza Vaccine (Season Ended) 2025 08/07/2019, 09/07/2018, 07/05/2012, Additional history exists DTaP,Tdap,and Td [...] age to complete this topic Meningococcal B Vaccine Aged Out No l onger eligible based on patient's age to complete [...] Most Recently Relevant to Health Maintenance Insurance [facility] [employer] Care Teams Remote Coders Relationship Specialty Start Date End Date Ramo Metcalf MD [address] [place] [address] [address] [facility] [place] [address] PCP - General Internal Medicine 07/08/20
--- OUTSIDE RECORDS SUMMARY | 2025-01-19 11:28 | XMS_ITS | Encounter Summary ---
Author Organization [facility] Address [address] [place] [address] Care Team Providers Care Operator/Assistant Foreman Name Role Phone Ramo Metcalf MD Primary Care Provider [phone] Encounter Details Date Type Department Care Team [...] on filedocumented in this encounter Care Teams Operator/Assistant Foreman Relationship Specialty Start Date End Date Dixon, MD Ramo [address] [place] [address] [address] [facility] [place] [address] PCP - General Internal Medicine 07/08/20 documented as of this encounter
--- OUTSIDE RECORDS SUMMARY | 2025-01-19 11:28 | XMS_ITS | Clinical Summary ---
Author Organization [facility] Address [address] [place] [address] Care Team Providers Care Lead Pl Sql Developer Name Role Phone Ramo Metcalf MD Primary Care Provider [phone] Allergies Active Allergy Reactions Criticality Noted Date [...] age to complete this topic Care Teams Lead Pl Sql Developer Relationship Specialty Start Date End Date Po, Ramo Cotto MD [address] [place] [address] [address] [facility] [place] [address] PCP - General Internal Medicine 02/18/22
== END 2025-01-19 12:34 | disposition home or self-care (01) ==
PROVIDERS: PCP Internal Medicine; Visit Provider Nurse Practitioner Family
DX: R52 Pain, unspecified (principal); L08.9 Local infection of the skin and subcutaneous tissue, unspecified; J06.9 Acute upper respiratory infection, unspecified; Z13.9 Encounter for screening, unspecified

== ENCOUNTER 2025-01-19 10:38 | Outpatient (REF) | payer OTHER, SELFPAY ==
--- OUTSIDE RECORDS SUMMARY | 2025-01-19 13:07 | XMS_ITS | Encounter Summary ---
Author Organization [facility] Address [address] [place] [address] Care Team Providers Care Director Of Cath Lab Name Role Phone Ramo Metcalf MD Primary Care Provider [phone] Encounter Details Date Type Department Care Team [...] on filedocumented in this encounter Care Teams Director Of Cath Lab Relationship Specialty Start Date End Date Dixon, MD Ramo [address] [place] [address] [address] [facility] [place] [address] PCP - General Internal Medicine 07/08/20 documented as of this encounter
--- OUTSIDE RECORDS SUMMARY | 2025-01-19 13:07 | XMS_ITS | Clinical Summary ---
Author Organization [facility] Address [address] [place] [address] Care Team Providers Care Retail Shift Leader Name Role Phone Ramo Metcalf MD Primary Care Provider [phone] Allergies Active Allergy Reactions Criticality Noted Date [...] age to complete this topic Care Teams Retail Shift Leader Relationship Specialty Start Date End Date Po, Ramo Cotto MD [address] [place] [address] [address] [facility] [place] [address] PCP - General Internal Medicine 02/18/22
--- OUTSIDE RECORDS SUMMARY | 2025-01-19 13:07 | XMS_ITS | Clinical Summary ---
Author Organization [facility] Address [address] [place] [phone] Phone Care Team Providers Care Forestry Conservation Worker Name Role Phone Ramo Metcalf MD Primary Care Provider [phone] Allergies Active Allergy Reactions Criticality Noted Date [...] mg by mouth daily. 2 Active nebulizers [facility] [place] Respiratory Therapy Supplies (NEBULIZER/ADULT MASK) Kit Sig [...] Most Recently Relevant to Health Maintenance Insurance [facility] [place] [address] Care Teams Forestry Conservation Worker Relationship Specialty Start Date End Date Ramo Metcalf MD [address] [place] [address] [address] [facility] [place] [address] PCP - General Internal Medicine 07/08/20
--- OUTSIDE RECORDS SUMMARY | 2025-01-19 13:07 | XMS_ITS | Clinical Summary ---
Author Organization [employer] Address [address] [facility] [address] [place] [address] Care Team Providers Care Sand Molder Name Role Phone Unavailable Primary Care Provider [...] Description 12/15/2024 8:30 AM EST Office Visit [facility] [address] [place] [address] Rachel Pinto from Last 3 Months Social [...] Description 01/26/2025 8:30 AM EDT Office Visit [facility] [address] [place] [address] Chidi Troncoso DDS [address] [place] [address] Health Maintenance Due Date Last Done Comments [...] 3 Months Insurance [facility] [address]
--- OUTSIDE RECORDS SUMMARY | 2025-01-19 13:07 | XMS_ITS | Encounter Summary ---
Author Organization [facility] Address [address] [place] [address] Care Team Providers Care Instructor Looping Name Role Phone Ramo Metcalf MD Primary Care Provider [phone] Encounter Details Date Type Department Care Team [...] on filedocumented in this encounter Care Teams Instructor Looping Relationship Specialty Start Date End Date Po, MD Ramo [address] [place] [address] [address] [place] [facility] [place] [address] PCP - General Internal Medicine 07/08/20 documented as of this encounter
--- OUTSIDE RECORDS SUMMARY | 2025-01-19 13:07 | XMS_ITS | Encounter Summary ---
Author Organization [facility] Address [address] [place] [address] Care Team Providers Care Turpentine Distiller Name Role Phone Ramo eMtcalf MD Primary Care Provider [phone] Encounter Details Date Type Department Care Team [...] (chronic) documented in this encounter Care Teams Turpentine Distiller Relationship Specialty Start Date End Date Po, MD Ramo [address] [place] [address] [address] [facility] [place] [address] PCP - General Internal Medicine 07/08/20 documented as of this encounter
[2025-01-19 14:38] LABS: Influenza A PCR NEGATIVE (Negative); Influenza B PCR NEGATIVE (Negative); Resp Syncy Virus RNA Qual PCR NEGATIVE (Negative); SARS COV2 PCR INHOUSE NEGATIVE (Negative)
== END 2025-01-19 10:39 | disposition home or self-care (01) ==
LOC: HO.LAB 10:38
PROVIDERS: PCP Internal Medicine; Visit Provider Nurse Practitioner Family
DX: J06.9 Acute upper respiratory infection, unspecified (principal); L08.9 Local infection of the skin and subcutaneous tissue, unspecified; B96.89 Other specified bacterial agents as the cause of diseases classified elsewhere; Z13.9 Encounter for screening, unspecified
CPT/HCPCS: 0241U; 87070; 87205; 87880; 99212

== ENCOUNTER 2025-02-15 13:47 | Outpatient (AMB) | payer OTHER, SELFPAY ==
--- NOTE | 2025-02-15 14:03 | MHC.PC.OV ---
Vital Signs 02/15/25 14:05 Height 5 ft 3 in Weight 318 lb 8 oz BMI 56.4 BP 140/90 H Blood Pressure Location Lt brachial Position Sitting Pulse 81 Pulse Source Pulse Oximeter Temp 97.1 F Temp Source Temporal Artery Scan Pulse Oximetry (%) 97 Oxygen Delivery Method Room Air Intake Visit Reasons: 6 Week F/U Intake Note: Patient is here to follow up on HTN. Churn Driller Required: No Airfreight Loading Supervisor: Present Accompanied by: Child Allergies dextran 40 Adverse Reaction (Intermediate, Verified 02/15/25 14:05) Hypertension iron dextran complex Adverse Reaction (Intermediate, Verified 02/15/25 14:05) Hypertension Tobacco use date assessed: 02/15/25 Dental Screening Dental Screen Date: 12/01/24 [facility] Medical History Sacroiliac joint dysfunction of right side Right lumbar radiculitis Morbid obesity with BMI of 50.0-59.9, adult Asthma exacerbation Right ovarian cyst Knee pain Back pain Lower extremity edema Anxiety Depression GERD (gastroesophageal reflux disease) Asthma Sleep apnea with use of continuous positive airway pressure (CPAP) Morbid obesity Surgical History Hx of section Hx of cholecystectomy Family History Mother Diabetes Hyperlipidemia Father No problems noted. Brother No problems noted. Brother No problems noted. Sister No problems noted. Sister Lupus Son No problems noted. Daughter No problems noted. Social History Housing: Apartment Alcohol intake: current Alcohol intake frequency: holidays/special occasions only Patient Tobacco Use Status: Never used Tobacco e-Cigarette/Vaping Use: Never Used Second Hand Smoke Exposure: No service: No Current occupational status: disabled Current occupation: rt hand Cognitive needs: No Hearing needs: No Vision needs: No Female Reproductive History Menstrual Age of Menarche: 13 Questionnaire PHQ-9 Over the last 2 weeks, how often have you been bothered by any of the following problems? 1. Little interest or pleasure in doing things: nearly every day 2. Feeling down, depressed, or hopeless: nearly every day 3. Trouble falling or staying asleep, or sleeping too much: nearly every day 4. Feeling tired or having little energy: nearly every day 5. Poor appetite or overeating: more than half the days 6. Feeling bad about yourself - or that you are a failure or have let yourself or your family down: more than half the days 7. Trouble concentrating on things, such as reading the newspaper or watching television: nearly every day 8. Moving or speaking so slowly that other people could have noticed. Or the opposite - being so fidgety or restless that you have been moving around a lot more than usual: not at all 9. Thoughts that you would be better off or of hurting yourself in some way: not at all Total score: 19 Depression Screening Interpretation: Positive Depression Screening Done: Yes Source: Developed by Drs. Bigg Osorio, Renata Morales, Reinaldo Curtis and colleagues, with an educational lulú from [employer]. Thrive Questionnaire Date Thrive assessed: 02/15/25 I am a: Patient What is your living situation today?: I have a steady place to live Within the past 12 months, did the food you bought not last and you didn't have the money to get more?: Often true Within the past 12 months, did you worry whether your food would run out before you got money to buy more?: Often true Do you have trouble paying for medicines?: No Do you have trouble getting transportation to medical appointments?: Yes Do you have trouble paying your heating and electricity bill?: Yes Do you have trouble taking care of your child, family member or friend?: No Do you have trouble with day-to-day activities such as bathing, preparing meals, shopping, managing finances, etc.?: Yes Are you currently unemployed and looking for a job?: No Are you interested in more education?: Yes Please select the resources that you would like help with: Job search/training and Education Currently or been in a relationship where the following occur: No concerns reported THRIVE Score: 4 AUDIT C Alcohol Use Questionnaire (AUDIT-C) 1. How often do you have a drink containing alcohol?: Never Total Score: 0 EDMUNDO-7 AMB Questionnaire EDMUNDO-7 Date EDMUNDO - 7 assessed: 02/15/25 Feeling nervous, anxious, or on edge: 1 = Several days Not being able to stop or control worryin = Several days Worrying too much about different things: 1 = Several days Trouble relaxin = Several days Being so restless that it is hard to sit still: 1 = Several days Becoming easily annoyed or irritable: 1 = Several days Feeling afraid as if something awful might happen: 0 = Not at all Total EDMUNDO-7 score (0-4 normal; 5-9 mild; 10-14 moderate; 15-21 severe): 6 Source: Developed by Drs. Bigg Osorio, Renata Morales, Reinaldo Curtis and colleagues, with an educational lulú from [employer]. Physical exam (Primary Care) Vital Signs: Last Vital Signs Temp 97.1 F 02/15/25 14:05 Pulse 81 02/15/25 14:05 BP 140/90 H 02/15/25 14:05 Pulse Ox 97 02/15/25 14:05 Oxygen Delivery Method Room Air 02/15/25 14:05 BMI result Body Mass Index 56.4 Tobacco/Smoking Status: Tobacco use Status Tobacco use date assessed 02/15/25 02/15/25 14:12 Patient Tobacco Use Status Never used Tobacco 02/15/25 14:05 e-Cigarette/Vaping Use Never Used 02/15/25 14:05 PHQ-9: PHQ-9 Score PHQ-9: Total score 19 02/15/25 14:05 Depression Screening Interpretation: Positive Thrive Assessment: Date of Thrive Assessment Date Thrive assessed 02/15/25 02/15/25 14:05 Currently or been in a relationship where the following occur: No concerns reported Coding Level of Care Code Est Pt Level 4 (44210) Complex EM visit Add On G2211 Diagnoses Essential hypertension I10 Assessment & Plan Assessment & Plan (1) Essential hypertension: Code(s): I10 - Essential (primary) hypertension Category: Medical Plan: Patient continues to nurse her young infant. Continue current medications. Importance of weight loss suggested. Plan History of Present Illness The patient is a 39-year-old female presenting with hypertension management and joint pain. She reports persistent elevated blood pressure, currently managed with hydralazine three times daily, which she continues while nursing her infant. The patient also addresses significant joint pain, primarily in her knees, associated with weight-bearing activities, prompting concerns about conditions such as lupus or arthritis. She has seen some weight reduction from her pre- state and is actively working on dietary improvements to further this progress. Her current initiatives include reducing sugar and carbohydrate intake. Social History - Family Status: Not currently working. Single parent to three children aged ten, eight, and three months. - Activity Level: Engages in walking as a form of exercise, though it is accompanied by significant joint pain. - Weight Management: Actively attempting dietary changes; current weight is 319 lbs, a decrease from pre- weight of approximately 334-344 lbs. - Family Support: Relies on assistance from her sister for transportation. - Relationship Status: The father of the youngest child visits infrequently, about once or twice a month. Review of Systems - Musculoskeletal: Reports joint pain, particularly in the knees. - Cardiovascular: Reports persistent elevated blood pressure. - Respiratory: Denies any breathing difficulties. - Gastrointestinal: Reports experiencing heartburn. - Allergic/Immunologic: Reports symptoms consistent with allergic rhinitis. Physical Exam General: Cooperative and healthy appearing Nutritional Appearance: Well nourished Orientation/consciousness: Patient oriented x3 Limitations: No limitations Head: Normal to inspection General: Appearance normal, both eyes and all related structures Neck: Normal visual inspection Chest: Normal palpation of entire chest wall Respiratory: Patient reports breathing issues related to weight. ormal respiratory effort Neurology: Patient oriented x3. Reports bone pain, particularly in knees, possibly related to weight. Results Plan 1. Essential Hypertension - Continue hydralazine three times daily; monitor blood pressure regularly; reassess post-nursing for possible therapy adjustments. 2. Joint Pain - Consider differential diagnoses including arthritis; recommend blood tests; emphasize continued weight management. 3. Obesity - Maintain dietary changes focusing on reducing sugars and carbohydrates; discuss further options post-nursing. 4. Allergic Rhinitis - Prescribe and start Claritin for allergic symptoms. 5. Gastroesophageal Reflux Disease - Prescribe omeprazole for heartburn management. Discussion Notes We discussed the persistent hypertension and agreed to continue the current antihypertensive medication during nursing, with future medication reassessment planned. I advised on potential underlying causes for her joint pain, including arthritis, and recommended blood tests to investigate further. We reviewed her weight management efforts, reinforcing dietary changes to reduce sugar and carbohydrate intake. For allergic rhinitis and heartburn, I prescribed Claritin and omeprazole. We also discussed the potential consideration of pharmacological weight management options post-nursing. Follow-up is planned for three months to reassess these issues. Patient Instructions - Continue taking hydralazine as prescribed. - Monitor your blood pressure regularly at home. - Maintain your current dietary modifications and continue efforts to lose weight. - Take omeprazole and Claritin as prescribed for heartburn and allergic symptoms. - Schedule and perform recommended blood tests to investigate joint pain. - Follow up in three months to reassess treatment effectiveness and discuss further management options. Medications: New omeprazole 20 mg PO DAILY 90 caps 1RF loratadine (Claritin) 10 mg PO DAILY PRN 30 tabs 0RF allergy symptoms
[2025-02-15 14:05] VITALS: BP 140/90; PULSE 81; TEMP 36.2; O2SAT 97; BMI 56.4
--- OUTSIDE RECORDS SUMMARY | 2025-02-15 14:44 | XMS_ITS | Encounter Summary ---
Author Organization [facility] Address [address] [place] [address] Care Team Providers Care Innersole Maker Name Role Phone Ramo Metcalf MD Primary Care Provider [phone] Encounter Details Date Type Department Care Team [...] on filedocumented in this encounter Care Teams Innersole Maker Relationship Specialty Start Date End Date Po, MD Ramo [address] [place] [address] Dr [address] [facility] [place] [address] PCP - General Internal Medicine 07/08/20 documented as of this encounter
--- OUTSIDE RECORDS SUMMARY | 2025-02-15 14:44 | XMS_ITS | Clinical Summary ---
Author Organization [facility] Address [address] [place] [phone] Phone Care Team Providers Care Garden Tractor Mechanic Name Role Phone Ramo Metcalf MD Primary Care Provider [phone] Allergies Active Allergy Reactions Criticality Noted Date [...] mg by mouth daily. 2 Active nebulizers [facility] Respiratory Therapy Supplies (NEBULIZER/ADULT MASK) Kit Sig [...] (BMI) of 50.0 to 59.9 in adult ([facility] V24, [facility] V28) 08/02/2024 Gastroesophageal reflux disease 12/26/2021 Allergic rhinitis [...] of Health Screening 09/20/2022 COVID-19 Vaccine ( season) 2024 Influenza Vaccine (Season Ended) 2025 [...] mg/dL Blood Venous blood specimen / Unknown Historical Provider LAB BLOOD ORDERABLES Parisa l Result * Cervical Cancer Screening: HPV (04/20/2013) Cervical Cancer Screening: HPV normal, abstracted Historical Provider HEALTH MAINTENANCE Final Result from Last 3 Months or Most Recently Relevant to Health Maintenance Insurance [facility] [employer] Care Teams Garden Tractor Mechanic Relationship Specialty Start Date End Date Ramo Metcalf MD [address] [place] [address] [address] [facility] [place] [address] PCP - General Internal Medicine 07/08/20
--- OUTSIDE RECORDS SUMMARY | 2025-02-15 14:44 | XMS_ITS | Clinical Summary ---
Author Organization [employer] Address [address] [facility] 7[address] [place] [address] Care Team Providers Care Rural Route Carrier Name Role Phone Unavailable Primary Care Provider [...] DOLORES VECES AL D A 5 Active Encounters Date Type Department Care Team Description 12/15/2024 8:30 AM EST Office Visit [facility] [address] [place] [address] Rachel Pinto from Last 3 Months Social History Tobacco Use Types Packs/Day Years Used Date Smoking Tobacco: Never Assessed Comments Unknown Sex and Gender Information Value Date Recorded Sex Assigned at Female 12/15/2024 8:27 AM EST Legal Sex Female 8:25 AM EST Gender Identity Female 12/15/2024 8:27 AM EST Sexual Orientation Straight 12/15/2024 8: 27 AM EST Plan of Treatment Health Maintenance Due Date Last Done Comments Dental Oral Exam 1986 Dental Prophylaxis 1986 Dental X-Ray: Full Mouth 1986 Depression Screening 1986 HIV Screening 1986 Lipid Panel 1986 SDOH Screening 1986 Alcohol/Substance Use Screening 1998 Tobacco Screening 1998 Family Planning (PISQ) 2001 Hepatitis C Screening 2004 Hepatitis B Vaccines (1 of 3 - 19+ 3-dose series) 2005 Pap Smear 2007 Pneumococcal Vaccine: Pediatrics (0 to 5 Years) and At-Risk Patients (6 to 49) Years) (2 of 2 - PCV) 11/29/2013 11/29/2012, 03/03/2010 Cervical Cancer Screening 2016 HPV/Cotest 2016 COVID-19 Vaccine ( - season) 2024 03/12/2021, 02/19/2021 Dental X-Ray: Bitewings 12/16/2025 12/15/2024 DTaP/Tdap/Td Vaccines (5 - Td or Tdap) 10/02/2034 10/02/2024, 01/18/2017, 07/18/2014, Additional history exists Zoster Vaccines (1 of 2) 2036 RSV Patients and Patients Aged 60 years or older (1 - 1-dose 75+ series) 2061 Influenza Vaccine Completed 07/18/2024, , 08/07/2019, Additional history exists HIB Vaccines Aged Out [...] 3 Months Insurance [facility] [id number]
--- OUTSIDE RECORDS SUMMARY | 2025-02-15 14:44 | XMS_ITS | Encounter Summary ---
Author Organization [employer] Address [address] [place] [address] Care Team Providers Care Development Architect Name Role Phone Ramo Metcalf MD Primary Care Provider [phone] Encounter Details Date Type Department Care Team [...] on filedocumented in this encounter Care Teams Development Architect Relationship Specialty Start Date End Date Dixon, MD Ramo [address] [place] [address] Dr [address] [facility] [place] [address] PCP - General Internal Medicine 07/08/20 documented as of this encounter
--- OUTSIDE RECORDS SUMMARY | 2025-02-15 14:44 | XMS_ITS | Encounter Summary ---
Author Organization [facility] Address [address] [place] [address] Care Team Providers Care Solar Panel Installation Supervisor Name Role Phone Ramo Metcalf MD Primary Care Provider [phone] Encounter Details Date Type Department Care Team [...] (chronic) documented in this encounter Care Teams Solar Panel Installation Supervisor Relationship Specialty Start Date End Date Po, MD Ramo [address] [place] [address] [address] [facility] [place] [address] PCP - General Internal Medicine 07/08/20 documented as of this encounter
--- OUTSIDE RECORDS SUMMARY | 2025-02-15 14:45 | XMS_ITS | Clinical Summary ---
Author Organization [facility] Address [address] [place] [address] Care Team Providers Care Twist Tester Name Role Phone Ramo Metcalf MD Primary Care Provider [phone] Allergies Active Allergy Reactions Criticality Noted Date [...] age to complete this topic Care Teams Twist Tester Relationship Specialty Start Date End Date Po, Ramo Cotto MD [address] [place] [address] [address] [facility] [place] [address] PCP - General Internal Medicine 02/18/22
== END 2025-02-15 14:52 | disposition home or self-care (01) ==
LOC: HO.HMCH 13:48
PROVIDERS: PCP Internal Medicine; Visit Provider Internal Medicine
DX: I10 Essential (primary) hypertension (principal)

== ENCOUNTER → 2025-02-15 13:47 | Outpatient (BNVA) | payer OTHER, SELFPAY | PROVIDERS: PCP Internal Medicine; Visit Provider Internal Medicine | DX: I10 Essential (primary) hypertension (principal) | CPT/HCPCS: 99212 ==

== ENCOUNTER 2025-02-24 09:21 | Emergency (ER) | payer OTHER, SELFPAY ==
--- NOTE | ~2025-02-24 | XR_ITS ---
CLINICAL HISTORY: atraumatic knee pain Four views of each knee Comparison: None Findings: Bones intact. No dislocations. Tricompartmental periarticular osteophyte formation, indicating osteoarthritis. No joint effusion. No radiopaque foreign body. IMPRESSION: 1. No acute findings. This document has been electronically signed by: Memo Wilson MD on 02/24/2025 11:29:00
--- NOTE | ~2025-02-24 | XR_ITS ---
CLINICAL HISTORY: twisted right ankle 2 view right ankle Comparison: CR/OR/SR - XR ANKLE RT MIN 3V - 09/12/24 18:02 EST Findings: No acute fractures or dislocations. No significant arthritic change or erosions. No ankle effusion. No radiopaque foreign body. IMPRESSION: 1. No acute findings. This document has been electronically signed by: Memo Wilson MD on 02/24/2025 11:20:39
--- NOTE | ~2025-02-24 | XR_ITS ---
CLINICAL HISTORY: twisted right ankle foot 3 view right foot Comparison: 11/05/2023 Findings: No fractures or dislocations. Periarticular osteophyte formation at the tibiotalar, talonavicular, naviculocuneiform, and subtalar joints. Calcaneal spurring. No ankle effusion. No radiopaque foreign body. IMPRESSION: 1. No acute findings. This document has been electronically signed by: Memo Wilson MD on 02/24/2025 11:30:27
--- NOTE | ~2025-02-24 | XR_ITS ---
CLINICAL HISTORY: cough 2 view chest x-ray Comparison: CR/SR - XR CHEST 2V - 02/13/23 20:34 EDT CR/SR - XR CHEST 2V - 01/20/23 16:09 EDT Findings: Mild diffuse reticulonodular pulmonary opacity. Cardiomegaly. No acute fracture. IMPRESSION: Mild atypical pneumonia. This document has been electronically signed by: Memo Wilson MD on 02/24/2025 11:13:15
[2025-02-24 09:29] VITALS: BP 209/97; PULSE 73; RESP 20; TEMP 36.6; O2SAT 98; BMI 56.5
--- OUTSIDE RECORDS SUMMARY | 2025-02-24 09:52 | XMS_ITS | Clinical Summary ---
Author Organization [employer] Address [address] [facility] 7[address] [place] [address] Care Team Providers Care Physical Therapy Asst Name Role Phone Unavailable Primary Care Provider [...] Description 12/15/2024 8:30 AM EST Office Visit [facility] [address] [place] [address] Rachel Pinto from Last 3 Months Social [...]
--- OUTSIDE RECORDS SUMMARY | 2025-02-24 09:52 | XMS_ITS | Clinical Summary ---
Author Organization [facility] Address [address] [place] [phone] Phone Care Team Providers Care Staff Development Manager Name Role Phone Ramo Metcalf MD Primary Care Provider [phone] Allergies Active Allergy Reactions Criticality Noted Date [...] by mouth daily. 2 Active nebulizers [facility] Respiratory Therapy Supplies (NEBULIZER/ADULT [...] (BMI) of 50.0 to 59.9 in adult ([facility] V24, [facility] V28) 08/02/2024 Gastroesophageal reflux disease 12/26/2021 [...] Most Recently Relevant to Health Maintenance Insurance [facility] [employer] Care Teams Staff Development Manager Relationship Specialty Start Date End Date Ramo Metcalf MD [address] [place] [address] [address] [facility] [place] [address] PCP - General Internal Medicine 07/08/20
--- OUTSIDE RECORDS SUMMARY | 2025-02-24 09:52 | XMS_ITS | Clinical Summary ---
Author Organization [facility] Address [address] [place] [address] Care Team Providers Care Respiratory Physician Name Role Phone Ramo Metcalf MD Primary Care Provider [phone] Allergies Active Allergy Reactions Criticality Noted Date [...] age to complete this topic Care Teams Respiratory Physician Relationship Specialty Start Date End Date Po, Ramo Cotto MD [address] [place] [address] [address] [facility] [place] [address] PCP - General Internal Medicine 02/18/22
--- OUTSIDE RECORDS SUMMARY | 2025-02-24 09:52 | XMS_ITS | Encounter Summary ---
Author Organization [employer] Address [address] [place] [address] Care Team Providers Care Milk Drying Machine Operator Name Role Phone Ramo Metcalf MD Primary Care Provider [phone] Encounter Details Date Type Department Care Team [...] on filedocumented in this encounter Care Teams Milk Drying Machine Operator Relationship Specialty Start Date End Date Dixon, MD Ramo [address] [place] [address] [address] [facility] [place] [address] PCP - General Internal Medicine 07/08/20 documented as of this encounter
--- OUTSIDE RECORDS SUMMARY | 2025-02-24 09:52 | XMS_ITS | Encounter Summary ---
Author Organization [facility] Address [address] [place] [address] Care Team Providers Care Migration Specialist Name Role Phone Ramo Metcalf MD Primary Care Provider [phone] Encounter Details Date Type Department Care Team [...] on filedocumented in this encounter Care Teams Migration Specialist Relationship Specialty Start Date End Date Po, MD Ramo [address] [place] [address] [address] [facility] [place] [address] PCP - General Internal Medicine 07/08/20 documented as of this encounter
--- OUTSIDE RECORDS SUMMARY | 2025-02-24 09:52 | XMS_ITS | Encounter Summary ---
Author Organization [facility] Address [address] [place] [address] Care Team Providers Care Manager Car Name Role Phone Ramo Metcalf MD Primary Care Provider [phone] Encounter Details Date Type Department Care Team [...] (chronic) documented in this encounter Care Teams Manager Car Relationship Specialty Start Date End Date Po, MD Ramo [address] [place] [address] [address] [facility] [place] [address] PCP - General Internal Medicine 07/08/20 documented as of this encounter
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
[2025-02-24 10:27] VITALS: BP 170/78; PULSE 67; RESP 17; TEMP 36.8; O2SAT 95
[2025-02-24] MEDS: hydrALAZINE HCl 10 MG TABLET PO (10:29)
[2025-02-24 10:44] LABS: MANUAL DIFF FLAG NO
[2025-02-24 10:46] LABS: Basophils Percent Auto 0.3 % (0-2); Eosinophils Absolute Auto 0.3 X10*3/uL (0.0-0.4); Eosinophils Percent Auto 3.4 % (0-4); Hematocrit 32.1 % (37.0-47.0); Hemoglobin 9.7 g/dl (12.0-16.0); Imm Gran Abs Auto 0.03 X10*3/uL (0.00-0.03); Imm Gran Pct Auto 0.3 % (0.0-0.4); Lymphocytes Absolute Auto 2.1 X10*3/uL (1.2-4.9); Lymphocytes Percent Auto 22.3 % (20-40); Mean Corpuscular HGB Conc 30.2 g/dl (31.0-35.0); Mean Corpuscular Hemoglobin 21.5 pg (27.0-33.0); Mean Platelet Volume 10.7 fL (9.4-12.3); Monocytes Absolute Auto 0.7 X10*3/uL (0.1-1.2); Monocytes Percent Auto 6.9 % (2-11); Neutrophils Absolute Auto 6.3 x10*3/uL (2.0-8.3); Neutrophils Percent Auto 66.8 % (45-73); Platelet Count 385 X10*3/uL (160-400); Red Blood Count 4.52 X10*6/uL (4.20-5.50); Red Cell Distribution Width 16.5 % (11.0-16.0); White Blood Count 9.5 X10*3/uL (4.8-10.8)
[2025-02-24 10:53] LABS: IDNOW Serial# 55D5AD1C; Strep A Nucleic Acid Negative (Negative)
[2025-02-24 11:00] LABS: Alanine Aminotransferase 26 U/L (0-31); Albumin Level 3.7 g/dL (3.5-5.0); Alkaline Phosphatase 88 U/L (39-117); Anion Gap 11 (12-20); Aspartate Amino Transferase 22 U/L (5-31); Bilirubin Total 0.3 mg/dL (0.0-1.0); Blood Urea Nitrogen 10 mg/dL (9-16); C Reactive Protein 2.44 mg/dL (< or = 0.50); Calcium 8.6 mg/dL (8.4-10.2); Carbon Dioxide 26 mmol/L (22-29); Chloride 106 mmol/L (96-108); Creatinine Clr Calc Pharmacy 162.9; Estimated Glomerular Filt Rate > 60; Glucose Random 94 mg/dL (60-115); Potassium 3.8 mmol/L (3.3-5.1); Sodium 139 mmol/L (135-145); Total Protein 7.1 g/dL (6.5-8.0)
--- NOTE | 2025-02-24 11:07 | PC.NURSE ---
Report received. Taken over care at this time.
[2025-02-24 11:35] LABS: Erythrocyte Sedimentation Rate 32 MM/HR (0-20)
[2025-02-24] MEDS: Acetaminophen 325 MG TABLET 975 MG PO (12:02)
[2025-02-24 12:04] LABS: Influenza A PCR NEGATIVE (Negative); Influenza B PCR NEGATIVE (Negative); Resp Syncy Virus RNA Qual PCR NEGATIVE (Negative); SARS COV2 PCR INHOUSE NEGATIVE (Negative)
[2025-02-24 12:24] LABS: Uric Acid 3.9 mg/dL (2.4-5.7)
[2025-02-24 14:00] VITALS: BP 155/70; PULSE 69; RESP 17; TEMP 36.8; O2SAT 95
[2025-02-24 14:29] VITALS: BP 155/70; PULSE 69; RESP 17; TEMP 36.8; O2SAT 95
== END 2025-02-24 14:32 | disposition home or self-care (01) ==
PROVIDERS: Physician Assistant Medical; Emergency Provider Emergency Medicine Emergency Medical Services; PCP Internal Medicine
DX: J18.9 Pneumonia, unspecified organism (principal); J02.9 Acute pharyngitis, unspecified; M19.071 Primary osteoarthritis, right ankle and foot; M25.562 Pain in left knee; M25.561 Pain in right knee; M25.571 Pain in right ankle and joints of right foot; Z03.818 Encounter for observation for suspected exposure to other biological agents ruled out
CPT/HCPCS: 0241U; 36415; 71046; 73564; 73610; 73630; 80053; 84550; 85025; 85652; 86140; 87651; 99283; 99284

== ENCOUNTER → 2025-02-24 10:02 | Outpatient (BNV) | payer OTHER, SELFPAY | PROVIDERS: Emergency Provider Emergency Medicine Emergency Medical Services; PCP Internal Medicine; Visit Provider Radiology Diagnostic Radiology | DX: M17.9 Osteoarthritis of knee, unspecified (principal); R05.9 Cough, unspecified; M25.571 Pain in right ankle and joints of right foot; M79.671 Pain in right foot | CPT/HCPCS: 71046; 73564; 73610; 73630 ==

== ENCOUNTER 2025-03-30 08:46 | Outpatient (AMB) | payer OTHER, SELFPAY ==
[2025-03-30 08:49] VITALS: BP 189/92; PULSE 69; RESP 18; O2SAT 96; BMI 56.1
--- NOTE | 2025-03-30 08:49 | A.OFFVIS_ITS ---
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 Grinder Operator Required: Yes Grinder Operator Name: Kristin [id number] Allergies dextran 40 Adverse Reaction (Intermediate, Verified 03/30/25 08:56) Hypertension iron dextran complex Adverse Reaction (Intermediate, Verified 03/30/25 08:56) Hypertension HPI Comments Details: Visit completed with spanish interpreter/translator Chema #[id number] The patient is a 39-year-old female presenting with pain in both knees and right ankle. The pain has been present for more than four weeks and was initially evaluated in the emergency room, where x-rays were performed and found to be normal. The patient reports that the pain is more severe in the left knee compared to the right and that the right ankle is tender to touch. Evaluated for this same pain more than 1 year ago by Orthopedics. The patient has a history of osteoarthritis in the knees, as indicated by previous x-rays, and a heel spur in the foot. She has not been able to follow up with orthopedics as planned due to missed appointments. The patient has attempted self-management with hot showers and ibuprofen, which have not provided relief. She has not used ice as it exacerbates the pain, and she has not tried compression bandages due to lack of availability. - Onset: Pain has been present for more than four weeks. - Location: More severe in the left knee, tenderness in the right ankle. - Exacerbating factors: Ice worsens the pain. - Relieving factors: None identified, as ibuprofen and hot showers have not provided relief. - Affect: Not discussed. - Analgesia: Ibuprofen used without relief. - Adverse Effects: None reported. - Activities of Daily Living: Difficulty with standing, walking and ADLs secondary to pain - Aberrant Drug Related Behaviors: None reported. [facility] Medical History Sacroiliac joint dysfunction of right side Right lumbar radiculitis Morbid obesity with BMI of 50.0-59.9, adult Asthma exacerbation Right ovarian cyst Knee pain Back pain Lower extremity edema Anxiety Depression GERD (gastroesophageal reflux disease) Asthma Sleep apnea with use of continuous positive airway pressure (CPAP) Morbid obesity Surgical History Hx of section Hx of cholecystectomy Family History Mother Diabetes Hyperlipidemia Father No problems noted. Brother No problems noted. Brother No problems noted. Sister No problems noted. Sister Lupus Son No problems noted. Daughter No problems noted. Social History Housing: Apartment Alcohol intake: current Alcohol intake frequency: holidays/special occasions only Patient Tobacco Use Status: Never used Tobacco e-Cigarette/Vaping Use: Never Used Second Hand Smoke Exposure: No service: No Current occupational status: disabled Current occupation: rt hand Cognitive needs: No Hearing needs: No Vision needs: No Female Reproductive History Menstrual Age of Menarche: 13 Review of Systems Const Details: - Musculoskeletal: Reports pain in the right knee and right ankle, tenderness in the right ankle. - General: Denies relief from ibuprofen and hot showers. Physical Exam Vital Signs: Last Vital Signs Pulse 69 03/30/25 08:49 Resp 18 03/30/25 08:49 BP 189/92 H 03/30/25 08:49 Pulse Ox 96 03/30/25 08:49 Oxygen Delivery Method Room Air 03/30/25 08:49 BMI result Body Mass Index 56.1 General: awake, alert, oriented. Answers questions appropriately. Fully engaged in examination. Obese. Skin: warm, dry, intact HEENT: Normocephalic. Hearing intact. Cardiac: External chest normal in appearance. Respiratory: No cough, audible wheezing or stridor. Abdomen: without gross distension. MS: No obvious deformities. Able to transition from sit to stand unassisted. Ambulates with bilaterally normal heel strike and toe off Right ankle: Lateral tenderness, minimal swelling noted. Left knee: Diffuse tenderness, no swelling, no bruising, no discoloration. Neurological: Oriented to person, place, time and situation. Thought process intact. No gait abnormalities appreciated. Psychiatric: Appropriate mood and affect. Good judgment and insight. Results Reviewed Results Reviewed: Date of Service: 02/24/25 Procedure(s): XR Knee Patrick 4V Findings: Bones intact. No dislocations. Tricompartmental periarticular osteophyte formation, indicating osteoarthritis. No joint effusion. No radiopaque foreign body. IMPRESSION: 1. No acute findings. XR ANKLE RT MIN 3V - 09/12/24 18:02 EST Findings: No acute fractures or dislocations. No significant arthritic change or erosions. No ankle effusion. No radiopaque foreign body. IMPRESSION: 1. No acute findings. Assessment & Plan Assessment & Plan (1) Right ankle pain: Code(s): M25.571 - Pain in right ankle and joints of right foot Category: Medical (2) Foot pain, right: Code(s): M79.671 - Pain in right foot Category: Medical (3) Calcaneal spur: Code(s): M77.30 - Calcaneal spur, unspecified foot Category: Medical Plan The plan includes submitting a request to the insurance for a steroid injection for the left knee to manage the osteoarthritis. A referral to a pocketed spring machine operator will be made to address the heel spur and any associated foot pain. Physical therapy is recommended for the right ankle, and the patient is advised to follow up with orthopedics for follow up. A topical anti-inflammatory cream will be prescribed for application to the most painful areas twice daily. The patient is encouraged to purchase an Harsh wrap from the pharmacy for additional support. Patient was informed and verbally consented to the use of an ambient scribe for clinic note documentation during this visit. Orders: Orders PT Evaluation and Treatment Today M25.571 - Pain in right ankle and joints of right foot Referrals Podiatry Referral M77.30 - Calcaneal spur, unspecified foot, M79.671 - Pain in right foot Medications: New diclofenac sodium 3% apply to most painful area twice daily as needed for pain 1 appl topical BID 100 grams 3RF Patient Instructions: - Expect a call to schedule the steroid injection for your knee. - Expect a call to schedule an appointment with the pocketed spring machine operator. - Attend physical therapy sessions as scheduled. - Apply the prescribed topical anti-inflammatory cream to painful areas twice daily. - Purchase an Harsh wrap from the pharmacy for additional support. Coding Level of Care Code New Pt Level 4 (49244) Complex EM visit Add On G2211 Diagnoses Right ankle pain M25.571 Foot pain, right M79.671 Calcaneal spur M77.30
== END 2025-03-30 09:31 | disposition home or self-care (01) ==
LOC: HO.PMC 08:47
PROVIDERS: PCP Internal Medicine; Visit Provider Registered Nurse Emergency
DX: M25.571 Pain in right ankle and joints of right foot (principal); M79.671 Pain in right foot; M77.30 Calcaneal spur, unspecified foot
CPT/HCPCS: 99204; G2211

== ENCOUNTER → 2025-03-30 08:46 | Outpatient (BNVA) | payer OTHER, SELFPAY | PROVIDERS: PCP Internal Medicine; Visit Provider Registered Nurse Emergency | DX: M25.571 Pain in right ankle and joints of right foot (principal); M79.671 Pain in right foot; M77.30 Calcaneal spur, unspecified foot | CPT/HCPCS: 99202 ==

== ENCOUNTER 2025-04-17 16:57 | Emergency (ER) | payer OTHER, SELFPAY ==
--- NOTE | ~2025-04-17 | CT_ITS ---
CLINICAL HISTORY: infection, right submandibular painful swelling CT soft tissue neck with contrast Comparison: None provided Findings: Soft tissue swelling is noted about a right-sided piercing. Differential considerations include cellulitis. Soft tissue defect and gas concerning for ulceration of the left (imaged 147 of series 3). Adjacent fluid concerning for microabscess and/or phlegmonous change. This may be odontogenic origin given multiple lucencies of the imaged remaining teeth. Metal artifacts partly obscure portions of the mouth, teeth detail, and portions of the pharynx. No definite 1 cm or greater or definite drainable parapharyngeal abscess at this time. Soft tissue fullness of the pharynx can be seen with additional cellulitis and/or pharyngitis. This includes nasopharynx in the oropharynx with associated upper airway narrowing. Glottis is partly obscured by artifacts. Infraglottic airway is patent in the [id number]. No odontogenic abscess defined in either grader patrol space. Asymmetry of the parotid and submandibular glands accentuated by positioning. Mild periorbital soft tissue swelling is preseptal. No acute appearing or suspicious air-fluid levels of the imaged paranasal sinuses. Imaged mastoid air cells are well aerated. Bilateral cervical lymph nodes are nonspecific and may be reactive. Right level II node measures 1.2 cm short axis (image 175 of series 3). Mild reversal cervical lordosis with degenerative disc changes and facet arthropathy greater than expected for age. No consolidation of the partially imaged lungs. Borderline cardiomegaly partially imaged in the [id number]. Mediastinal fluid is nonspecific in the [id number] IMPRESSION: 1. Soft tissue swelling adjacent to left-sided ulceration concerning for cellulitis and phlegmonous change. Small odontogenic abscess also considered. No 1 cm larger abscess by CT at this time. No drainable parapharyngeal abscess or abscess in either grader patrol space. 2. Additional soft tissue swelling concerning for cellulitis including adjacent to right-sided piercing. 3. Multiple lucencies associated with remaining teeth with partial obscuration from metal artifacts. 4. Imaged cervical lymphadenopathy are nonspecific and likely reactive. Please consider 3 to six-month follow-up to ensure resolution. This document has been electronically signed by: Charles Flores MD on 04/17/2025 20:24:50
[2025-04-17 17:08] VITALS: BP 215/115; PULSE 82; RESP 18; TEMP 36.8; O2SAT 96; BMI 56.7
--- NOTE | 2025-04-17 17:13 | ECG_ITS ---
Test Reason : HYPERTENSION Blood Pressure : */* mmHG Vent. Rate : 77 BPM Atrial Rate : 77 BPM P-R Int : 172 ms QRS Dur : 100 ms QT Int : 410 ms P-R-T Axes : 34 15 34 degrees QTcB Int : 463 ms Normal sinus rhythm Normal ECG When compared with ECG of 18-Aug-2024 19:25, No significant change was found Referred By: Moises De Leon Electronically Signed By: Ar Lopez
--- NOTE | 2025-04-17 17:16 | ED.GENADULT ---
HPI - General Adult General Chief complaint: General Medical Stated complaint: Sore throat Time Seen by Provider: 04/17/25 18:18 Source: patient Limitations: no limitations History of Present Illness ED Provider: Maria R Amin PA-C HPI narrative: 39-year-old female with a history of morbid obesity presents with sore throat x1 week. Associated odynophagia, swelling along inferior right jaw line with right ear pain. Denies trismus, drooling, dysphagia or fever. Patient states she has also been having dental pain on the right side as well, both upper and lower teeth. Denies foul taste in mouth. Related Data Previous Rx's ?Medication ?Instructions ?Recorded budesonide-formoterol HFA 160 2 puff PO BID #10.2 grams 08/14/24 mcg-4.5 mcg/actuation aerosol inhaler (Symbicort) labetalol 300 mg tablet 600 mg (2 x 300 mg) PO TID #180 12/26/24 tabs omeprazole 20 mg capsule,delayed 20 mg PO DAILY #90 caps 02/19/25 release diclofenac sodium 3 % topical gel 1 appl topical BID #100 grams 03/30/25 clindamycin HCl 150 mg capsule 450 mg (3 x 150 mg) PO TID #90 caps 04/17/25 (Cleocin HCl) Allergies Allergy/AdvReac Type Severity Reaction Status Date / Time dextran 40 AdvReac Intermediate Hypertensio Verified 04/17/25 17:18 n iron dextran complex AdvReac Intermediate Hypertensio Verified 04/17/25 17:18 n Review of Systems Review of Systems: Yes all other systems are reviewed and are negative Constitutional: Constitutional: Denies fatigue and Denies fever(s) ENT: Reports dental pain, Denies dysphagia, Reports otalgia, Reports facial pain, Reports odynophagia, Reports sore throat, Denies throat swelling and Denies tongue swelling Cardiovascular: Cardiovascular: Denies chest pain and Denies dyspnea Respiratory: Respiratory: Denies dyspnea Gastrointestinal: Gastrointestinal: Denies abdominal pain, Denies dysphagia, Denies nausea, Reports odynophagia and Denies vomiting Endocrine: Endocrine: Denies fatigue Allergic/Immunologic: Allergic/Immunologic: Denies throat swelling and Denies tongue swelling PMF Past Medical History Attestation statement: The following information was validated with the patient. Medical History Sacroiliac joint dysfunction of right side Right lumbar radiculitis Morbid obesity with BMI of 50.0-59.9, adult Asthma exacerbation Right ovarian cyst Knee pain Back pain Lower extremity edema Anxiety Depression GERD (gastroesophageal reflux disease) Asthma Sleep apnea with use of continuous positive airway pressure (CPAP) Morbid obesity Surgical History Hx of section Hx of cholecystectomy Family History Family History Mother Diabetes Hyperlipidemia Father No problems noted. Brother No problems noted. Brother No problems noted. Sister No problems noted. Sister Lupus Son No problems noted. Daughter No problems noted. Social History Social History Housing: Apartment Alcohol intake: current Alcohol intake frequency: does not drink Patient Tobacco Use Status: Never used Tobacco Smoked in Last 30 Days: No e-Cigarette/Vaping Use: Never Used Second Hand Smoke Exposure: No Use of substances other than those prescribed or required for medical reasons: No Advance Directives: No Advance Directives Information Provided: No Do you have a plan to hurt others: No Plan service: No Current occupational status: disabled Current occupation: rt hand Cognitive needs: No Hearing needs: No Vision needs: No Physical Exam ED Vital Signs: Vital Signs - 24 hr 04/17/25 17:08 04/17/25 20:31 Temperature 98.3 F 98.1 F Pulse Rate 82 73 Respiratory Rate 18 16 Blood Pressure 215/115 H 179/84 H Pulse Oximetry 96 97 Oxygen Delivery Method Room Air Room Air BMI result Body Mass Index 56.7 Const Other: Alert Orientation/consciousness: patient oriented x3 HENMT Other: 0 P minimally erythematous without exudate, uvula midline, no trismus no drooling, no purulent drainage from statin or Jayde's ducts, no sublingual fluctuance, difficult to determine if there is swelling inferior to the jawline along the right secondary to patient's habitus/morbid obesity her neck is very fleshy. No tragal tenderness on the right, TM is intact without erythema. Unable to fully visualize all of the teeth, I do not see any obvious signs of dental infection, she is not cooperating with the exam, Neck Other: Can not palpate lymph nodes secondary to habitus Neck: Yes full ROM Resp Effort & Inspection: normal respiratory effort Cardio Other: Normal peripheral perfusion Skin Other: Warm dry no rash Neuro General: patient oriented x3, gait normal, no focal motor deficits and CN's II-XI intact bilaterally Psych Other: Cooperative Course Course Course Narrative: RME: 39 year female presents to ED for sore throat. Physical exam positive for exudates without any signs of peritonsillar abscess. Patient hypertensive systolic tooth 15. Patient has history of high blood pressure states she is compliant. Patient has no chest pain headache or dizziness. Due to have elevated blood pressure EKG labs ordered. Will inform chart nurse Medications Administered Discontinued Medications Generic Name Dose Route Start Last Admin Trade Name Freq PRN Reason Stop Dose Admin Clindamycin HCl 450 mg 04/17/25 20:30 04/17/25 21:00 Clindamycin Hcl 150 Mg Capsule PO 04/17/25 20:31 450 mg ONCE ONE Administration Iohexol 100 ml 04/17/25 19:39 04/17/25 19:39 Iohexol 350 Mg/Ml 100 Ml Infus..Btl IV 04/17/25 19:40 60 ml ONCE ONE Administration Ketorolac Tromethamine 15 mg 04/17/25 18:57 04/17/25 19:20 Ketorolac Tromethamine 15 Mg/Ml Vial IVPUSH 04/17/25 18:58 15 mg ONCE ONE Administration Morphine Sulfate 4 mg 04/17/25 18:57 04/17/25 19:20 Morphine Sulfate 4 Mg/Ml Cartridge IVPUSH 04/17/25 18:58 4 mg ONCE ONE Administration Protocol Medical Decision Making Medical Decision Making [facility] Narrative: 39-year-old female with a history of morbid obesity presents with sore throat x1 week. Associated odynophagia, swelling along inferior right jaw line with right ear pain. Denies trismus, drooling, dysphagia or fever. Patient states she has also been having dental pain on the right side as well, both upper and lower teeth. Denies foul taste in mouth. Problem: Morbid obesity History: Per patient I have considered the following differential diagnoses: Strep pharyngitis, RPA, TANGIBLE PERSONAL PROPERTY APPRAISER, sialoadenitis, om, OE, dental kalyan, dental abscess Plan: Screening labs including strep screen and viral panel are in process. The patient has no exam findings consistent with RPA or TANGIBLE PERSONAL PROPERTY APPRAISER. Her pain is out of proportion with the my exam, I am not able to accurately assess the neck in the face secondary to her morbid obesity. I am obtaining a CT scan of the neck. Thought about sialoadenitis, again, she does not have a firm swelling over the cheek, difficult to tell. I believe her ear pain is reactive, the eardrum was intact. She could have a dental abscess and dental caries, nothing obvious on my exam. We will be medicating with morphine and Toradol. I have independently reviewed the following tests: Labs: No leukocytosis, not anemic, no electrolyte abnormality, not , viral panel negative, strep screen negative CT neck:IMPRESSION: 1. Soft tissue swelling adjacent to left-sided ulceration concerning for cellulitis and phlegmonous change. Small odontogenic abscess also considered. No 1 cm larger abscess by CT at this time. No drainable parapharyngeal abscess or abscess in either terrazzo finisher helper space. 2. Additional soft tissue swelling concerning for cellulitis including adjacent to right-sided piercing. 3. Multiple lucencies associated with remaining teeth with partial obscuration from metal artifacts. 4. Imaged cervical lymphadenopathy are nonspecific and likely reactive. Please consider 3 to six-month follow-up to ensure resolution. Lab Data 04/17/25 17:38 04/17/25 17:38 Labs: Lab Results 04/17/25 Range/Units 17:38 WBC 9.3 (4.8-10.8) X10*3/uL RBC 4.83 (4.20-5.50) X10*6/uL Hgb 9.8 L (12.0-16.0) g/dl Hct 33.0 L (37.0-47.0) % MCV 68.3 L (80.0-98.0) fL MCH 20.3 L (27.0-33.0) pg MCHC 29.7 L (31.0-35.0) g/dl RDW 18.0 H (11.0-16.0) % Plt Count 397 (160-400) X10*3/uL MPV 10.5 (9.4-12.3) fL Immature Gran % (Auto) 0.2 (0.0-0.4) % Neut % (Auto) 61.2 (45-73) % Lymph % (Auto) 27.5 (20-40) % Weakley % (Auto) 7.4 (2-11) % Eos % (Auto) 3.4 (0-4) % Baso % (Auto) 0.3 (0-2) % Lymph # (Auto) 2.6 (1.2-4.9) X10*3/uL Weakley # (Auto) 0.7 (0.1-1.2) X10*3/uL Eos # (Auto) 0.3 (0.0-0.4) X10*3/uL Baso # (Auto) 0.0 (0.0-0.2) X10*3/uL Abs Immat Gran (auto) 0.02 (0.00-0.03) X10*3/uL Absolute Neuts (auto) 5.7 (2.0-8.3) x10*3/uL Absolute Nucleated RBC 0.000 (0.0-0.012) X10*3/uL Nucleated RBC % (auto) 0.0 (0.0-0.2) /100WBC PT 11.2 (10.9-12.4) SEC INR 1.0 (0.9-1.1) APTT 31.1 (26.0-36.8) SEC Sodium 139 (135-145) mmol/L Potassium 3.8 (3.3-5.1) mmol/L Chloride 105 (96-108) mmol/L Carbon Dioxide 24 (22-29) mmol/L Anion Gap 14 (12-20) BUN 13 (9-16) mg/dL Creatinine 0.63 (0.5-1.4) mg/dL Estim Creat Clear Calc 171.0 Estimated GFR > 60 Random Glucose 112 (60-115) mg/dL Calcium 8.5 (8.4-10.2) mg/dL Total Bilirubin 0.3 (0.0-1.0) mg/dL AST 17 (5-31) U/L ALT 16 (0-31) U/L Alkaline Phosphatase 101 (39-117) U/L Troponin I High Sens < 2.7 (<3.5-17.0) ng/L Total Protein 7.0 (6.5-8.0) g/dL Albumin 3.9 (3.5-5.0) g/dL Beta HCG, Quant < 2 mIU/mL Influenza Type A (PCR) NEGATIVE (Negative) Influenza Type B (PCR) NEGATIVE (Negative) RSV RNA Qual (PCR) NEGATIVE (Negative) SARS-CoV-2 RNA (RT-PCR) NEGATIVE (Negative) S. pyogenes GrpA PETER Negative (Negative) Discharge Plan Discharge Clinical Impression: Dental infection Patient Disposition: Home, Self-Care Instructions: Dental Abscess (ED) Additional Instructions: You were found to have numerous teeth that are infected. See home care instructions. Take the clindamycin as directed, be sure to complete the course of antibiotics. You need to call your dentist tomorrow to schedule an appointment. For your pain, take 1000 mg of Tylenol every 8 hours. Prescriptions: New clindamycin HCl [Cleocin HCl] 150 mg capsule 450 mg PO TID Qty: 90 0RF No Action labetalol 300 mg tablet 600 mg PO TID Qty: 180 0RF omeprazole 20 mg capsule,delayed release(DR/EC) 20 mg PO DAILY Qty: 90 1RF budesonide-formoterol [Symbicort] 160-4.5 mcg/actuation HFA aerosol inhaler 2 puff PO BID Qty: 10.2 1RF albuterol sulfate 2.5 mg /3 mL (0.083 %) solution for nebulization 2.5 mg inhalation ONCE Qty: 3 0RF diclofenac sodium 3 % gel 1 appl topical BID Qty: 100 3RF Rx Instructions: apply to most painful area twice daily as needed for pain Interventions: ED Discharge Assessment Last Done: 04/17/25 21:11 Discharge Date/Time: 04/17/25 21:12 Print Language: Vietnamese
[2025-04-17 17:43] LABS: MANUAL DIFF FLAG NO
[2025-04-17 17:44] LABS: Hematocrit 33.0 % (37.0-47.0); Hemoglobin 9.8 g/dl (12.0-16.0); Imm Gran Abs Auto 0.02 X10*3/uL (0.00-0.03); Imm Gran Pct Auto 0.2 % (0.0-0.4); Lymphocytes Absolute Auto 2.6 X10*3/uL (1.2-4.9); Mean Corpuscular HGB Conc 29.7 g/dl (31.0-35.0); Mean Corpuscular Hemoglobin 20.3 pg (27.0-33.0); Mean Corpuscular Volume 68.3 fL (80.0-98.0); NRBC Abs Auto 0.000 X10*3/uL (0.0-0.012); NRBC Pct Auto 0.0 /100WBC (0.0-0.2); Platelet Count 397 X10*3/uL (160-400); Red Blood Count 4.83 X10*6/uL (4.20-5.50); White Blood Count 9.3 X10*3/uL (4.8-10.8)
[2025-04-17 17:55] LABS: IDNOW Serial# 55D5AD1C; INTERNATIONAL NORM RATIO 1.0 (0.9-1.1); Prothrombin Time 11.2 SEC (10.9-12.4); Strep A Nucleic Acid Negative (Negative)
[2025-04-17 17:58] LABS: Partial Thromboplastin Time 31.1 SEC (26.0-36.8)
[2025-04-17 18:04] LABS: Troponin-I High Sensitivity < 2.7 ng/L (<3.5-17.0)
[2025-04-17 18:06] LABS: Alanine Aminotransferase 16 U/L (0-31); Albumin Level 3.9 g/dL (3.5-5.0); Alkaline Phosphatase 101 U/L (39-117); Anion Gap 14 (12-20); Aspartate Amino Transferase 17 U/L (5-31); Blood Urea Nitrogen 13 mg/dL (9-16); Calcium 8.5 mg/dL (8.4-10.2); Carbon Dioxide 24 mmol/L (22-29); Chloride 105 mmol/L (96-108); Creatinine Clr Calc Pharmacy 171.0; Estimated Glomerular Filt Rate > 60; Potassium 3.8 mmol/L (3.3-5.1); Sodium 139 mmol/L (135-145); Total Protein 7.0 g/dL (6.5-8.0)
[2025-04-17 18:21] LABS: Resp Syncy Virus RNA Qual PCR NEGATIVE (Negative); SARS COV2 PCR INHOUSE NEGATIVE (Negative)
[2025-04-17] MEDS: iohexoL 350 MG/ML 100 ML INFUS..BTL IV (19:39)
[2025-04-17 20:31] VITALS: BP 179/84; PULSE 73; RESP 16; TEMP 36.7; O2SAT 97
[2025-04-17 21:02] VITALS: BP 179/84; PULSE 73; RESP 16; TEMP 36.7; O2SAT 97
--- NOTE | 2025-04-17 21:10 | PC.NURSE ---
iv removed, medicated per dec, reviewed discharge instructions with pt, pt verbalized understanding, no sign of distress upon discharge.
[2025-04-17 21:11] VITALS: BP 179/84; PULSE 73; RESP 16; TEMP 36.7; O2SAT 97
== END 2025-04-17 21:12 | disposition home or self-care (01) ==
PROVIDERS: Physician Assistant; Physician Assistant Medical; Emergency Provider Emergency Medicine; PCP Internal Medicine
DX: K04.7 Periapical abscess without sinus (principal); Z03.818 Encounter for observation for suspected exposure to other biological agents ruled out; J45.909 Unspecified asthma, uncomplicated; E66.01 Morbid (severe) obesity due to excess calories; Z68.43 Body mass index [BMI] 50.0-59.9, adult; Z79.899 Other long term (current) drug therapy
CPT/HCPCS: 70491; 80053; 84484; 84702; 85025; 85610; 85730; 87637; 87651; 93005; 96374; 96375; 99284; 99285; J1885; J2270; Q9967

== ENCOUNTER → 2025-04-17 17:13 | Outpatient (BNV) | payer OTHER, SELFPAY | PROVIDERS: Emergency Provider Emergency Medicine; PCP Internal Medicine; Visit Provider Internal Medicine Cardiovascular Disease | DX: I10 Essential (primary) hypertension (principal) | CPT/HCPCS: 93010 ==

== ENCOUNTER → 2025-04-17 18:56 | Outpatient (BNV) | payer OTHER, SELFPAY | PROVIDERS: Emergency Provider Emergency Medicine; PCP Internal Medicine; Visit Provider Radiology Neuroradiology | DX: R22.1 Localized swelling, mass and lump, neck (principal) | CPT/HCPCS: 70491 ==

== ENCOUNTER 2025-05-30 14:15 | Emergency (ER) | payer OTHER, SELFPAY ==
[2025-05-30 15:12] VITALS: BP 198/86; PULSE 71; RESP 18; TEMP 36.6; O2SAT 100; BMI 57.2
--- NOTE | 2025-05-30 15:13 | ED_ITS ---
HPI - General Adult General Chief complaint: Headache Stated complaint: high BP Time Seen by Provider: 05/30/25 15:20 Source: patient, RN notes reviewed and old records reviewed Mode of arrival: ambulatory Limitations: no limitations History of Present Illness ED Provider: Tiffanie LORD narrative: 40-year-old female presents for evaluation of high blood pressure. She has had an outpatient pain management appointment today. While being checked in her blood pressure was significantly elevated to 216/112 Therefore she was sent to the emergency room for evaluation and she could not be seen by the pain management team. The patient has previously been on nifedipine, hydralazine, and labetalol. She reports that she took her last dose 2 weeks ago. The nifedipine and labetalol were last filled in November of 2024 and the nifedipine in December of 2024. It is unclear what she was taking 2 weeks ago with anything. She complains of a mild headache but denies any chest pain. She has no other complaints or concerns at this time. She is actually due to see her primary doctor tomorrow morning at 11:00 a.m. for a refill of her blood pressure medications Related Data Previous Rx's ?Medication ?Instructions ?Recorded budesonide-formoterol HFA 160 2 puff PO BID #10.2 gram s 08/14/24 mcg-4.5 mcg/actuation aerosol inhaler (Symbicort) labetalol 300 mg tablet 600 mg (2 x 300 mg) PO TID # 180 12/26/24 tabs omeprazole 20 mg capsule,delayed 20 mg PO DAILY #90 ca ps 02/19/25 release diclofenac sodium 3 % topical gel 1 appl topical BID # 100 grams 03/30/25 clindamycin HCl 150 mg capsule 450 mg (3 x 150 mg) PO TID #90 caps 04/17/25 (Cleocin HCl) Allergies Allergy/AdvReac Type Severity Reaction Status Date / Time dextran 40 AdvReac Intermediate Hypertensio Verified 05/30/25 15:15 n iron dextran complex AdvReac Intermediate Hypertensio Verified 05/30/25 15:15 n Review of Systems Constitutional: Constitutional: Denies body ache(s), Denies chills, Denies fever(s) and Reports headache(s) Eyes: Eyes: Denies blurry vision ENT: Denies vertigo, Denies dizziness, Denies dry mouth and Reports headache(s) Cardiovascular: Cardiovascular: Denies chest pain and Denies dyspnea on exertion Respiratory: Respiratory: Denies cough and Denies dyspnea on exertion Gastrointestinal: Gastrointestinal: Denies abdominal pain, Denies nausea and Denies vomiting Musculoskeletal: Musculoskeletal: Denies back pain Integumentary/Breasts: Skin/Breast: Denies rash Neurologic: Denies vertigo, Denies dizziness and Reports headache(s) Psychiatric: Psychiatric: Denies anxiety PMFSH Past Medical History Medical History Sacroiliac joint dysfunction of right side Right lumbar radiculitis Morbid obesity with BMI of 50.0-59.9, adult Asthma exacerbation Right ovarian cyst Knee pain Back pain Lower extremity edema Anxiety Depression GERD (gastroesophageal reflux disease) Asthma Sleep apnea with use of continuous positive airway pressure (CPAP) Morbid obesity Surgical History Hx of section Hx of cholecystectomy Family History Family History Mother Diabetes Hyperlipidemia Father No problems noted. Brother No problems noted. Brother No problems noted. Sister No problems noted. Sister Lupus Son No problems noted. Daughter No problems noted. Social History Social History Housing: Apartment Alcohol intake: current Alcohol intake frequency: does not drink Patient Tobacco Use Status: Never used Tobacco e-Cigarette/Vaping Use: Never Used Second Hand Smoke Exposure: No service: No Current occupational status: disabled Current occupation: rt hand Cognitive needs: No Hearing needs: No Vision needs: No Physical Exam ED Vital Signs: Vital Signs - 24 hr 05/30/25 15:12 Temperature 97.9 F Pulse Rate 71 Respiratory Rate 18 Blood Pressure 198/86 H Pulse Oximetry 100 Oxygen Delivery Method Room Air BMI result Body Mass Index 57.2 Const General: healthy appearing, comfortable, no acute distress, alert and awake Nutritional Appearance: well nourished Orientation/consciousness: patient oriented x3 HENMT Head: Yes normocephalic and Yes atraumatic Eyes Eyelids: Yes eyelids normal Conjunctivae: conjunctivae normal Sclerae: sclerae normal Corneas: corneas normal Pupils: Equal, round and reactive pupils present EOM: EOMs intact bilaterally Neck Neck: Yes full ROM Resp Effort & Inspection: normal respiratory effort, able to speak in complete s entences and not labored Cardio Rate: regular rate Rhythm: regular rhythm GI Inspection: No distended Palpation (GI): Soft to palpation, not firm, nontender, no guarding and not rigid Skin General skin exam: no rashes or lesions noted and elasticity normal Neuro General: patient oriented x3 Cranial nerves: Yes Equal, round and reactive pupils present and Yes Bilaterally intact EOM present Cognition (Neuro): normal cognition Extrem Other: Moving all extremities well without any obvious deformities Course Course Course Narrative: RME, this is a rapid medical exam performed by Adithya Moreno please refer to primary provider for complete H&P- 40-year-old female presents for evaluation of headache and high blood pressure. She has a pain management clinic today in her blood pressure was 216/98. She reports that she is not on medication because she recently ran out. She does see her primary doctor tomorrow Medical Decision Making Medical Decision Making MDM Narrative: 40-year-old female presents for evaluation of high blood pressure. In the ED her blood pressure is 198/86. She is complain of a mild headache but is otherwise asymptomatic. She has no neuro deficits. Her headache is not severe, described as thunderclap or worst headache of her life. She reported the headache is dull, gradual in onset headache which is not consistent with an intracranial hemorrhage. She denies any chest pain, abdominal pain back pain. It does not seem that she is compliant with her antihypertensive medications and that is likely the cause of her high blood pressure today. Given that she has an appointment tomorrow with the PCP to discuss her blood pressure I will give her a dose of her most recent prescriptions but I will not prescribe a new refill as these could change tomorrow when she sees her doctor. She reports that she can reliably have transportation to her appointment tomorrow Differential Diagnosis Differential Diagnoses: The differential diagnosis associated with the presentation includes Hypertension Uncontrolled hypertension Medication noncompliance Hypertensive emergency Tests considered The following testing was considered but not selected: Considered labs, CT scan of the brain of ultimately the patient has a reassuring exam in his well-appearing. Discharge Plan Discharge Clinical Impression: Hypertension, uncontrolled Patient Disposition: Home, Self-Care Instructions: Chronic Hypertension (ED) Additional Instructions: You were given a dose of nifedipine 30 mg extended release, hydralazine 10 mg and labetalol 200 mg in the ER today. It is imperative that you follow-up with your primary doctor tomorrow to refill your medications. I do not want to refill your medications if your doctors going to change them tomorrow. Return to the ER if you missed your appointment tomorrow Prescriptions: No Action labetalol 300 mg tablet 600 mg PO TID Qty: 180 0RF omeprazole 20 mg capsule,delayed release(DR/EC) 20 mg PO DAILY Qty: 90 1RF clindamycin HCl [Cleocin HCl] 150 mg capsule 450 mg PO TID Qty: 90 0RF budesonide-formoterol [Symbicort] 160-4.5 mcg/actuation HFA aerosol inhaler 2 puff PO BID Qty: 10.2 1RF albuterol sulfate 2.5 mg /3 mL (0.083 %) solution for nebulization 2.5 mg inhalation ONCE Qty: 3 0RF diclofenac sodium 3 % gel 1 appl topical BID Qty: 100 3RF Rx Instructions: apply to most painful area twice daily as needed for pain Print Language: Amharic
[2025-05-30 16:11] VITALS: BP 198/86
[2025-05-30 16:12] VITALS: BP 198/86; PULSE 71
[2025-05-30] MEDS: NIFEdipine ER 30 MG TAB.ER.24 PO (16:12)
[2025-05-30 16:33] VITALS: BP 197/94; PULSE 68; RESP 16; TEMP 36.3; O2SAT 100
[2025-05-30 16:38] VITALS: BP 197/94; PULSE 68; RESP 16; TEMP 36.3; O2SAT 100
== END 2025-05-30 16:39 | disposition home or self-care (01) ==
PROVIDERS: Emergency Provider Emergency Medicine; PCP Internal Medicine
DX: R51.9 Headache, unspecified (principal); I10 Essential (primary) hypertension; Z79.899 Other long term (current) drug therapy
CPT/HCPCS: 99283

== ENCOUNTER 2025-05-31 11:07 | Outpatient (AMB) | payer OTHER, SELFPAY ==
[2025-05-31 11:46] VITALS: BP 138/78; RESP 18; BMI 56.0
--- NOTE | 2025-05-31 11:46 | A.OFFPC_ITS ---
Vital Signs 05/31/25 11:46 Height 5 ft 3 in Weight 316 lb BMI 56.0 BP 138/78 Blood Pressure Location Lt brachial Position Sitting Respiration 18 Pulse Source Pulse Oximeter Temp Source Temporal Artery Scan Oxygen Delivery Method Room Air Intake Visit Reasons: 3mth f/u Detail Drafter Required: No Accompanied by: Self / Same As Patient Allergies dextran 40 Adverse Reaction (Intermediate, Verified 05/31/25 13:21) Hypertension iron dextran complex Adverse Reaction (Intermediate, Verified 05/31/25 13:21) Hypertension Medication List - Last Reconciled 05/31/25 by Eriberto Saunders MD hydralazine 10 mg PO TID nifedipine ER 60 mg PO DAILY omeprazole 20 mg PO DAILY Tobacco use date assessed: 05/31/25 Dental Screening Dental Screen Date: 05/31/25 Did you have a dental visit in the last 12 months?: Yes Did you have a dental problem in the last 6 months where you did not have access to dental care?: No Was dental information given to patient?: Patient has dentist HPI 3mth f/u HPI Details 40-year-old female presents to the [facility] after recent visit to the emergency room. Patient had stopped taking antihypertensives for the past 3 weeks. As a result her blood pressure was very high. She was complaining of mild headaches in addition. Patient was started on labetalol in the emergency room but no prescriptions to take home were given. Patient reports that she had tried calling the office here for refills and could not get through. [facility] Medical History Sacroiliac joint dysfunction of right side Right lumbar radiculitis Morbid obesity with BMI of 50.0-59.9, adult Asthma exacerbation Right ovarian cyst Knee pain Back pain Lower extremity edema Anxiety Depression GERD (gastroesophageal reflux disease) Asthma Sleep apnea with use of continuous positive airway pressure (CPAP) Morbid obesity Surgical History Hx of section Hx of cholecystectomy Family History Mother Diabetes Hyperlipidemia Father No problems noted. Brother No problems noted. Brother No problems noted. Sister No problems noted. Sister Lupus Son No problems noted. Daughter No problems noted. Social History Housing: Apartment Alcohol intake: current Alcohol intake frequency: does not drink Patient Tobacco Use Status: Never used Tobacco e-Cigarette/Vaping Use: Never Used Second Hand Smoke Exposure: No service: No Current occupational status: disabled Current occupation: rt hand Cognitive needs: No Hearing needs: No Vision needs: No Female Reproductive History Menstrual Age of Menarche: 13 Questionnaire PHQ-9 Over the last 2 weeks, how often have you been bothered by any of the following problems? 1. Little interest or pleasure in doing things: nearly every day 2. Feeling down, depressed, or hopeless: nearly every day 3. Trouble falling or staying asleep, or sleeping too much: nearly every day 4. Feeling tired or having little energy: nearly every day 5. Poor appetite or overeating: more than half the days 6. Feeling bad about yourself - or that you are a failure or have let yourself or your family down: more than half the days 7. Trouble concentrating on things, such as reading the newspaper or watching television: nearly every day 8. Moving or speaking so slowly that other people could have noticed. Or the opposite - being so fidgety or restless that you have been moving around a lot more than usual: not at all 9. Thoughts that you would be better off or of hurting yourself in some way: not at all Total score: 19 Depression Screening Interpretation: Positive Depression Screening Done: Yes Source: Developed by Drs. Bigg Osorio, Renata Morales, Reinaldo Curtis and colleagues, with an educational lulú from [employer]. Thrive Questionnaire Date Thrive assessed: 05/31/25 I am a: Patient What is your living situation today?: I have a steady place to live Within the past 12 months, did the food you bought not last and you didn't have the money to get more?: Often true Within the past 12 months, did you worry whether your food would run out before you got money to buy more?: Often true Do you have trouble paying for medicines?: No Do you have trouble getting transportation to medical appointments?: Yes Do you have trouble paying your heating and electricity bill?: Yes Do you have trouble taking care of your child, family member or friend?: No Do you have trouble with day-to-day activities such as bathing, preparing meals, shopping, managing finances, etc.?: Yes Are you currently unemployed and looking for a job?: No Are you interested in more education?: Yes Currently or been in a relationship where the following occur: No concerns reported THRIVE Score: 4 AUDIT C Alcohol Use Questionnaire (AUDIT-C) 1. How often do you have a drink containing alcohol?: Never Total Score: 0 EDMUNDO-7 AMB Questionnaire EDMUNDO-7 Date EDMUNDO - 7 assessed: 05/31/25 Feeling nervous, anxious, or on edge: 1 = Several days Not being able to stop or control worryin = Several days Worrying too much about different things: 1 = Several days Trouble relaxin = Several days Being so restless that it is hard to sit still: 1 = Several days Becoming easily annoyed or irritable: 1 = Several days Feeling afraid as if something awful might happen: 0 = Not at all Total EDMUNDO-7 score (0-4 normal; 5-9 mild; 10-14 moderate; 15-21 severe): 6 Source: Developed by Drs. Bigg Osorio, Renata Morales, Reinaldo Curtis and colleagues, with an educational lulú from [employer]. Physical exam (Primary Care) Vital Signs: Last Vital Signs Resp 18 05/31/25 11:46 BP 138/78 05/31/25 11:46 Oxygen Delivery Method Room Air 05/31/25 11:46 BMI result Body Mass Index 56.0 Tobacco/Smoking Status: Tobacco use Status Tobacco use date assessed 05/31/25 05/31/25 11:49 Patient Tobacco Use Status Never used Tobacco 05/31/25 11:49 e-Cigarette/Vaping Use Never Used 05/31/25 11:49 PHQ-9: PHQ-9 Score PHQ-9: Total score 19 05/31/25 12:01 Depression Screening Interpretation: Positive Thrive Assessment: Date of Thrive Assessment Date Thrive assessed 05/31/25 05/31/25 11:49 Currently or been in a relationship where the following occur: No concerns reported Const General: cooperative and healthy appearing Nutritional Appearance: well nourished Orientation/consciousness: patient oriented x3 Limitations: no limitations HENMT Head: Yes normal to inspection Eyes General: appearance normal, both eyes and all related structures Neck Neck: Yes normal visual inspection Chest Chest palpation & inspection: normal palpation of entire chest wall Resp Effort & Inspection: normal respiratory effort Neuro General: patient oriented x3 Coding Level of Care Code Est Pt Level 4 (13993) Complex EM visit Add On G2211 Diagnoses Essential hypertension I10 Morbid obesity E66.01 Assessment & Plan Assessment & Plan (1) Essential hypertension: Code(s): I10 - Essential (primary) hypertension Category: Medical Plan: Her blood pressure medications have been restarted. Patient was counseled that she should never get off the medications. She should call the office 2 weeks before her medications are running low to get a refill in time. (2) Morbid obesity: Code(s): E66.01 - Morbid (severe) obesity due to excess calories Category: Medical Plan: Patient follows a weight management clinic at [facility]. Medications: New nifedipine ER 60 mg PO DAILY 90 tabs 1RF Refilled hydralazine 10 mg PO TID 180 tabs 1RF
--- OUTSIDE RECORDS SUMMARY | 2025-05-31 12:49 | XMS_ITS | Clinical Summary ---
Author Organization [employer] Address [address] [place] [address] Care Team Providers Care Gas Turbine Mechanic Name Role Phone Unavailable Primary Care Provider [...] DOLORES VECES AL D A 5 Active acetaminophen (Tylenol) 500 MG tabletIndicatio ns:Retained tooth root Take 1 tablet (500 mg) by mouth every 6 (six) hours if needed for mild pain. 20 tablet 5 Active losartan-hydroC HLOROthiazide (Hyzaar) 50-12.5 MG tablet TOME 1 TABLETA POR V A ORAL TODOS LOS D 4 Active clindamycin (Cleocin) 150 MG capsule 5 Active Active Problems Problem Noted Date Diagnosed Date Chronic hypertension 04/19/2025 Gestational diabetes 04/19/2025 History of section 04/19/2025 Retained tooth root 03/22/2025 Encounters Date Type Department Care Team Description 04/20/2025 11:00 AM EDT Office Visit [facility] [address] [place] [address] Abdiel Amato DDS 04/19/2025 11:30 AM EDT Office Visit [facility] [address] [place] [address] Benja Bashir DMD 03/22/2025 1:30 PM EDT Office Visit [facility] [address] [place] [address] AlexaLes munizs, DDS Retained tooth root (Primary Dx) from Last 3 Months Social History Tobacco Use Types Packs/Day Years Used Date Smoking Tobacco: Never Passive Smoke Exposure: Never Smokeless Tobacco: Never Tobacco Cessation:Counseling Given: No Alcohol Use Standard Drinks/Week Comments Never 0 (1 standard drink = 0.6 oz pur e alcohol) Comments Unknown Sex and Gender Information Value Date Recorded Sex Assigned at Female 12/15/2024 8:27 AM EST Legal Sex Female 8:25 AM EST Gender Identity Female 12/15/2024 8:27 AM EST Sexual Orientation Straight 12/15/2024 8: 27 AM EST Last Filed Vital Signs Vital Sign Reading Time Taken Comments Blood Pressure 158/98 04/20/2025 11:28 AM EDT Elevated but asymptomatic Pulse 70 03/22/2025 1:16 PM EDT Temperature - - Respiratory Rate - - Oxygen Saturation - - Inhaled Oxygen Concentration - - Weight - - Height - - Body Mass Index - - Plan of Treatment Health Maintenance Due Date Last Done Comments Dental Oral Exam 1986 Dental Prophylaxis 1986 Depression Screening 1986 HIV Screening 1986 Lipid Panel 1986 SDOH Screening 1986 Disability Screening 1986 Alcohol/Substance Use Screening 1998 Family Planning (PISQ) 2001 HPV Vaccines (1 - 3-dose series) 2001 Hepatitis C Screening 2004 Hepatitis B Vaccines (1 of 3 - 19+ 3-dose series) 2005 Pap Smear 2007 Pneumococcal Vaccine: Pediatrics (0 to 5 Years) and At-Risk Patients (6 to 49) Years (2 of 2 - PCV) 11/29/2013 11/29/2012, 03/03/2010 Cervical Cancer Screening 2016 HPV/Cotest 2016 COVID-19 Vaccine ( - 2023- season) 2024 03/12/2021, 02/19/2021 Influenza Vaccine (#1) 2025 , 07/18/2024, 08/07/2019, Additional history exists Dental X-Ray: Bitewings 12/16/2025 12/15/2024 Tobacco Screening 04/20/2026 04/20/2025 Dental X-Ray: Full Mouth 04/20/2028 04/19/2025 DTaP/Tdap/Td Vaccines (5 - Td or Tdap) 10/02/2034 10/02/2024, 01/18/2017, 07/18/2014, Additional history exists Zoster Vaccines (1 of 2) 2036 RSV Patients and Patients Aged 60 years or older (1 - 1-dose 75+ series) 2061 HIB Vaccines Aged Out No longer eligi [...] Procedure Name Priority Date/Time Associated Diagnosis Comments RE-EVAL - POST-OP OFFICE VISIT Routine 04/20/2025 11:00 AM EDT CASE PRESENTATION, DETAILED AND EXTENSIVE TREATMENT PLANNING Routine 04/19/2025 11:30 AM EDT PANORAMIC RADIOGRAPHIC IMAGE Routine 04/19/2025 11:30 AM EDT PALLIATIVE (EMERGENCY) TREATMENT OF DENTAL PAIN - MINOR PROCEDURE Routine 04/19/2025 11:30 AM EDT CASE PRESENTATION, DETAILED AND EXTENSIVE TREATMENT PLANNING Routine 03/22/2025 1:30 PM EDT 13 EXTRACTION, ERUPTED TOOTH OR EXPOSED ROOT (ELEVATION/FORCEPS REMOVAL) Routine 03/22/2025 1:30 PM EDT BITEWING - SINGLE RADIOGRAPHIC IMAGE Routine 12/15/2024 8:30 AM EST from Last 3 Months or Most Recently Relevant to Health Maintenance Insurance [facility] MEDICAID STAND ADULT
--- OUTSIDE RECORDS SUMMARY | 2025-05-31 12:49 | XMS_ITS | Clinical Summary ---
Author Organization [facility] Address [address] [place] [address] Phone Care Team Providers Care Catering Assistant Name Role Phone Eriberto Saunders MD Primary Care Provider [phone] Allergies Active Allergy Reactions Criticality Noted Date [...] mg by mouth daily. 2 Active nebulizers [facility] Respiratory Therapy Supplies (NEBULIZER/ADULT MASK) Kit Sig [...] (BMI) of 50.0 to 59.9 in adult ([facility] V24, [facility] V28) 08/02/2024 Gastroesophageal reflux disease 12/26/2021 Allergic [...] 07/05/2024 11:37 AM EDT Plan of Treatment Upcoming Encounters Date Type Department Care Team (Late st Contact Info) Description 06/05/2025 9:30 AM EDT Office Visit Bariatric Surgery - [address] [place] [address] Monse Segura MD [address] [facility] [address] [place] [address] Health Maintenance Due Date Last Done Comments Hepatitis B Vaccines (1 of 3 - 19+ 3-dose series) 2005 Pneumococcal Vaccine: Pediatrics (0 to 5 Years) and At-Risk Patients (6 to 49 Years) (2 of 2 - PCV) 03/03/2011 03/03/2010 Cervical Cancer Screening: Pap Smear 04/20/2016 04/20/2013, 04/20/2013 HIV Screening 09/20/2022 Hepatitis C Screening 09/20/2022 Social Influencers of Health Screening 09/20/2022 COVID-19 Vaccine ( season) 2024 Depression Screening 10/11/2024 Influenza Vaccine (#1) 2025 9, 09/07/2018, 07/05/2012, Additional history exists DTaP,Tdap,and [...] Associated Diagnosis Comments LIPID PANEL Routine 02/11/2024 HPV Routine 04/20/2013 from Last 3 Months or Most Recently Relevant to Health Maintenance Results * (ABNORMAL) Lipid panel (02/11/2024) LDL/HDL Ratio 4 0 - 4 Triglycerides 99 0 - 150 mg/dL Cholesterol 189 0 - 200 mg/dL HDL 51 >=40 mg/dL LDL Cholesterol 119(A) 0 - 100 mg/dL Blood Venous blood specimen / Unknown Historical Provider MD LAB BLOOD ORDERABLES Parisa l Result * Cervical Cancer Screening: HPV (04/20/2013) Pathologist [facility] Cervical Cancer Screening: HPV normal, abstracted Historical Provider HEALTH MAINTENANCE Final Result from Last 3 Months or Most Recently Relevant to Health Maintenance Insurance [facility] [place] [place] [address] Care Teams Catering Assistant Relationship Specialty Start Date End Date Eriberto Saunders MD [facility] [address] [place] [address] [address] [place] [address] PCP - General Internal Medicine 05/09/25
--- OUTSIDE RECORDS SUMMARY | 2025-05-31 12:49 | XMS_ITS | Clinical Summary ---
Author Organization [employer] [facility] Address [address] [place] [address] Care Team Providers Care Surgery Attendant Name Role Phone Ramo Metcalf MD Primary Care Provider [phone] Allergies Active Allergy Reactions Criticality Noted Date [...] 63 08/09/2024 9:03 AM EDT Temperature 36.2 C (97.2 F) 08/09/2024 9:03 AM EDT Respiratory Rate 18 08/09/2024 9:03 AM EDT [...] Screening (Pap Smear) 2007 Influenza Vaccine (#1) 2025 DTap / Tdap / Td (4 - Td or Tdap) 01/18/2027 01/18/2017, 07/18/2014, 08/21/2010 Pneumococcal Vaccine Aged Out 03/03/2010 No long er eligible based on patient's age to complete this topic RSV Ped < 20 months Aged Out No longe r eligible based on patient's age to complete this topic Care Teams Surgery Attendant Relationship Specialty Start Date End Date Ramo Metcalf MD [address] [place] [address] [phone] [facility] [place] [id number] PCP - General Internal Medicine 02/18/22
== END 2025-05-31 12:09 | disposition home or self-care (01) ==
LOC: HO.HMCH 11:08
PROVIDERS: PCP Internal Medicine; Visit Provider Internal Medicine
DX: I10 Essential (primary) hypertension (principal); E66.01 Morbid (severe) obesity due to excess calories; Z68.43 Body mass index [BMI] 50.0-59.9, adult

== ENCOUNTER → 2025-05-31 11:07 | Outpatient (BNVA) | payer OTHER, SELFPAY | PROVIDERS: PCP Internal Medicine; Visit Provider Internal Medicine | DX: I10 Essential (primary) hypertension (principal); E66.01 Morbid (severe) obesity due to excess calories; Z68.43 Body mass index [BMI] 50.0-59.9, adult | CPT/HCPCS: 99212 ==

== ENCOUNTER 2025-06-20 09:50 | Outpatient (AMB) | payer OTHER, SELFPAY ==
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
[2025-06-20 09:56] VITALS: BMI 56.5
--- OUTSIDE RECORDS SUMMARY | 2025-06-20 11:52 | XMS_ITS | Clinical Summary ---
Author Organization [employer] [facility] Address [address] [place] [address] Care Team Providers Care Internal Grinding Machine Operator Name Role Phone Ramo Metcalf MD Primary Care Provider [phone] Allergies Active Allergy Reactions Criticality Noted Date [...] age to complete this topic Care Teams Internal Grinding Machine Operator Relationship Specialty Start Date End Date Ramo Metcalf MD [address] [place] [address] [address] [facility] [place] [id number] PCP - General Internal Medicine 02/18/22
--- OUTSIDE RECORDS SUMMARY | 2025-06-20 11:52 | XMS_ITS | Clinical Summary ---
Author Organization [employer] Address [address] [facility] [address] [place] [address] Care Team Providers Care Bankruptcy Assistant Name Role Phone Unavailable Primary Care Provider [...] Description 04/20/2025 11:00 AM EDT Office Visit [facility] [address] [place] [address] Abdiel Amato DDS 04/19/2025 11:30 AM EDT Office Visit [facility] [address] [place] [address] Benja Bashir DMD 03/22/2025 1:30 PM EDT Office Visit [facility] [address] [place] [address] AlexaLes munizs, DDS Retained tooth root (Primary [...] 2016 HPV/Cotest 2016 COVID-19 Vaccine ( - 2024- season) 2025 03/12/2021, 02/19/2021 Influenza Vaccine (#1) 2025 , [...] Most Recently Relevant to Health Maintenance Insurance [facility] MEDICAID STAND ADULT
== END 2025-06-20 10:39 | disposition home or self-care (01) ==
LOC: HO.HPODS 09:52
PROVIDERS: PCP Internal Medicine; Visit Provider Student in an Organized Health Care Education/Training Program
DX: S93.409A Sprain of unspecified ligament of unspecified ankle, initial encounter (principal); M25.571 Pain in right ankle and joints of right foot; M25.572 Pain in left ankle and joints of left foot; G89.29 Other chronic pain; M19.171 Post-traumatic osteoarthritis, right ankle and foot; M79.671 Pain in right foot; M79.672 Pain in left foot; M25.373 Other instability, unspecified ankle; S93.401A Sprain of unspecified ligament of right ankle, initial encounter; S93.402A Sprain of unspecified ligament of left ankle, initial encounter
CPT/HCPCS: 29540; 99204

== ENCOUNTER 2025-06-20 09:50 | Outpatient (REF) | payer OTHER, SELFPAY ==
--- OUTSIDE RECORDS SUMMARY | 2024-07-14 08:57 | XMS_ITS | Encounter Summary ---
Author Organization [facility] Address [address] [place] [address] Care Team Providers Care Cmm Operator Name Role Phone Ramo Metcalf MD Primary Care Provider [phone] Encounter Details Date Type Department Care Team [...] 10:00 AM EST Nutrition Bariatric Surgery - [address] [place] [address] Anuja Valdovinos, RD 175 [facility] 120 [place] [address] documented as of this encounter Visit Diagnoses Not on filedocumented in this encounter Care Teams Cmm Operator Relationship Specialty Start Date End Date Ramo Metcalf MD [address] [place] [address] [address] [facility] [place] [address] PCP - General Internal Medicine 07/08/20 05/08/25 documented as of this encounter
--- OUTSIDE RECORDS SUMMARY | 2024-07-28 09:00 | XMS_ITS | Encounter Summary ---
Author Organization [facility] Address [address] [place] [address] Care Team Providers Care Hunting And Fishing Guide Name Role Phone Ramo Metcalf MD Primary Care Provider [phone] Encounter Details Date Type Department Care Team [...] 10:00 AM EST Nutrition Bariatric Surgery - [address] [address] Anuja Valdovinos, RD 175 [facility] 120 [place] [address] documented as of this encounter Visit Diagnoses Diagnosis Iron deficiency anemia secondary to blood loss (chronic) documented in this encounter Care Teams Hunting And Fishing Guide Relationship Specialty Start Date End Date Ramo Metcalf MD [address] [place] [address] [address] [facility] [place] [address] PCP - General Internal Medicine 07/08/20 05/08/25 documented as of this encounter
--- OUTSIDE RECORDS SUMMARY | 2024-08-09 08:35 | XMS_ITS | Encounter Summary ---
Author Organization [facility] Address [address] [place] [address] Care Team Providers Care Packaging Mechanic Name Role Phone Ramo Metcalf MD Primary Care Provider [phone] Encounter Details Date Type Department Care Team [...] 10:00 AM EST Nutrition Bariatric Surgery - [address] [address] Anuja Valdovinos, RD [address] [address] documented as of this encounter Visit Diagnoses Not on filedocumented in this encounter Care Teams Packaging Mechanic Relationship Specialty Start Date End Date Ramo Metcalf MD [address] [place] [address] [address] [facility] [place] [address] PCP - General Internal Medicine 07/08/20 05/08/25 documented as of this encounter
--- NOTE | ~2025-06-20 | XR_ITS ---
EXAMINATION: XR ANKLE 3 OR MORE VIEWS LEFT, XR FOOT 3 OR MORE VIEWS LEFT HISTORY: M25.572 - Pain in left ankle and joints of left foot COMPARISON: There are no prior studies available for comparison. FINDINGS: Six . Views of the left foot and ankle are submitted. Osseous mineralization is normal. There is no fracture or dislocation. The joint spaces are preserved. There are calcaneal spurs at the plantar aspect and at the insertion of the Achilles tendon. There is diffuse soft tissue swelling about the ankle. XR/XR foot LT min 3V IMPRESSION: Diffuse soft tissue swelling about the ankle. Calcaneal spurs as described. No evidence of fracture of the left foot or ankle. Electronically signed by: Bigg Crockett MD 06/20/2025 03:46 PM EDT
--- NOTE | ~2025-06-20 | XR_ITS ---
EXAMINATION: XR ANKLE 3 OR MORE VIEWS LEFT, XR FOOT 3 OR MORE VIEWS LEFT HISTORY: M25.572 - Pain in left ankle and joints of left foot COMPARISON: There are no prior studies available for comparison. FINDINGS: Six . Views of the left foot and ankle are submitted. Osseous mineralization is normal. There is no fracture or dislocation. The joint spaces are preserved. There are calcaneal spurs at the plantar aspect and at the insertion of the Achilles tendon. There is diffuse soft tissue swelling about the ankle. XR/XR ankle LT min 3V IMPRESSION: Diffuse soft tissue swelling about the ankle. Calcaneal spurs as described. No evidence of fracture of the left foot or ankle. Electronically signed by: Bigg Crockett MD 06/20/2025 03:46 PM EDT
--- OUTSIDE RECORDS SUMMARY | 2025-06-20 18:15 | XMS_ITS | Clinical Summary ---
Author Organization [facility] Address [address] [place] [address] Phone Care Team Providers Care Software Sales Representative Name Role Phone Eriberto Saunders MD Primary Care Provider [phone] Allergies Active Allergy Reactions Criticality Noted Date [...] mg by mouth daily. 2 Active nebulizers [facility] Respiratory Therapy Supplies (NEBULIZER/ADULT MASK) Kit Sig [...] Diagnosed Date Class 3 severe obesity with serious comorbidity and body mass index (BMI) of 50.0 to 59.9 in adult ([facility] V24, [facility] V28) 08/02/2024 Gastroesophageal reflux disease 12/26/2021 Allergic rhinitis 07/04/2020 CTS (carpal tunnel syndrome) 07/04/2020 B12 deficiency 08/09/2012 Helicobacter pylori ab+ 08/09/2012 Anemia, iron deficiency 02/08/2012 JENNIFER (obstructive sleep apnea) 01/19/2012 Snoring 01/01/2012 Witnessed apneic spells 01/01/2012 Asthma 08/21/2010 Depression 08/21/2010 Encounters Date Type Department Care Team Description 06/05/2025 12:30 PM EDT Nutrition Bariatric Surgery - [address] [phone] Class 3 severe obesity with serious comorbidity and body mass index (BMI) of 50.0 to 59.9 in adult, unspecified obesity type ([facility] V24, [facility] V28) (Primary Dx) 06/05/2025 9:30 AM EDT Office Visit Bariatric Surgery [address] [phone] Monse Segura MD Morbid obesity with BMI of 50.0-59.9, adult ([facility] V24, [facility] V28) (Primary Dx); JENNIFER (obstructive sleep apnea); Gastroesophageal reflux disease without esophagitis; Iron deficiency anemia, unspecified iron deficiency anemia type from Last 3 Months Immunizations Name Administration Dates Next Due Influenza [...] Sign Reading Time Taken Comments Blood Pressure 169/84 06/05/2025 9:27 AM EDT Pulse 70 06/05/2025 9:27 AM EDT Temperature 36.6 C (97.9 F) 06/05/2025 9:27 AM EDT Respiratory Rate - - Oxygen Saturation - - Inhaled Oxygen Concentration - - Weight 147 kg (325 lb) 06/05/2025 1:24 PM EDT Height 160 cm (5' 3 ) 06/05/2025 9:27 AM EDT Body Mass Index 57.57 06/05/2025 9:27 AM EDT Plan of Treatment Upcoming Encounters Date Type Department Care Team ([facility] st Contact Info) Description 08/29/2025 10:00 AM EST Nutrition Bariatric Surgery - [address] [phone] Anuja Valdovinos, RD [address] [phone] Health Maintenance Due Date Last Done Comments Hepatitis B Vaccines (1 of 3 - 19+ 3-dose series) 2005 Pneumococcal Vaccine: Pediatrics (0 to 5 Years) and At-Risk Patients (6 to 49 Years) (2 of 2 - PCV) 11/29/2013 11/29/2012, 03/03/2010 Cervical Cancer Screening: Pap Smear 04/20/2016 04/20/2013, 04/20/2013 HIV Screening 09/20/2022 Hepatitis C Screening 09/20/2022 Social Influencers of Health Screening 09/20/2022 Depression Screening 10/11/2024 Hypertension/CHF/CAD Annual BMP Blood Test 06/05/2025 02/11/2024, 02/11/2024, 09/01/2023 COVID-19 Vaccine ( season) 2025 03/12/2021, 02/19/2021 Influenza Vaccine (#1) 2025 , 08/07/2019, 09/07/2018, Additional history exists Cholesterol Screening (Lipid Panel) 02/10/2029 02/11/2024, 02/11/2024 DTaP,Tdap,and Td Vaccines (5 - Td or Tdap) 10/02/2034 10/02/2024, 01/18/2017, 07/18/2014, Additional history exists HIB Vaccines Aged Out [...] Procedure Name Priority Date/Time Associated Diagnosis Comments ANNUAL BMP BLOOD TEST Routine 02/11/2024 LIPID PANEL Routine 02/11/2024 HPV Routine 04/20/2013 from Last 3 Months or Most Recently Relevant to Health Maintenance Results * Annual BMP Blood Test (02/11/2024) Pathologist [facility] Annual BMP Blood Test abstracted us Historical Provider HEALTH MAINTENANCE Final Result * (ABNORMAL) Lipid panel (02/11/2024) [facility] LDL/HDL Ratio 4 0 - 4 Triglycerides [...] Most Recently Relevant to Health Maintenance Insurance [facility] [employer] Care Teams Software Sales Representative Relationship Specialty Start Date End Date Eriberto Saunders MD [facility] [address] [place] [address] [address] [facility] [id number] PCP - General Internal Medicine 05/09/25
== END 2025-06-20 09:51 | disposition home or self-care (01) ==
LOC: HO.XRAY 09:50
PROVIDERS: PCP Internal Medicine; Visit Provider Student in an Organized Health Care Education/Training Program
DX: S93.401A Sprain of unspecified ligament of right ankle, initial encounter (principal); S93.402A Sprain of unspecified ligament of left ankle, initial encounter; S93.409A Sprain of unspecified ligament of unspecified ankle, initial encounter; M19.071 Primary osteoarthritis, right ankle and foot; M25.371 Other instability, right ankle; M25.372 Other instability, left ankle
CPT/HCPCS: 73610; 73630

== ENCOUNTER → 2025-06-20 15:14 | Outpatient (BNV) | payer OTHER, SELFPAY | PROVIDERS: PCP Internal Medicine; Visit Provider Radiology Diagnostic Radiology | DX: M25.572 Pain in left ankle and joints of left foot (principal); M79.672 Pain in left foot | CPT/HCPCS: 73610; 73630 ==

== ENCOUNTER 2025-06-27 11:29 | Outpatient (AMB) | payer OTHER, SELFPAY ==
--- NOTE | 2025-06-27 11:35 | A.OFFVIS_ITS ---
Vital Signs 06/27/25 11:37 Height 5 ft 3 in Weight 326 lb BMI 57.7 BP 216/92 H Blood Pressure Location Lt brachial Position Sitting Respiration 18 Pulse 89 Pulse Source Pulse Oximeter Pulse Oximetry (%) 98 Oxygen Delivery Method Room Air Intake Visit Reasons: Left knee injection Telecommunications Project Manager Required: No Allergies dextran 40 Adverse Reaction (Intermediate, Verified 06/27/25 11:36) Hypertension iron dextran complex Adverse Reaction (Intermediate, Verified 06/27/25 11:36) Hypertension HPI Comments Details: Agustina is very pleasant 40 years old female who is today in my office with complains on bilateral knee pain. Today she was scheduled to come to the office to receive bilateral steroid injection to both knees. Unfortunately her blood pressure today is 210/98. This is very dangerous level of blood pressure and steroid injections would increase it further. We discussed the situation at hands. The patient is morbidly obese. She is currently in the office of [facility] bariatric surgery. She reports no results. In the past she was in the office of Dr. Light at [facility], however she failed to lose weight. I recommended the patient to start low-impact aerobic exercise. She can not walk on dry land I recommended her to obtain a ticket to [employer] and start walking in the water. I also recommended her to stop drinking soda. She is still drinking 0 calorie soda however it stimulate her appetite. 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 Brother No problems noted. Brother No problems noted. Sister No problems noted. Sister Lupus Son No problems noted. Daughter No problems noted. Social History Housing: Apartment Alcohol intake: current Alcohol intake frequency: does not drink Patient Tobacco Use Status: Never used Tobacco e-Cigarette/Vaping Use: Never Used Second Hand Smoke Exposure: No service: No Current occupational status: disabled Current occupation: rt hand Cognitive needs: No Hearing needs: No Vision needs: No Female Reproductive History Menstrual Age of Menarche: 13 Review of Systems Const All systems reviewed & are unremarkable except as noted in HPI and below Reports as per HPI ENT Reports Normal hearing present Neuro Reports Normal hearing present, Denies Abnormal speech present, Denies confusion and Denies Sensory deficit (Neuro) Psych Denies confusion Physical Exam Vital Signs: Last Vital Signs Pulse 89 06/27/25 11:37 Resp 18 06/27/25 11:37 BP 216/92 H 06/27/25 11:37 Pulse Ox 98 06/27/25 11:37 Oxygen Delivery Method Room Air 06/27/25 11:37 BMI result Body Mass Index 57.7 Const General: no acute distress; No confusion Nutritional Appearance: obese morbidly obese Orientation/consciousness: patient oriented x3 and No confusion Eyes General: appearance normal, both eyes and all related structures Pupils: Equal, round and reactive pupils present EOM: EOMs intact bilaterally Neck Neck: Yes full ROM Chest Chest palpation & inspection: normal inspection of the chest Resp Effort & Inspection: normal respiratory effort, able to speak in complete sent ences, normal respiratory pattern, no audible wheezes and no cough Cardio Jugular venous distension: no JVD GI Inspection: Yes normal to inspection Neuro General: patient oriented x3, gait normal and No confusion Cranial nerves: Yes CN's II-XII intact bilaterally, Yes Equal, round and reactive pupils present, Yes Normal hearing present and Yes Ability to bilaterally elevate shoulders present Speech: No Abnormal speech present Gait exam (Neuro): Normal gait present Motor exam (neuro): 5/5 motor strength present throughout Sensory Exam: No Sensory deficit (Neuro) Extrem General: No pedal edema Psych Speech and movement: Normal speech and movement present Affect: normal affect Attitude: cooperative Thought process: Normal thought process present Thought content: Normal thought content present Insight: Good insight present (Psych) Judgement: Good judgement present (Psych) Assessment & Plan Assessment & Plan (1) Bilateral knee pain: Code(s): M25.561 - Pain in right knee; M25.562 - Pain in left knee Category: Medical (2) Morbid (severe) obesity due to excess calories: Code(s): E66.01 - Morbid (severe) obesity due to excess calories Category: Medical Plan Patient came today to receive intra-articular steroid injections. Her blood pressure is 210/98. This is contraindication for steroid injections. I recommended her to start diet, discussion as above, I recommended her to do water I aerobic exercises. I will refer her to Dr. Light' bariatric surgery program. I believe if she will lose significant amount of her weight her blood pressure will normalize, her knee pain will become better, she will improve her mobility and activities of daily living. Orders: Referrals Bariatric Surgery Referral E66.01 - Morbid (severe) obesity due to excess calories Coding Level of Care Code Est Pt Level 3 (30326) Diagnoses Bilateral knee pain M25.561; M25.562 Morbid (severe) obesity due to excess calories E66.01
[2025-06-27 11:37] VITALS: BP 216/92; PULSE 89; RESP 18; O2SAT 98; BMI 57.7
--- OUTSIDE RECORDS SUMMARY | 2025-06-27 14:51 | XMS_ITS | Clinical Summary ---
Author Organization [employer] [facility] Address [address] [place] [address] Care Team Providers Care Telephone Surveyor Name Role Phone Ramo Metcalf MD Primary Care Provider [phone] Allergies Active Allergy Reactions Criticality Noted Date [...] age to complete this topic Care Teams Telephone Surveyor Relationship Specialty Start Date End Date Ramo Metcalf MD [address] [place] [address] [address] [facility] [place] [id number] PCP - General Internal Medicine 02/18/22
--- OUTSIDE RECORDS SUMMARY | 2025-06-27 14:51 | XMS_ITS | Clinical Summary ---
Author Organization [employer] Address [address] [facility] [address] [place] [address] Care Team Providers Care Livestock Speculator Name Role Phone Unavailable Primary Care Provider [...] Description 04/20/2025 11:00 AM EDT Office Visit [facility] [address] [place] [address] Abdiel Amato DDS 04/19/2025 11:30 AM EDT Office Visit [facility] [address] [place] [address] Benja Bashir DMD from Last 3 Months Social History Tobacco [...] 2016 HPV/Cotest 2016 COVID-19 Vaccine ( season) 2025 03/12/2021, 02/19/2021 [...] MINOR PROCEDURE Routine 04/19/2025 11:30 AM EDT BITEWING - SINGLE RADIOGRAPHIC IMAGE Routine 12/15/2024 8:30 AM EST from Last 3 Months or Most Recently Relevant to Health Maintenance Insurance [facility] MEDICAID STAND ADULT
== END 2025-06-27 11:51 | disposition home or self-care (01) ==
LOC: HO.PMC 11:30
PROVIDERS: PCP Internal Medicine; Visit Provider Anesthesiology
DX: M25.561 Pain in right knee (principal); M25.562 Pain in left knee; E66.01 Morbid (severe) obesity due to excess calories; Z68.43 Body mass index [BMI] 50.0-59.9, adult
CPT/HCPCS: 99213

== ENCOUNTER → 2025-06-27 11:29 | Outpatient (BNVA) | payer OTHER, SELFPAY | PROVIDERS: PCP Internal Medicine; Visit Provider Anesthesiology | DX: M25.561 Pain in right knee (principal); M25.562 Pain in left knee; E66.01 Morbid (severe) obesity due to excess calories; Z68.43 Body mass index [BMI] 50.0-59.9, adult | CPT/HCPCS: 99212 ==

== ENCOUNTER 2025-07-10 10:33 | Outpatient (AMB) | payer OTHER, SELFPAY ==
--- OUTSIDE RECORDS SUMMARY | 2024-07-14 08:57 | XMS_ITS | Encounter Summary ---
Author Organization [facility] Address [address] [place] [address] Care Team Providers Care Bag Valver Name Role Phone Ramo Metcalf MD Primary Care Provider [phone] Encounter Details Date Type Department Care Team [...] 10:00 AM EST Nutrition Bariatric Surgery - [address] [place] [address] Anuja Valdovinos, RD [address] [facility] [address] [place] [address] documented as of this encounter Visit Diagnoses Not on filedocumented in this encounter Care Teams Bag Valver Relationship Specialty Start Date End Date Ramo Metcalf MD [address] [place] [address] [address] [facility] [place] [address] PCP - General Internal Medicine 07/08/20 05/08/25 documented as of this encounter
--- OUTSIDE RECORDS SUMMARY | 2024-07-28 09:00 | XMS_ITS | Encounter Summary ---
Author Organization [facility] Address [address] [place] [address] Care Team Providers Care Magnetic Locater Name Role Phone Ramo Metcalf MD Primary Care Provider [phone] Encounter Details Date Type Department Care Team [...] 10:00 AM EST Nutrition Bariatric Surgery - [address] [address] Anuja Valdovinos, RD 175 [facility] [address] [place] [address] documented as of this encounter Visit Diagnoses Diagnosis Iron deficiency anemia secondary to blood loss (chronic) documented in this encounter Care Teams Magnetic Locater Relationship Specialty Start Date End Date Ramo Metcalf MD [address] [place] [address] [address] [facility] [place] [address] PCP - General Internal Medicine 07/08/20 05/08/25 documented as of this encounter
--- OUTSIDE RECORDS SUMMARY | 2024-08-09 08:35 | XMS_ITS | Encounter Summary ---
Author Organization [facility] Address [address] [place] [address] Care Team Providers Care Front Services Agent Name Role Phone Ramo Metcalf MD Primary Care Provider [phone] Encounter Details Date Type Department Care Team [...] 10:00 AM EST Nutrition Bariatric Surgery - [address] [address] Anuja Valdovinos, RD [address] [address] documented as of this encounter Visit Diagnoses Not on filedocumented in this encounter Care Teams Front Services Agent Relationship Specialty Start Date End Date Ramo Metcalf MD [address] [place] [address] [address] [facility] [place] [address] PCP - General Internal Medicine 07/08/20 05/08/25 documented as of this encounter
--- NOTE | 2025-07-10 10:40 | A.OFFVIS_ITS ---
Vital Signs 07/10/25 10:41 Height 5 ft 3 in Weight 326 lb BMI 57.7 Intake Visit Reasons: Follow Up Bilateral ankle pain Intake Note: ann is a 40 year old female who presents today for a follow up on her right ankle sprain and left foot pain. Pt states her pain has remained the same since her last visit. Patient reports the lace up brace and medication has not helped with her symptoms. She has gotten an x ray done for her left foot . Allergies dextran 40 Adverse Reaction (Intermediate, Verified 06/27/25 11:36) Hypertension iron dextran complex Adverse Reaction (Intermediate, Verified 06/27/25 11:36) Hypertension Medication List - Last Reconciled 07/10/25 by Anne Bundy DPM celecoxib (Celebrex) 200 mg PO BID hydralazine 10 mg PO TID nifedipine ER 60 mg PO DAILY omeprazole 20 mg PO DAILY HPI Comments Details: The patient is a 40-year-old female presenting for follow-up of persistent pain in bilateral ankles and feet. Patient states she has been taking the meloxicam and using the ankle brace to the right ankle and an Harsh bandage to the left with mild relief. Patient states she continues to have difficulty ambulating due to the pain and has been using the walker. Patient was able to obtain x-rays but was unable to obtain an MRI at this time. Patient states the pain is severe and she also experiences intermittent numbness and tingling with some burning noted to the left lower extremity. She states she experiences intermittent swelling. She denies any other pedal concerns. Denies any nausea vomiting fever or chills. [facility] Medical History (Updated 07/10/25 @ 12:13 by Anne Bundy DPM) Arthritis of both ankles Arthritis of both feet Hammertoe, bilateral Hallux valgus, bilateral Left foot pain Left ankle pain 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 Brother No problems noted. Brother No problems noted. Sister No problems noted. Sister Lupus Son No problems noted. Daughter No problems noted. Social History Housing: Apartment Alcohol intake: current Alcohol intake frequency: does not drink Patient Tobacco Use Status: Never used Tobacco e-Cigarette/Vaping Use: Never Used Second Hand Smoke Exposure: No service: No Current occupational status: disabled Current occupation: rt hand Cognitive needs: No Hearing needs: No Vision needs: No Female Reproductive History Menstrual Age of Menarche: 13 Review of Systems Const Details: - Musculoskeletal: Reports persistent pain in both ankles and feet. - Neurological: Reports numbness and tingling B/L, and burning sensations to the LLE. All systems reviewed & are unremarkable except as noted in HPI and below Physical Exam Vital Signs: BMI result Body Mass Index 57.7 Extrem Other: Bilateral lower extremity focused physical exam: Derm: No open lesions abrasions or wounds noted. Skin supple and turgor within normal limits. No clinical signs of infection. No ecchymosis or erythema noted. Vascular: DP/PT PT pulses palpable. Capillary refill time less than 3 seconds. Temp gradient warm to warm. Pedal hair absent. Edema noted to the ankles and dorsal aspect of the feet bilaterally . Neuro: Protective sensation is grossly intact. Musculoskeletal: Pain on palpation of both ankles and pain on palpation to the dorsal aspect of the midfoot bilaterally. Limited range of motion due to guarding from pain, worse with plantar flexion. Inability to ivette the foot due to pain. Range of motion of the forefoot within normal limits. Antalgic gait noted assisted either with baby stroller or a walker. No crepitus noted. Collapse of pedal arches bilaterally. Unable to do anterior drawer test due to guarding from pain. Positive squeeze test. Results Reviewed Results Reviewed: Podiatry read of left foot three-view weight-bearing x-rays (06/20/25): Hallux valgus noted with hammertoes and tailor's bunion. Osteophytic changes noted throughout the midfoot. Calcaneal spurs noted plantarly and posteriorly. No acute fractures or dislocations noted. Podiatry read of the left ankle three-view weight-bearing x-rays (06/20/25): Joint space narrowing noted to the ankle worsened to the lateral aspect of the ankle joint. Mild osteophytic changes noted to the tibia, talus, and fibula. No acute fractures or dislocations noted. Left ankle three-view weight-bearing x-rays (06/20/2025): FINDINGS: Six . Views of the left foot and ankle are submitted. Osseous mineralization is normal. There is no fracture or dislocation. The joint spaces are preserved. There are calcaneal spurs at the plantar aspect and at the insertion of the Achilles tendon. There is diffuse soft tissue swelling about the ankle. IMPRESSION: Diffuse soft tissue swelling about the ankle. Calcaneal spurs as described. No evidence of fracture of the left foot or ankle. Left foot three-view weight-bearing x-rays (06/20/2025): FINDINGS: Six . Views of the left foot and ankle are submitted. Osseous mineralization is normal. There is no fracture or dislocation. The joint spaces are preserved. There are calcaneal spurs at the plantar aspect and at the insertion of the Achilles tendon. There is diffuse soft tissue swelling about the ankle. IMPRESSION: Diffuse soft tissue swelling about the ankle. Calcaneal spurs as described. No evidence of fracture of the left foot or ankle. Podiatry read of right foot three views x-ray (02/24/2025): Joint space narrowing noted to the 1st MPJ. Osteophyte noted to the TNJ & TMTJ. 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 Podiatry read of right ankle two views x-ray (02/24/2025): Minimal Increase in tib-fib spacing and minimal joint space narrowing, otherwise ankle joint within normal limits. Right foot xray (02/24/25): Findings: No fractures or dislocations. Periarticular osteophyte formation at the tibiotalar, talonavicular, naviculocuneiform, and subtalar joints. Calcaneal spurring. No ankle effusion. No radiopaque foreign body. IMPRESSION: 1. No acute findings. Right ankle xray (02/24/25): Findings: No acute fractures or dislocations. No significant arthritic change or erosions. No ankle effusion. No radiopaque foreign body. IMPRESSION: 1. No acute findings. Assessment & Plan Assessment & Plan (1) Ankle sprain: Code(s): S93.409A - Sprain of unspecified ligament of unspecified ankle, initial encounter Category: Medical Qualifiers: Encounter type: initial encounter Involved ligament of ankle: unspecified ligament Laterality: unspecified laterality Qualified Code(s): S93.409A - Sprain of unspecified ligament of unspecified ankle, initial encounter (2) Chronic ankle pain, bilateral: Code(s): M25.571 - Pain in right ankle and joints of right foot; M25.572 - Pain in left ankle and joints of left foot; G89.29 - Other chronic pain Category: Medical (3) Foot pain, bilateral: Code(s): M79.671 - Pain in right foot; M79.672 - Pain in left foot Category: Medical (4) Chronic instability of ankle: Code(s): M25.373 - Other instability, unspecified ankle Category: Medical (5) Right ankle sprain: Code(s): S93.401A - Sprain of unspecified ligament of right ankle, initial encounter Category: Medical Qualifiers: Encounter type: initial encounter Involved ligament of ankle: unspecified ligament Qualified Code(s): S93.401A - Sprain of unspecified ligament of right ankle, initial encounter (6) Left ankle sprain: Code(s): S93.402A - Sprain of unspecified ligament of left ankle, initial encounter Category: Medical Qualifiers: Encounter type: initial encounter Involved ligament of ankle: unspecified ligament Qualified Code(s): S93.402A - Sprain of unspecified ligament of left ankle, initial encounter (7) Left ankle pain: Code(s): M25.572 - Pain in left ankle and joints of left foot Category: Medical Qualifiers: Chronicity: chronic Qualified Code(s): M25.572 - Pain in left ankle and joints of left foot; G89.29 - Other chronic pain (8) Left foot pain: Code(s): M79.672 - Pain in left foot Category: Medical (9) Right ankle pain: Code(s): M25.571 - Pain in right ankle and joints of right foot Category: Medical Qualifiers: Chronicity: chronic Qualified Code(s): M25.571 - Pain in right ankle and joints of right foot; G89.29 - Other chronic pain (10) Foot pain, right: Code(s): M79.671 - Pain in right foot Category: Medical (11) Hallux valgus, bilateral: Code(s): M20.11 - Hallux valgus (acquired), right foot; M20.12 - Hallux valgus (acquired), left foot Category: Medical (12) Hammertoe, bilateral: Code(s): M20.41 - Other hammer toe(s) (acquired), right foot; M20.42 - Other hammer toe(s) (acquired), left foot Category: Medical (13) Arthritis of both feet: Code(s): M19.071 - Primary osteoarthritis, right ankle and foot; M19.072 - Primary osteoarthritis, left ankle and foot Category: Medical (14) Arthritis of both ankles: Code(s): M19.071 - Primary osteoarthritis, right ankle and foot; M19.072 - Primary osteoarthritis, left ankle and foot Category: Medical Plan Patient was informed and verbally consented to the use of an ambient scribe for clinic note documentation during this visit. I discussed with the patient the presence of arthritis and associated conditions such as bone spurs and bunions and hammertoes. We reviewed the need for physical therapy and the potential for an MRI to further evaluate the condition of the ligaments and tendons if pain persists. I explained the possibility of using a brace to the left ankle instead of the HARSH bandage to manage pain and the option of a cortisone injection if pain persists. We also discussed switching from Meloxicam to Celebrex for better pain management. - Provided referral for physical therapy to address pain and improve mobility. - Consider MRI to evaluate ligaments and tendons if pain persists after physical therapy. - Prescribe Celebrex as an alternative to meloxicam for pain management. Advised patient to stop taking Meloxicam. - Provided patient with a lace up ankle brace to the left ankle and patient is to continue wearing lace up ankle brace to the right ankle. - Consider cortisone injection if pain persists despite physical therapy and brace/boot use. Patient is to return to the office in 6 weeks after the start of PT. Orders: Orders PT Evaluation and Treatment Today G89.29 - Other chronic pain, M25.373 - Other instability, unspecified ankle, M25.571 - Pain in right ankle and joints of right foot, M25.572 - Pain in left ankle and joints of left foot, M79.671 - Pain in right foot, M79.672 - Pain in left foot, S93.401A - Sprain of unspecified ligament of right ankle, initial encounter, S93.402A - Sprain of unspecified ligament of left ankle, initial encounter Medications: New celecoxib (Celebrex) 200 mg PO BID 60 caps 0RF Arthritis G89.29 - Other chronic pain, M25.571 - Pain in right ankle and joints of right foot, M25.572 - Pain in left ankle and joints of left foot, M79.671 - Pain in right foot, M79.672 - Pain in left foot Coding Level of Care Code Est Pt Level 4 (51193) Diagnoses Sprain of ankle, unspecified laterality, unspecified ligament, initial encounter S93.409A Encounter type: initial encounter Involved ligament of ankle: unspecified ligament Laterality: unspecified laterality Chronic ankle pain, bilateral M25.571; M25.572; G89.29 Foot pain, bilateral M79.671; M79.672 Chronic instability of ankle M25.373 Sprain of right ankle, unspecified ligament, initial encounter S93.401A Encounter type: initial encounter Involved ligament of ankle: unspecified ligament Sprain of left ankle, unspecified ligament, initial encounter S93.402A Encounter type: initial encounter Involved ligament of ankle: unspecified ligament Chronic pain of left ankle M25.572; G89.29 Chronicity: chronic Left foot pain M79.672 Chronic pain of right ankle M25.571; G89.29 Chronicity: chronic Foot pain, right M79.671 Hallux valgus, bilateral M20.11; M20.12 Hammertoe, bilateral M20.41; M20.42 Arthritis of both feet M19.071; M19.072 Arthritis of both ankles M19.071; M19.072 Time Spent (min) 45
[2025-07-10 10:41] VITALS: BMI 57.7
--- OUTSIDE RECORDS SUMMARY | 2025-07-10 11:46 | XMS_ITS | Clinical Summary ---
Author Organization [facility] Address [address] [place] [address] Care Team Providers Care Web Ui Designer Name Role Phone Ramo Metcalf MD Primary Care Provider [phone] Allergies Active Allergy Reactions Criticality Noted Date [...] age to complete this topic Care Teams Web Ui Designer Relationship Specialty Start Date End Date Ramo Metcalf MD [address] [place] [address] [address] [facility] [place] [address] PCP - General Internal Medicine 02/18/22
--- OUTSIDE RECORDS SUMMARY | 2025-07-10 11:46 | XMS_ITS | Clinical Summary ---
Author Organization [facility] Address [address] [place] [address] Phone Care Team Providers Care Telecasting Technician Name Role Phone Eriberto Saunders MD Primary Care Provider [phone] Allergies Active Allergy Reactions Criticality Noted Date [...] mg by mouth daily. 2 Active nebulizers [facility] [place] Respiratory Therapy Supplies (NEBULIZER/ADULT [...] (BMI) of 50.0 to 59.9 in adult ([facility] [place]24, [facility] V28) 08/02/2024 Gastroesophageal reflux disease 12/26/2021 Allergic rhinitis 07/04/2020 CTS (carpal tunnel syndrome) 07/04/2020 B12 deficiency 08/09/2012 Helicobacter pylori ab+ 08/09/2012 Anemia, iron deficiency 02/08/2012 JENNIFER (obstructive sleep apnea) 01/19/2012 Snoring 01/01/2012 Witnessed apneic spells 01/01/2012 Asthma 08/21/2010 Depression 08/21/2010 Encounters Date Type Department Care Team Description 06/05/2025 12:30 PM EDT Nutrition Bariatric Surgery - [address] [phone] Class 3 severe obesity with serious comorbidity and body mass index (BMI) of 50.0 to 59.9 in adult, unspecified obesity type ([facility] V24, [facility] V28) (Primary Dx) 06/05/2025 9:30 AM EDT Office Visit Bariatric Surgery [address] [phone] Monse Segura MD Morbid obesity with BMI of 50.0-59.9, adult ([facility] V24, [facility] V28) (Primary Dx); JENNIFER (obstructive sleep apnea); Gastroesophageal reflux disease without esophagitis; Iron deficiency anemia, unspecified iron deficiency anemia type from Last 3 Months Immunizations Immunization Administration Dates Next Due Influenza trivalent, 0.5mL, [...] 10:00 AM EST Nutrition Bariatric Surgery - [place] [address] [phone] Anuja Valdovinos, RD [address] [phone] Health Maintenance Due Date Last Done Comments Hepatitis B Vaccines (1 of 3 - 19+ 3-dose series) 2005 HPV Vaccines (1 - 3-dose SCDM series) 2013 Pneumococcal Vaccine: Pediatrics (0 to 5 Years) [...] 10/02/2034 10/02/2024, 01/18/2017, 07/18/2014, Additional history exists RSV Immunization Adult Patients (1 - 1-dose 75+ series) 2061 HIB [...] Results * Annual BMP Blood Test (02/11/2024) Annual BMP Blood Test abstracted us Historical Provider HEALTH MAINTENANCE Final Result * (ABNORMAL) Lipid panel (02/11/2024) LDL/HDL Ratio [...] Most Recently Relevant to Health Maintenance Insurance [facility] [employer] Care Teams Telecasting Technician Relationship Specialty Start Date End Date Eriberto Saunders MD [facility] [address] [place] [address] [address] [place] [address] PCP - General Internal Medicine 05/09/25
--- OUTSIDE RECORDS SUMMARY | 2025-07-10 11:46 | XMS_ITS | Clinical Summary ---
Author Organization [employer] Address [address] [facility] [address] [place] [address] Care Team Providers Care Stitching Machine Setter Name Role Phone Unavailable Primary Care Provider [...] Description 04/20/2025 11:00 AM EDT Office Visit [facility] [address] [place] [address] Abdiel Amato DDS 04/19/2025 11:30 AM EDT Office Visit [facility] [address] [place] [address] Benja Bashir DMD from Last 3 Months [...]
== END 2025-07-10 11:24 | disposition home or self-care (01) ==
LOC: HO.HPODS 10:33
PROVIDERS: PCP Internal Medicine; Visit Provider Student in an Organized Health Care Education/Training Program
DX: S93.409A Sprain of unspecified ligament of unspecified ankle, initial encounter (principal); M25.571 Pain in right ankle and joints of right foot; M25.572 Pain in left ankle and joints of left foot; G89.29 Other chronic pain; M79.671 Pain in right foot; M79.672 Pain in left foot; M25.373 Other instability, unspecified ankle; S93.401A Sprain of unspecified ligament of right ankle, initial encounter; S93.402A Sprain of unspecified ligament of left ankle, initial encounter; M20.11 Hallux valgus (acquired), right foot; M20.12 Hallux valgus (acquired), left foot; M20.41 Other hammer toe(s) (acquired), right foot; M20.42 Other hammer toe(s) (acquired), left foot; M19.071 Primary osteoarthritis, right ankle and foot; M19.072 Primary osteoarthritis, left ankle and foot
CPT/HCPCS: 99214

== ENCOUNTER → 2025-07-10 10:33 | Outpatient (BNVA) | payer OTHER, SELFPAY | PROVIDERS: PCP Internal Medicine; Visit Provider Student in an Organized Health Care Education/Training Program | DX: S93.401A Sprain of unspecified ligament of right ankle, initial encounter (principal); S93.402A Sprain of unspecified ligament of left ankle, initial encounter; M79.671 Pain in right foot; M79.672 Pain in left foot; M25.571 Pain in right ankle and joints of right foot; M25.572 Pain in left ankle and joints of left foot; G89.29 Other chronic pain; M25.373 Other instability, unspecified ankle; M20.11 Hallux valgus (acquired), right foot; M20.12 Hallux valgus (acquired), left foot; M20.41 Other hammer toe(s) (acquired), right foot; M20.42 Other hammer toe(s) (acquired), left foot; M19.071 Primary osteoarthritis, right ankle and foot; M19.072 Primary osteoarthritis, left ankle and foot | CPT/HCPCS: 99212 ==

== ENCOUNTER 2025-07-31 16:10 | Emergency (ER) | payer OTHER, SELFPAY ==
--- OUTSIDE RECORDS SUMMARY | 2024-07-14 08:57 | XMS_ITS | Encounter Summary ---
Author Organization [facility] Address [address] [place] [address] Care Team Providers Care Construction Operations Manager Name Role Phone Ramo Metcalf MD Primary Care Provider [phone] Encounter Details Date Type Department Care Team [...] 10:00 AM EST Nutrition Bariatric Surgery - [address] [place] [address] Anuja Valdovinos, RD 175 [facility] [address] [place] [address] documented as of this encounter Visit Diagnoses Not on filedocumented in this encounter Care Teams Construction Operations Manager Relationship Specialty Start Date End Date Ramo Metcalf MD [address] [place] [address] [address] [facility] [place] [address] PCP - General Internal Medicine 07/08/20 05/08/25 documented as of this encounter
--- OUTSIDE RECORDS SUMMARY | 2024-07-28 09:00 | XMS_ITS | Encounter Summary ---
Author Organization [facility] Address [address] [place] [address] Care Team Providers Care Oil Gas And Pipe Tester Name Role Phone Ramo Metcalf MD Primary Care Provider [phone] Encounter Details Date Type Department Care Team [...] 10:00 AM EST Nutrition Bariatric Surgery - [address] [address] Anuja Valdovinos, RD 175 [facility] 120 [place] [address] documented as of this encounter Visit Diagnoses Diagnosis Iron deficiency anemia secondary to blood loss (chronic) documented in this encounter Care Teams Oil Gas And Pipe Tester Relationship Specialty Start Date End Date Ramo Metcalf MD [address] [place] [address] [address] [facility] [place] [address] PCP - General Internal Medicine 07/08/20 05/08/25 documented as of this encounter
--- OUTSIDE RECORDS SUMMARY | 2024-08-09 08:35 | XMS_ITS | Encounter Summary ---
Author Organization [facility] Address [address] [place] [address] Care Team Providers Care Procurement Professional Name Role Phone Ramo Metcalf MD Primary Care Provider [phone] Encounter Details Date Type Department Care Team [...] 10:00 AM EST Nutrition Bariatric Surgery - [address] [address] Anuja Valdovinos, RD [address] [address] documented as of this encounter Visit Diagnoses Not on filedocumented in this encounter Care Teams Procurement Professional Relationship Specialty Start Date End Date Ramo Metcalf MD [address] [place] [address] [address] [facility] [place] [address] PCP - General Internal Medicine 07/08/20 05/08/25 documented as of this encounter
--- NOTE | ~2025-07-31 | XR_ITS ---
EXAMINATION: XR KNEE, RIGHT CLINICAL INFORMATION: pain COMPARISON: None available. TECHNIQUE: Four views of the right knee. FINDINGS: There is no joint effusion. There is moderate narrowing of the medial compartment and mild narrowing of the lateral compartment. There are tricompartmental marginal osteophytes. There is possible calcific density in the medial and lateral menisci. On the lateral view, there is subtle lucency extending from the posterior proximal fibula to the central metaphysis probably related to trabecular pattern. XR/XR knee RT 4V IMPRESSION: Moderate osteoarthritis with possible pyrophosphate deposition Lucency in the proximal fibula visible on the lateral view is probably related to the trabecular pattern rather than a nondisplaced fracture. Correlate for focal pain. Electronically signed by: Barron Ng MD 07/31/2025 04:51 PM EDT RP
--- NOTE | ~2025-07-31 | US_ITS ---
EXAMINATION: US TRIPLEX LOWER EXTREMITY, RIGHT CLINICAL INFORMATION: Right lower extremity pain COMPARISON: None available. TECHNIQUE: Color-flow triplex imaging with spectral analysis and compression Doppler were performed on the right lower extremity. FINDINGS: Respiratory variation, normal compression and augmented flow are noted throughout the right lower extremity. The visualized common femoral vein, superficial femoral vein, profunda femoral vein, popliteal vein and midcalf peroneal and posterior tibial venous segments show no evidence of deep venous thrombosis. US/US venous duplex LE RT IMPRESSION: No evidence of deep venous thrombosis involving the right lower extremity. Electronically signed by: Barron Ng MD 07/31/2025 04:53 PM EDT
[2025-07-31 16:19] VITALS: BP 215/95; PULSE 75; RESP 18; TEMP 36.4; O2SAT 92; BMI 62.0
--- NOTE | 2025-07-31 16:21 | ED_ITS ---
HPI - General Adult General Chief complaint: Extremity Injury, Lower Stated complaint: rt knee swollen/painful Time Seen by Provider: 07/31/25 19:01 History of Present Illness ED Provider: Ronaldo Perea MD HPI narrative: 40-year-old female with a history of morbid obesity chronic bilateral knee pain and arthritis. No direct blow or trauma but right knee worse acute on chronic pain. She feels it is slightly swollen. Denies erythema. Able to walk and bear weight but painful. Denies calf or foot swelling on that side denies skin changes Related Data Previous Rx's ?Medication ?Instructions ?Recorded omeprazole 20 mg capsule,delayed 20 mg PO DAILY #90 ca ps 02/19/25 release hydralazine 10 mg tablet 10 mg PO TID #180 tabs 05/31 nifedipine 60 mg tablet,extended 60 mg PO DAILY #90 ta bs 05/31/25 release 24 hr celecoxib 200 mg capsule (Celebrex) 200 mg PO BID Arth ritis #60 caps 07/10/25 Bariatric Rollator #1 ea 07/23/25 Bariatric shower chair #1 ea 07/23/25 bedrail #1 ea 07/23/25 Bariatric transfer bench #1 ea 07/26/25 hand held shower #1 ea 07/26/25 diclofenac sodium 1 % topical gel 4 g topical QID PRN pain (scale 07/31/25 (Voltaren Arthritis Pain) score 4-6) #100 grams morphine 15 mg immediate release 15 mg PO BID PRN pain 3 days #7 07/31/25 tablet tabs prednisone 20 mg tablet 60 mg (3 x 20 mg) PO DAILY 2 days 07/31/25 #6 tabs Allergies Allergy/AdvReac Type Severity Reaction Status Date / Time dextran 40 AdvReac Intermediate Hypertensio Verified 07/31/25 16:20 n iron dextran complex AdvReac Intermediate Hypertensio Verified 07/31/25 16:20 n PMFSH Past Medical History Medical History (Updated 08/01/25 @ 00:00 by Background Daemon) Arthritis of both ankles Arthritis of both feet Hammertoe, bilateral Hallux valgus, bilateral Left foot pain Left ankle pain 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 Brother No problems noted. Brother No problems noted. Sister No problems noted. Sister Lupus Son No problems noted. Daughter No problems noted. Social History Social History Housing: Apartment Alcohol intake: current Alcohol intake frequency: does not drink Patient Tobacco Use Status: Never used Tobacco e-Cigarette/Vaping Use: Never Used Second Hand Smoke Exposure: No Advance Directives: No Advance Directives Information Provided: Yes Do you have a plan to hurt others: No Plan service: No Current occupational status: disabled Current occupation: rt hand Cognitive needs: No Hearing needs: No Vision needs: No Physical Exam ED Exam Exam: EXAM: Gen: Alert, awake, well appearing, well hydrated. Head: Atraumatic Eyes: Anicteric, Normal conjunctiva. ENT: Moist mucosa, no pallor. ? Neck: Supple. Skin: ?No observable rash or bruising on exposed or examined skin Respiratory: Breathing comfortably, No distress.Clear to auscultation bilaterally, symmetric chest expansion, No wheeze, rales, ronchi. Cardiovascular: Regular rate and rhythm. No murmurs or rub. Well perfused periphery, warm extremities. No edema. ? Abdominal: No focal tenderness. Soft, no objective distension. No palpable masses or obvious organomegaly. ?No guarding, no rebound tenderness or other peritoneal findings. : No flank tenderness. Neuro: Alert. Gross movement of all extremities intact. ? Psych: Calm. Cooperative. MSK: No grossly visible deformity. Limb is obese but symmetric to contralateral side. Moderate tenderness throughout the anterior right knee. Somewhat limited range of motion. There was no erythema or warmth no popliteal mass or tenderness. Calf is soft without elicited tenderness no pitting edema. Limb appears symmetric to contralateral side circumference Vital signs: See flowsheet Vital Signs: Vital Signs - 24 hr 07/31/25 16:19 Temperature 97.5 F Pulse Rate 75 Respiratory Rate 18 Blood Pressure 215/95 H Pulse Oximetry 92 Oxygen Delivery Method Room Air BMI result Body Mass Index 62.0 Course Course Course Narrative: RME, this is a rapid medical exam performed by Adithya Moreno please refer to primary provider for complete H&P- 40-year-old female with a past medical history significant morbid obesity, GERD, anxiety, depression presents for evaluation of right knee pain. She has a history of arthritis in the knee, denies any specific injury. Plan for x-ray and ultrasound of the right lower extremity Medications Administered Discontinued Medications Generic Name Dose Route Start Last Admin Trade Name Freq PRN Reason Stop Dose Admin Acetaminophen 975 mg 07/31/25 19:11 07/31/25 19:34 Acetaminophen 325 Mg Tablet PO 07/31/25 19:12 975 mg ONCE ONE Administration Ibuprofen 600 mg 07/31/25 19:11 07/31/25 19:34 Ibuprofen 600 Mg Tablet PO 07/31/25 19:12 600 mg ONCE ONE Administration Morphine Sulfate 15 mg 07/31/25 19:11 07/31/25 19:34 Morphine Sulfate Immed Release 15 Mg Tablet PO 07/31/25 19:12 15 mg ONCE ONE Administration Prednisone 20 mg 07/31/25 19:11 07/31/25 19:35 Prednisone 20 Mg Tablet PO 07/31/25 19:12 20 mg ONCE ONE Administration Medical Decision Making Medical Decision Making MDM Narrative: Medical Decision Makin-year-old female with multiple comorbid medical conditions including hypertension 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 No fever or chills. Moderately hypertensive but no symptomatology to suggest end-organ damage/hypertensive emergency. Clinical examination limited due to body habitus but no overt signs of DVT, doubt infectious arthritis. 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 There was no focal tenderness over this area doubt fracture. Consults: ?See below for details Independent Historians/External Chart Reviews: ?See below for details Social Determinants of Health Impacting MDM/Planning: ?See below for details Discharge Plan Discharge Clinical Impression: Arthritis, Crystal arthropathies Patient Disposition: Home, Self-Care Instructions: Osteoarthritis (DC) Additional Instructions: DISCHARGE DIAGNOSES: Arthritis of the knee, osteoarthritis or crytal-arthritis HISTORY OF PRESENTATION: ?acute on chronic right knee pain, no acute injury EMERGENCY DEPARTMENT COURSE,TESTS, TREATMENTS: While in the ED today you had a knee XRAY that showed arthritis probably crystal-based arthritis and no injury or fracture DISCHARGE MEDICATIONS: ?[We have made no changes to your regular medication regimen] Morphine was prescribed, only for severe pain limiting your sleep. Do not Drive on this medication FOLLOW-UP: ?Call your primary or general physician soon as possible to discuss your symptoms, your ED visit and to discuss follow up plans Call rheumatology and/or orthopedics INSTRUCTIONS ?& RETURN PRECAUTIONS: If any symptoms change first call your primary physician, if it is after-hours your primary doctors office should have a provider wilton weaver you can speak with. If the symptoms are severe or very concerning to you then call 911 or return to the ED. Ronaldo Perea MD Emergency Physician [facility] Prescriptions: New prednisone 20 mg tablet 60 mg PO DAILY 2 Days Qty: 6 0RF morphine 15 mg tablet 15 mg PO BID PRN (Reason: pain) 3 Days Qty: 7 0RF Rx Instructions: Partial Fill upon patient request. diclofenac sodium [Voltaren Arthritis Pain] 1 % gel 4 g topical QID PRN (Reason: pain (scale score 4-6)) Qty: 100 0RF Rx Instructions: apply to single knee, ankle, foot; for foot includes sole/toes/top of foot No Action omeprazole 20 mg capsule,delayed release(DR/EC) 20 mg PO DAILY Qty: 90 1RF (DME) Bariatric Rollator See Rx Instructions .Route .MEDSUPPLY Qty: 1 0RF Rx Instructions: As directed (DME) Bariatric shower chair See Rx Instructions .Route .MEDSUPPLY Qty: 1 0RF Rx Instructions: As directed (DME) bedrail See Rx Instructions .Route .MEDSUPPLY Qty: 1 0RF Rx Instructions: As directed (DME) hand held shower See Rx Instructions .Route .MEDSUPPLY Qty: 1 0RF Rx Instructions: As directed (DME) Bariatric transfer bench See Rx Instructions .Route .MEDSUPPLY Qty: 1 0RF Rx Instructions: As directed albuterol sulfate 2.5 mg /3 mL (0.083 %) solution for nebulization 2.5 mg inhalation ONCE Qty: 3 0RF hydralazine 10 mg tablet 10 mg PO TID Qty: 180 1RF nifedipine 60 mg tablet extended release 24hr 60 mg PO DAILY Qty: 90 1RF celecoxib [Celebrex] 200 mg capsule 200 mg PO BID Qty: 60 0RF Interventions: ED Discharge Assessment Last Done: 07/31/25 20:02 Discharge Date/Time: 07/31/25 20:03 Print Language: Citizen Of [place]
[2025-07-31] MEDS: Morphine Sulfate Immed Release 15 MG TABLET PO (19:34)
[2025-07-31 19:57] VITALS: BP 195/92; PULSE 66; RESP 17; TEMP 36.2; O2SAT 99
[2025-07-31 20:02] VITALS: BP 195/92; PULSE 66; RESP 17; TEMP 36.2; O2SAT 99
--- OUTSIDE RECORDS SUMMARY | 2025-07-31 21:34 | XMS_ITS | Clinical Summary ---
Author Organization [facility] [employer] Address [address] [place] [address] Care Team Providers Care Box Loader Name Role Phone Unavailable Primary Care Provider [...] of section 04/19/2025 Retained tooth root 03/22/2025 Social History Tobacco Use Types Packs/Day Years [...] HPV/Cotest 2016 COVID-19 Vaccine ( - season) 2025 03/12/2021, 02/19/2021 Influenza Vaccine (#1) [...] Procedure Name Priority Date/Time Associated Diagnosis Comments PANORAMIC RADIOGRAPHIC IMAGE Routine 04/19/2025 11:30 AM EDT BITEWING - SINGLE RADIOGRAPHIC IMAGE Routine 12/15/2024 8:30 AM EST from Last 3 Months or Most Recently Relevant to Health Maintenance Insurance [facility] [employer] [place]
--- OUTSIDE RECORDS SUMMARY | 2025-07-31 21:34 | XMS_ITS | Data Portability ---
Author Organization [place] [facility], [facility] Address [address] [place] [address] Assessment Encounter Date Assessment Date Assessment LastModified by Organization Details LastModified Time 12/27/2023 12/27/2023 IMPRESSION: Symptomatically Patellofemoral Overload bilateral knee, patellofemoral osteoarthrosis PLAN: Lengthy discussion held with patient regarding treatment alternatives pathophysiology associated with anterior knee pain. We talked about the importance of activity modification talked about the benefits of physical therapy for quadriceps Strengthening as well as improvements of neuromuscular balancing. Patient was referred to formal physical therapy for these exercises and recommendations are to follow with our office going forward as symptoms dictate. [email or web address] Not available 12/27/2023 11:16:41 Plan of Treatment Reminders Order Date Submit Date Provider Last Modified By Organization Details Last Modified Time Details Appointments None recorded. Lab None recorded. Referral physical therapist referral - VMO Strengthen ing, Quad & Hamstring Stretching , Patella Mobilizati on, Hunt Taping 2023 024 [email or web address] Not available 4 19:17:39 Procedures None recorded. Surgeries None recorded. Imaging XR, knee, 4 or more view 2023 024 [email or web address] 7 [facility] Office, [address], [place] [address], [place], [address], 4 15:26:45 Medication Orders None recorded. Patient TargetsNo targets recorded. Patient InstructionsNo instructions recorded. Reason for Referral Physical Therapist Referral for Pain of left knee joint VMO Strengthening, Quad & Hamstring Stretching, Patella Mobilization, Hunt Taping Referring Physician: Quinton Goldstein, Orthopedic Surgery, [id number] Encounter Date: 12/27/2023 Results Created Date Observation Date Name Description Value Unit Range Abnormal Flag Note LastModifiedBy Organization Detail LastModifiedTime 06/09/20 24 09/01/2023 imagi ng/di agnos tic resul t No observ ation record ed. [email or web address] Not Available 05/13 12:25:49 Result Notes None recorded. Procedures Surgical History Date Name Laterality Status Provider Name and Address Organization Details Recorded Time 4 [id number] Therapeutic Exercise (1:1) cancelled Padilla Arango, PT [address], [place], [address], [facility] 01/16/2024 23:02:59 4 [address]: Moderate complexity PT eval cancelled Padilla Arango, PT [address], [place], [address], [facility] 01/16/2024 23:03:53 Imaging Results None recorded. Procedure Notes None recorded. Medical Equipment None Reported. Medications Name Sig Start Date Stop Date Status Note LastModified by Organization Details LastModified Time nifedipine ER 30 mg tablet,exte nded release 24 hr TOME MIK TABLETA TODOS LOS D 12/26 completed Not Available Not Available Not Available cyclobenzap rine 10 mg tablet TOME 1 TABLETA POR V A ORAL DOLORES VECES AL D A CUANDO SEA NECESARIO PARA EL DOLOR active Not Available Not Available No t Available albuterol sulfate 0.63 mg/3 mL solution for nebulizatio n 0.63 MG (3 ML) INHALED EVERY 4 HOURS NEEDED FOR SHORTNESS OF BREATH OR WHEEZING active Not Available Not Available No t Available trazodone 50 mg tablet TAKE 1 1/2 TABLETS BY MOUTH AT BEDTIME NEEDED FOR SLEEP 12/26 completed Not Available Not Available Not Available cetirizine 10 mg tablet TOME MIK TABLETA POR V A ORAL TODOS LOS D CUANDO SEA NECESARIO PARA LA ALERGIA 12/26 completed Not Available Not Available Not Available ibuprofen 800 mg tablet TOME MIK TABLETA CADA OCHO HORAS 12/26 completed Not Available Not Available Not Available prednisone 20 mg tablet TOME DOS TABLETAS POR V A ORAL TODOS LOS D 12/26 completed Not Available Not Available Not Available sertraline 100 mg tablet TAKE 1 AND 1/2 TABLETS POR V A ORAL ONCE A DAY SEG N LO INDICADO 12/26 completed Not Available Not Available Not Available metronidazo le 500 mg tablet TOME MIK TABLETA CADA 12 HORAS POR 7 D 12/26 completed Not Available Not Available Not Available acetaminoph en 500 mg tablet PLEASE SEE ATTACHED FOR DETAILED DIRECTION S 12/26 completed Not Available Not Available Not Available hydromorpho ne 2 mg tablet PLEASE SEE ATTACHED FOR DETAILED DIRECTION S 12/26 completed Not Available Not Available Not Available nifedipine ER 60 mg tablet,exte nded release 24 hr TOME MIK TABLETA TODOS LOS D 12/26 completed Not Available Not Available Not Available amitriptyli ne 10 mg tablet TAKE 1 TABLET BY MOUTH EVERY NIGHT AT BEDTIME NEEDED 12/26 completed Not Available Not Available Not Available benzonatate 100 mg capsule TOME MIK C PSULA DOS VECES AL D A CUANDO SEA NECESARIO FOR COUGH 12/26 completed Not Available Not Available Not Available prednisone 50 mg tablet TOME MIK TABLETA TODOS LOS D POR 4 D 12/26 completed Not Available Not Available Not Available ibuprofen 400 mg tablet TOME MIK TABLETA POR V A ORAL CADA SEIS HORAS CUANDO SEA NECESARIO PARA EL DOLOR 12/26 completed Not Available Not Available Not Available Advair Diskus 250 mcg-50 mcg/dose powder for inhalation TOME MIK INHALACI N POR V A ORAL DOS VECES AL D A active Not Available Not Available No t Available gabapentin 300 mg capsule TOME MIK C PSULA DOLORES VECES AL D A 12/26 completed Not Available Not Available Not Available aspirin 81 mg chewable tablet MASTIQUE MIK TABLETA POR V A ORAL A DIARIO 12/26 completed Not Available Not Available Not Available clobetasol 0.05 % topical ointment PLEASE SEE ATTACHED FOR DETAILED DIRECTION S 12/26 completed Not Available Not Available Not Available ibuprofen 600 mg tablet TOME MIK TABLETA POR V A ORAL DOLORES VECES AL D A CUANDO SEA NECESARIO FOR MILD PAIN 12/26 completed Not Available Not Available Not Available ondansetron 4 mg disintegrat ing tablet TOME MIK TABLETA POR V A ORAL 3 TIMES A DAY NEEDED FOR NAUSEA AND VOMITING FOR 5 DAYS 12/26 completed Not Available Not Available Not Available Ventolin HFA 90 mcg/actuati on aerosol inhaler PLEASE SEE ATTACHED FOR DETAILED DIRECTION S 12/26 completed Not Available Not Available Not Available bupropion HCl XL 300 mg 24 hr tablet, extended release TOME MIK TABLETA TODOS LOS D EN LA EVAN NURY 12/26 completed Not Available Not Available Not Available tranexamic acid 650 mg tablet TAKE 2 TABLETS BY MOUTH 3 TIMES A DAY FOR 5 DAYS.MAXI MUM OF 5 DAYS DURING MONTHY MENSTRUAT ION 12/26 completed Not Available Not Available Not Available baclofen 5 mg tablet TOME MIK TABLETA DOLORES VECES AL D A 12/26 completed Not Available Not Available Not Available Vitals Date Recorded Body height Body mass index (BMI) Body weight Provider Name and Address Organization Details Last Updated DateTime 12/27/2023 160.02 cm 61.1 kg/m2 174221.37 g JONAH HURD [place] [facility] 12/27/2023 10:48:26 Social History None recorded. Functional Status None recorded. Mental Status None recorded. Family History Nothing Reported. Medical History No medical history recorded. Gynecological HistoryNo gynecological history recorded. Obstetrics History GPAL:G 0 P 0 0 0 0 Past Encounters Encounter ID Performer Location Encounter Start Date Encounter Closed Date Diagnosis/Indication Diagnosis SNOMED-CT Code Diagnosis ICD10 Code Diagnosis IMO Codes Diagnosis Note [id number] RADHA Garcia [address] [place] [address] 12/27/2023 10:07:46 12/27/2023 11:29:53 Pain of left knee joint 3942934695 13622 M25.562 Chondromal acia of bilateral patellas 8076108119 8470527 M22.41 M22.42 Bilateral osteoarthritis of knees 6802767710 43965 M17.0 Health Concerns Section Related Observation LastModified by Organization Detai ls LastModified Time None Recorded Concern Status LastModified by Organization Details LastModified Time None Recorded Advance Directives Directive None Recorded Payers Insurance Date Sequence Insurance Name Policy Number Policy Zamorano Covered Member ID Zamorano Member ID Guarantor Name 01/12/2024 1 [facility] (MEDICAID HMO) Agustina Semaj [id number] Agustina Semaj Notes Date Note Type Note Provider Name and Address Organization Details Recorded Time 12/27/2023 text/html I am seeing the patient today under the supervision of Dr. Pompa who was available but who did not see the patient.HPI: Patient is seen today for evaluation of pain and discomforts developed in their bilateral knee. Patient reports greater than one year duration of symptoms worse with stairs squatting kneeling getting a sitting position. Patient reports symptoms are exacerbated with use specifically increasing exercise and demand. Patient denies any recent trauma denies any secondary swelling or mechanical locking catching symptoms. Concerned by this, patient is referred at this time for orthopedic evaluation.Past family, medical, social history and review of systems has been reviewed, updated and is located in the patient s chart. Quinton Goldstein PA-C [address], [place], [address], [facility] 12/27/2023 11:19:47 OBGyn Episode No OBEpisode recorded.
--- OUTSIDE RECORDS SUMMARY | 2025-07-31 21:34 | XMS_ITS | Clinical Summary ---
Author Organization [facility] Address [address] [place] [address] Phone Care Team Providers Care Marketing Finance Specialist Name Role Phone Eriberto Saunders MD Primary Care Provider [phone] Allergies Active Allergy Reactions Criticality Noted Date [...] of 50.0 to 59.9 in adult [place] [place] [facility] [place] 08/02/2024 Gastroesophageal reflux disease 12/26/2021 Allergic rhinitis 07/04/2020 CTS (carpal tunnel syndrome) 07/04/2020 B12 deficiency 08/09/2012 Helicobacter pylori ab+ 08/09/2012 Anemia, iron deficiency 02/08/2012 JENNIFER (obstructive sleep apnea) 01/19/2012 Snoring 01/01/2012 Witnessed apneic spells 01/01/2012 Asthma 08/21/2010 Depression 08/21/2010 Encounters Date Type Department Care Team Description 06/05/2025 12:30 PM EDT Nutrition Bariatric Surgery - [address] [phone] Class 3 severe obesity with serious comorbidity and body mass index (BMI) of 50.0 to 59.9 in adult, unspecified obesity type ([facility] [place] [facility] [place]) (Primary Dx) 06/05/2025 9:30 AM EDT Office Visit Bariatric Surgery [address] [phone] Monse Segura MD Morbid obesity with BMI of 50.0-59.9, adult ([facility] [place] [facility] [place] (Primary Dx); JENNIFER (obstructive sleep apnea); [...] 10:00 AM EST Nutrition Bariatric Surgery - Printer [address] [address] Anuja Valdovinos, RD [address] [address] Health Maintenance Due Date Last [...] Most Recently Relevant to Health Maintenance Insurance [facility] [employer] [place] PL[employer] Care Teams Marketing Finance Specialist Relationship Specialty Start Date End Date Eriberto Saunders MD [facility] [address] [place] [address] [address] [place] [address] PCP - General Internal Medicine 05/09/25
--- OUTSIDE RECORDS SUMMARY | 2025-07-31 21:34 | XMS_ITS | Clinical Summary ---
Author Organization [facility] Address [address] [place] [address] Care Team Providers Care On Call Pharmacy Technician Name Role Phone Ramo Metcalf MD Primary Care Provider [phone] Allergies Active Allergy Reactions Criticality Noted Date [...] age to complete this topic Care Teams On Call Pharmacy Technician Relationship Specialty Start Date End Date Ramo Metcalf MD [address] [place] [address] [address] [facility] [place] [address] PCP - General Internal Medicine 02/18/22
== END 2025-07-31 20:03 | disposition home or self-care (01) ==
PROVIDERS: Emergency Provider Emergency Medicine; PCP Internal Medicine
DX: M11.861 Other specified crystal arthropathies, right knee (principal); R60.0 Localized edema; M25.561 Pain in right knee
CPT/HCPCS: 73564; 93971; 99283; 99284

== ENCOUNTER → 2025-07-31 16:21 | Outpatient (BNV) | payer OTHER, SELFPAY | PROVIDERS: PCP Internal Medicine; Visit Provider Radiology Diagnostic Radiology | DX: M79.661 Pain in right lower leg (principal); M17.11 Unilateral primary osteoarthritis, right knee | CPT/HCPCS: 73564; 93971 ==

== ENCOUNTER 2025-08-15 09:25 | Outpatient (AMB) | payer OTHER, SELFPAY ==
--- OUTSIDE RECORDS SUMMARY | 2024-07-14 07:57 | XMS_ITS | Encounter Summary ---
Author Organization [facility] Address [address] [place] [address] Care Team Providers Care Senior Windows Administrator Name Role Phone Ramo Metcalf MD Primary Care Provider [phone] Encounter Details Date Type Department Care Team (Late st Contact Info) Description 07/14/2024 8:57 AM EDT Hospital Encounter TH HISTORIC ENCOUNTERS EASTERN CONVERSION ONLY Social History Tobacco Use Types Packs/Day Years Used Date Smoking Tobacco: Never Assessed Comments Unknown Sex and Gender Information Value Date Recorded Sex Assigned at Not on file Legal Sex Female 2:25 PM EST Gender Identity Not on file Sexual Orientation Not on file documented as of this encounter Last Filed Vital Signs Vital Sign Reading Time Taken Comments Blood Pressure - - Pulse - - Temperature - - Respiratory Rate - - Oxygen Saturation - - Inhaled Oxygen Concentration - - Weight 152 kg (336 lb) 07/05/2024 11:37 AM EDT Height 160 cm (5' 3 ) 07/05/2024 11:37 AM EDT Body Mass Index 59.52 07/05/2024 11:37 AM EDT documented in this encounter Progress Notes * Historical, Notes Results - 07/14/2024 9:30 AM EDT Agustina arrives ambulatory with steady gait for her second of 4 Vitamin B12 injections - Stable assessment completed - no voiced concerns after first injection. Resting comfortably in recliner with call billingsley in reach. 1012 - B12 injection given to left arm per request. Well tolerated. Patient asking about information regarding her iron infusion next week - Pharmacy looking over her information and message sent to MD Hunt regarding what premeds are available for patient to safely have due to . Patient is aware and has no current questions. Has next appt in place. Stable upon discharge. documented in this encounter Plan of Treatment Upcoming Encounters Date Type Department Care Team (Late st Contact Info) Description 08/29/2025 10:00 AM EST Nutrition Bariatric Surgery - [address] [place] [address] Anuja Valdovinos, RD [address] [facility] 120 [place] [address] documented as of this encounter Visit Diagnoses Not on filedocumented in this encounter Care Teams Senior Windows Administrator Relationship Specialty Start Date End Date Ramo Metcalf MD [address] [place] [address] [address] [facility] [place] [address] PCP - General Internal Medicine 07/08/20 05/08/25 documented as of this encounter
--- OUTSIDE RECORDS SUMMARY | 2024-07-28 08:00 | XMS_ITS | Encounter Summary ---
Author Organization [facility] Address [address] [place] [address] Care Team Providers Care Retirement Manager Name Role Phone Ramo Metcalf MD Primary Care Provider [phone] Encounter Details Date Type Department Care Team [...] 10:00 AM EST Nutrition Bariatric Surgery - [address] [address] Anuja Valdovinos, RD 175 [facility] [address] [place] [address] documented as of this encounter Visit Diagnoses Diagnosis Iron deficiency anemia secondary to blood loss (chronic) documented in this encounter Care Teams Retirement Manager Relationship Specialty Start Date End Date Ramo Metcalf MD [address] [place] [address] Dr [address] [facility] [place] [address] PCP - General Internal Medicine 07/08/20 05/08/25 documented as of this encounter
--- OUTSIDE RECORDS SUMMARY | 2024-08-09 07:35 | XMS_ITS | Encounter Summary ---
Author Organization [facility] Address [address] [place] [address] Care Team Providers Care Surveying Technician Name Role Phone Ramo Metcalf MD Primary Care Provider [phone] Encounter Details Date Type Department Care Team [...] Notes Results - 08/09/2024 9:16 AM EDT 915- Patient arrives, ambulatory to unit for weekly [...] 10:00 AM EST Nutrition Bariatric Surgery - [address] [address] Anuja Valdovinos, RD [address] [address] documented as of this encounter Visit Diagnoses Not on filedocumented in this encounter Care Teams Surveying Technician Relationship Specialty Start Date End Date Ramo Metcalf MD [address] [place] [address] [address] [facility] [place] [address] PCP - General Internal Medicine 07/08/20 05/08/25 documented as of this encounter
--- NOTE | 2025-08-15 09:32 | MHC.PC.OV ---
Vital Signs 08/15/25 09:33 Height 5 ft 3 in Weight 324 lb 6 oz BMI 57.5 BP 130/70 Blood Pressure Location Lt brachial Position Sitting Pulse 76 Pulse Source Pulse Oximeter Temp 97.3 F Temp Source Temporal Artery Scan Pulse Oximetry (%) 97 Oxygen Delivery Method Room Air Intake Visit Reasons: [facility] 07/31 rt knee swollen/painful Intake Note: Patient is here to follow-up after a visit the emergency department at [facility] on 07/31/25. Grinding Room Inspector Required: Yes Grinding Room Inspector Language: Hebrew Information Interpreted: non-clinical & clinical Heel Top Lift Splitter: Present Accompanied by: Child Allergies dextran 40 Adverse Reaction (Intermediate, Verified 08/15/25 09:33) Hypertension iron dextran complex Adverse Reaction (Intermediate, Verified 08/15/25 09:33) Hypertension Tobacco use date assessed: 08/15/25 Dental Screening Dental Screen Date: 05/31/25 [facility] Medical History (Updated 08/01/25 @ 00:00 by Antonio Montana) Arthritis of both ankles Arthritis of both feet Hammertoe, bilateral Hallux valgus, bilateral Left foot pain Left ankle pain 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 Brother No problems noted. Brother No problems noted. Sister No problems noted. Sister Lupus Son No problems noted. Daughter No problems noted. Social History Housing: Apartment Alcohol intake: current Alcohol intake frequency: does not drink Patient Tobacco Use Status: Never used Tobacco e-Cigarette/Vaping Use: Never Used Second Hand Smoke Exposure: No service: No Current occupational status: disabled Current occupation: rt hand Cognitive needs: No Hearing needs: No Vision needs: No Female Reproductive History Menstrual Age of Menarche: 13 Questionnaire Thrive Questionnaire Date Thrive assessed: 02/15/25 I am a: Patient What is your living situation today?: I have a steady place to live Within the past 12 months, did the food you bought not last and you didn't have the money to get more?: Often true Within the past 12 months, did you worry whether your food would run out before you got money to buy more?: Often true Do you have trouble paying for medicines?: No Do you have trouble getting transportation to medical appointments?: Yes Do you have trouble paying your heating and electricity bill?: Yes Do you have trouble taking care of your child, family member or friend?: No Do you have trouble with day-to-day activities such as bathing, preparing meals, shopping, managing finances, etc.?: Yes Are you currently unemployed and looking for a job?: No Are you interested in more education?: Yes Currently or been in a relationship where the following occur: No concerns reported THRIVE Score: 4 EDMUNDO-7 AMB Questionnaire EDMUNDO-7 Date EDMUNDO - 7 assessed: 05/31/25 Source: Developed by Drs. Bigg Osorio, Renata Morales, Reinaldo Curtis and colleagues, with an educational lulú from [employer]. Physical exam (Primary Care) Vital Signs: Last Vital Signs Temp 97.3 F 08/15/25 09:33 Pulse 76 08/15/25 09:33 BP 130/70 08/15/25 09:33 Pulse Ox 97 08/15/25 09:33 Oxygen Delivery Method Room Air 08/15/25 09:33 BMI result Body Mass Index 57.5 Tobacco/Smoking Status: Tobacco use Status Tobacco use date assessed 08/15/25 08/15/25 09:40 Patient Tobacco Use Status Never used Tobacco 08/15/25 09:40 e-Cigarette/Vaping Use Never Used 08/15/25 09:40 Thrive Assessment: Date of Thrive Assessment Date Thrive assessed 02/15/25 08/15/25 09:40 Currently or been in a relationship where the following occur: No concerns reported Coding Level of Care Code Est Pt Level 4 (78855) Complex EM visit Add On G2211 Diagnoses Obesity (BMI 30-39.9) E66.9 Assessment & Plan Assessment & Plan (1) Obesity (BMI 30-39.9): Code(s): E66.9 - Obesity, unspecified Plan: History of Present Illness - The patient is a 40-year-old female presenting for evaluation of worsening right knee pain. - She has a diagnosis of crystal deposit disease, also described as crystal arthritis, which is getting worse and causing significant functional impairment, including an inability to navigate stairs or kneel. - She has visited the ER a couple of times for this issue, where an X-ray was performed, and she was treated with prednisone and morphine. - A knee specialist declined to administer a knee injection, advising her to first address her weight. - Additionally, she consulted a scarf and anneal operator who did not recommend weight loss surgery and mentioned an alternative method. - An attempt to obtain a prescription for a weight loss medication was denied by her insurance. Social History - Functional Status: The patient reports being very tired and unable to perform activities such as walking up stairs or kneeling due to her knee pain. - Nutritional Intake: The patient states she does not eat a lot and had skipped breakfast on the day of the visit. - Weight Management: The patient was advised by a knee specialist to lose weight. - She was also seen by a scarf and anneal operator who recommended against bariatric surgery. Review of Systems - Musculoskeletal: Reports worsening pain in the right knee. - Reports inability to walk up stairs or kneel. - Constitutional: Reports fatigue. - Reports decreased appetite. Physical Exam General: Cooperative and healthy appearing Nutritional Appearance: Well nourished Orientation/consciousness: Patient oriented x3 Limitations: No limitations Head: Normal to inspection General: Appearance normal, both eyes and all related structures Neck: Normal visual inspection Chest: Normal palpation of entire chest wall Respiratory: Normal respiratory effort Neurology: Patient oriented x3 Results - Imaging: An X-ray was performed at the ER, but results were not discussed. Plan - The patient was counseled on the importance of weight loss for her knee pain. - Dietary modifications were recommended, including avoiding junk food, reducing carbohydrates such as bread and rice, and limiting sugar, cakes, and pastries. - The patient was advised to increase her intake of vegetables and greens. - Will investigate insurance coverage for weight loss medications, acknowledging that a prior request was denied. Discussion Notes I discussed with the patient that her worsening knee pain is related to crystal arthritis and that weight loss is a critical component of management, as advised by her knee specialist. I provided dietary counseling, emphasizing the need to reduce carbohydrates and sugar while increasing vegetable intake, and advised her not to starve herself. I acknowledged that her insurance previously denied a weight loss medication and stated that I would re-examine coverage options with the insurance company, reminding her that these medications can be expensive and may not be covered. Patient Instructions - It is important to lose weight, as this is the main cause of your knee problems and will help prevent them from getting worse. - Change your diet by avoiding junk food, bread, rice, cakes, and pastries. - Eat more vegetables and greens. - Do not starve yourself, but focus on eating healthy foods. - We will contact your insurance company to see if they will cover weight loss medication. Medications: Refilled nifedipine ER 60 mg PO DAILY 90 tabs 1RF hydralazine 10 mg PO TID 180 tabs 1RF
[2025-08-15 09:33] VITALS: BP 130/70; PULSE 76; TEMP 36.3; O2SAT 97; BMI 57.5
--- OUTSIDE RECORDS SUMMARY | 2025-08-15 10:29 | XMS_ITS | Clinical Summary ---
Author Organization [employer] [facility] Address [address] [place] [address] Care Team Providers Care Assistant Education Director Name Role Phone Ramo Metcalf MD Primary Care Provider [phone] Allergies Active Allergy Reactions Criticality Noted Date [...] age to complete this topic Care Teams Assistant Education Director Relationship Specialty Start Date End Date Ramo Metcalf MD [address] [place] [address] [address] [facility] [place] [id number] PCP - General Internal Medicine 02/18/22
--- OUTSIDE RECORDS SUMMARY | 2025-08-15 10:29 | XMS_ITS | Clinical Summary ---
Author Organization [facility] [employer] Address [address] [place] [address] Care Team Providers Care Agricultural Research Director Name Role Phone Unavailable Primary Care Provider [...]
--- OUTSIDE RECORDS SUMMARY | 2025-08-15 10:29 | XMS_ITS | Data Portability ---
Author Organization [place] - [facility], [facility] Address [address] [place] [address] Assessment Encounter Date Assessment Date Assessment LastModified [...] Patella Mobilizati on, Hunt Taping 2023 024 [email or web address] Not available 4 19:17:39 Procedures None recorded. Surgeries None recorded. Imaging XR, knee, 4 or more view [email or web address] [facility] Office, [address], [place] [address], [place], [address], 4 15:26:45 Medication Orders None recorded. Patient TargetsNo targets recorded. Patient InstructionsNo instructions recorded. Reason for Referral Physical Therapist Referral for Pain of left knee joint VMO Strengthening, Quad & Hamstring Stretching, Patella Mobilization, Hunt Taping Referring Physician: Quinton Goldstein, Orthopedic Surgery, [id number] Encounter Date: 12/27/2023 Results Created Date Observation Date Name Description Value Unit Range Abnormal Flag Note LastModifiedBy Organization Detail LastModifiedTime 06/09/20 24 09/01/2023 imagi ng/di agnos tic resul t No observ ation record ed. [email or web address] Not Available 05/13 12:25:49 Result Notes None recorded. Procedures Surgical History Date Name Laterality Status Provider Name and Address Organization Details Recorded Time 4 18409 Therapeutic Exercise (1:1) cancelled Padilla Arango, PT [address], [place], [address], [facility] 01/16/2024 23:02:59 4 20155: Moderate complexity PT eval cancelled Padilla Arango, PT [address], [place], [address], [facility] 01/16/2024 [...] Updated DateTime 12/27/2023 160.02 cm 61.1 kg/m2 128080.37 g JONAH HURD [place] - [facility] 12/27/2023 10:48:26 Social History None recorded. Functional Status None recorded. Mental Status None recorded. Family History Nothing Reported. Medical History No medical history recorded. Gynecological HistoryNo gynecological history recorded. Obstetrics History GPAL:G 0 P 0 0 0 0 Past Encounters Encounter ID Performer Location Encounter Start Date Encounter Closed Date Diagnosis/Indication Diagnosis SNOMED-CT Code Diagnosis ICD10 Code Diagnosis IMO Codes Diagnosis Note [id number] RADHA Garcia [address] [place] [address] 12/27/2023 10:07:46 12/27/2023 11:29:53 Pain of left knee joint 9744949375 33345 M25.562 Chondromal acia of bilateral patellas 9526774780 3889226 M22.41 M22.42 Bilateral osteoarthritis of knees 1169118553 95214 M17.0 Health Concerns Section Related Observation LastModified by Organization Detai ls LastModified Time None Recorded Concern Status LastModified by Organization Details LastModified Time None Recorded Advance Directives Directive None Recorded Payers Insurance Date Sequence Insurance Name Policy Number Policy Zamorano Covered Member ID Zamorano Member ID Guarantor Name 01/12/2024 1 [employer] - HEALTH [employer] PLAN (MEDICAID HMO) Agustina Semaj [id number] Agustina Semaj Notes Date Note Type Note [...] patient s chart. Quinton Goldstein PA-C [address], [place], [address], [facility] - [facility] 12/27/2023 11:19:47 OBGyn Episode No OBEpisode recorded.
--- OUTSIDE RECORDS SUMMARY | 2025-08-15 10:29 | XMS_ITS | Clinical Summary ---
Author Organization [facility] Address [address] [place] [address] Phone Care Team Providers Care Crawler Tractor Operator Name Role Phone Eriberto Saunders MD Primary Care Provider [phone] Allergies Active Allergy Reactions Criticality Noted Date [...] mg by mouth daily. 2 Active nebulizers [facility] Respiratory Therapy Supplies (NEBULIZER/ADULT MASK) Kit Sig [...] (BMI) of 50.0 to 59.9 in adult ([facility] V24, [facility] V28) 08/02/2024 Gastroesophageal reflux disease 12/26/2021 Allergic rhinitis 07/04/2020 CTS (carpal tunnel syndrome) 07/04/2020 B12 deficiency 08/09/2012 Helicobacter pylori ab+ 08/09/2012 Anemia, iron deficiency 02/08/2012 JENNIFER (obstructive sleep apnea) 01/19/2012 Snoring 01/01/2012 Witnessed apneic spells 01/01/2012 Asthma 08/21/2010 Depression 08/21/2010 Encounters Date Type Department Care Team Description 06/05/2025 12:30 PM EDT Nutrition Bariatric Surgery - [address] [phone] Class 3 severe obesity with serious comorbidity and body mass index (BMI) of 50.0 to 59.9 in adult, unspecified obesity type ([facility] V24, [facility] V28) (Primary Dx) 06/05/2025 9:30 AM EDT Office Visit Bariatric Surgery [address] [phone] Monse Segura MD Morbid obesity with BMI of 50.0-59.9, adult ([facility] V24, [facility] V28) (Primary Dx); JENNIFER (obstructive sleep apnea); [...] 10:00 AM EST Nutrition Bariatric Surgery - [place] [address] [address] Anuja Valdovinos, RD [address] [address] Health Maintenance Due Date Last [...] Recently Relevant to Health Maintenance Insurance [facility] [employer] Care Teams Crawler Tractor Operator Relationship Specialty Start Date End Date Eriberto Saunders MD [facility] [address] [place] [address] [address] [place] [address] PCP - General Internal Medicine 05/09/25
== END 2025-08-15 10:16 | disposition home or self-care (01) ==
LOC: HO.HMCH 09:25
PROVIDERS: PCP Internal Medicine; Visit Provider Internal Medicine
DX: E66.9 Obesity, unspecified (principal); Z68.43 Body mass index [BMI] 50.0-59.9, adult

== ENCOUNTER → 2025-08-15 09:25 | Outpatient (BNVA) | payer OTHER, SELFPAY | PROVIDERS: PCP Internal Medicine; Visit Provider Internal Medicine | DX: M25.561 Pain in right knee (principal); E66.9 Obesity, unspecified; Z68.43 Body mass index [BMI] 50.0-59.9, adult | CPT/HCPCS: 99212 ==

== ENCOUNTER 2025-08-21 10:06 | Outpatient (AMB) | payer OTHER, SELFPAY ==
--- OUTSIDE RECORDS SUMMARY | 2024-07-14 07:57 | XMS_ITS | Encounter Summary ---
Author Organization [facility] Address [address] [place] [address] Care Team Providers Care Freelance Web Designer Name Role Phone Ramo Metcalf MD Primary Care Provider [phone] Encounter Details Date Type Department Care Team [...] 10:00 AM EST Nutrition Bariatric Surgery - [address] [place] [address] Anuja Valdovinos, RD [address] [facility] [address] [place] [address] documented as of this encounter Visit Diagnoses Not on filedocumented in this encounter Care Teams Freelance Web Designer Relationship Specialty Start Date End Date Ramo Metcalf MD [address] [place] [address] [address] [facility] [place] [address] PCP - General Internal Medicine 07/08/20 05/08/25 documented as of this encounter
--- OUTSIDE RECORDS SUMMARY | 2024-07-28 08:00 | XMS_ITS | Encounter Summary ---
Author Organization [facility] Address [address] [place] [address] Care Team Providers Care Typing Secretary Name Role Phone Ramo Metcalf MD Primary Care Provider [phone] Encounter Details Date Type Department Care Team (Latest Contact Info) Description 07/28/2024 9:00 AM EDT Hospital Encounter TH HISTORIC ENCOUNTERS EASTERN CONVERSION ONLY Iron deficiency anemia secondary to blood loss (chronic) Social History Tobacco Use Types Packs/Day Years [...] Progress Notes * Historical, Notes Results - 07/28/2024 9:00 AM EDT Arrived amb for first of 3 venofer doses. Pt is now 17 weeks . She is fatigued and has someback pain, has pinched nerve in right back. Pt has had several courses of venofer here in the past.Last course was administered in Jun with benadryl as premed. However she has a history of having areaction to venofer in the past, tells me her reaction was SOB, shaking, constipation. Plan per is to give with only pepcid as premeds today. PIV placed and premed administered. B12 administered. 0950 Venofer infusion started, call analilia in reach. 1006 Pt rang to report belly cramps, wants to go to the bathroom. Noted pt is breathing heavy, but denies SOB. Venofer infusion stopped, 34.4 ml infused 1011 Walked back from bathroom, pt had some diarrhea and urinated. Vitals are stable. RR 26, pt tells me she normally does get out of breath while walking.O2 sat 100% on room air, still having belly cramps. Halo to Dr. Hunt, order to D/C venofer. NS infusing slowly 1114 VSS, Dr. Hunt does not want pt to get any more venofer, she has a f/u with him next week. She has also has an appt for next B12 scheduled per pt preference. Pt left amb, stable at DC. documented in this encounter Plan of Treatment Upcoming Encounters Date Type Department Care Team (Late st Contact Info) Description 08/29/2025 10:00 AM EST Nutrition Bariatric Surgery - [address] [address] Anuja Valdovinos, RD 175 [facility] [address] [place] [address] documented as of this encounter Visit Diagnoses Diagnosis Iron deficiency anemia secondary to blood loss (chronic) documented in this encounter Care Teams Typing Secretary Relationship Specialty Start Date End Date Ramo Metcalf MD [address] [place] [address] [address] [facility] [place] [address] PCP - General Internal Medicine 07/08/20 05/08/25 documented as of this encounter
--- OUTSIDE RECORDS SUMMARY | 2024-08-09 07:35 | XMS_ITS | Encounter Summary ---
Author Organization [facility] Address [address] [place] [address] Care Team Providers Care Nematology Teacher Name Role Phone Ramo Metcalf MD Primary Care Provider [phone] Encounter Details Date Type Department Care Team [...] 10:00 AM EST Nutrition Bariatric Surgery - [address] [address] Anuja Valdovinos, RD [address] [address] documented as of this encounter Visit Diagnoses Not on filedocumented in this encounter Care Teams Nematology Teacher Relationship Specialty Start Date End Date Ramo Metcalf MD [address] [place] [address] [address] [facility] [place] [address] PCP - General Internal Medicine 07/08/20 05/08/25 documented as of this encounter
--- NOTE | 2025-08-21 10:08 | A.OFFVIS_ITS ---
Intake Visit Reasons: fu B/L foot and ankle pain; after PT Intake Note: ann is a 40 year old female who presents today for a follow up on her right ankle sprain and left foot pain. At her last visit patient was advised to stop taking Meloxicam and take celebrex as an alternative for pain management. She was also provided with a lace up ankle brace for the left ankle, and continue the use of the right lace up ankle brace. She was also provided with a referral for physical therapy and to consider and MRI and cortisone injection if pain persist. Today patient reports she is still in a lot of pain although she was taking the medication and using the brace as indicated. She also denies seeing Physical therapy as no one has called her to schedule the appointments. Allergies dextran 40 Adverse Reaction (Intermediate, Verified 08/15/25 09:33) Hypertension iron dextran complex Adverse Reaction (Intermediate, Verified 08/15/25 09:33) Hypertension HPI Comments Details: The patient is a 40-year-old female presenting for follow-up of persistent pain in bilateral ankles and feet, worse to the right ankle. The pain is located on the posterolateral aspect of the ankles and has been severe, necessitating the use of a brace and Celebrex for management. Despite these measures, the pain persists, and the patient has not yet started physical therapy and is awaiting scheduling. The patient states she recently was in the emergency room due to right knee pain. Patient requests to see a specialist for her right knee pain and swelling. She denies any other pedal concerns. Denies any nausea vomiting fever or chills. 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 Brother No problems noted. Brother No problems noted. Sister No problems noted. Sister Lupus Son No problems noted. Daughter No problems noted. Social History Housing: Apartment Alcohol intake: current Alcohol intake frequency: does not drink Patient Tobacco Use Status: Never used Tobacco e-Cigarette/Vaping Use: Never Used Second Hand Smoke Exposure: No service: No Current occupational status: disabled Current occupation: rt hand Cognitive needs: No Hearing needs: No Vision needs: No Female Reproductive History Menstrual Age of Menarche: 13 Review of Systems Const Details: - Musculoskeletal: Reports persistent pain in both ankles and feet, worse to the right ankle. Reports right knee pain. - Neurological: Reports numbness and tingling B/L, and burning sensations to the LLE. All systems reviewed & are unremarkable except as noted in HPI and below Physical Exam Extrem Other: Bilateral lower extremity focused physical exam: Derm: No open lesions abrasions or wounds noted. Skin supple and turgor within normal limits. No clinical signs of infection. No ecchymosis or erythema noted. Vascular: DP/PT PT pulses palpable. Capillary refill time less than 3 seconds. Temp gradient warm to warm. Pedal hair absent. Edema noted to the ankles and dorsal aspect of the feet bilaterally . Neuro: Protective sensation is grossly intact. Musculoskeletal: Pain on palpation of both ankles and pain on palpation to the dorsal aspect of the midfoot bilaterally. Pain on palpation to the posterolateral aspect of the right ankle. Limited range of motion due to guarding from pain, worse with plantarflexion. Inability to ivette the foot due to pain. Range of motion of the forefoot within normal limits. Antalgic gait noted assisted with ankle lace-up braces and walker. No crepitus noted. Collapse of pedal arches bilaterally. Unable to do anterior drawer test due to guarding from pain. Positive squeeze test. Office Procedures AMB Joint Injection/Aspir Pod Joint Injection/Aspiration Podiatry: Procedure: Right ankle cortisone injection: Cleansed the right ankle with an alcohol swab in the area of the posterolateral aspect at the most painful location previously marked. Next injected 1.5 cc of 1% xylocaine plain, 1 cc of dexamethasone, and 0.5 cc of triamcinolone in the area of the previously marked area with no incidents. A band-aid was applied to the area. Provided patient with after care instructions. RT - Injection of intermediate joint RT Procedure code (CPT) selection complete Office Meds triamcinolone acetonide 40 mg/mL suspension for injection Performing Provider: Anne Bundy DPM Performing Location: [facility] Administered by: Anne Bundy DPM on 08/21/25 10:41 Dose Route Admin Location Dispensed Lot Number Expiration Date [facility] [employer] [place] 20 mg intra-articular 1 mL [id number] [facility] Total Dispensed Waste 1 mL 50 % dexamethasone sodium phosphate 4 mg/mL injection solution Performing Provider: Anne Bundy DPM Performing Location: [facility] Administered by: Anne Bundy DPM on 08/21/25 10:41 Dose Route Admin Location Dispensed Lot Number Expiration Date [facility] [employer] [place] 4 mg intra-articular 1 mL [id number] [employer] [facility] Total Dispensed Waste 1 mL 0 % lidocaine HCl 10 mg/mL (1 %) injection solution Performing Provider: Anne Bundy DPM Performing Location: [facility] Administered by: Anne Bundy DPM on 08/21/25 10:41 Dose Route Admin Location Dispensed Lot Number Expiration Date [facility] [employer] [place] 1.5 mL intra-articular 1.5 mL [id number] Total Dispensed Waste 1.5 mL 0 % Comments: Xylocaine 1% was used. Results Reviewed Results Reviewed: Podiatry read of left foot three-view weight-bearing x-rays (06/20/25): Hallux valgus noted with hammertoes and tailor's bunion. Osteophytic changes noted throughout the midfoot. Calcaneal spurs noted plantarly and posteriorly. No acute fractures or dislocations noted. Podiatry read of the left ankle three-view weight-bearing x-rays (06/20/25): Joint space narrowing noted to the ankle worsened to the lateral aspect of the ankle joint. Mild osteophytic changes noted to the tibia, talus, and fibula. No acute fractures or dislocations noted. Left ankle three-view weight-bearing x-rays (06/20/2025): FINDINGS: Six . Views of the left foot and ankle are submitted. Osseous mineralization is normal. There is no fracture or dislocation. The joint spaces are preserved. There are calcaneal spurs at the plantar aspect and at the insertion of the Achilles tendon. There is diffuse soft tissue swelling about the ankle. IMPRESSION: Diffuse soft tissue swelling about the ankle. Calcaneal spurs as described. No evidence of fracture of the left foot or ankle. Left foot three-view weight-bearing x-rays (06/20/2025): FINDINGS: Six . Views of the left foot and ankle are submitted. Osseous mineralization is normal. There is no fracture or dislocation. The joint spaces are preserved. There are calcaneal spurs at the plantar aspect and at the insertion of the Achilles tendon. There is diffuse soft tissue swelling about the ankle. IMPRESSION: Diffuse soft tissue swelling about the ankle. Calcaneal spurs as described. No evidence of fracture of the left foot or ankle. Podiatry read of right foot three views x-ray (02/24/2025): Joint space narrowing noted to the 1st MPJ. Osteophyte noted to the TNJ & TMTJ. 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 Podiatry read of right ankle two views x-ray (02/24/2025): Minimal Increase in tib-fib spacing and minimal joint space narrowing, otherwise ankle joint within normal limits. Right foot xray (02/24/25): Findings: No fractures or dislocations. Periarticular osteophyte formation at the tibiotalar, talonavicular, naviculocuneiform, and subtalar joints. Calcaneal spurring. No ankle effusion. No radiopaque foreign body. IMPRESSION: 1. No acute findings. Right ankle xray (02/24/25): Findings: No acute fractures or dislocations. No significant arthritic change or erosions. No ankle effusion. No radiopaque foreign body. IMPRESSION: 1. No acute findings. Assessment & Plan Assessment & Plan (1) Right ankle pain: Code(s): M25.571 - Pain in right ankle and joints of right foot Category: Medical Qualifiers: Chronicity: chronic Qualified Code(s): M25.571 - Pain in right ankle and joints of right foot; G89.29 - Other chronic pain (2) Foot pain, right: Code(s): M79.671 - Pain in right foot Category: Medical (3) Chronic instability of ankle: Code(s): M25.373 - Other instability, unspecified ankle Category: Medical (4) Arthritis of both ankles: Code(s): M19.071 - Primary osteoarthritis, right ankle and foot; M19.072 - Primary osteoarthritis, left ankle and foot Category: Medical (5) Right ankle sprain: Code(s): S93.401A - Sprain of unspecified ligament of right ankle, initial encounter Category: Medical Qualifiers: Encounter type: initial encounter Involved ligament of ankle: unspecified ligament Qualified Code(s): S93.401A - Sprain of unspecified ligament of right ankle, initial encounter (6) Right knee pain: Code(s): M25.561 - Pain in right knee Category: Medical (7) Ankle sprain: Code(s): S93.409A - Sprain of unspecified ligament of unspecified ankle, initial encounter Category: Medical Qualifiers: Encounter type: initial encounter Involved ligament of ankle: unspecified ligament Laterality: unspecified laterality Qualified Code(s): S93.409A - Sprain of unspecified ligament of unspecified ankle, initial encounter (8) Chronic ankle pain, bilateral: Code(s): M25.571 - Pain in right ankle and joints of right foot; M25.572 - Pain in left ankle and joints of left foot; G89.29 - Other chronic pain Category: Medical (9) Foot pain, bilateral: Code(s): M79.671 - Pain in right foot; M79.672 - Pain in left foot Category: Medical (10) Left ankle sprain: Code(s): S93.402A - Sprain of unspecified ligament of left ankle, initial encounter Category: Medical Qualifiers: Encounter type: initial encounter Involved ligament of ankle: unspecified ligament Qualified Code(s): S93.402A - Sprain of unspecified ligament of left ankle, initial encounter (11) Left ankle pain: Code(s): M25.572 - Pain in left ankle and joints of left foot Category: Medical Qualifiers: Chronicity: chronic Qualified Code(s): M25.572 - Pain in left ankle and joints of left foot; G89.29 - Other chronic pain (12) Left foot pain: Code(s): M79.672 - Pain in left foot Category: Medical (13) Hallux valgus, bilateral: Code(s): M20.11 - Hallux valgus (acquired), right foot; M20.12 - Hallux valgus (acquired), left foot Category: Medical (14) Hammertoe, bilateral: Code(s): M20.41 - Other hammer toe(s) (acquired), right foot; M20.42 - Other hammer toe(s) (acquired), left foot Category: Medical (15) Arthritis of both feet: Code(s): M19.071 - Primary osteoarthritis, right ankle and foot; M19.072 - Primary osteoarthritis, left ankle and foot Category: Medical Plan Patient was informed and verbally consented to the use of an ambient scribe for clinic note documentation during this visit. I discussed the option of a cortisone injection for the right ankle pain, explaining that it may cause initial soreness but should help reduce pain over time. The patient consented to the injection, and we planned for a follow-up injection for the left ankle in two weeks. I also explained the need for a referral to orthopedics for the knee pain. - Administered cortisone injection to the right ankle to alleviate pain and swelling. - Plan to administer cortisone injection to the left ankle in two weeks. - Refilled prescription for Celebrex to manage pain and inflammation. - Referral to orthopedics for further evaluation of knee pain. - Awaiting scheduling/start of PT. - Consider MRI to evaluate ligaments and tendons if pain persists after physical therapy. - Continue using lace up ankle brace to B/L ankles. RTC in 2 weeks for left ankle cortisone injection. Orders: Orders AMB Joint Injection/Aspiration Podiatry Today G89.29 - Other chronic pain, M19.071 - Primary osteoarthritis, right ankle and foot, M19.072 - Primary osteoarthritis, left ankle and foot, M25.373 - Other instability, unspecified ankle, M25.571 - Pain in right ankle and joints of right foot, M79.671 - Pain in right foot, S93.401A - Sprain of unspecified ligament of right ankle, initial encounter Referrals Orthopedics Referral M25.561 - Pain in right knee Medications: Refilled celecoxib (Celebrex) 200 mg PO BID 60 caps 0RF Arthritis G89.29 - Other chronic pain, M25.571 - Pain in right ankle and joints of right foot, M25.572 - Pain in left ankle and joints of left foot, M79.671 - Pain in right foot, M79.672 - Pain in left foot Coding Level of Care Code Est Pt Level 4 (60948) Diagnoses Chronic pain of right ankle M25.571; G89.29 Chronicity: chronic Foot pain, right M79.671 Chronic instability of ankle M25.373 Arthritis of both ankles M19.071; M19.072 Sprain of right ankle, unspecified ligament, initial encounter S93.401A Encounter type: initial encounter Involved ligament of ankle: unspecified ligament Right knee pain M25.561 Sprain of ankle, unspecified laterality, unspecified ligament, initial encounter S93.409A Encounter type: initial encounter Involved ligament of ankle: unspecified ligament Laterality: unspecified laterality Chronic ankle pain, bilateral M25.571; M25.572; G89.29 Foot pain, bilateral M79.671; M79.672 Sprain of left ankle, unspecified ligament, initial encounter S93.402A Encounter type: initial encounter Involved ligament of ankle: unspecified ligament Chronic pain of left ankle M25.572; G89.29 Chronicity: chronic Left foot pain M79.672 Hallux valgus, bilateral M20.11; M20.12 Hammertoe, bilateral M20.41; M20.42 Arthritis of both feet M19.071; M19.072 CPT Codes Joint injectio/aspiration Podiatry - Joint Injection POD5: RT - Injection of intermediate joint RT ([id number]) Time Spent (min) 40 Comment 10 mins for procedure.
--- OUTSIDE RECORDS SUMMARY | 2025-08-21 11:36 | XMS_ITS | Clinical Summary ---
Author Organization [facility] [employer] Address [address] [place] [address] Care Team Providers Care Digital Media Analyst Name Role Phone Unavailable Primary Care Provider [...]
--- OUTSIDE RECORDS SUMMARY | 2025-08-21 11:36 | XMS_ITS | Data Portability ---
Author Organization [place] - [facility] Address [address] [place] [address] Assessment Encounter Date Assessment Date Assessment LastModified [...] Patella Mobilizati on, Hunt Taping 2023 024 [email or web address] Not available 4 19:17:39 Procedures None recorded. Surgeries None recorded. Imaging XR, knee, 4 or more view 2023 024 [email or web address] [id number] [facility] Office, [address], [place] [address], [place], [address], 4 15:26:45 Medication Orders None recorded. Patient TargetsNo targets recorded. Patient InstructionsNo instructions recorded. Reason for Referral Physical Therapist Referral for Pain of left knee joint VMO Strengthening, Quad & Hamstring Stretching, Patella Mobilization, Hunt Taping Referring Physician: Quinton Goldstein, Orthopedic Surgery, [id number] Encounter Date: 12/27/2023 Results Created Date Observation Date Name Description Value Unit Range Abnormal Flag Note LastModifiedBy Organization Detail LastModifiedTime 06/09/20 24 09/01/2023 imagi ng/di agnos tic resul t No observ ation record ed. [email or web address] Not Available 05/13 12:25:49 Result Notes None recorded. Procedures Surgical History Date Name Laterality Status Provider Name and Address Organization Details Recorded Time 4 90975 Therapeutic Exercise (1:1) cancelled Padilla Arango, PT [address], [place], [address], [facility] 01/16/2024 23:02:59 4 88188: Moderate complexity PT eval cancelled Padilla Arango, PT [address], [place], [address], [facility] 01/16/2024 23:03:53 Imaging Results [...] Updated DateTime 12/27/2023 160.02 cm 61.1 kg/m2 773904.37 g JONAH HURD [place] - [facility] 12/27/2023 10:48:26 Social History None recorded. Functional Status None recorded. Mental Status None recorded. Family History Nothing Reported. Medical History No medical history recorded. Gynecological HistoryNo gynecological history recorded. Obstetrics History GPAL:G 0 P 0 0 0 0 Past Encounters Encounter ID Performer Location Encounter Start Date Encounter Closed Date Diagnosis/Indication Diagnosis SNOMED-CT Code Diagnosis ICD10 Code Diagnosis IMO Codes Diagnosis Note [id number] RADHA Garcia [address] [place] [address] 12/27/2023 10:07:46 12/27/2023 11:29:53 Pain of left knee joint 6106706225 28231 M25.562 Chondromal acia of bilateral patellas 9932360421 1573631 M22.41 M22.42 Bilateral osteoarthritis of knees 1005059036 07882 M17.0 Health Concerns Section Related Observation LastModified by Organization Detai ls LastModified Time None Recorded Concern Status LastModified by Organization Details LastModified Time None Recorded Advance Directives Directive None Recorded Payers Insurance Date Sequence Insurance Name Policy Number Policy Zamorano Covered Member ID Zamorano Member ID Guarantor Name 01/12/2024 1 [facility] (MEDICAID HMO) Agustina Semaj [id number] Agustina Semaj Notes Date Note Type Note [...] patient s chart. Quinton Goldstein PA-C [address], [place], [address], [facility] [place] [facility] 12/27/2023 11:19:47 OBGyn Episode No OBEpisode recorded.
--- OUTSIDE RECORDS SUMMARY | 2025-08-21 11:36 | XMS_ITS | Clinical Summary ---
Author Organization [facility] Address [address] [place] [address] Phone Care Team Providers Care Internet Site Designer Name Role Phone Eriberto Saunders MD Primary Care Provider [phone] Allergies Active Allergy Reactions Criticality Noted Date [...] mg by mouth daily. 2 Active nebulizers [facility] Respiratory Therapy Supplies (NEBULIZER/ADULT MASK) Kit Sig [...] (BMI) of 50.0 to 59.9 in adult ([facility] V24, [facility] V28) 08/02/2024 Gastroesophageal reflux disease 12/26/2021 Allergic rhinitis 07/04/2020 CTS (carpal tunnel syndrome) 07/04/2020 B12 deficiency 08/09/2012 Helicobacter pylori ab+ 08/09/2012 Anemia, iron deficiency 02/08/2012 JENNIFER (obstructive sleep apnea) 01/19/2012 Snoring 01/01/2012 Witnessed apneic spells 01/01/2012 Asthma 08/21/2010 Depression 08/21/2010 Encounters Date Type Department Care Team Description 06/05/2025 12:30 PM EDT Nutrition Bariatric Surgery - [address] [phone] Class 3 severe obesity with serious comorbidity and body mass index (BMI) of 50.0 to 59.9 in adult, unspecified obesity type ([facility] V24, [facility] V28) (Primary Dx) 06/05/2025 9:30 AM EDT Office Visit Bariatric Surgery [address] [phone] Monse Segura MD Morbid obesity with BMI of 50.0-59.9, adult ([facility] V24, [facility] V28) (Primary Dx); JENNIFER (obstructive sleep apnea); [...] 10:00 AM EST Nutrition Bariatric Surgery - [place] [address] [address] Anuja Valdovinos, RD [address] [address] Health Maintenance Due Date Last [...] Most Recently Relevant to Health Maintenance Insurance [facility] [employer] Care Teams Internet Site Designer Relationship Specialty Start Date End Date Eriberto Saunders MD [facility] [address] [place] [address] [address] [place] [address] PCP - General Internal Medicine 05/09/25
== END 2025-08-21 10:38 | disposition home or self-care (01) ==
LOC: HO.HPODS 10:06
PROVIDERS: PCP Internal Medicine; Visit Provider Student in an Organized Health Care Education/Training Program
DX: M25.571 Pain in right ankle and joints of right foot (principal); G89.29 Other chronic pain; M79.671 Pain in right foot; M25.371 Other instability, right ankle; M19.071 Primary osteoarthritis, right ankle and foot; M19.072 Primary osteoarthritis, left ankle and foot; S93.401A Sprain of unspecified ligament of right ankle, initial encounter; M25.561 Pain in right knee; M25.572 Pain in left ankle and joints of left foot; M79.672 Pain in left foot; S93.402A Sprain of unspecified ligament of left ankle, initial encounter; M20.11 Hallux valgus (acquired), right foot; M20.12 Hallux valgus (acquired), left foot; M20.41 Other hammer toe(s) (acquired), right foot; M20.42 Other hammer toe(s) (acquired), left foot; M25.372 Other instability, left ankle
CPT/HCPCS: 20605; 99214

== ENCOUNTER → 2025-08-21 10:06 | Outpatient (BNVA) | payer OTHER, SELFPAY | PROVIDERS: PCP Internal Medicine; Visit Provider Student in an Organized Health Care Education/Training Program | DX: S93.401A Sprain of unspecified ligament of right ankle, initial encounter (principal); M25.372 Other instability, left ankle; M19.071 Primary osteoarthritis, right ankle and foot; M19.072 Primary osteoarthritis, left ankle and foot; M25.561 Pain in right knee; S93.402A Sprain of unspecified ligament of left ankle, initial encounter; M20.11 Hallux valgus (acquired), right foot; M20.12 Hallux valgus (acquired), left foot; M20.41 Other hammer toe(s) (acquired), right foot; M20.42 Other hammer toe(s) (acquired), left foot; X58.XXXA Exposure to other specified factors, initial encounter; Y93.9 Activity, unspecified; Y92.9 Unspecified place or not applicable; Y99.9 Unspecified external cause status | CPT/HCPCS: 20605; 99212; J1100; J2003; J3301 ==

== ENCOUNTER 2025-09-04 09:45 | Outpatient (AMB) | payer OTHER, SELFPAY ==
--- OUTSIDE RECORDS SUMMARY | 2024-07-14 07:57 | XMS_ITS | Encounter Summary ---
Author Organization [facility] Address [address] [place] [address] Care Team Providers Care Pitch Worker Name Role Phone Ramo Metcalf MD Primary Care Provider [phone] Encounter Details Date Type Department Care Team [...] documented in this encounter Plan of Treatment Not on file documented as of this encounter Visit Diagnoses Not on filedocumented in this encounter Care Teams Pitch Worker Relationship Specialty Start Date End Date Ramo Metcalf MD [address] [place] [address] Dr [address] [facility] [place] [address] PCP - General Internal Medicine 07/08/20 05/08/25 documented as of this encounter
--- OUTSIDE RECORDS SUMMARY | 2024-07-28 08:00 | XMS_ITS | Encounter Summary ---
Author Organization [facility] Address [address] [place] [address] Care Team Providers Care Vocational Teacher Name Role Phone Ramo Metcalf MD Primary Care Provider [phone] Encounter Details Date Type Department Care Team [...] (chronic) documented in this encounter Care Teams Vocational Teacher Relationship Specialty Start Date End Date Po, MD Ramo [address] [place] [address] Dr [address] [facility] [place] [address] PCP - General Internal Medicine 07/08/20 05/08/25 documented as of this encounter
--- OUTSIDE RECORDS SUMMARY | 2024-08-09 07:35 | XMS_ITS | Encounter Summary ---
Author Organization [facility] Address [address] [place] [address] Care Team Providers Care Senior Javascript Engineer Name Role Phone Ramo Metcalf MD Primary Care Provider [phone] Encounter Details Date Type Department Care Team (Late st Contact Info) Description 08/09/2024 8:35 AM EDT Hospital Encounter TH HISTORIC ENCOUNTERS [...] Progress Notes * Historical, Notes Results - 08/09/2024 9:16 AM EDT 09- Patient arrives, ambulatory to unit for weekly B12 injection. She tells this nurse she is approximately 20 weeks . She reports ongoing fatigue and dyspnea on exertion. Has been sleepingsomewhat poorly in the last few weeks. She has no questions or concerns for this nurse. Treatment plan reviewed and injection released from plan to pharmacy. Patient is resting in recliner using phone while awaiting pharmacy to verify medication. 921- Vitamin B12 injection administered into the left upper outer arm. Patient tolerated well. Band-aid applied to site. B12 plan is now complete. Message sent to MD to clarify plan for future. Per MD, patient will continue with monthly injections following today's appointment. Next appointment booked, printed and given to patient. She left the unit stable, ambulatory without questions or concerns. documented in this encounter Plan of Treatment Not on file documented as of this encounter Visit Diagnoses Not on filedocumented in this encounter Care Teams Senior Javascript Engineer Relationship Specialty Start Date End Date Po, MD Ramo [address] [place] [address] [address] [facility] [place] [address] PCP - General Internal Medicine 07/08/20 05/08/25 documented as of this encounter
--- NOTE | 2025-09-04 09:54 | MHC.OFFVIS ---
Vital Signs 09/04/25 09:56 Height 5 ft 3 in Weight 324 lb BMI 57.4 Intake Visit Reasons: for left ankle cortisone inj Intake Note: Agustina is a 40 year old female who presents today for a follow up on her right ankle sprain and left foot pain. At her last visit a cortisone injection was administered to her right ankle and her Celebrex prescription was refilled. A referral to ortho was placed to evaluate her knee pain and we was waiting for her PT appointment to be scheduled. She was advised to continue utilizing her ankle brace to both ankles. Today we plan on administering a cortisone injection to her left ankle. Patient reports the cortisone injection helped relieve her pain slightly. She was unable to obtain the celebrex medication from her pharmacy. She currently does not have an appointment scheduled with PT or ortho at this time. Patient states she is still utilizing her ankle braces. Allergies dextran 40 Adverse Reaction (Intermediate, Verified 09/04/25 09:57) Hypertension iron dextran complex Adverse Reaction (Intermediate, Verified 09/04/25 09:57) Hypertension HPI Comments Details: The patient is a 40 year old individual presenting for a follow up of B/L ankle pain and instability. Patient had a cortisone injection to the right ankle previously which has provided some relief. She states she has not received the prescription for Celebrex. Patient has not started PT yet. Patient continues to experience pain, now worse to the left ankle. The pain is primarily located in the posterolateral aspect of the left ankle and has been persistent. She denies any other pedal concerns. Patient was seen wearing Crocs without ankle braces. [facility] Medical History (Updated 08/21/25 @ 10:34 by Anne Bundy DPM) Right knee pain Arthritis of both ankles Arthritis of both feet Hammertoe, bilateral Hallux valgus, bilateral Left foot pain Left ankle pain 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 Brother No problems noted. Brother No problems noted. Sister No problems noted. Sister Lupus Son No problems noted. Daughter No problems noted. Social History Housing: Apartment Alcohol intake: current Alcohol intake frequency: does not drink Patient Tobacco Use Status: Never used Tobacco e-Cigarette/Vaping Use: Never Used Second Hand Smoke Exposure: No service: No Current occupational status: disabled Current occupation: rt hand Cognitive needs: No Hearing needs: No Vision needs: No Female Reproductive History Menstrual Age of Menarche: 13 Review of Systems Const Details: - Musculoskeletal: Reports persistent pain in both ankles and feet, worse to the left ankle. - Neurological: Reports numbness and tingling B/L, and burning sensations to the LLE. All systems reviewed & are unremarkable except as noted in HPI and below Physical Exam Vital Signs: BMI result Body Mass Index 57.4 Extrem Other: Bilateral lower extremity focused physical exam: Derm: No open lesions abrasions or wounds noted. Skin supple and turgor within normal limits. No clinical signs of infection. No ecchymosis or erythema noted. Vascular: DP/PT PT pulses palpable. Capillary refill time less than 3 seconds. Temp gradient warm to warm. Pedal hair absent. Edema noted to the ankles and dorsal aspect of the feet bilaterally . Neuro: Protective sensation is grossly intact. Musculoskeletal: Pain on palpation of both ankles and pain on palpation to the dorsal aspect of the midfoot bilaterally. Pain on palpation to the posterolateral aspect of the left ankle. Limited range of motion due to guarding from pain, worse with plantarflexion. Inability to ivette the foot due to pain. Range of motion of the forefoot within normal limits. Antalgic gait noted assisted with a walker. No crepitus noted. Collapse of pedal arches bilaterally. Unable to do anterior drawer test due to guarding from pain. Positive squeeze test. Office Procedures AMB Joint Injection/Aspir Pod Joint Injection/Aspiration Podiatry: Procedure: Right left cortisone injection: Cleansed the left ankle with an alcohol swab in the area of the posterolateral aspect at the most painful location previously marked. Next injected 1.5 cc of 1% xylocaine plain, 1 cc of dexamethasone, and 0.5 cc of triamcinolone in the area of the previously marked area with no incidents. A band-aid was applied to the area. Provided patient with after care instructions. LT - Injection of intermediate joint LT Procedure code (CPT) selection complete Office Meds triamcinolone acetonide 40 mg/mL suspension for injection Performing Provider: Anne Bundy DPM Performing Location: [facility] Administered by: Anne Bundy DPM on 09/09/25 18:09 Dose Route Admin Location Dispensed Lot Number Expiration Date [facility] [employer] 20 mg intra-articular 1 mL [id number] [employer] Total Dispensed Waste 1 mL 50 % dexamethasone sodium phosphate 4 mg/mL injection solution Performing Provider: Anne Bundy DPM Performing Location: [facility] Administered by: Anne Bundy DPM on 09/09/25 18:09 Dose Route Admin Location Dispensed Lot Number Expiration Date [facility] [employer] 4 mg intra-articular 1 mL [id number] [facility] Total Dispensed Waste 1 mL 0 % lidocaine HCl 10 mg/mL (1 %) injection solution Performing Provider: Anne Bundy DPM Performing Location: [facility] Administered by: Anne Bundy DPM on 09/09/25 18:09 Dose Route Admin Location Dispensed Lot Number Expiration Date [facility] [employer] 1.5 mL intra-articular 1.5 mL [id number] Total Dispensed Waste 1.5 mL 0 % Comments: Xylocaine 1% was used. Results Reviewed Results Reviewed: Podiatry read of left foot three-view weight-bearing x-rays (06/20/25): Hallux valgus noted with hammertoes and tailor's bunion. Osteophytic changes noted throughout the midfoot. Calcaneal spurs noted plantarly and posteriorly. No acute fractures or dislocations noted. Podiatry read of the left ankle three-view weight-bearing x-rays (06/20/25): Joint space narrowing noted to the ankle worsened to the lateral aspect of the ankle joint. Mild osteophytic changes noted to the tibia, talus, and fibula. No acute fractures or dislocations noted. Left ankle three-view weight-bearing x-rays (06/20/2025): FINDINGS: Six . Views of the left foot and ankle are submitted. Osseous mineralization is normal. There is no fracture or dislocation. The joint spaces are preserved. There are calcaneal spurs at the plantar aspect and at the insertion of the Achilles tendon. There is diffuse soft tissue swelling about the ankle. IMPRESSION: Diffuse soft tissue swelling about the ankle. Calcaneal spurs as described. No evidence of fracture of the left foot or ankle. Left foot three-view weight-bearing x-rays (06/20/2025): FINDINGS: Six . Views of the left foot and ankle are submitted. Osseous mineralization is normal. There is no fracture or dislocation. The joint spaces are preserved. There are calcaneal spurs at the plantar aspect and at the insertion of the Achilles tendon. There is diffuse soft tissue swelling about the ankle. IMPRESSION: Diffuse soft tissue swelling about the ankle. Calcaneal spurs as described. No evidence of fracture of the left foot or ankle. Podiatry read of right foot three views x-ray (02/24/2025): Joint space narrowing noted to the 1st MPJ. Osteophyte noted to the TNJ & TMTJ. 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 Podiatry read of right ankle two views x-ray (02/24/2025): Minimal Increase in tib-fib spacing and minimal joint space narrowing, otherwise ankle joint within normal limits. Right foot xray (02/24/25): Findings: No fractures or dislocations. Periarticular osteophyte formation at the tibiotalar, talonavicular, naviculocuneiform, and subtalar joints. Calcaneal spurring. No ankle effusion. No radiopaque foreign body. IMPRESSION: 1. No acute findings. Right ankle xray (02/24/25): Findings: No acute fractures or dislocations. No significant arthritic change or erosions. No ankle effusion. No radiopaque foreign body. IMPRESSION: 1. No acute findings. Assessment & Plan Assessment & Plan (1) Right ankle pain: Code(s): M25.571 - Pain in right ankle and joints of right foot Category: Medical Qualifiers: Chronicity: chronic Qualified Code(s): M25.571 - Pain in right ankle and joints of right foot; G89.29 - Other chronic pain (2) Foot pain, right: Code(s): M79.671 - Pain in right foot Category: Medical (3) Chronic instability of ankle: Code(s): M25.373 - Other instability, unspecified ankle Category: Medical (4) Arthritis of both ankles: Code(s): M19.071 - Primary osteoarthritis, right ankle and foot; M19.072 - Primary osteoarthritis, left ankle and foot Category: Medical (5) Right ankle sprain: Code(s): S93.401A - Sprain of unspecified ligament of right ankle, initial encounter Category: Medical Qualifiers: Encounter type: initial encounter Involved ligament of ankle: unspecified ligament Qualified Code(s): S93.401A - Sprain of unspecified ligament of right ankle, initial encounter (6) Right knee pain: Code(s): M25.561 - Pain in right knee Category: Medical (7) Ankle sprain: Code(s): S93.409A - Sprain of unspecified ligament of unspecified ankle, initial encounter Category: Medical Qualifiers: Encounter type: initial encounter Involved ligament of ankle: unspecified ligament Laterality: unspecified laterality Qualified Code(s): S93.409A - Sprain of unspecified ligament of unspecified ankle, initial encounter (8) Chronic ankle pain, bilateral: Code(s): M25.571 - Pain in right ankle and joints of right foot; M25.572 - Pain in left ankle and joints of left foot; G89.29 - Other chronic pain Category: Medical (9) Foot pain, bilateral: Code(s): M79.671 - Pain in right foot; M79.672 - Pain in left foot Category: Medical (10) Left ankle sprain: Code(s): S93.402A - Sprain of unspecified ligament of left ankle, initial encounter Category: Medical Qualifiers: Encounter type: initial encounter Involved ligament of ankle: unspecified ligament Qualified Code(s): S93.402A - Sprain of unspecified ligament of left ankle, initial encounter (11) Left ankle pain: Code(s): M25.572 - Pain in left ankle and joints of left foot Category: Medical Qualifiers: Chronicity: chronic Qualified Code(s): M25.572 - Pain in left ankle and joints of left foot; G89.29 - Other chronic pain (12) Left foot pain: Code(s): M79.672 - Pain in left foot Category: Medical (13) Hallux valgus, bilateral: Code(s): M20.11 - Hallux valgus (acquired), right foot; M20.12 - Hallux valgus (acquired), left foot Category: Medical (14) Hammertoe, bilateral: Code(s): M20.41 - Other hammer toe(s) (acquired), right foot; M20.42 - Other hammer toe(s) (acquired), left foot Category: Medical (15) Arthritis of both feet: Code(s): M19.071 - Primary osteoarthritis, right ankle and foot; M19.072 - Primary osteoarthritis, left ankle and foot Category: Medical Plan Patient was informed and verbally consented to the use of an ambient scribe for clinic note documentation during this visit. I discussed with the patient the importance of starting physical therapy to manage the ankle pain. We also talked about the cortisone injection administered today and the need to follow up in six weeks to evaluate symptoms. - Resent prescription for Celebrex. - Administered cortisone injection to the left ankle. - Provide patient with contact information for physical therapy to schedule sessions. - Encourage initiation of physical therapy to aid in pain management and improve functionality. - Awaiting scheduling/start of PT. - Consider MRI to evaluate ligaments and tendons if pain persists after physical therapy. - Continue using lace up ankle brace to B/L ankles. RTC in 6 weeks. Orders: Orders AMB Joint Injection/Aspiration Podiatry 09/04/25 M19.071 - Primary osteoarthritis, right ankle and foot, M19.072 - Primary osteoarthritis, left ankle and foot, M20.11 - Hallux valgus (acquired), right foot, M20.12 - Hallux valgus (acquired), left foot, M20.41 - Other hammer toe(s) (acquired), right foot, M20.42 - Other hammer toe(s) (acquired), left foot, M25.373 - Other instability, unspecified ankle, S93.401A - Sprain of unspecified ligament of right ankle, initial encounter, S93.402A - Sprain of unspecified ligament of left ankle, initial encounter, S93.409A - Sprain of unspecified ligament of unspecified ankle, initial encounter Medications: New celecoxib (Celebrex) 200 mg PO BID 60 caps 0RF G89.29 - Other chronic pain, M25.571 - Pain in right ankle and joints of right foot, M25.572 - Pain in left ankle and joints of left foot, M77.30 - Calcaneal spur, unspecified foot, M79.671 - Pain in right foot, M79.672 - Pain in left foot Discontinued celecoxib (Celebrex) Discontinued Reason: Doctor's Order 200 mg PO BID 60 caps 0RF Arthritis G89.29 - Other chronic pain, M25.571 - Pain in right ankle and joints of right foot, M25.572 - Pain in left ankle and joints of left foot, M79.671 - Pain in right foot, M79.672 - Pain in left foot Coding Level of Care Code Est Pt Level 4 (47367) Diagnoses Chronic pain of right ankle M25.571; G89.29 Chronicity: chronic Foot pain, right M79.671 Chronic instability of ankle M25.373 Arthritis of both ankles M19.071; M19.072 Sprain of right ankle, unspecified ligament, initial encounter S93.401A Encounter type: initial encounter Involved ligament of ankle: unspecified ligament Right knee pain M25.561 Sprain of ankle, unspecified laterality, unspecified ligament, initial encounter S93.409A Encounter type: initial encounter Involved ligament of ankle: unspecified ligament Laterality: unspecified laterality Chronic ankle pain, bilateral M25.571; M25.572; G89.29 Foot pain, bilateral M79.671; M79.672 Sprain of left ankle, unspecified ligament, initial encounter S93.402A Encounter type: initial encounter Involved ligament of ankle: unspecified ligament Chronic pain of left ankle M25.572; G89.29 Chronicity: chronic Left foot pain M79.672 Hallux valgus, bilateral M20.11; M20.12 Hammertoe, bilateral M20.41; M20.42 Arthritis of both feet M19.071; M19.072 CPT Codes Joint injectio/aspiration Podiatry - Joint Injection POD4: LT - Injection of intermediate joint LT ([id number]) Time Spent (min) 35 Comment 5 mins for procedure
[2025-09-04 09:56] VITALS: BMI 57.4
--- OUTSIDE RECORDS SUMMARY | 2025-09-04 11:25 | XMS_ITS | Clinical Summary ---
Author Organization [facility] Address [address] [place] [address] Care Team Providers Care Education Managers Name Role Phone Ramo Metcalf MD Primary Care Provider Allergies Active Allergy Reactions Criticality Noted Date [...] age to complete this topic Care Teams Education Managers Relationship Specialty Start Date End Date Ramo Metcalf MD [address] [place] [address] [address] [facility] [place] [id number] PCP - General Internal Medicine 02/18/22
--- OUTSIDE RECORDS SUMMARY | 2025-09-04 11:25 | XMS_ITS | Clinical Summary ---
Author Organization [facility] [employer] Address [address] [place] [address] Care Team Providers Care Dancing Teacher Name Role Phone Unavailable Primary Care Provider [...]
--- OUTSIDE RECORDS SUMMARY | 2025-09-04 11:25 | XMS_ITS | Clinical Summary ---
Author Organization [facility] Address [address] [place] [address] Phone Care Team Providers Care Indoor Sports Centre Manager Name Role Phone Eriberto Saunders MD Primary Care Provider [phone] Allergies Active Allergy Reactions Criticality Noted Date [...] mg by mouth daily. 2 Active nebulizers [facility] Respiratory Therapy Supplies (NEBULIZER/ADULT MASK) Kit Sig [...] (BMI) of 50.0 to 59.9 in adult ([facility] V24, [facility] V28) 08/02/2024 Gastroesophageal reflux disease 12/26/2021 Allergic rhinitis 07/04/2020 CTS (carpal tunnel syndrome) 07/04/2020 B12 deficiency 08/09/2012 Helicobacter pylori ab+ 08/09/2012 Anemia, iron deficiency 02/08/2012 JENNIFER (obstructive sleep apnea) 01/19/2012 Snoring 01/01/2012 Witnessed apneic spells 01/01/2012 Asthma 08/21/2010 Depression 08/21/2010 Encounters Date Type Department Care Team Description 06/05/2025 12:30 PM EDT Nutrition Bariatric Surgery - [address] [id number] Class 3 severe obesity with serious comorbidity and body mass index (BMI) of 50.0 to 59.9 in adult, unspecified obesity type ([facility] V24, [facility] V28) (Primary Dx) 06/05/2025 9:30 AM EDT Office Visit Bariatric Surgery [address] [id number] Monse Segura MD Morbid obesity with BMI of 50.0-59.9, adult ([facility] V24, [facility] V28) (Primary Dx); JENNIFER (obstructive sleep apnea); [...] 06/05/2025 9:27 AM EDT Plan of Treatment Health Maintenance [...] Results * Annual BMP Blood Test (02/11/2024) [facility] Annual BMP Blood Test abstracted [facility] Provider HEALTH MAINTENANCE Final Result * (ABNORMAL) Lipid panel (02/11/2024) [facility] LDL/HDL Ratio 4 0 - 4 Triglycerides 99 0 - 150 mg/dL Cholesterol 189 0 - 200 mg/dL HDL 51 >=40 mg/dL LDL Cholesterol 119(A) 0 - 100 mg/dL Blood Venous blood specimen / Unknown [facility] Provider LAB BLOOD ORDERABLES Parisa l Result * Cervical Cancer Screening: HPV (04/20/2013) [facility] Cervical Cancer Screening: HPV normal, abstracted [facility] Provider HEALTH MAINTENANCE Final Result from Last 3 Months or Most Recently Relevant to Health Maintenance Insurance [facility] Care Teams Indoor Sports Centre Manager Relationship Specialty Start Date End Date Eriberto Saunders MD [facility] [address] [place] [address] [address] [place] [address] PCP - General Internal Medicine 05/09/25
== END 2025-09-04 10:16 | disposition home or self-care (01) ==
LOC: HO.HPODS 09:46
PROVIDERS: PCP Internal Medicine; Visit Provider Student in an Organized Health Care Education/Training Program
DX: M25.571 Pain in right ankle and joints of right foot (principal); G89.29 Other chronic pain; M79.671 Pain in right foot; M25.373 Other instability, unspecified ankle; M19.071 Primary osteoarthritis, right ankle and foot; M19.072 Primary osteoarthritis, left ankle and foot; S93.401A Sprain of unspecified ligament of right ankle, initial encounter; M25.561 Pain in right knee; S93.409A Sprain of unspecified ligament of unspecified ankle, initial encounter; M25.572 Pain in left ankle and joints of left foot; M79.672 Pain in left foot; S93.402A Sprain of unspecified ligament of left ankle, initial encounter; M20.11 Hallux valgus (acquired), right foot; M20.12 Hallux valgus (acquired), left foot; M20.41 Other hammer toe(s) (acquired), right foot; M20.42 Other hammer toe(s) (acquired), left foot
CPT/HCPCS: 20605; 99214

== ENCOUNTER → 2025-09-04 09:45 | Outpatient (BNVA) | payer OTHER, SELFPAY | PROVIDERS: PCP Internal Medicine; Visit Provider Student in an Organized Health Care Education/Training Program | DX: S93.401A Sprain of unspecified ligament of right ankle, initial encounter (principal); S93.402A Sprain of unspecified ligament of left ankle, initial encounter; M19.071 Primary osteoarthritis, right ankle and foot; M19.072 Primary osteoarthritis, left ankle and foot; M20.41 Other hammer toe(s) (acquired), right foot; M20.42 Other hammer toe(s) (acquired), left foot; M20.11 Hallux valgus (acquired), right foot; M20.12 Hallux valgus (acquired), left foot; M25.373 Other instability, unspecified ankle; X58.XXXA Exposure to other specified factors, initial encounter; Y93.9 Activity, unspecified; Y92.9 Unspecified place or not applicable; Y99.9 Unspecified external cause status | CPT/HCPCS: 20605; 99212; J1100; J2003; J3301 ==